=== PATIENT | female | born 1975 | race Caucasian/White ===

== ENCOUNTER → 2016-12-17 | Outpatient (CLI) | payer BC ==
--- NOTE | 2016-12-21 08:40 | MM ---
Reason for exam: screening (asymptomatic). Last mammogram was performed 1 year and 4 months ago. Physical Findings: A clinical breast exam by your physician is recommended on an annual basis and results should be correlated with mammographic findings. MG Screening Mammo w CAD Bilateral CC and MLO view(s) were taken. Prior study comparison: August 05, 2015, bilateral MG 3d diag mammo w/cad [facility]. The breast tissue is heterogeneously dense. This may lower the sensitivity of mammography. No significant changes when compared with prior studies. ASSESSMENT: Benign, BI-RAD 2 RECOMMENDATION: Routine screening mammogram of both breasts in 1 year.
== END | disposition home or self-care (01) ==
LOC: RADMAMWWP 06:53
PROVIDERS: ATTEND Obstetrics & Gynecology
DX: Z12.31 Encounter for screening mammogram for malignant neoplasm of breast (principal)

== ENCOUNTER 2017-05-24 21:40 | Emergency (ER) | payer BC ==
[2017-05-24 21:47] VITALS: BP 124/72; PULSE 122; RESP 22; TEMP 97.1
--- NOTE | 2017-05-24 21:55 | ED ---
General Adult HPI - General Chief complaint: Recheck/Abnormal Lab/Rx Stated complaint: Low K+ Time Seen by Provider: 05/24/17 21:53 Source: patient Mode of arrival: ambulatory Limitations: no limitations - History of Present Illness Initial comments: Cinthia is a 41-year-old female with past medical history listed below who presents to the emergency department for evaluation of muscle cramping. Patient reports that she has a history of hypokalemia resulting in severe muscle cramping. She reports that she follows with her primary care physician and has her electrolytes checked monthly. She reports that her potassium was checked on the ninth of this month and was noted to be 2.6. She was advised by her primary care physician that this is again low but normal potassium and that she does not need supplementation she continued to take her hydrochlorothiazide as prescribed. Patient reports that this afternoon she began feeling cramping in her arms and legs which was similar in character to previous episodes of hypokalemia. She then decided to eat multiple bananas and cantaloupe that she has been told that these are high in potassium. She does have a history of gastric bypass surgery and eating this much subsequent caused her to develop nausea, vomiting and diarrhea. She reports that throughout the evening her cramping has become worse and while in route to the hospital she developed cramping in her hands and now feels that she cannot move her hands at all. Patient says this is identical in character to previous episodes of hypokalemia. Patient reports a prior to onset of this muscle cramping she was in her usual state of health. She denies any fevers, chills, nausea, vomiting, chest pain or shortness of breath. - Related Data Home Medications Medication Instructions Recorded Confirmed ALPRAZolam [ALPRAZolam] 0.25 mg PO DAILY 10/02/15 05/24/17 metFORMIN HCL [metFORMIN HCL] 500 mg PO DAILY 10/02/15 05/24/17 traMADol HCL [Tramadol HCl] 50 mg PO DAILY 10/02/15 05/24/17 Amitriptyline HCl 25 mg PO DAILY 05/24/17 05/24/17 Hydrochlorothiazide 12.5 mg PO DAILY 05/24/17 05/24/17 Levothyroxine Sodium [Synthroid] 75 mcg PO DAILY 05/24/17 05/24/17 Lisinopril [Zestril] 5 mg PO DAILY 05/24/17 05/24/17 Phentermine HCl [Adipex-P] 37.5 mg PO QAM 05/24/17 05/24/17 Topiramate [Topamax] 100 mg PO HS 05/24/17 05/24/17 Allergies Allergy/AdvReac Type Severity Reaction Status Date / Time gentamicin [Gentamicin] AdvReac SHAKES Verified 05/24/17 22:38 Review of Systems ROS Statement: Those systems with pertinent positive or pertinent negative responses have been documented in the HPI. ROS Other: All systems not noted in ROS Statement are negative. Constitutional: Denies: fever, chills Eyes: Denies: vision change Respiratory: Denies: cough, dyspnea Cardiovascular: Reports: palpitations. Denies: chest pain Endocrine: Denies: fatigue Gastrointestinal: Reports: nausea, vomiting, diarrhea. Denies: abdominal pain Genitourinary: Denies: urgency, dysuria Musculoskeletal: Reports: as per HPI, myalgia Skin: Denies: rash, lesions Neurological: Denies: headache, weakness Psychiatric: Reports: anxiety Past Medical History Past Medical History: Diabetes Mellitus, Thyroid Disorder History of Any Multi-Drug Resistant Organisms: None Reported Past Surgical History: Bariatric Surgery, Section, Cholecystectomy, Tubal Ligation Past Psychological History: Anxiety Smoking Status: Never smoker Past Alcohol Use History: None Reported Past Drug Use History: None Reported General Exam Limitations: no limitations General appearance: alert, anxious Head exam: Present: atraumatic, normocephalic, normal inspection Eye exam: Present: normal appearance, PERRL ENT exam: Present: normal exam Neck exam: Present: normal inspection Respiratory exam: Present: normal lung sounds bilaterally. Absent: respiratory distress Cardiovascular Exam: Present: regular rate, tachycardia GI/Abdominal exam: Present: soft. Absent: distended Extremities exam: Present: normal capillary refill, other (bilateral wrists are kept in a flexed position, fingers are in claw position ). Absent: pedal edema , joint swelling Back exam: Present: normal inspection. Absent: CVA tenderness (R), CVA tenderness (L) Neurological exam: Present: alert, oriented X3 Psychiatric exam: Present: anxious Skin exam: Present: warm, dry, intact, normal color Course Vital Signs 05/24/17 21:43 Temperature 97.1 F L Pulse Rate 122 H Respiratory 22 Rate Blood Pressure 124/72 O2 Sat by Pulse 99 Oximetry - Reevaluation(s) Reevaluation #1: Patient was reevaluated, continues to lay in the bed and is crying. Patient was advised that her potassium level is normal. Patient then began complaining of worsening pain in her arms and legs describing is tearing sensation patient states that she cannot move her hands or arms. I advised patient to practice controlled slow breathing as she appears to be hyperventilating. 05/24/17 23:12 Reevaluation #2: Patient reevaluated, resting comfortably in bed playing games on her cell phone 05/25/17 00:14 Medical Decision Making - Medical Decision Making Patient was seen and evaluated Signs were reviewed Patient was noted to be tachycardic Upon initial evaluation patient was noted to be crying, holding her arms in a flexed position her wrist in a flexed position and her fingers in a claw position Patient states that she knows her potassium is too low as this causes muscle cramping for her Labs reveal normal potassium bicarb is mildly low at 21 as is likely secondary to hyperventilation Patient was reevaluated and advised abnormal labs I do believe there is a component of panic attack this patient's symptoms, we will treat with Toradol for muscle discomfort and Ativan for anxiety Patient symptoms resolved after Toradol and Ativan Patient was discharged home with a diagnosis of muscle spasm. Patient was advised to follow-up with her primary care physician to discuss the recurrence of the symptoms. I did discuss with the patient that I do feel there is a anxiety component, patient is on oral benzodiazepines at home. I had a long discussion with the patient regarding controlled breathing to help alleviate symptoms during these episodes. Patient was able to demonstrate box breathing technique, however she did not feel it improved her symptoms acutely. Advised patient I think this controlled breathing may help her should she start to feel panicked in the future. Patient's breast understanding. Patient was discharged home in stable condition. - Lab Data Result diagrams: 05/24/17 22:21 05/24/17 22:21 Lab Results 05/24/17 05/24/17 05/24/17 Range/Units 22:21 22:21 22:21 WBC 8.2 (3.8-10.6) k/uL RBC 4.39 (3.80-5.40) m/uL Hgb 11.4 (11.4-16.0) gm/dL Hct 34.5 (34.0-46.0) % MCV 78.6 L (80.0-100.0) fL MCH 26.0 (25.0-35.0) pg MCHC 33.0 (31.0-37.0) g/dL RDW 18.1 H (11.5-15.5) % Plt Count 439 (150-450) k/uL Neutrophils % 60 % Lymphocytes % 31 % Monocytes % 5 % Eosinophils % 2 % Basophils % 0 % Neutrophils # 5.0 (1.3-7.7) k/uL Lymphocytes # 2.6 (1.0-4.8) k/uL Monocytes # 0.4 (0-1.0) k/uL Eosinophils # 0.1 (0-0.7) k/uL Basophils # 0.0 (0-0.2) k/uL Anisocytosis Slight Microcytosis Slight D-Dimer 0.49 (<0.60) mg/L FEU Sodium 140 (137-145) mmol/L Potassium 4.3 (3.5-5.1) mmol/L Chloride 109 H (98-107) mmol/L Carbon Dioxide 21 L (22-30) mmol/L Anion Gap 10 mmol/L BUN 9 (7-17) mg/dL Creatinine 0.62 (0.52-1.04) mg/dL Est GFR (MDRD) Af Amer >60 (>60 ml/min/1.73 sqM) Est GFR (MDRD) Non-Af >60 (>60 ml/min/1.73 sqM) Glucose 90 (74-99) mg/dL Calcium 9.1 (8.4-10.2) mg/dL Magnesium 1.9 (1.6-2.3) mg/dL Creatine Kinase 38 (30-135) U/L Disposition Clinical Impression: Muscle spasm Disposition: HOME SELF-CARE Condition: Good Instructions: Muscle Spasm (ED) Referrals: Alvarez Rodriguez Jr, DO [Primary Care Provider] - 1-2 days Time of Disposition: 00:12
[2017-05-24] MEDS ORDERED: SODIUM CHLORIDE 0.9% 1,000 ML IV ONE (22:03)
[2017-05-24 22:32] LABS: Anisocytosis Slight; Basophils % (A) 0 %; CH 25.3; CHCM 32.4; Eosinophils # (A) 0.1 k/uL (0-0.7); Eosinophils % (A) 2 %; HCT 34.5 % (34.0-46.0); HDW 3.02; HGB 11.4 gm/dL (11.4-16.0); Luc # (Auto) 0.11; Luc % (Auto) 1; Lymphocytes # (A) 2.6 k/uL (1.0-4.8); Lymphocytes % (A) 31 %; MCV 78.6 fL (80.0-100.0); Mean Platelet Volume 7.6; Microcytosis Slight; Monocytes # (A) 0.4 k/uL (0-1.0); Monocytes % (A) 5 %; Neutrophils % (A) 60 %; RBC 4.39 m/uL (3.80-5.40); RDW 18.1 % (11.5-15.5); WBC 8.2 k/uL (3.8-10.6); WBC (Perox) 8.78
[2017-05-24 22:44] LABS: Anion Gap 10 mmol/L; Blood Urea Nitrogen 9 mg/dL (7-17); Calcium 9.1 mg/dL (8.4-10.2); Carbon Dioxide 21 mmol/L (22-30); Chloride 109 mmol/L (98-107); Creatine Kinase 38 U/L (30-135); Glucose 90 mg/dL (74-99); Magnesium 1.9 mg/dL (1.6-2.3); Non-African American GFR(MDRD) >60 (>60 ml/min/1.73 sqM); Potassium 4.3 mmol/L (3.5-5.1); Sodium 140 mmol/L (137-145)
[2017-05-24] MEDS ORDERED: LORazepam 2 MG/ML SYRINGE IV STA (23:12)
[2017-05-24] MEDS ORDERED: KETOROLAC 30 MG/ML 1 ML VIAL IVP STA (23:12)
== END 2017-05-25 00:20 | disposition home or self-care (01) ==
LOC: EC 21:40
DX: M62.838 Other muscle spasm (principal); F41.9 Anxiety disorder, unspecified; R00.0 Tachycardia, unspecified; E11.9 Type 2 diabetes mellitus without complications; E07.9 Disorder of thyroid, unspecified; Z79.84 Long term (current) use of oral hypoglycemic drugs; Z79.891 Long term (current) use of opiate analgesic; Z79.899 Other long term (current) drug therapy; Z88.1 Allergy status to other antibiotic agents
CPT/HCPCS: 99284; 96374; 96375; 96361; 36415; 85379; 80048; 82550; 83735; 85025; J2060; J1885

== ENCOUNTER → 2017-10-25 | Outpatient (CLI) | payer BC ==
[2017-10-25 15:15] LABS: Albumin 3.8 g/dL (3.5-5.0); Bilirubin, Delta 0.3 mg/dL (0.0-0.2); Magnesium 1.9 mg/dL (1.6-2.3); Total Bilirubin 0.3 mg/dL (0.2-1.3); Total Protein 6.6 g/dL (6.3-8.2)
[2017-10-25 19:37] LABS: Iron Saturation 4.3 (12.00-45.00)
== END | disposition home or self-care (01) ==
LOC: LABWHC1 14:16
PROVIDERS: ATTEND Family Medicine
DX: L03.211 Cellulitis of face (principal); G43.001 Migraine without aura, not intractable, with status migrainosus; D64.9 Anemia, unspecified
CPT/HCPCS: 36415; 80076; 82607; 82728; 82746; 83540; 83550; 83735

== ENCOUNTER → 2017-11-15 | Outpatient (CLI) | payer BC ==
--- NOTE | 2017-11-15 11:26 | US ---
EXAMINATION TYPE: US abdomen complete DATE OF EXAM: 11/15/2017 COMPARISON: CT CLINICAL HISTORY: R25.2 Cramping and Spasms. EXAM MEASUREMENTS: Liver Length: 12.0 cm Gallbladder Wall: Surgically absent CBD: 0.7 cm Spleen: 12.0 cm Right Kidney: 10.0 x 4.5 x 5.0 cm Left Kidney: 9.8 x 5.4 x 5.4 cm Pancreas: not visualize due to midline bowel gas Liver: unable to identify cyst seen on CT Gallbladder: Surgically absent CBD: measures 0.7 cm, upper limits of normal with cholecystectomy. Spleen: several small cystic areas seen Right Kidney: No hydronephrosis or masses seen Left Kidney: No hydronephrosis or masses seen Upper IVC: wnl Abd Aorta: wnl IMPRESSION: 1. Limitation due to bowel gas. 2. No suspicious acute changes.
== END | disposition home or self-care (01) ==
LOC: RADUSWWP 06:48
PROVIDERS: ATTEND Family Medicine
DX: R10.84 Generalized abdominal pain (principal); R94.5 Abnormal results of liver function studies
CPT/HCPCS: 76700

== ENCOUNTER → 2018-02-16 | Outpatient (CLI) | payer BC ==
--- NOTE | 2018-02-17 10:36 | MM ---
Reason for exam: screening (asymptomatic). Last mammogram was performed 1 year and 2 months ago. Physical Findings: A clinical breast exam by your physician is recommended on an annual basis and results should be correlated with mammographic findings. MG Screening Mammo w CAD Bilateral CC and MLO view(s) were taken. Prior study comparison: December 17, 2016, bilateral MG screening mammo w CAD. August 05, 2015, bilateral MG 3d diag mammo w/cad [facility]. The breast tissue is heterogeneously dense. This may lower the sensitivity of mammography. No suspicious abnormality. No significant changes when compared with prior studies. ASSESSMENT: Negative, BI-RAD 1 RECOMMENDATION: Routine screening mammogram of both breasts in 1 year.
== END | disposition home or self-care (01) ==
LOC: RADMAMWWP 06:49
PROVIDERS: ATTEND Obstetrics & Gynecology
DX: Z12.31 Encounter for screening mammogram for malignant neoplasm of breast (principal)
CPT/HCPCS: 77067

== ENCOUNTER → 2018-02-22 | Outpatient (CLI) | payer BC ==
[2018-02-22 11:01] LABS: Anisocytosis Slight; Basophils % (A) 0 %; Eosinophils # (A) 0.1 k/uL (0-0.7); Eosinophils % (A) 2 %; HCT 34.7 % (34.0-46.0); HGB 10.5 gm/dL (11.4-16.0); Hypochromasia Marked; Lymphocytes # (A) 1.9 k/uL (1.0-4.8); Lymphocytes % (A) 28 %; MCH 22.8 pg (25.0-35.0); MCHC 30.4 g/dL (31.0-37.0); MCV 75.1 fL (80.0-100.0); Mean Platelet Volume 6.7; Microcytosis Slight; Monocytes # (A) 0.3 k/uL (0-1.0); Monocytes % (A) 4 %; Neutrophils # (A) 4.4 k/uL (1.3-7.7); Neutrophils % (A) 65 %; Platelet Count 437 k/uL (150-450); RBC 4.61 m/uL (3.80-5.40); RDW 17.3 % (11.5-15.5); WBC 6.8 k/uL (3.8-10.6)
== END | disposition home or self-care (01) ==
LOC: LABPAT 10:09
PROVIDERS: ATTEND Obstetrics & Gynecology
DX: Z01.812 Encounter for preprocedural laboratory examination (principal); N92.0 Excessive and frequent menstruation with regular cycle; N94.6 Dysmenorrhea, unspecified
CPT/HCPCS: 36415; 85025

== ENCOUNTER 2018-03-03 07:05 | Day surgery (SDC) | payer BC ==
[2018-02-28 11:27] VITALS: BMI 36.7
--- NOTE | 2018-03-02 15:30 | HP ---
HISTORY AND PHYSICAL HISTORY OF PRESENT ILLNESS: The patient is a 42-year-old 5, para 2, 1, 2, 3 who presented to the office complaining of significant heavy bleeding with dysmenorrhea. We discussed a number of different potential options and she has failed 1 years worth of oral contraceptives. After further discussion, she has requested diagnostic hysteroscopy with NovaSure endometrial ablation in an attempt to mitigate both problems. PAST MEDICAL HISTORY: Significant for diabetes as well as known fibroids. SURGICAL HISTORY: Significant for sections on 3 separate occasions as well as a cholecystectomy. She additionally has had a gastric sleeve procedure. She had tubal ligation performed as well as two elective interruptions of . OBSTETRICAL/MEDICATION ASSISTANT HISTORY: 5, para 2, 1, 2, 3 with 3 sections. Method of contraception is tubal ligation. Gynecologic history is unremarkable with no history of any infections to include STDs. FAMILY HISTORY: Noncontributory. SOCIAL HISTORY: The patient is and works outside the home. She is a nonsmoker and denies any significant alcohol or any other social concerns. CURRENT MEDICATIONS: Include amitriptyline 25 mg q.h.s., hydrochlorothiazide 25 mg daily, metformin 500 mg daily, and Adipex at the time of her visit. ALLERGIES: GENTAMICIN causes fever and shaking. REVIEW OF SYSTEMS: Is confined to history of present illness. PHYSICAL EXAMINATION: In general, this is a well-developed, well-nourished, mildly obese white female in no acute distress. Her heart has a regular rhythm and rate without murmur. Her lungs are clear to auscultation bilaterally in all casillas. Her abdomen is nondistended, has normoactive bowel sounds, soft, nontender, and without any palpable masses, hepatosplenomegaly, or hernias. Her extremities without any cyanosis, clubbing, or edema and are nontender to palpation bilaterally. Pelvic examination demonstrates normal external genitalia and the BUS with normal vaginal mucosa and cervix. There is no cervical motion tenderness. Uterus is approximately 5 weeks in size, anteverted, mobile, minimally tender, and normal in shape. The adnexa are normal and nontender without mass bilaterally. ASSESSMENT AND PLAN: Menorrhagia and dysmenorrhea: After discussion of multiple different options for treatment, the patient has requested diagnostic hysteroscopy with NovaSure endometrial ablation. She is not allowed to use nonsteroidal anti-inflammatories given her history of gastric sleeve. The risks and complications of the procedures have been thoroughly discussed including the risk for bleeding, bleeding requiring transfusion, infection, and injury to local structures to specifically include uterine perforation, Asherman syndrome, and subsequent hematometra. She has understood all the concerns and has agreed to proceed. At this time, we are scheduled for diagnostic hysteroscopy with NovaSure and endometrial ablation on the morning of March 03, 2018. MMODL / IJN: [id number] /
[~2018-03-03 07:05] MED LIST: DEXAMETHASONE SOD PHOSPHATE 10 MG/ML 1 ML VIAL IV ONE; LACTATED RINGERS 1,000 ML IV SCH; MIDAZOLAM 2 MG/2 ML VIAL IV PRN; ONDANSETRON 4 MG/2 ML VIAL IVP ONE; Pre Op ABX Message 1 EACH MISC MISCELLANE ONE
[2018-03-03 07:57] LABS: Glucose,Whole Blood 117 mg/dL (75-99)
[2018-03-03] MEDS ORDERED: LIDOCAINE 1% 20 ML VIAL (10MG/ML) FOR IV START INTRADERMA ONE (07:58)
[2018-03-03] MEDS ORDERED: fentaNYL (PF) 50 MCG/ML 2 ML AMP ONE (08:28)
[2018-03-03] MEDS ORDERED: LIDOCAINE 1% INJ 10MG/ML (20 ML MDV) ONE (08:28)
[2018-03-03] MEDS ORDERED: PROPOFOL 10 MG/ML 20 ML VIAL IV ONE (08:28)
[2018-03-03] MEDS ORDERED: KETOROLAC 30 MG/ML 1 ML VIAL ONE (08:28)
[2018-03-03] MEDS ORDERED: MIDAZOLAM 2 MG/2 ML VIAL ONE (08:28)
[2018-03-03 09:16] VITALS: TEMP 97
[2018-03-03] MEDS ORDERED: SIMETHICONE 80 MG CHEWABLE PO PRN (09:21)
[2018-03-03] MEDS ORDERED: diphenhydrAMINE 50 MG/ML 1 ML VIAL IVP PRN (09:21)
[2018-03-03] MEDS ORDERED: ONDANSETRON 4 MG/2 ML VIAL IVP PRN (09:21)
[2018-03-03] MEDS ORDERED: Acetaminophen-Codeine 300-30mg TAB PO PRN ×2 (09:21)
[2018-03-03] MEDS ORDERED: METOCLOPRAMIDE 5 MG/ML 2 ML VIAL IVP PRN (09:21)
[2018-03-03] MEDS: HYDROmorphone 0.5 MG/0.5 ML SYRINGE IVP PRN ×3 (09:27→10:37)
[2018-03-03] MEDS ORDERED: ACETAMINOPHEN IV (For NPO) 1,000 MG in EMPTY BAG 1 BAG IVPB ONE (09:30)
[2018-03-03] MEDS ORDERED: LACTATED RINGERS 1,000 ML IV SCH (09:30)
--- NOTE | 2018-03-03 09:31 | P.OP ---
Date of Procedure: 03/03/18 Preoperative Diagnosis: #1. Menorrhagia #2. Dysmenorrhea #3. Fibroid uterus Postoperative Diagnosis: Same Procedure(s) Performed: #1. Diagnostic hysteroscopy #2. NovaSure endometrial ablation Anesthesia: other (Gen. by facemask) Surgeon: Franky Jackson Estimated Blood Loss (ml): 5 IV fluids (ml): 400 Urine output (ml): 10 Pathology: none sent Condition: stable Disposition: PACU Operative Findings: Preoperative pelvic examination demonstrated a roughly 5-6 weeks slightly anteverted mobile of uterus with probable fundal fibroids in the range of 1-2 cm in maximal size. Intraoperatively, the hysteroscopic view of the cavity demonstrated a normal smooth endometrial cavity with no significant shaggy tissue. The bilateral tubal ostia were seen. There is no apparent endometrial pathology. The settings for the NovaSure tool where a length of 5.0 cm, a width of 4.7 cm, and a total power 129 W. The initial NovaSure tool failed 3 separate times with a vacuum failure causing the to be replaced. The total run time of that machine was perhaps 45 seconds between the 3 runs. Using a second tool with the same settings, the total run time was for 70 seconds after which time the base for unit read "procedure complete." The postprocedural result appeared to be excellent. The patient is a relatively poor candidate for vaginal hysterectomy should become necessary. Description of Procedure: The patient was prepped and draped in usual fashion after general anesthesia was administered by the anesthesiologist. A weighted speculum was placed and the bladder drained of approximately 10 mL of clear german urine. The anterior lip of the cervix was grasped with a single-tooth tenaculum and the uterus sounded to 9 cm with a cervical length of approximately 4 cm. Dilation was carried out to admit the diagnostic hysteroscope which was placed with the findings as noted above. There was no evidence of intrauterine/intra- endometrial pathology. There is no evidence of fibroid impingement upon the endometrial cavity. The bilateral tubal ostia were seen. The scope was then set aside and further dilation carried out to admit the NovaSure tool which was placed to the fundus of the uterus, opened, and seated well. The settings for the tool where a length of 5.0 cm, a width of 4.7 cm resulting in a total power 129 W. The cavity check was attempted and passed without difficulty and the tool was enabled. The run was started. However, after approximately 20-25 seconds, the tool disengaged with an error light on the base unit reading "vacuum failure." The tool was really enabled and the run restarted with a similar result after approximately 10-15 seconds. One last attempt was made with the indwelling tool after re-enabling the device which again ended in failure at approximately 10 seconds. Each time the base unit read "vacuum failure." As result, this too was discarded and a second tool placed with the same settings noted for the tool. The cavity check was attempted and passed without difficulty and the tool was enabled. The run was started and, after a total run time of 70 seconds, the tool disengaged and the base unit read "procedure complete." The 2 was closed, and removed, and discarded. The diagnostic scope was placed within the cavity of the uterus again and the findings appeared to be excellent. All instrumentation was then removed. There was no ongoing bleeding from either the cervix or the tenaculum sites. Estimated blood loss for the entire case was less than 5 mL. There were no complications. All sponge, instrument, and needle counts were correct. The patient tolerated the procedure well and proceeded to the recovery room in stable condition.
[2018-03-03 09:39] LABS: Glucose,Whole Blood 132 mg/dL (75-99)
[2018-03-03 11:07] VITALS: RESP 18
[2018-03-03 11:30] VITALS: BP 100/66; PULSE 69
[2018-03-04] MEDS ORDERED: ACETAMINOPHEN TAB 325 MG TAB PO PRN (09:22)
== END 2018-03-03 11:44 | disposition home or self-care (01) ==
LOC: OR 07:05
PROVIDERS: ATTEND Obstetrics & Gynecology
DX: N92.0 Excessive and frequent menstruation with regular cycle (principal); N94.6 Dysmenorrhea, unspecified; D25.9 Leiomyoma of uterus, unspecified; E11.9 Type 2 diabetes mellitus without complications; E07.9 Disorder of thyroid, unspecified; F41.9 Anxiety disorder, unspecified; Z88.1 Allergy status to other antibiotic agents; Z79.84 Long term (current) use of oral hypoglycemic drugs; Z79.891 Long term (current) use of opiate analgesic; Z79.899 Other long term (current) drug therapy; Z98.84 Bariatric surgery status; Z98.51 Tubal ligation status
CPT/HCPCS: 58563; 81025; 84703; J2250; J1100; J2405; J2001; J3010; J1885; J0131; J2704; J1170

== ENCOUNTER → 2018-08-24 | Outpatient (CLI) | payer BC ==
--- NOTE | 2018-08-24 12:54 | US ---
EXAMINATION TYPE: US kidneys/renal and bladder DATE OF EXAM: 08/24/2018 COMPARISON: US abd complete CLINICAL HISTORY: R31.9 hematuria. EXAM MEASUREMENTS: Right Kidney: 10.4 x 4.7 x 5.3 cm Left Kidney: 11.3 x 5.4 x 5.1 cm Right Kidney: No hydronephrosis or masses seen Left Kidney: No hydronephrosis or masses seen Bladder: wnl Bilateral Jets seen: Yes There is no evidence for hydronephrosis at this point in time. No nephrolithiasis is seen. No janelle s are identified. The urinary bladder is anechoic. Bilateral ureteral jets are seen. IMPRESSION: Unremarkable study
== END | disposition home or self-care (01) ==
LOC: RADUSWWP 12:15
PROVIDERS: ATTEND Family Medicine
DX: R31.9 Hematuria, unspecified (principal)
CPT/HCPCS: 76770

== ENCOUNTER → 2018-11-21 | Outpatient (CLI) | payer BC ==
[2018-11-21 17:01] LABS: Blood Urea Nitrogen 10 mg/dL (7-17)
--- NOTE | 2018-11-22 07:04 | CT ---
EXAMINATION TYPE: CT abdomen pelvis w con DATE OF EXAM: 11/21/2018 HISTORY: LLQ pain CT DLP: 1622mGycm Automated Exposure Control for Dose Reduction was Utilized. CONTRAST: CT scan of the abdomen and pelvis is performed with IV Contrast, patient injected with 100 mL of Isov ue 300. COMPARISON: CT abdomen and pelvis October 03, 2015 FINDINGS: LUNG BASES: No significant abnormality is appreciated. LIVER/GB: Cholecystectomy clips are present. There is occasional subcentimeter low dense lesions scat tered throughout the liver too small to further characterize for reference lateral right hepatic lobe axial image 13, lesions favor benign without significant interval change from prior PANCREAS: No significant abnormality is seen. SPLEEN: There is redemonstration of heterogeneous hypodense round lesions throughout the spleen measu ring up to 1.8 cm on long axis axial image 22. Lesions are of uncertain etiology or significance but not significantly changed from prior and thus favored benign. ADRENALS: No significant abnormality is seen. KIDNEYS: 2 subcentimeter low dense lesions right kidney axial image 37 series 7 are too small to furt her characterize but presumed benign not significant change from prior study image 42 series 5. BOWEL: Oral contrast reaches level of terminal ileum. There is no suspicious small or large bowel dil atation. Normal-appearing appendix is seen from cecum right upper pelvis. There is mild wall thickeni ng in the left and sigmoid colon. UTERUS/ADNEXA: Heterogeneous anteverted uterus with lobulation is present suggesting underlying fibro ids. Scattered pelvic phleboliths are seen. Scattered pelvic phleboliths are identified. LYMPH NODES: No greater than 1cm abdominal or pelvic lymph nodes are appreciated. OSSEOUS STRUCTURES: Mild to moderate narrowing with moderate spurring in both hip joints is present. Mild multilevel anterior spurring in the thoracic spine is present. OTHER: No significant additional abnormality is seen. IMPRESSION: Mild wall thickening left and sigmoid colon could reflect product of poor distention meehan teri a mild diffuse colitis cannot be excluded, correlate clinically. Differential includes infectious and inflammatory etiologies.
== END | disposition home or self-care (01) ==
LOC: RADCTMAIN 15:36
PROVIDERS: ATTEND Family Medicine
DX: K63.89 Other specified diseases of intestine (principal); R10.32 Left lower quadrant pain
CPT/HCPCS: 82565; 84520; 74177; 36415; Q9967

== ENCOUNTER → 2018-12-06 | Outpatient (CLI) | payer BC ==
[2018-12-06 13:34] VITALS: BP 130/87; PULSE 89; RESP 16; TEMP 97.8; BMI 40.4
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
[2018-12-06 14:55] LABS: Anisocytosis Slight; HCT 35.2 % (34.0-46.0); HGB 11.4 gm/dL (11.4-16.0); MCH 26.7 pg (25.0-35.0); MCHC 32.3 g/dL (31.0-37.0); MCV 82.5 fL (80.0-100.0); Mean Platelet Volume 7.4; Platelet Count 378 k/uL (150-450); RBC 4.27 m/uL (3.80-5.40); RDW 16.9 % (11.5-15.5)
[2018-12-06 15:02] LABS: INR 0.9 (<1.2); Partial Thromboplastin Time 25.4 sec (22.0-30.0); Prothrombin Time 9.9 sec (9.0-12.0)
[2018-12-06 22:19] LABS: Anion Gap 4.3 mmol/L (4.00-12.00); Calcium 8.9 mg/dL (8.7-10.3); Carbon Dioxide 26.7 mmol/L (21.6-31.8); LDL Cholesterol,Calculated 77.6 mg/dL (0.0-131.0); Magnesium 1.9 mg/dL (1.5-2.4); Phosphorus 2.7 mg/dL (2.4-5.1); Total Bilirubin 0.3 mg/dL (0.3-1.2); VLDL Calculation 20.4 mg/dL (5.00-40.00)
[2018-12-06 22:26] LABS: Vitamin D 25 Hydroxy 38.2 ng/mL (30.0-100.0)
[2018-12-06 22:39] LABS: Folate, Serum 12.8 ng/mL; Iron Saturation 7.99 (12.00-45.00); Parathyroid Hormone Intact 121.3 pg/mL (14.0-72.0)
[2018-12-06 22:54] LABS: Hemoglobin A1C 6.5 % (4.0-6.0)
[2018-12-07 13:43] LABS: Zinc, Serum 61 ug/dL (60-130)
[2018-12-08 06:35] LABS: Vit B1(Thiamine) 79 ug/L (38-122)
[2018-12-08 06:47] LABS: Vitamin A 40 ug/dL (38-106)
== END | disposition home or self-care (01) ==
LOC: BARWHC3 12:32
PROVIDERS: ATTEND Surgery Plastic and Reconstructive Surgery
DX: E87.6 Hypokalemia (principal); R10.32 Left lower quadrant pain; E66.01 Morbid (severe) obesity due to excess calories; E11.9 Type 2 diabetes mellitus without complications; E21.1 Secondary hyperparathyroidism, not elsewhere classified; D50.9 Iron deficiency anemia, unspecified; E89.1 Postprocedural hypoinsulinemia; E44.0 Moderate protein-calorie malnutrition; E55.9 Vitamin D deficiency, unspecified; K74.1 Hepatic sclerosis; N19 Unspecified kidney failure; K50.90 Crohn's disease, unspecified, without complications; Z98.84 Bariatric surgery status; Z90.49 Acquired absence of other specified parts of digestive tract; Z98.51 Tubal ligation status; Z68.41 Body mass index [BMI] 40.0-44.9, adult
CPT/HCPCS: 36415; 80053; 80061; 82306; 82525; 82607; 82728; 82746; 83036; 83540; 83550; 83735; 83970; 84100; 84134; 84255; 84425; 84443; 84590; 84630; 85027; 85610; 85730; 99211

== ENCOUNTER 2019-01-04 07:10 | Day surgery (SDC) | payer BC ==
[2019-01-02 14:46] VITALS: BMI 39.1
[~2019-01-04 07:10] MED LIST changes: -DEXAMETHASONE SOD PHOSPHATE 10 MG/ML 1 ML VIAL IV ONE; +LIDOCAINE 1% 20 ML VIAL (10MG/ML) FOR IV START INTRADERMA PRN; -MIDAZOLAM 2 MG/2 ML VIAL IV PRN; -ONDANSETRON 4 MG/2 ML VIAL IVP ONE; -Pre Op ABX Message 1 EACH MISC MISCELLANE ONE
[2019-01-04 07:28] VITALS: TEMP 97.8
[2019-01-04 07:34] LABS: Glucose,Whole Blood 123 mg/dL (75-99)
[2019-01-04] MEDS ORDERED: LACTATED RINGERS 1,000 ML IV ONE (07:36)
[2019-01-04] MEDS ORDERED: PROPOFOL 10 MG/ML 20 ML VIAL IV ONE (07:59)
[2019-01-04] MEDS ORDERED: LIDOCAINE 1% INJ 10MG/ML (20 ML MDV) ONE (07:59)
--- NOTE | 2019-01-04 08:02 | P.GSHP ---
History of Present Illness H&P Date: 01/04/19 CHIEF COMPLAINT: GERD and colon screen HISTORY OF PRESENT ILLNESS: The patient is a 43-year-old female who presents with gastroesophageal reflux disease and need for colon screen. Upper and lower endoscopy were offered for further evaluation and management. PAST MEDICAL HISTORY: Please see list. PAST SURGICAL HISTORY: Please see list. MEDICATIONS: Please see list. ALLERGIES: Please see list. SOCIAL HISTORY: No illicit drug use FAMILY HISTORY: No reports of Crohn disease or ulcerative colitis. REVIEW OF ORGAN SYSTEMS: CONSTITUTIONAL: No reports of fevers or chills. GI: Denies any blood in stools or constipation. PHYSICAL EXAM: VITAL SIGNS: Stable GENERAL: Well-developed pleasant in no acute distress. HEENT: No scleral icterus. Extraocular movements grossly intact. Moist buccal mucosa. NECK: Supple without lymphadenopathy. CHEST: Unlabored respirations. Equal bilateral excursions. CARDIOVASCULAR: Regular rate and rhythm. Distal 2+ pulses. ABDOMEN: Soft, nondistended. MUSCULOSKELETAL: No clubbing, cyanosis, or edema. ASSESSMENT: 1. Gastroesophageal reflux disease 2. Colon screen. PLAN: 1. Recommend proceeding with an upper and lower endoscopy Past Medical History Past Medical History: Diabetes Mellitus, Thyroid Disorder Additional Past Medical History / Comment(s): abd. pain lower left side for approx. 3 months, intermittent, some vomiting, restless leg History of Any Multi-Drug Resistant Organisms: None Reported Past Surgical History: Bariatric Surgery, Section, Cholecystectomy, Tubal Ligation, Uterine Ablation Additional Past Surgical History / Comment(s): C/S x3, gastric sleeve 2012 Past Anesthesia/Blood Transfusion Reactions: No Reported Reaction Smoking Status: Never smoker Medications and Allergies Home Medications Medication Instructions Recorded Confirmed Type metFORMIN HCL 500 mg PO DAILY 10/02/15 01/02/19 History traMADol HCL [Tramadol HCl] 50 mg PO DAILY PRN 10/02/15 01/02/19 History Hydrochlorothiazide 12.5 mg PO DAILY 05/24/17 01/02/19 History Phentermine HCl [Adipex-P] 37.5 mg PO QAM 05/24/17 01/02/19 History Topiramate [Topamax] 100 mg PO HS 05/24/17 01/02/19 History ALPRAZolam [Xanax] 0.25 mg PO BID PRN 01/02/19 01/02/19 History Cyclobenzaprine [Flexeril] 10 mg PO HS 01/02/19 01/02/19 History Levothyroxine Sodium [Synthroid] 50 mcg PO DAILY 01/02/19 01/02/19 History Allergies Allergy/AdvReac Type Severity Reaction Status Date / Time gentamicin [Gentamicin] AdvReac SHAKES Verified 01/02/19 14:22 Surgical - Exam Vital Signs Temp Pulse Resp BP Pulse Ox 97.8 F 106 H 18 135/78 98 01/04/19 07:27 01/04/19 07:27 01/04/19 07:27 01/04/19 07:27 01/04/19 07:27 Results - Labs Abnormal Lab Results - Last 24 Hours (Table) 01/04/19 Range/Units 07:33 POC Glucose (mg/dL) 123 H (75-99) mg/dL
--- NOTE | 2019-01-04 08:42 | P.PCN ---
Date of Procedure: 01/04/19 Operative Findings: 35-40 cm hiatal hernia, biopsies obtained along the antrum, dilated proximal sleeve, Description of Procedure: PREOPERATIVE DIAGNOSIS: Status post sleeve gastrectomy. Gastroesophageal reflux disease. POSTOPERATIVE DIAGNOSIS: Status post sleeve gastrectomy. Gastroesophageal reflux disease. Diaphragmatic hiatal hernia without obstruction. Chronic superficial gastritis. OPERATION: Esophagogastroduodenoscopy with cold forceps biopsies along the antrum. SURGEON: Bhumika Ordaz MD ANESTHESIA: MAC. INDICATIONS: The patient is a 60-year-old female who presents with a history of sleeve gastrectomy with abdominal pain. She is over 5 years out from her bariatric procedure. Benefits and risks of the procedure were described. Informed consent was obtained. DESCRIPTION: The patient was brought into the endoscopy suite and laid in the left lateral decubitus position. An Olympus gastroscope was passed along the posterior oropharynx down to the distal esophagus where the squamocolumnar junction was at 37 centimeters from the incisors remarkable for chronic erosive esophagitis, LA grade A without ulceration. The stomach was entered where she had a 6-cm hiatal hernia with a diaphragmatic hiatus found at 43 cm. The sleeve reservoir moderately large allowing easy retroflexion of the scope to view the lower esophageal valve. Chronic gastritis albeit mild was found along the antrum with cold biopsies obtained. The first through third portion of the duodenum was examined and unremarkable. The scope again had easily retroflexed along the antrum. The stomach was desufflated. The patient tolerated the procedure well. FINDINGS: No acute ulceration found along her sleeve. No corkscrewing sleeve gastrectomy. Squamocolumnar junction at 37 cm from the incisors. Diaphragmatic hiatus at 43 cm. Moderate large gastric reservoir with prior history of sleeve gastrectomy allowing easy retroflexion of the gastroscope to view the lower esophageal valve. Hiatal hernia 6 cm, fixed. LA grade A erosive esophagitis. No active duodenitis. Chronic gastritis. RECOMMENDATIONS: Upper endoscopy as needed. May benefit from antireflux operation. Continue with current therapy.
--- NOTE | 2019-01-04 08:43 | P.PCN ---
Date of Procedure: 01/04/19 Operative Findings: Random biopsies along colon identified for history of colitis. No evidence of sigmoid diverticulosis or pandiverticulosis found Description of Procedure: PREOPERATIVE DIAGNOSIS: History of colitis POSTOPERATIVE DIAGNOSIS: History of colitis OPERATION: Colonoscopy to the ileocecal valve and appendiceal orifice. SURGEON: Bhumika Ordaz MD. ANESTHESIA: MAC. INDICATIONS: The patient is a 43-year-old female who presents for colonoscopy screening. Jhon efits and risks were described and informed consent was obtained. DESCRIPTION OF PROCEDURE: The patient had undergone Gatorade, MiraLAX and Dulcolax prep. He had been brought into the operating room and laid in the left lateral decubitus position. After adequate intravenous sedation, the rectum was examined with 2% lidocaine jelly. No external hemorrhoids were encountered. The rectal tone was within normal limits. No lesions were palpated in the rectal vault. An Olympus colonoscope was advanced until the ileocecal valve and appendiceal orifice were clearly viewed. The prep was excellent with clear visualization of the mucosal folds. The scope was removed with visualization of each mucosal fold. Scattered diverticulosis was encountered. No colonic polyps were found. No evidence of focal colitis was found. Retroflexion of the scope demonstrated grade 1 internal hemorrhoids without active bleeding or inflammation. The colon was desufflated. The patient had tolerated the procedure well. Withdrawal time was over 6 minutes. FINDINGS: Aronchick preparation quality scale (1-5) Internal hemorrhoids, grade 1 No external prolapsed hemorrhoids. No arteriovenous malformations. No adenomatous polyps. No focal colitis. RECOMMENDATIONS: Lower endoscopy every 10 years per screening guidelines; however down to 5 years with family history of colon polyps or cancer. Plan - Discharge Summary Discharge Rx Participant: Yes New Discharge Prescriptions: No Action traMADol HCL [Tramadol HCl] 50 mg PO DAILY PRN PRN Reason: Pain metFORMIN HCL 500 mg PO DAILY Topiramate [Topamax] 100 mg PO HS Phentermine HCl [Adipex-P] 37.5 mg PO QAM Hydrochlorothiazide 12.5 mg PO DAILY ALPRAZolam [Xanax] 0.25 mg PO BID PRN PRN Reason: Anxiety Levothyroxine Sodium [Synthroid] 50 mcg PO DAILY Cyclobenzaprine [Flexeril] 10 mg PO HS Discharge Medication List metFORMIN HCL 500 mg PO DAILY 01/28/16 [History] traMADol HCL [Tramadol HCl] 50 mg PO DAILY PRN 10/02/15 [History] Hydrochlorothiazide 12.5 mg PO DAILY 05/24/17 [History] Phentermine HCl [Adipex-P] 37.5 mg PO QAM 05/24/17 [History] Topiramate [Topamax] 100 mg PO HS 05/24/17 [History] ALPRAZolam [Xanax] 0.25 mg PO BID PRN 01/02/19 [History] Cyclobenzaprine [Flexeril] 10 mg PO HS 01/02/19 [History] Levothyroxine Sodium [Synthroid] 50 mcg PO DAILY 01/02/19 [History]
[2019-01-04 09:10] VITALS: RESP 16
[2019-01-04 09:44] VITALS: BP 110/71; PULSE 80
--- NOTE | 2019-01-04 09:45 | CT ---
EXAMINATION TYPE: CT abdomen pelvis wo con DATE OF EXAM: 01/04/2019 COMPARISON: 11/21/2018 INDICATION: Post Op Colonoscopy. Pelvic pain. DLP: 881 mGycm, Automated exposure control for dose reduction was used. CONTRAST: 0 mL of Isovue 300. Study performed without Oral Contrast TECHNIQUE: Axial images were obtained from above the diaphragm to the pubic rami in the axial plane a t 5 mm thick sections. Reconstructed images are reviewed on the computer in the coronal plane. FINDINGS: Limited CT sections are obtained the lung bases. Some minimal pneumonitis changes present in the lef t lung base most likely on the basis of some mild atelectasis.. CT ABDOMEN: No free air is identified. Colon is distended with bowel gas post colonoscopy. Liver: Normal Spleen: Normal Pancreas: Normal Adrenal glands: The adrenal glands are normal. Gallbladder: Surgically absent Kidneys: No masses are evident. No hydronephrosis is present. No cysts are present. No renal stone s are evident. Aorta: Normal Inferior vena cava: Normal. CT PELVIS: Colon is distended with post colonoscopy air predominantly within the ascending colon region and into the transverse colon region. The descending colon appears decompressed. There is some air within dis shan small bowel loops. Small bowel loops otherwise appear unremarkable. Note is made of postsurgical change within the stomach. Appendix: Normal as visualized. Urinary bladder: Normal. Genitourinary structures: Uterus is normal. Adnexal regions are clear. No free fluid is within the pe lvis. Osseous structures: No suspicious lytic or sclerotic lesions. IMPRESSIONS: 1. Normal-appearing post colonoscopy air within the colon and distal small bowel. No free air is elisabeth ntified.
--- NOTE | 2019-01-04 10:19 | P.PN ---
Progress Note - Text Progress Note Date: 01/04/[address] of the abdomen pelvis obtained secondary to worsening right lower quadrant pain following computed tomography scan. Patient also reported new bulge along the abdomen. Stat CT of the abdomen pelvis obtained for possible perforated viscus. CT imaging independently reviewed otherwise unremarkable for perforated viscus. No evidence of colitis. Evidence of umbilical hernia identified. Patient cleared for discharge.
== END 2019-01-04 10:32 | disposition home or self-care (01) ==
LOC: ORWHC2ENDO 07:10
PROVIDERS: ATTEND Surgery Plastic and Reconstructive Surgery
DX: K22.10 Ulcer of esophagus without bleeding (principal); K29.50 Unspecified chronic gastritis without bleeding; K57.30 Diverticulosis of large intestine without perforation or abscess without bleeding; K44.9 Diaphragmatic hernia without obstruction or gangrene; K52.9 Noninfective gastroenteritis and colitis, unspecified; K64.0 First degree hemorrhoids; E11.9 Type 2 diabetes mellitus without complications; E07.9 Disorder of thyroid, unspecified; G25.81 Restless legs syndrome; Z98.84 Bariatric surgery status; G89.18 Other acute postprocedural pain; R10.2 Pelvic and perineal pain; Z79.84 Long term (current) use of oral hypoglycemic drugs; Z79.890 Hormone replacement therapy; Z79.899 Other long term (current) drug therapy; Z88.1 Allergy status to other antibiotic agents
CPT/HCPCS: 81025; 88305; 74176; 45380; 43239; J2001; J2704

== ENCOUNTER → 2019-01-11 | Outpatient (CLI) | payer BC ==
[2019-01-11 10:52] VITALS: BP 128/75; PULSE 98; RESP 16; TEMP 98.1; BMI 38.9
--- NOTE | 2019-01-11 11:27 | P.PN ---
Subjective Progress Note Date: 01/11/19 DATE OF SERVICE: 01/11/2019 CHIEF COMPLAINT: Left lower abdominal pain HISTORY OF PRESENT ILLNESS: Piedad Ramirez is a 43-year-old female who comes in with new left lower quadrant abdominal pain following uterine ablation no reports of vaginal bleeding. She also reports weight gain following her procedu re. She is status post sleeve gastrectomy over 6 years ago, 2012. She also completed upper and lower endoscopies. At height of 5 feet 2 inches, her ideal body weight is 135 pounds. Her highest weight was 258 pounds. Her BMI was 47.3. She comes in 213 pounds from 220 pounds, 1 month ago. She has lost 8 pounds in 1 month. Her body mass index is 39.0. She is 78 pounds overweight. Total weight loss is 45 pounds. Percent excess weight loss is 37%. PAST MEDICAL HISTORY: 1. Morbid obesity due to excess calories 2. Body mass index of 47.3, initial 3. Hypothyroidism 4. Anxiety 5. Chronic pain 6. Hypertensive heart disease 7. Diabetes type 2 PAST SURGICAL HISTORY: 1. section 2. Cholecystectomy 3. Tubal ligation 4. Uterine Ablation 5. Sleeve gastrectomy HOME MEDICATIONS: ALLERGIES: Medications and Allergies Home Medications Medication Instructions Recorded Confirmed Type metFORMIN HCL 500 mg PO DAILY 10/02/15 01/11/19 History traMADol HCL [Tramadol HCl] 50 mg PO DAILY PRN 10/02/15 01/11/19 History Hydrochlorothiazide 12.5 mg PO DAILY 05/24/17 01/11/19 History Phentermine HCl [Adipex-P] 37.5 mg PO QAM 05/24/17 01/11/19 History Topiramate [Topamax] 100 mg PO HS 05/24/17 01/11/19 History ALPRAZolam [Xanax] 0.25 mg PO BID PRN 01/02/19 01/11/19 History Cyclobenzaprine [Flexeril] 10 mg PO HS 01/02/19 01/11/19 History Levothyroxine Sodium [Synthroid] 50 mcg PO DAILY 01/02/19 01/11/19 History Allergies Allergy/AdvReac Type Severity Reaction Status Date / Time gentamicin [Gentamicin] AdvReac SHAKES Verified 01/11/19 11:23 SOCIAL HISTORY: No past tobacco use. FAMILY HISTORY: No family history of ulcerative colitis disease or Crohn's disease. Family history of morbid obesity. No lupus in the family. No reports of stomach or esophageal cancer. REVIEW OF ORGAN SYSTEMS: CONSTITUTIONAL: At height of 5 feet 2 inches, her ideal body weight is 135 pounds. Her highest weight was 258 pounds. Her BMI was 47.3. HEENT: Denies any active troubles with vision or hearing. ENDOCRINE: Has diabetes. Has hypothyroidism. CARDIOVASCULAR: No past reports of palpitations or heart attacks or chest pain. RESPIRATORY: Denies pneumonia. No asthma. GASTROINTESTINAL: Has diarrhea and recent history of colitis. MUSCULOSKELETAL: Has lower back pain and joint pain. Has osteoarthritis of the knees. NEURO: No headaches. No seizure disorders. PSYCH: No depression. No suicidal ideation. RHEUMATOLOGIC: No lupus. No rheumatoid arthritis. HEMATOLOGIC: Denies any abnormal bleeding or bruising. No personal history of D VTs. SKIN: No rash. No skin cancer. PHYSICAL EXAM: VITAL SIGNS: Height 5 foot 2 inches, weight 213 pounds. BMI 39.0 Vital Signs Temp 98.1 F 01/11/19 10:49 Pulse 98 01/11/19 10:49 Resp 16 01/11/19 10:49 BP 128/75 01/11/19 10:49 Pulse Ox GENERAL: Well-developed in no acute distress. HEENT: No scleral icterus. Extraocular movements grossly intact. Hears conver sational speech. No nasal drainage. NECK: Supple without lymphadenopathy. CHEST: Nonlabored respirations with equal bilateral excursions. CARDIOVASCULAR: Regular rate and regular rhythm. Distal 2+ pulses. ABDOMEN: Obese, soft, nondistended. No hernia. No peritonitis. Left lower quadrant tender MUSCULOSKELETAL: No clubbing, cyanosis. Gross strength 5/5 distal lower extremities. NEURO: No focal or lateralizing signs. Cranial nerves 2 through 12 grossly within normal limits. PSYCH: Appropriate affect. Alert and oriented to person, place and time. SKIN: Good skin turgor. Well perfused. LABS: Reviewed iron is low. PTH is elevated. TSH is elevated REPORTS: EGD FINDINGS: No acute ulceration found along her sleeve. No corkscrewing sleeve gastrectomy. Squamocolumnar junction at 35 cm from the incisors. Diaphragmatic hiatus at 40 cm. Dilated proximal gastric reservoir with prior history of sleeve gastrectomy Hiatal hernia 5 cm, fixed. LA grade A erosive esophagitis. No active duodenitis. Chronic gastritis. COLONOSCOPY FINDINGS: Aronchick preparation quality scale (1-5) Internal hemorrhoids, grade 1 No external prolapsed hemorrhoids. No arteriovenous malformations. No adenomatous polyps. No focal colitis. No evidence of sigmoid diverticulosis or pandiverticulosis found. ASSESSMENT: 1. Morbid obesity due to excess calories 2. Body mass index of 47.3, initial 3. Hypothyroidism 4. Anxiety 5. Chronic pain 6. Hypertensive heart disease 7. Diabetes type 2 8. Change in bowel habits 9. Colitis 10. Weight regain following bariatric procedure 11. Epigastric abdominal pain 12. Dietary management and surveillance 13. Abdominal pain, left side 14. Umbilical hernia 15. Iron deficiency anemia 16. Hypothyroidism 17. Secondary hyperparathyroidism 18. Hiatal hernia PLAN: 1. Recommend robotic-assisted umbilical hernia repair for symptomatic umbilical hernia 2. Recommend correction of hypothyroidism with start of Synthroid 3. Recommend calcium intake over 1200 mg daily for secondary hyperparathyroidism Objective - Vital Signs Vital signs: Vital Signs Temp 98.1 F 01/11/19 10:49 Pulse 98 01/11/19 10:49 Resp 16 01/11/19 10:49 BP 128/75 01/11/19 10:49 Pulse Ox Intake & Output 01/10/19 01/11/19 01/11/19 18:59 06:59 18:59 Weight 96.615 kg
== END | disposition home or self-care (01) ==
LOC: BARWHC3 10:18
PROVIDERS: ATTEND Surgery Plastic and Reconstructive Surgery
DX: E66.01 Morbid (severe) obesity due to excess calories (principal); Z68.42 Body mass index [BMI] 45.0-49.9, adult; E03.9 Hypothyroidism, unspecified; I11.9 Hypertensive heart disease without heart failure; E11.9 Type 2 diabetes mellitus without complications; K52.9 Noninfective gastroenteritis and colitis, unspecified; R10.32 Left lower quadrant pain; K42.9 Umbilical hernia without obstruction or gangrene; D50.9 Iron deficiency anemia, unspecified; N25.81 Secondary hyperparathyroidism of renal origin; K44.9 Diaphragmatic hernia without obstruction or gangrene; Z71.3 Dietary counseling and surveillance; G89.29 Other chronic pain; F41.9 Anxiety disorder, unspecified; Z88.1 Allergy status to other antibiotic agents; Z79.899 Other long term (current) drug therapy; Z79.84 Long term (current) use of oral hypoglycemic drugs
CPT/HCPCS: 99211

== ENCOUNTER → 2019-03-15 | Outpatient (CLI) | payer BC ==
[2019-03-15 09:12] VITALS: BP 131/88; PULSE 92; TEMP 98.5; BMI 41.3
--- NOTE | 2019-03-15 10:05 | P.PN ---
Subjective Progress Note Date: 03/15/19 She comes in with abdominal pain and has seen her outer diameter grinder tool. She still reports left lower quadan PLAN: 1. Diagnostic laparascopy with repair of left inguinal hernia 2. Get labs, full bariatric 3. MyFitness pal, check sodium intake and carbs 4. Taking calcium separate from iron and thyroid medication 5. Potassium rich diet through [facility] 6. Feet swelling secondary to sodium intake and not enough protein. Objective - Vital Signs Vital signs: Vital Signs Temp 98.5 F 03/15/19 09:06 Pulse 92 03/15/19 09:06 Resp BP 131/88 03/15/19 09:06 Pulse Ox Intake & Output 03/14/19 03/15/19 03/15/19 18:59 06:59 18:59 Weight 102.512 kg
[2019-03-15 10:55] LABS: HCT 37.3 % (34.0-46.0); HGB 11.8 gm/dL (11.4-16.0); Hypochromasia Moderate; MCH 26.1 pg (25.0-35.0); MCHC 31.7 g/dL (31.0-37.0); MCV 82.5 fL (80.0-100.0); Mean Platelet Volume 7.5; Platelet Count 424 k/uL (150-450); RBC 4.53 m/uL (3.80-5.40); RDW 15.9 % (11.5-15.5); WBC 6.9 k/uL (3.8-10.6)
[2019-03-15 11:07] LABS: INR 0.9 (<1.2); Partial Thromboplastin Time 24.8 sec (22.0-30.0)
[2019-03-15 16:05] LABS: Parathyroid Hormone Intact 70.8 pg/mL (14.0-72.0)
[2019-03-15 17:03] LABS: Vitamin D 25 Hydroxy 31.5 ng/mL (30.0-100.0)
[2019-03-15 17:07] LABS: African American GFR (CKD) 121.3 (60.0-200.0); Albumin 4.2 g/dL (3.80-4.90); Albumin/Globulin Ratio 2.21 (1.60-3.17); Anion Gap 6.6 mmol/L (4.00-12.00); BUN/Creat Ratio 22.86 Ratio (12.00-20.00); Carbon Dioxide 24.4 mmol/L (21.6-31.8); Globulin 1.9 g/dL (1.6-3.3); Iron Saturation 12.8 (12.00-45.00); Magnesium 1.8 mg/dL (1.5-2.4); Phosphorus 2.8 mg/dL (2.4-5.1); Potassium 4.1 mmol/L (3.5-5.5); Total Bilirubin 0.4 mg/dL (0.2-1.2); Total Protein 6.1 g/dL (6.2-8.2)
[2019-03-15 17:29] LABS: Folate, Serum 17.1 ng/mL; Hemoglobin A1C 6.8 % (4.0-6.0)
[2019-03-16 13:45] LABS: Vit B1(Thiamine) 76 ug/L (38-122)
[2019-03-16 15:19] LABS: Zinc, Serum 59 ug/dL (60-130)
== END ==
LOC: BARWHC3 08:42
PROVIDERS: ATTEND Surgery Plastic and Reconstructive Surgery
DX: R10.32 Left lower quadrant pain (principal); E66.01 Morbid (severe) obesity due to excess calories; E21.1 Secondary hyperparathyroidism, not elsewhere classified; E89.1 Postprocedural hypoinsulinemia; D50.9 Iron deficiency anemia, unspecified; E44.0 Moderate protein-calorie malnutrition; E55.9 Vitamin D deficiency, unspecified; K74.1 Hepatic sclerosis; N19 Unspecified kidney failure; K50.90 Crohn's disease, unspecified, without complications; Z68.41 Body mass index [BMI] 40.0-44.9, adult
CPT/HCPCS: 80053; 80061; 82306; 82525; 82607; 82728; 82746; 83036; 83540; 83550; 83735; 83970; 84100; 84134; 84255; 84425; 84443; 84590; 84630; 85027; 85610; 85730; 99211

== ENCOUNTER → 2019-05-04 | Outpatient (CLI) | payer BC ==
[2019-05-04 07:47] LABS: Anisocytosis Slight; HCT 38.9 % (34.0-46.0); HGB 12.3 gm/dL (11.4-16.0); Hypochromasia Slight; MCH 26.2 pg (25.0-35.0); MCHC 31.6 g/dL (31.0-37.0); MCV 82.9 fL (80.0-100.0); Mean Platelet Volume 7.2; Platelet Count 407 k/uL (150-450); RBC 4.69 m/uL (3.80-5.40); WBC 7.8 k/uL (3.8-10.6)
== END | disposition home or self-care (01) ==
LOC: LABPAT 06:49
PROVIDERS: ATTEND Anesthesiology
DX: Z01.818 Encounter for other preprocedural examination (principal); Z01.812 Encounter for preprocedural laboratory examination; E03.9 Hypothyroidism, unspecified; E11.9 Type 2 diabetes mellitus without complications; K66.0 Peritoneal adhesions (postprocedural) (postinfection); K40.90 Unilateral inguinal hernia, without obstruction or gangrene, not specified as recurrent; Z79.899 Other long term (current) drug therapy
CPT/HCPCS: 36415; 84132; 85027; 93005

== ENCOUNTER 2019-05-11 06:57 | Day surgery (SDC) | payer BC ==
[2019-05-03 15:09] VITALS: BMI 42.4
[~2019-05-11 06:57] MED LIST changes: +ACETAMINOPHEN TAB 500 MG TAB PO ONE; +DEXAMETHASONE SOD PHOSPHATE 10 MG/ML 1 ML VIAL IV ONE; +HEPARIN SODIUM,PORCINE 5,000 UNIT/ML 1 ML VIAL SQ ONE; +KETOROLAC 30 MG/ML 1 ML VIAL IVP SCH; -LACTATED RINGERS 1,000 ML IV SCH; +METOCLOPRAMIDE 5 MG/ML 2 ML VIAL IVP PRN; +ONDANSETRON 4 MG/2 ML VIAL IVP ONE; +SCOPOLAMINE 1.5MG/72HR PATCH TRANSDERM ONE
--- NOTE | 2019-05-11 07:37 | P.GSHP ---
History of Present Illness H&P Date: 05/11/19 CHIEF COMPLAINT: History of intra-abdominal adhesions and left inguinal hernia HISTORY OF PRESENT ILLNESS: The patient is a 43-year-old female who presents with history of intra-abdominal adhesions from multiple prior surgeries including increasing abdominal pain along the left groin. She now presents for diagnostic laparoscopy including lysis of adhesions and left inguinal hernia repair. PAST MEDICAL HISTORY: Please see list. PAST SURGICAL HISTORY: Please see list. MEDICATIONS: Please see list. ALLERGIES: Please see list. SOCIAL HISTORY: Please see list. FAMILY HISTORY: No reports of Crohn disease or ulcerative colitis. REVIEW OF ORGAN SYSTEMS: CONSTITUTIONAL: No reports of fevers or chills. GI: Denies any blood in stools or constipation. PHYSICAL EXAM: VITAL SIGNS: Stable GENERAL: Well-developed pleasant and in no acute distress. HEENT: No scleral icterus. Extraocular movements grossly intact. Moist buccal mucosa. NECK: Supple without lymphadenopathy. CHEST: Unlabored respirations. Equal bilateral excursions. CARDIOVASCULAR: Regular rate and rhythm. Distal 2+ pulses. ABDOMEN: Soft, tender along left lower abdomen. No peritonitis. MUSCULOSKELETAL: No clubbing, cyanosis, or edema. ASSESSMENT: 1. Left lower abdominal pain. 2. History of multiple abdominal surgeries. 3. Intra-abdominal adhesions. PLAN: 1. Robotic lysis of adhesions with left inguinal hernia repair were described in detail including risk of injury to the intestine, need for further surgery, and open technique. 2. DVT prophylaxis. 3. Antibiotic prophylaxis. Past Medical History Past Medical History: Diabetes Mellitus, Thyroid Disorder Additional Past Medical History / Comment(s): abd. pain lower left side for approx.-intermittent, some vomiting,hx restless leg syndrome,swelling lower ext History of Any Multi-Drug Resistant Organisms: None Reported Past Surgical History: Bariatric Surgery, Section, Cholecystectomy, Tubal Ligation, Uterine Ablation Additional Past Surgical History / Comment(s): C/S x3, gastric sleeve w/hiatal hernia repair-2012 Past Anesthesia/Blood Transfusion Reactions: No Reported Reaction Additional Past Anesthesia/Blood Transfusion Reaction / Comment(s): no hx blood transfusion Smoking Status: Never smoker - Past Family History Mother Family Medical History: No Reported History Medications and Allergies Home Medications Medication Instructions Recorded Confirmed Type metFORMIN HCL 500 mg PO DAILY 10/02/15 05/11/19 History traMADol HCL [Tramadol HCl] 50 mg PO TID PRN 10/02/15 05/11/19 History Hydrochlorothiazide 25 mg PO DAILY 05/24/17 05/11/19 History Topiramate [Topamax] 50 mg PO HS 05/24/17 05/11/19 History ALPRAZolam [Xanax] 0.25 mg PO BID PRN 01/02/19 05/11/19 History Cyclobenzaprine [Flexeril] 10 mg PO HS 01/02/19 05/11/19 History Levothyroxine Sodium [Synthroid] 50 mcg PO QAM 01/02/19 05/11/19 History Multivitamins, Thera [Multivitamin 2 tab PO DAILY 03/15/19 05/11/19 History (formulary)] Allergies Allergy/AdvReac Type Severity Reaction Status Date / Time gentamicin [Gentamicin] AdvReac convulsions Verified 05/11/19 07:24 Surgical - Exam Vital Signs Temp Pulse Resp BP Pulse Ox 98.4 F 86 16 119/83 96 05/11/19 07:26 05/11/19 07:26 05/11/19 07:26 05/11/19 07:26 05/11/19 07:26
[2019-05-11 07:58] LABS: Glucose,Whole Blood 152 mg/dL (75-99)
[2019-05-11] MEDS: LACTATED RINGERS 1,000 ML IV SCH (08:01)
[2019-05-11] MEDS ORDERED: SUCCINYLCHOLINE CHLORIDE 100 MG/5 ML SYR IV ONE (09:08)
[2019-05-11] MEDS ORDERED: ePHEDrine SULFATE/0.9% NACL/PF 50 MG/5 ML SYRINGE IV ONE (09:08)
[2019-05-11] MEDS ORDERED: KETOROLAC 30 MG/ML 1 ML VIAL ONE (09:08)
[2019-05-11] MEDS ORDERED: PROPOFOL 10 MG/ML 20 ML VIAL IV ONE (09:08)
[2019-05-11] MEDS ORDERED: MIDAZOLAM 2 MG/2 ML VIAL ONE (09:08)
[2019-05-11] MEDS ORDERED: fentaNYL (PF) 50 MCG/ML 2 ML AMP ONE (09:08)
[2019-05-11] MEDS ORDERED: GLYCOPYRROLATE 0.2 MG/ML 2 ML VIAL ONE (09:08)
[2019-05-11] MEDS ORDERED: NEOSTIGMINE 1 MG/ML 10 ML VIAL ONE (09:08)
[2019-05-11] MEDS ORDERED: ROCURONIUM BROMIDE 10 MG/ML 10 ML VIAL IV ONE (09:08)
[2019-05-11] MEDS ORDERED: BUPIVACAIN-EPI 0.25%-1:200,000 30 ML VIAL SQ ONE (09:15)
[2019-05-11 10:29] VITALS: TEMP 98.1
[2019-05-11] MEDS: HYDROmorphone 0.5 MG/0.5 ML SYRINGE IVP PRN ×2 (10:32→10:37)
--- NOTE | 2019-05-11 10:35 | P.OP ---
Date of Procedure: 05/11/19 Description of Procedure: SURGEON: BHUMIKA ORDAZ MD PREOPERATIVE DIAGNOSES: 1. Left lower quadrant abdominal pain 2. History of multiple abdominal surgeries 3. Diabetes type 2, [id number] 4. Fibromyalgia 5. Morbid obesity and excess calories, BMI 42.4 6. Gastroesophageal reflux disease 7. Hypothyroidism 8. Hypertensive heart disease 9. Generalized anxiety disorder 10. History of sleeve gastrectomy 11. Previous history of colitis POSTOPERATIVE DIAGNOSES: 1. Left lower quadrant abdominal pain 2. History of multiple abdominal surgeries 3. Diabetes type 2, [id number] 4. Fibromyalgia 5. Morbid obesity and excess calories, BMI 42.4 6. Gastroesophageal reflux disease 7. Hypothyroidism 8. Hypertensive heart disease 9. Generalized anxiety disorder 10. History of sleeve gastrectomy 11. Previous history of colitis 12. Internal hernia sigmoid mesentery to right fallopian tube 13. Left pelvic adhesions 14. Endometrial deposit right fallopian tube 15. Intermittent sigmoid volvulus OPERATION: 1. Robotic-assisted da Rolando Xi laparoscopic with lysis of adhesions ESTIMATED BLOOD LOSS: 5 mL. SPECIMENS REMOVED: None. COMPLICATIONS: None. OPERATIVE FINDINGS: 1. No inguinal hernia identified 2. Internal hernia from adhesion of sigmoid mesentery to right fallopian tube identified and divided 3. Endometrial deposit along right fallopian tube ablated 4. Three (3) small clips along fallopian tube serosa undisturbed 5. Peritoneal adhesion left pelvis divided including along right upper quadrant greater omentum to abdominal wall INDICATIONS: The patient is a 43-year-old female who presents with moderate to severe left lower quadrant abdominal pain. Surgical intervention with diagnostic laparoscopy, lysis of adhesions and possible left inguinal hernia repair were described. Informed consent was obtained. Robotic assisted laparoscopic approach was described. Benefits and risks of the procedure including but not limited to bleeding, infection, injury to the biliary tree was described. Informed consent was obtained. DESCRIPTION OF PROCEDURE: Patient was brought to the operating room, placed in supine position. After general induction, the abdomen had been prepped and draped in standard sterile fashion. The robotic da Rolando XI system was primed. After a timeout protocol was performed, the patient had been prepped and draped in standard sterile fashion. The robot was docked along the left lateral abdomen. Please note prior to docking of the robot; however, a 5 mm 0 degrees laparoscopic trocar entry was performed along the left upper quadrant. Next, three 8 mm robotic ports were placed along the upper abdomen. The camera 8-mm port was maintained along the epigastrium. Please note that the ports were placed at least 10 to 15 cm away from the target anatomy. Instruments including graspers and scissors with cautery were interchanged by the operations manager assistant. I had sat at the console. Greater omental adhesion from right fallopian tube to omentum was identified creating an internal hernia. The internal hernia was divided using scissors with cautery. Additionally, small endometrial deposit along the right peritoneum/fallopian tube was ablated with cautery. Attention was brought to the left ovary where cysts physiologic over 2 cm was identified and undisturbed. Three small clips less than 3 mm in size were found along the serosa of the fallopian tube and also undisturbed. The sigmoid colon was highly redundant creating an intermittent sigmoid colon volvulus. No large or small bowel obstruction was identified. Greater omental adhesion along the right upper quadrant was divided using scissors and cautery. The robot was undocked. All pneumoperitoneum and instruments were evacuated from the abdominal cavity. The incisions were reapproximated using 4-0 Monocryl in an interrupted subcuticular fashion. Please note along the trocar sites, local anesthetic was placed as a field block prior to insertion of all instruments. Exofin was applied to the skin. At the end of the procedure needle, sponge, and instrument count had been verified correct by the technician automatic. The patient was transferred to postanesthesia care unit in stable condition. Plan - Discharge Summary Discharge Rx Participant: Yes New Discharge Prescriptions: New Ibuprofen [Motrin] 600 mg PO Q8HR PRN #30 tab PRN Reason: Pain Omeprazole 40 mg PO DAILY #14 capsule.dr No Action traMADol HCL [Tramadol HCl] 50 mg PO TID PRN PRN Reason: Pain metFORMIN HCL 500 mg PO DAILY Topiramate [Topamax] 50 mg PO HS Hydrochlorothiazide 25 mg PO DAILY ALPRAZolam [Xanax] 0.25 mg PO BID PRN PRN Reason: Anxiety Levothyroxine Sodium [Synthroid] 50 mcg PO QAM Cyclobenzaprine [Flexeril] 10 mg PO HS Multivitamins, Thera [Multivitamin (formulary)] 2 tab PO DAILY Discharge Medication List metFORMIN HCL 500 mg PO DAILY 10/02/15 [History] traMADol HCL [Tramadol HCl] 50 mg PO TID PRN 10/02/15 [History] Hydrochlorothiazide 25 mg PO DAILY 05/24/17 [History] Topiramate [Topamax] 50 mg PO HS 05/24/17 [History] ALPRAZolam [Xanax] 0.25 mg PO BID PRN 01/02/19 [History] Cyclobenzaprine [Flexeril] 10 mg PO HS 01/02/19 [History] Levothyroxine Sodium [Synthroid] 50 mcg PO QAM 01/02/19 [History] Multivitamins, Thera [Multivitamin (formulary)] 2 tab PO DAILY 03/15/19 [History] Ibuprofen [Motrin] 600 mg PO Q8HR PRN #30 tab 05/11/19 [Rx] Omeprazole 40 mg PO DAILY #14 capsule. 05/11/19 [Rx] Follow up Appointment(s)/Referral(s): Bhumika Ordaz MD [STAFF PHYSICIAN] - 05/15/19 Patient Instructions/Handouts: *Surgery [facility] - (Anesthesia) Discharge Instructions Outpatient Surgery, Lysis of Abdominal Adhesions (IP) Activity/Diet/Wound Care/Special Instructions: Use ice and heating pad to the left lower quadrant and incisions. May shower. No bathtub soaks until 05/21/2019. No lifting over 10 pounds until 05/21/2019. Discharge Disposition: HOME SELF-CARE
[2019-05-11 11:11] VITALS: RESP 16
[2019-05-11] MEDS ORDERED: IBUPROFEN 200 MG TAB PO ONE (11:23)
[2019-05-11 11:36] LABS: Glucose,Whole Blood 204 mg/dL (75-99)
[2019-05-11] MEDS ORDERED: ONDANSETRON 4 MG/2 ML VIAL IVP ONE (12:07)
[2019-05-11 12:40] VITALS: BP 94/62; PULSE 98
== END 2019-05-11 12:58 | disposition home or self-care (01) ==
LOC: OR 06:57
PROVIDERS: ATTEND Surgery Plastic and Reconstructive Surgery
DX: K56.50 Intestinal adhesions [bands], unspecified as to partial versus complete obstruction (principal); Q43.8 Other specified congenital malformations of intestine; E66.01 Morbid (severe) obesity due to excess calories; Z68.41 Body mass index [BMI] 40.0-44.9, adult; K21.9 Gastro-esophageal reflux disease without esophagitis; E03.9 Hypothyroidism, unspecified; M79.7 Fibromyalgia; I11.9 Hypertensive heart disease without heart failure; F41.1 Generalized anxiety disorder; Z98.84 Bariatric surgery status; K52.9 Noninfective gastroenteritis and colitis, unspecified; K56.2 Volvulus; E11.9 Type 2 diabetes mellitus without complications; E07.9 Disorder of thyroid, unspecified; G25.81 Restless legs syndrome; Z90.49 Acquired absence of other specified parts of digestive tract; Z87.442 Personal history of urinary calculi; Z98.51 Tubal ligation status; Z79.84 Long term (current) use of oral hypoglycemic drugs; Z79.890 Hormone replacement therapy; Z79.899 Other long term (current) drug therapy; Z88.1 Allergy status to other antibiotic agents
CPT/HCPCS: 44238; S2900; 81025; 84132

== ENCOUNTER → 2019-08-24 | Outpatient (CLI) | payer BC ==
--- NOTE | 2019-08-24 10:44 | XR ---
EXAMINATION TYPE: XR abdomen 1V DATE OF EXAM: 08/24/2019 COMPARISON: 10/02/2015 INDICATION: Pain TECHNIQUE: Single view abdomen frontal projection FINDINGS: There is a normal bowel gas pattern. Moderate fecal debris is through the transverse colon Psoas margins are normal. No organomegaly is present. IMPRESSION: 1. Mild fecal retention.
== END | disposition home or self-care (01) ==
LOC: RADXRMAIN 10:21
PROVIDERS: ATTEND Family Medicine
DX: K59.09 Other constipation (principal)
CPT/HCPCS: 74018

== ENCOUNTER → 2019-10-12 | Outpatient (CLI) | payer BC ==
[2019-10-12 10:31] LABS: Basophils # (A) 0.1 k/uL (0-0.2); Basophils % (A) 1 %; Eosinophils # (A) 0.1 k/uL (0-0.7); Eosinophils % (A) 1 %; HCT 43.4 % (34.0-46.0); HGB 13.8 gm/dL (11.4-16.0); Lymphocytes # (A) 1.9 k/uL (1.0-4.8); Lymphocytes % (A) 23 %; MCH 27.4 pg (25.0-35.0); MCHC 31.9 g/dL (31.0-37.0); MCV 85.8 fL (80.0-100.0); Mean Platelet Volume 7.6; Monocytes # (A) 0.3 k/uL (0-1.0); Monocytes % (A) 3 %; Neutrophils # (A) 5.9 k/uL (1.3-7.7); Neutrophils % (A) 71 %; Platelet Count 388 k/uL (150-450); RBC 5.06 m/uL (3.80-5.40); RDW 15.3 % (11.5-15.5); WBC 8.2 k/uL (3.8-10.6)
[2019-10-12 10:53] LABS: African American GFR (CKD) >90 (>60 ml/min/1.73 sqM); Anion Gap 10 mmol/L; Blood Urea Nitrogen 14 mg/dL (7-17); Carbon Dioxide 27 mmol/L (22-30); Chloride 100 mmol/L (98-107); Glucose 153 mg/dL (74-99); Non-African American GFR(CKD) >90 (>60 ml/min/1.73 sqM); Potassium 3.5 mmol/L (3.5-5.1); Sodium 137 mmol/L (137-145)
== END | disposition home or self-care (01) ==
LOC: LABPAT 09:37
PROVIDERS: ATTEND Obstetrics & Gynecology
DX: Z01.812 Encounter for preprocedural laboratory examination (principal); E11.9 Type 2 diabetes mellitus without complications; I10 Essential (primary) hypertension
CPT/HCPCS: 80051; 82565; 82947; 84520; 85025; 86850; 86900; 86901; 87086

== ENCOUNTER → 2020-01-18 | Outpatient (CLI) | payer BC ==
[2020-01-18 10:55] LABS: Basophils % (A) 0 %; Eosinophils # (A) 0.1 k/uL (0-0.7); Eosinophils % (A) 1 %; HCT 43.2 % (34.0-46.0); HGB 14.2 gm/dL (11.4-16.0); Lymphocytes # (A) 2.2 k/uL (1.0-4.8); Lymphocytes % (A) 23 %; MCH 27.6 pg (25.0-35.0); MCHC 32.8 g/dL (31.0-37.0); MCV 84.1 fL (80.0-100.0); Mean Platelet Volume 7.7; Monocytes # (A) 0.3 k/uL (0-1.0); Monocytes % (A) 3 %; Neutrophils # (A) 6.9 k/uL (1.3-7.7); Neutrophils % (A) 72 %; Platelet Count 467 k/uL (150-450); RBC 5.14 m/uL (3.80-5.40); RDW 14.9 % (11.5-15.5); WBC 9.6 k/uL (3.8-10.6)
[2020-01-18 15:30] LABS: African American GFR (CKD) 102.5 (60.0-200.0); Albumin 4.3 g/dL (3.80-4.90); Albumin/Globulin Ratio 1.72 (1.60-3.17); Anion Gap 5.6 mmol/L (4.00-12.00); Calcium 9.5 mg/dL (8.7-10.3); Carbon Dioxide 29.4 mmol/L (21.6-31.8); Globulin 2.5 g/dL (1.6-3.3); Non-African American GFR(CKD) 88.4 (60.0-200.0); Potassium 3.1 mmol/L (3.5-5.5); Total Bilirubin 0.6 mg/dL (0.2-1.2); Total Protein 6.8 g/dL (6.2-8.2)
== END | disposition home or self-care (01) ==
LOC: LABWHC1 10:09
PROVIDERS: ATTEND Nurse Practitioner Family
DX: R11.2 Nausea with vomiting, unspecified (principal)
CPT/HCPCS: 36415; 80053; 82150; 83690; 85025

== ENCOUNTER 2020-01-21 16:16 | Inpatient (IN) | payer BC ==
[2020-01-21] MEDS ORDERED: ONDANSETRON 4 MG/2 ML VIAL IVP STA (16:24)
[2020-01-21] MEDS ORDERED: SODIUM CHLORIDE 0.9% 500 ML 500 ML IV ONE (16:53)
[2020-01-21] MEDS ORDERED: SODIUM CHLORIDE 0.9% 1,000 ML IV ONE (16:53)
[2020-01-21] MEDS ORDERED: IOPAMIDOL CONTRAST (ORAL USE) VIAL PO PRN (16:55)
[2020-01-21 16:56] LABS: Basophils % (A) 0 %; Eosinophils # (A) 0.1 k/uL (0-0.7); Eosinophils % (A) 1 %; HCT 42.4 % (34.0-46.0); HGB 13.9 gm/dL (11.4-16.0); Lymphocytes # (A) 2.2 k/uL (1.0-4.8); Lymphocytes % (A) 25 %; MCHC 32.8 g/dL (31.0-37.0); MCV 82.3 fL (80.0-100.0); Mean Platelet Volume 7.4; Monocytes # (A) 0.3 k/uL (0-1.0); Monocytes % (A) 3 %; Neutrophils % (A) 69 %; Platelet Count 447 k/uL (150-450); RBC 5.16 m/uL (3.80-5.40); WBC 8.8 k/uL (3.8-10.6)
--- NOTE | 2020-01-21 17:07 | ED ---
Nausea/Vomiting/Diarrhea HPI <Vladislav Chowdhury - Last Filed: 01/21/20 18:12> - General Source: patient Mode of arrival: ambulatory Limitations: no limitations <Tabitha Faith - Last Filed: 01/21/20 18:25> - General Chief complaint: Nausea/Vomiting/Diarrhea Stated complaint: nausea,vomiting Time Seen by Provider: 01/21/20 16:23 - History of Present Illness Initial comments: 44yo female bariatric patient [address] Ordaz presenting today for chief complaint of nausea, vomiting, diarrhea patient states that she has had nausea vomiting diarrhea since . She states that it has not been getting better she states that she had labs drawn on Tuesday which revealed hypokalemia, when speaking with her physician today for follow-up is recommended she come to the emergency department as she was concerned that the potassium has worsened secondary to persistent loss with vomiting and diarrhea. Patient also states that she has had lower abdominal pain, diffuse but feels this is more chronic as she has experienced this for quite some time and is supposed to have a hysterectomy. Patient denies severe abdominal pain, denies upper abdominal pain or chest pain/SOB. Patient states she does feel slightly weak. Patient denies bloody stool or vomit> patient has no additional complaints and appears nontoxic on arrival. However HR is noted to elevated. (Tabitha Faith) - Related Data Home Medications Medication Instructions Recorded Confirmed metFORMIN HCL 500 mg PO DAILY 10/02/15 01/21/20 traMADol HCL [Tramadol HCl] 50 mg PO BID PRN 10/02/15 01/21/20 Hydrochlorothiazide 25 mg PO DAILY 05/24/17 01/21/20 Topiramate [Topamax] 50 mg PO DAILY 05/24/17 01/21/20 ALPRAZolam [Xanax] 0.25 mg PO DAILY PRN 01/02/19 01/21/20 Cyclobenzaprine [Flexeril] 10 mg PO HS 01/02/19 01/21/20 Levothyroxine Sodium [Synthroid] 50 mcg PO QAM 01/02/19 01/21/20 Allergies Allergy/AdvReac Type Severity Reaction Status Date / Time gentamicin [Gentamicin] AdvReac convulsions Verified 01/21/20 16:21 Review of Systems ROS Other: All systems not noted in ROS Statement are negative. <Vladislav Chowdhury - Last Filed: 01/21/20 18:12> ROS Other: All systems not noted in ROS Statement are negative. <Tabitha Faith - Last Filed: 01/21/20 18:25> ROS Statement: Those systems with pertinent positive or pertinent negative responses have been documented in the HPI. Past Medical History Past Medical History: Diabetes Mellitus, Thyroid Disorder Additional Past Medical History / Comment(s): abd. pain lower left side for approx.-intermittent, some vomiting,hx restless leg syndrome,swelling lower ext History of Any Multi-Drug Resistant Organisms: None Reported Past Surgical History: Bariatric Surgery, Section, Cholecystectomy, Tubal Ligation, Uterine Ablation Additional Past Surgical History / Comment(s): C/S x3, gastric sleeve w/hiatal hernia repair-2012 Past Anesthesia/Blood Transfusion Reactions: No Reported Reaction Additional Past Anesthesia/Blood Transfusion Reaction / Comment(s): no hx blood transfusion Past Psychological History: Anxiety Smoking Status: Never smoker Past Alcohol Use History: Occasional Past Drug Use History: None Reported - Past Family History Mother Family Medical History: No Reported History <Tabitha Faith - Last Filed: 01/21/20 18:25> General Exam Limitations: no limitations <Tabitha Faith - Last Filed: 01/21/20 18:25> Course Vital Signs 01/21/20 16:18 Temperature 98.0 F Pulse Rate 125 H Respiratory 18 Rate Blood Pressure 124/90 O2 Sat by Pulse 100 Oximetry Medical Decision Making - Lab Data Result diagrams: 01/21/20 16:40 01/21/20 16:40 <Vladislav Chowdhury - Last Filed: 01/21/20 18:12> - Lab Data Result diagrams: 01/21/20 16:40 01/21/20 16:40 <Tabitha Faith - Last Filed: 01/21/20 18:25> - Medical Decision Making Patient reevaluated by myself, Dr. Chowdhury. Patient resting comfortably in bed. Abdomen soft and nontender. Patient states she has been having vomiting and diarrhea for the past several days at least 6 times daily each. Patient updated on results and plan. Case was discussed in detail with Dr. Lopez who will admit his patient. Potassium replacement provided. (Vladislav Chowdhury) 44yo female presenting today for chief complaint of nausea vomiting. Patient had hypokalemia at 3.1 in office. Today 2.5 with continued symptoms suspected GI loss. Magnesium within normal limits. CT revealed spleen lesion concerning for ddx of metastasis. Patient has no known primary cancer. Patient has history of uterine dysfunction and bulky uterus. Patient otherwise has no significant CT findings. Symptoms controlled in the ER. Patient will be givne oral and IV potassium. (Tabitha Faith) - Lab Data Lab Results 01/21/20 01/21/20 01/21/20 Range/Units 16:40 16:40 16:40 WBC 8.8 (3.8-10.6) k/uL RBC 5.16 (3.80-5.40) m/uL Hgb 13.9 (11.4-16.0) gm/dL Hct 42.4 (34.0-46.0) % MCV 82.3 (80.0-100.0) fL MCH 27.0 (25.0-35.0) pg MCHC 32.8 (31.0-37.0) g/dL RDW 15.0 (11.5-15.5) % Plt Count 447 (150-450) k/uL Neutrophils % 69 % Lymphocytes % 25 % Monocytes % 3 % Eosinophils % 1 % Basophils % 0 % Neutrophils # 6.0 (1.3-7.7) k/uL Lymphocytes # 2.2 (1.0-4.8) k/uL Monocytes # 0.3 (0-1.0) k/uL Eosinophils # 0.1 (0-0.7) k/uL Basophils # 0.0 (0-0.2) k/uL Sodium 135 L (137-145) mmol/L Potassium 2.5 L* (3.5-5.1) mmol/L Chloride 98 (98-107) mmol/L Carbon Dioxide 27 (22-30) mmol/L Anion Gap 10 mmol/L BUN 12 (7-17) mg/dL Creatinine 0.70 (0.52-1.04) mg/dL Est GFR (CKD-EPI)AfAm >90 (>60 ml/min/1.73 sqM) Est GFR (CKD-EPI)NonAf >90 (>60 ml/min/1.73 sqM) Glucose 140 H (74-99) mg/dL Calcium 9.1 (8.4-10.2) mg/dL Magnesium 1.8 (1.6-2.3) mg/dL Total Bilirubin 0.7 (0.2-1.3) mg/dL AST 44 H (14-36) U/L ALT 46 H (4-34) U/L Alkaline Phosphatase 112 (38-126) U/L Total Protein 7.5 (6.3-8.2) g/dL Albumin 4.4 (3.5-5.0) g/dL Amylase 42 (30-110) U/L Lipase 137 (23-300) U/L Disposition <Vladislav Chowdhury - Last Filed: 01/21/20 18:12> Is patient prescribed a controlled substance at d/c from ED?: No Time of Disposition: 17:58 Decision to Admit Reason: Admit from EC Decision Date: 01/21/20 Decision Time: 17:58 <Tabitha Faith - Last Filed: 01/21/20 18:25> Clinical Impression: Lesion of spleen, Dehydration, Hypokalemia, Bulky or enlarged uterus, Nausea & vomiting, Diarrhea Disposition: ADMITTED IP TO THIS HOSP Condition: Stable Referrals: Philip Jenkins MD [Primary Care Provider] - 1-2 days
[2020-01-21 17:08] LABS: ALT 46 U/L (4-34); AST 44 U/L (14-36); African American GFR (CKD) >90 (>60 ml/min/1.73 sqM); Albumin 4.4 g/dL (3.5-5.0); Alkaline Phosphatase 112 U/L (38-126); Amylase 42 U/L (30-110); Anion Gap 10 mmol/L; Blood Urea Nitrogen 12 mg/dL (7-17); Calcium 9.1 mg/dL (8.4-10.2); Carbon Dioxide 27 mmol/L (22-30); Chloride 98 mmol/L (98-107); Glucose 140 mg/dL (74-99); Non-African American GFR(CKD) >90 (>60 ml/min/1.73 sqM); Sodium 135 mmol/L (137-145); Total Bilirubin 0.7 mg/dL (0.2-1.3); Total Protein 7.5 g/dL (6.3-8.2)
[2020-01-21 17:12] LABS: Potassium 2.5 mmol/L (3.5-5.1)
[2020-01-21] MEDS ORDERED: POTASSIUM CHLORIDE ER 10 MEQ TAB.ER.PRT PO STA ×2 (17:15→20:06)
--- NOTE | 2020-01-21 17:54 | CT ---
EXAMINATION TYPE: CT abdomen pelvis w con DATE OF EXAM: 01/21/2020 COMPARISON: 01/04/2019 INDICATION: Abdominal pain and vomiting DLP: 1557.4 mGycm, Automated exposure control for dose reduction was used. CONTRAST: 100 mL of Isovue 300. Study performed without Oral Contrast TECHNIQUE: Axial images were obtained from above the diaphragm to the pubic rami in the axial plane a t 5 mm thick sections. Reconstructed images are reviewed on the computer in the coronal plane. FINDINGS: Limited CT sections are obtained the lung bases. The lung bases are clear. CT ABDOMEN: Gastric sleeve surgery is evident. Liver: Normal Spleen: There are some irregular hypodensities within the spleen. On delayed images these appear less apparent. Underlying masses are not excluded. Pancreas: Normal Adrenal glands: The adrenal glands are normal. Gallbladder: Surgically absent. Kidneys: No masses are evident. No hydronephrosis is present. No cysts are present. Delayed images were obtained through the kidneys, which remain unremarkable. Aorta: Vascular calcification is within the aorta. Inferior vena cava: Normal. CT PELVIS: Oral contrast is limited. No dilated loops of bowel are evident. The transverse and descen ding colon appears decompressed. Most loops of bowel are incompletely distended or lack oral contrast limiting their evaluation. Appendix: Normal as visualized. Urinary bladder: Normal. Genitourinary structures: Uterus is heterogenous. A couple of small hypodensities may be present whic h could be related to uterine fibroids. Osseous structures: No suspicious lytic or sclerotic lesions. IMPRESSIONS: 1. Patchy hypodensities within the spleen. Splenic lesions should be considered. Consider metastasis . These are not typical for hemangioma. However, these were faintly present and unchanged on previous exam suggesting benign etiology more likely within the differential. 2. Heterogenous enlarged uterus. Correlate for uterine fibroids. 3. No suspicious changes to account for patient's nausea and vomiting symptoms. No suspicious changes for obstruction.
[2020-01-21] MEDS: POTASSIUM CHLORIDE 10 MEQ in WATER FOR INJECTION 1 100ML.BAG IVPB SCH ×3 (18:09→21:16)
[2020-01-21] MEDS: SODIUM CHLORIDE 0.9% 1,000 ML IV SCH (18:09)
[2020-01-21] MEDS ORDERED: NALOXONE 0.4 MG/ML 1 ML VIAL IV PRN (18:23)
[2020-01-21 22:29] LABS: African American GFR (CKD) >90 (>60 ml/min/1.73 sqM); Anion Gap 11 mmol/L; Blood Urea Nitrogen 10 mg/dL (7-17); Calcium 8.3 mg/dL (8.4-10.2); Carbon Dioxide 23 mmol/L (22-30); Chloride 101 mmol/L (98-107); Glucose 111 mg/dL (74-99); Non-African American GFR(CKD) >90 (>60 ml/min/1.73 sqM); Potassium 3.1 mmol/L (3.5-5.1); Sodium 135 mmol/L (137-145)
[2020-01-21] MEDS: POTASSIUM CHLORIDE ER 20 MEQ TAB.ER PO SCH (23:14)
[2020-01-22] MEDS: POTASSIUM CHLORIDE ER 20 MEQ TAB.ER PO SCH ×3 (00:22→08:16)
[2020-01-22 02:29] LABS: Appearance,Urine Clear (Clear); Bilirubin,Urine Negative (Negative); Blood,Urine Negative (Negative); Color,Urine Light Yellow; Glucose,Urine (UA) Negative (Negative); Ketones,Urine 2+ (Negative); Leukocyte Esterase,Urine Negative (Negative); Nitrite,Urine Negative (Negative); PH, Urine 5.5 (5.0-8.0); Protein,Urine Negative (Negative); Specific Gravity,Urine 1.035 (1.001-1.035); Urobilinogen,Urine <2.0 mg/dL (<2.0)
[2020-01-22 06:11] LABS: African American GFR (CKD) >90 (>60 ml/min/1.73 sqM); Anion Gap 7 mmol/L; Blood Urea Nitrogen 8 mg/dL (7-17); Carbon Dioxide 26 mmol/L (22-30); Chloride 104 mmol/L (98-107); Glucose 130 mg/dL (74-99); Non-African American GFR(CKD) >90 (>60 ml/min/1.73 sqM); Sodium 137 mmol/L (137-145)
[2020-01-22] MEDS: SODIUM CHLORIDE 0.9% 1,000 ML IV SCH ×3 (06:32→20:43)
[2020-01-22] MEDS ORDERED: ALPRAZolam 0.25 MG TAB PO PRN (06:43)
[2020-01-22] MEDS ORDERED: Potassium Replacement Protocol 1 EACH MISC MISCELLANE PRN ×2 (06:43→17:27)
[2020-01-22] MEDS: traMADol 50 MG TAB PO PRN ×2 (08:16→22:45)
[2020-01-22] MEDS: TOPIRAMATE 25 MG TAB PO SCH (08:19)
[2020-01-22] MEDS: LEVOTHYROXINE 50 MCG TAB PO SCH (08:19)
[2020-01-22] MEDS ORDERED: HYDROCHLOROTHIAZIDE 25 MG TAB PO SCH (09:00)
[2020-01-22] MEDS ORDERED: PANTOPRAZOLE 40 MG/10 ML VIAL IVP SCH (12:00)
[2020-01-22] MEDS ORDERED: ONDANSETRON 4 MG/2 ML VIAL IVP PRN (12:16)
[2020-01-22] MEDS ORDERED: CYCLOBENZAPRINE 10 MG TAB PO STA (12:19)
[2020-01-22 12:33] LABS: Glucose,Whole Blood 131 mg/dL (75-99)
[2020-01-22] MEDS: INSULIN ASPART (NovoLOG) 100 UNIT/ML VIAL SQ SCH ×3 (12:43→21:00)
[2020-01-22 16:21] LABS: Glucose,Whole Blood 131 mg/dL (75-99)
--- NOTE | 2020-01-22 17:30 | P.HPIM ---
History of Present Illness H&P Date: 01/22/20 Chief Complaint: Nausea, vomiting, diarrhea This a 44-year-old female with history of diabetes mellitus, hypothyroidism, gastric sleeve, anxiety and multiple other medical issues presented to the ER with complaints of nausea ,vomiting, diarrhea, left lower quadrant abdominal pain since Tuesday. Reporting 6 episodes of diarrhea per day. Reports she had labs drawn on Tuesday reporting hypokalemia(3.1 as per ER report) and PCP instructed her to proceed to the ER. On admission patient's potassium was 2.5. Magnesium 1.8. Hematology unremarkable, BUN 12 creatinine 0.70, sodium 135. Received several supplements of both oral and IV potassium up to 100 mcgs with most recent level at 3.7. On admission patient complaining of leg cramps which have significantly improved. Denies chest pain, palpitations or shortness of breath. Denies hemoptysis, hematochezia or melena. On admission, tachycardic with heart rates of 125, afebrile, blood pressure 124/90, respiratory rate 18 maintaining O2 sats of 100% on room air. EKG reported normal sinus rhythm, prolonged QT, QT 0.40; now currently measured at 0.33. Troponin added on to labs, currently pending. Abdomen and pelvis CT reported some irregular hypodensities within the spleen with underlying masses is not excluded. No dilated loops of bowel, transverse and descending colon decompressed, limited exam given lack of contrast, heterogeneous enlarged uterus, possible uterine fibroids, no suspicious changes for obstruction. UA negative. Blood sugars controlled. Denies chest pain, palpitations or shortness of breath. Denies lightheadedness, dizziness or focal deficits. Review of Systems ROS Other: All systems not noted in ROS Statement are negative. ROS Statement: Those systems with pertinent positive or pertinent negative responses have been documented in the HPI. Past Medical History Past Medical History: Diabetes Mellitus, Thyroid Disorder Additional Past Medical History / Comment(s): abd. pain lower left side for approx.-intermittent, some vomiting,hx restless leg syndrome,swelling lower ext History of Any Multi-Drug Resistant Organisms: None Reported Past Surgical History: Bariatric Surgery, Section, Cholecystectomy, Tubal Ligation, Uterine Ablation Additional Past Surgical History / Comment(s): C/S x3, gastric sleeve w/hiatal hernia repair-2012 Past Anesthesia/Blood Transfusion Reactions: No Reported Reaction Additional Past Anesthesia/Blood Transfusion Reaction / Comment(s): no hx blood transfusion Past Psychological History: Anxiety Smoking Status: Never smoker Past Alcohol Use History: Occasional Past Drug Use History: None Reported - Past Family History Mother Family Medical History: No Reported History Medications and Allergies Home Medications Medication Instructions Recorded Confirmed Type metFORMIN HCL 500 mg PO DAILY 10/02/15 01/21/20 History traMADol HCL [Tramadol HCl] 50 mg PO BID PRN 10/02/15 01/21/20 History Hydrochlorothiazide 25 mg PO DAILY 05/24/17 01/21/20 History Topiramate [Topamax] 50 mg PO DAILY 05/24/17 01/21/20 History ALPRAZolam [Xanax] 0.25 mg PO DAILY PRN 01/02/19 01/21/20 History Cyclobenzaprine [Flexeril] 10 mg PO HS 01/02/19 01/21/20 History Levothyroxine Sodium [Synthroid] 50 mcg PO QAM 01/02/19 01/21/20 History Allergies Allergy/AdvReac Type Severity Reaction Status Date / Time gentamicin [Gentamicin] AdvReac convulsions Verified 01/21/20 16:21 Physical Exam Vitals: Vital Signs Temp Pulse Pulse Resp BP BP Pulse Ox 01/22/20 15:45 97.9 F 98 16 95/68 98 01/22/20 12:00 98.1 F 91 18 108/72 98 01/22/20 11:36 60 18 106/69 99 01/22/20 07:54 97.8 F 79 18 102/83 97 01/22/20 04:00 97.8 F 87 18 129/78 98 01/22/20 00:00 98.0 F 109 H 17 128/80 96 01/21/20 20:00 97.9 F 85 18 108/72 98 01/21/20 18:31 97.9 F 85 18 108/72 98 01/21/20 18:27 98.1 F 89 18 113/71 99 Intake and Output 01/22/20 01/22/20 01/22/20 06:59 14:59 22:59 Intake Total 1500 Balance 1500 Intake: Intake, IV Titration 1500 Amount Potassium Chloride 10 meq 200 In Water For Injection 1 100ml.bag @ 100 mls/hr IVPB Q1H [facility] Rx#: [id number] Sodium Chloride 0.9% 1, 1300 000 ml @ 130 mls/hr IV . Q7H42M [facility] Rx#:[id number] Other: Voiding Method Toilet Toilet # Voids 2 PHYSICAL EXAM: VITAL SIGNS: As above GENERAL: Sitting up in chair, no acute distress HEENT: Conjunctivae normal. eyes normal. NECK: No JVD. No thyroid enlargement. No LNs CARDIOVASCULAR: S1, S2 regular.. No murmur RESPIRATION: Breath sounds diminished in the bases. No rhonchi or crackles. No bronchial breathing. ABDOMEN: Soft, tender left lower quadrant. No guarding. no masses palpable. No ascites, No hepatosplenomegaly.Bowel sounds heard. LEGS: No edema. no swelling PSYCHIATRY: Alert and oriented X3, mood and affect normal. NERVOUS SYSTEM: Cranial N 2-12 grossly normal. Moves all 4 limbs. No focal deficits. Strength and sensation grossly intact.. Skin: no rash Lymphatic system. No LN neck axilla. Results CBC & Chem 7: 01/21/20 16:40 01/22/20 11:15 Labs: Abnormal Lab Results - Last 24 Hours (Table) 01/21/20 01/21/20 01/22/20 Range/Units 16:40 22:03 02:00 Sodium 135 L 135 L (137-145) mmol/L Potassium 2.5 L* 3.1 L (3.5-5.1) mmol/L Glucose 140 H 111 H (74-99) mg/dL POC Glucose (mg/dL) (75-99) mg/dL Calcium 8.3 L (8.4-10.2) mg/dL AST 44 H (14-36) U/L ALT 46 H (4-34) U/L Urine Ketones 2+ H (Negative) 01/22/20 01/22/20 01/22/20 Range/Units 05:38 12:32 16:20 Sodium (137-145) mmol/L Potassium 3.0 L (3.5-5.1) mmol/L Glucose 130 H (74-99) mg/dL POC Glucose (mg/dL) 131 H 131 H (75-99) mg/dL Calcium 8.0 L (8.4-10.2) mg/dL AST (14-36) U/L ALT (4-34) U/L Urine Ketones (Negative) Thrombosis Risk Factor Assmnt - Choose All That Apply Each Factor Represents 1 point: Obesity (BMI >25) Thrombosis Risk Factor Assessment Total Risk Factor Score: 1 Thrombosis Risk Factor Assessment Level: Low Risk Assessment and Plan Assessment: Hypokalemia Nausea, vomiting, diarrhea with acute on chronic left lower quadrant abdominal pain Dehydration, secondary to the above Spleen lesion with possible masses, possible metastasis History of uterine dysfunction, enlarged uterus per CT Diabetes mellitus2 Hypothyroidism Gastroesophageal reflux disease History of gastric sleeve History of multiple abdominal surgeries, lysis of adhesions with left inguinal hernia repair May 2019 History of colitis Anxiety Morbid obesity, BMI 42.5 Plan: Continue on current medication regime ,monitoring and symptomatic treatment. Dr. Harper, general surgery consulted regarding abnormal CT. potassium replacement protocol ordered. Close monitoring of potassium/electrolytes, with repeat labs ordered for a.m. patient is ambulatory. Protonix for GI prophylaxis. Discharge planning pending surgery's clearance. The impression and plan of care has been dictated as directed. : I performed a history and examination of this patient, discussed the same with the dictator. I agree with the dictator's note ,documented as a scribe. Any additional findings or plans will be noted.
[2020-01-22] MEDS: CYCLOBENZAPRINE 10 MG TAB PO SCH (20:22)
[2020-01-22 20:39] LABS: Glucose,Whole Blood 162 mg/dL (75-99)
[2020-01-22] MEDS ORDERED: POTASSIUM CHLORIDE ER 20 MEQ TAB.ER PO SCH (21:00)
[2020-01-23] MEDS: SODIUM CHLORIDE 0.9% 1,000 ML IV SCH ×3 (02:04→16:27)
[2020-01-23 06:18] LABS: Basophils % (A) 0 %; Eosinophils # (A) 0.1 k/uL (0-0.7); Eosinophils % (A) 2 %; HCT 37.4 % (34.0-46.0); HGB 11.5 gm/dL (11.4-16.0); Lymphocytes # (A) 1.9 k/uL (1.0-4.8); Lymphocytes % (A) 31 %; MCH 26.4 pg (25.0-35.0); MCHC 30.9 g/dL (31.0-37.0); MCV 85.7 fL (80.0-100.0); Mean Platelet Volume 7.2; Monocytes # (A) 0.3 k/uL (0-1.0); Monocytes % (A) 4 %; Neutrophils # (A) 3.7 k/uL (1.3-7.7); Neutrophils % (A) 61 %; Platelet Count 334 k/uL (150-450); RBC 4.36 m/uL (3.80-5.40); RDW 15.2 % (11.5-15.5); WBC 6.1 k/uL (3.8-10.6)
[2020-01-23 06:26] LABS: Glucose,Whole Blood 119 mg/dL (75-99)
[2020-01-23] MEDS: INSULIN ASPART (NovoLOG) 100 UNIT/ML VIAL SQ SCH ×4 (06:30→20:39)
[2020-01-23] MEDS: PANTOPRAZOLE 40 MG TABLET PO SCH (06:30)
[2020-01-23] MEDS: LEVOTHYROXINE 50 MCG TAB PO SCH (06:30)
[2020-01-23 07:01] LABS: African American GFR (CKD) >90 (>60 ml/min/1.73 sqM); Anion Gap 8 mmol/L; Blood Urea Nitrogen 9 mg/dL (7-17); Carbon Dioxide 24 mmol/L (22-30); Chloride 107 mmol/L (98-107); Glucose 117 mg/dL (74-99); Non-African American GFR(CKD) >90 (>60 ml/min/1.73 sqM); Sodium 139 mmol/L (137-145)
[2020-01-23] MEDS: TOPIRAMATE 25 MG TAB PO SCH (08:52)
[2020-01-23] MEDS: traMADol 50 MG TAB PO PRN ×2 (09:51→23:08)
[2020-01-23] MEDS ORDERED: SODIUM CHLORIDE 0.9% 2,000 ML IV ONE (09:51)
[2020-01-23] MEDS ORDERED: SCOPOLAMINE 1.5MG/72HR PATCH TRANSDERM SCH (10:00)
--- NOTE | 2020-01-23 10:03 | CONS ---
CONSULTATION CHIEF COMPLAINT: Prolonged QT interval. Piedad Ramirez is a 44-year-old lady with history of hypertension, hypothyroidism, and yha-[id number]-imrcupmch diabetes, who presented to hospital with symptoms of nausea, vomiting and diarrhea. Cardiology had been consulted because of an abnormal EKG. Her QT interval was prolonged. She denies chest pain, difficulty in breathing, palpitations or syncope. A CT scan of the abdomen revealed splenic masses and storage revealed hyperdense lesion within the spleen. Patient does not have any prior cardiac history. PAST MEDICAL HISTORY: Significant for anxiety, diabetes, dyslipidemia, and hypertension. ALLERGIES: GENTAMICIN. CURRENT MEDICATIONS: Include Xanax, tramadol, metformin, Topamax, Synthroid, hydrochlorothiazide and Flexeril. FAMILY HISTORY: Negative for premature coronary artery disease. SOCIAL HISTORY: Negative for smoking, EtOH abuse, or drug abuse. REVIEW OF SYSTEMS: HEENT: Unremarkable. CARDIAC: As described above. RESPIRATORY As described above. GI: As described above.. GENITOURINARY: Negative. ALLERGY/IMMUNOLOGY: As described above. SKIN: Negative. MUSCULOSKELETAL: Negative. ENDOCRINE: Negative. DERMATOLOGY: Negative. CONSTITUTIONAL: Negative. ONCOLOGICAL: Negative. EMT I/99: Negative. PHYSICAL EXAMINATION: On exam, patient is afebrile, heart rate is 80 beats per minute. Blood pressure is 96/50, respiratory rate is 18. O2 saturation is 94% on room air. There is no jugular venous distention. Carotid upstroke is normal. There is no bruit. Chest exam reveals diminished air entry at the bases. Heart exam reveals first and second heart sounds. No gallop. No murmur. Abdomen is soft. Exam of extremities did not reveal any edema. Peripheral pulses are felt. LABS: Show that the hemoglobin is 11.5. Potassium is 4, creatinine is 0.6. C difficile is negative. Phillips virus is negative. EKG shows normal sinus rhythm with a corrected QT of 485 ms. ASSESSMENT: 1. Prolonged QT interval. 2. Nausea, vomiting, diarrhea. 3. Hypertension. 4. Urk-dumhquy-rzqkjmzai diabetes. PLAN: Patient prolonged QT intervals could be related to the medications that she is on. Please avoid QT prolonging drugs. Keep the potassium above 4, keep the magnesium around 2. I will obtain a 2D echo to evaluate her LV function. MMODL / IJN: [id number] /
[2020-01-23] MEDS: MAGNESIUM SULFATE-D5W PMX 1 GM in DEXTROSE/WATER 1 100ML.BAG IVPB SCH ×2 (11:03→12:22)
[2020-01-23] MEDS: THIAMINE 100 MG/ML 2 ML VIAL IVP SCH (11:03)
--- NOTE | 2020-01-23 11:06 | P.GSCN ---
<Xena Noe - Last Filed: 01/23/20 11:03> History of Present Illness Consult date: 01/23/20 Reason for Consult: Left lower quadrant abdominal pain Requesting physician: Ellie Mooney History of present illness: CHIEF COMPLAINT: Left lower quadrant abdominal pain HISTORY OF PRESENT ILLNESS: 44-year-old female who presented to the emergency room with a chief complaint of nausea and vomiting. Patient also reported left lower quadrant abdominal pain which is apparently chronic in nature for her. The patient has a history of a gastric sleeve performed by Dr. Ordaz. General surgery was consulted for further evaluation. Patient examined this morning the bedside with Dr. Ordaz. Patient reports mild left lower quadrant abdominal pain but states it is at her baseline. She denies any further vomiting. She does report nausea. PAST MEDICAL HISTORY: See list. PAST SURGICAL HISTORY: See list. MEDICATIONS: See list. ALLERGIES: See list. SOCIAL HISTORY: No illicit drug use. REVIEW OF SYSTEMS: CONSTITUTIONAL: Denies fever or chills. HEENT: Denies blurred vision, vision changes, or eye pain. Denies hemoptysis ENDOCRINE: Denies heat or cold intolerance. CARDIOVASCULAR: Denies chest pain or pressure. RESPIRATORY: No shortness of breath. GASTROINTESTINAL: See HPI for pertinent findings NEURO: Denies history of seizures. PSYCH: No depression or suicidal ideation HEMATOLOGIC: Denies bleeding disorders. LYMPHATIC: The patient denies any lumps and bumps around the neck. GENITOURINARY: Denies any blood in urine or increased urinary frequency. MUSCULOSKELETAL: Denies myalgias. Denies joint swelling. Denies decreased range of motion beyond patients baseline. SKIN: Denies pruitis. Denies rash. PHYSICAL EXAM: VITAL SIGNS: Reviewed GENERAL: Well-developed in no acute distress. HEENT: No sclera icterus. Extraocular movements grossly intact. Moist buccal mucosa. Head is atraumatic, normocephalic. Hears conversational speech. No nasal drainage. NECK: Supple without lymphadenopathy. CHEST: Non-labored respirations and equal bilateral excursions. CARDIOVASCULAR: Regular rate with regular rhythm. Palpable 2+ radial pulses. ABDOMEN: Soft. Nondistended. Mild tenderness upon palpation of lower abdomen. MUSCULOSKELETAL: No clubbing or cyanosis. NEUROLOGIC: No focal or lateralizing signs. Cranial nerves II through XII grossly intact. PSYCH: Appropriate affect. Alert and oriented to person, place and time. SKIN: Well perfused. Good skin turgor. LABORATORY DATA: WBC 6.1. Hemoglobin 11.5 platelet count 334. Sodium 139. Potassium 4.0. BUN 9. Creatinine 0.65. IMAGING: CT abdomen and pelvis: Patchy hypodensities within the spleen. Splenic lesion should be considered. Heterogeneous enlarged uterus. Correlate for uterine fibroids. ASSESSMENT: 1. Chronic lower abdominal pain 2. Nausea, vomiting 3. Hypokalemia 4. History of gastric sleeve PLAN: -Dr. Ordaz reviewed computed tomography scan. No surgical intervention recommended -Recommend symptom management of nausea including 2L saline bolus, 2 gram magnesium, IV thiamine, and scopolamine patch -Patient is being followed by Dr. Jackson outpatient and is planing for hysterectomy in the near future -Stable for discharge home today from a surgical standpoint. Nurse practitioner note has been reviewed by physician. Signing provider agrees with the documented findings, assessment, and plan of care. Past Medical History Past Medical History: Diabetes Mellitus, Thyroid Disorder Additional Past Medical History / Comment(s): abd. pain lower left side for approx.-intermittent, some vomiting,hx restless leg syndrome,swelling lower ext History of Any Multi-Drug Resistant Organisms: None Reported Past Surgical History: Bariatric Surgery, Section, Cholecystectomy, Tubal Ligation, Uterine Ablation Additional Past Surgical History / Comment(s): C/S x3, gastric sleeve w/hiatal hernia repair-2012 Past Anesthesia/Blood Transfusion Reactions: No Reported Reaction Additional Past Anesthesia/Blood Transfusion Reaction / Comm: no hx blood transfusion Past Psychological History: Anxiety Smoking Status: Never smoker Past Alcohol Use History: Occasional Past Drug Use History: None Reported - Past Family History Mother Family Medical History: No Reported History Medications and Allergies Home Medications Medication Instructions Recorded Confirmed Type metFORMIN HCL 500 mg PO DAILY 10/02/15 01/21/20 History traMADol HCL [Tramadol HCl] 50 mg PO BID PRN 10/02/15 01/21/20 History Topiramate [Topamax] 50 mg PO DAILY 05/24/17 01/21/20 History ALPRAZolam [Xanax] 0.25 mg PO DAILY PRN 01/02/19 01/21/20 History Cyclobenzaprine [Flexeril] 10 mg PO HS 01/02/19 01/21/20 History Levothyroxine Sodium [Synthroid] 50 mcg PO QAM 01/02/19 01/21/20 History Pantoprazole [Protonix] 40 mg PO AC-BRKFST #30 tablet. 01/23/20 Rx Allergies Allergy/AdvReac Type Severity Reaction Status Date / Time gentamicin [Gentamicin] AdvReac convulsions Verified 01/21/20 16:21 Surgical - Exam Vital Signs Temp Pulse Resp BP Pulse Ox 98.0 F 125 H 18 124/90 100 01/21/20 16:18 01/21/20 16:18 01/21/20 16:18 01/21/20 16:18 01/21/20 16:18 Results - Labs 01/23/20 05:54 01/23/20 05:54 Abnormal Lab Results - Last 24 Hours (Table) 01/22/20 01/22/20 01/22/20 Range/Units 12:32 16:20 20:38 MCHC (31.0-37.0) g/dL Glucose (74-99) mg/dL POC Glucose (mg/dL) 131 H 131 H 162 H (75-99) mg/dL Calcium (8.4-10.2) mg/dL 01/23/20 01/23/20 01/23/20 Range/Units 05:54 05:54 06:25 MCHC 30.9 L (31.0-37.0) g/dL Glucose 117 H (74-99) mg/dL POC Glucose (mg/dL) 119 H (75-99) mg/dL Calcium 8.0 L (8.4-10.2) mg/dL Diabetes panel 01/22/20 01/23/20 Range/Units 11:15 05:54 Sodium 139 (137-145) mmol/L Potassium 3.7 4.0 (3.5-5.1) mmol/L Chloride 107 (98-107) mmol/L Carbon Dioxide 24 (22-30) mmol/L BUN 9 (7-17) mg/dL Creatinine 0.65 (0.52-1.04) mg/dL Glucose 117 H (74-99) mg/dL Calcium 8.0 L (8.4-10.2) mg/dL Calcium panel 01/23/20 Range/Units 05:54 Calcium 8.0 L (8.4-10.2) mg/dL Pituitary panel 01/22/20 01/23/20 Range/Units 11:15 05:54 Sodium 139 (137-145) mmol/L Potassium 3.7 4.0 (3.5-5.1) mmol/L Chloride 107 (98-107) mmol/L Carbon Dioxide 24 (22-30) mmol/L BUN 9 (7-17) mg/dL Creatinine 0.65 (0.52-1.04) mg/dL Glucose 117 H (74-99) mg/dL Calcium 8.0 L (8.4-10.2) mg/dL Adrenal panel 01/22/20 01/23/20 Range/Units 11:15 05:54 Sodium 139 (137-145) mmol/L Potassium 3.7 4.0 (3.5-5.1) mmol/L Chloride 107 (98-107) mmol/L Carbon Dioxide 24 (22-30) mmol/L BUN 9 (7-17) mg/dL Creatinine 0.65 (0.52-1.04) mg/dL Glucose 117 H (74-99) mg/dL Calcium 8.0 L (8.4-10.2) mg/dL <Bhumika Ordaz N - Last Filed: 01/28/20 20:53> History of Present Illness History of present illness: Patient seen and evaluated with above. Agree with above. CHIEF COMPLAINT: Intractable nausea and vomiting HISTORY OF PRESENT ILLNESS: Piedad Ramirez is a 44-year-old female who is status post sleeve gastrectomy over 6 years ago, 2012. She comes in with history of intractable nausea and vomiting for the last 2+ days. No reports of blood in stools. She has history of hiatal hernia. She does report left lower quadrant abdominal pain ongoing for over 2 lungs. She is pending hysterectomy. She comes in with history of hypokalemia. At height of 5 feet 2 inches, her ideal body weight is 135 pounds. Her highest weight was 258 pounds. Her BMI was 47.3. She comes in 228 pounds from 213 pounds, 1 year ago. She has gained 15 pounds in 8 months. Her body mass index is 40.4. She is 93 pounds overweight. Total weight loss is 30 pounds. Percent excess weight loss is 25%. PAST MEDICAL HISTORY: 1. Morbid obesity due to excess calories 2. Body mass index of 47.3, initial 3. Hypothyroidism 4. Anxiety 5. Chronic pain 6. Hypertensive heart disease 7. Diabetes type 2 PAST SURGICAL HISTORY: 1. section 2. Cholecystectomy 3. Tubal ligation 4. Uterine Ablation 5. Sleeve gastrectomy HOME MEDICATIONS: ALLERGIES: SOCIAL HISTORY: No past tobacco use. FAMILY HISTORY: No family history of ulcerative colitis disease or Crohn's disease. Family history of morbid obesity. No lupus in the family. No reports of stomach or esophageal cancer. REVIEW OF ORGAN SYSTEMS: CONSTITUTIONAL: At height of 5 feet 2 inches, her ideal body weight is 135 pounds. Her highest weight was 258 pounds. Her BMI was 47.3. HEENT: Denies any active troubles with vision or hearing. ENDOCRINE: Has diabetes. Has hypothyroidism. CARDIOVASCULAR: No past reports of palpitations or heart attacks or chest pain. RESPIRATORY: Denies pneumonia. No asthma. GASTROINTESTINAL: Has diarrhea and recent history of colitis. MUSCULOSKELETAL: Has lower back pain and joint pain. Has osteoarthritis of the knees. NEURO: No headaches. No seizure disorders. PSYCH: No depression. No suicidal ideation. RHEUMATOLOGIC: No lupus. No rheumatoid arthritis. HEMATOLOGIC: Denies any abnormal bleeding or bruising. No personal history of DVTs. SKIN: No rash. No skin cancer. PHYSICAL EXAM: VITAL SIGNS: Height 5 foot 2 inches, weight 228 pounds. BMI 40.3 GENERAL: Well-developed in no acute distress. HEENT: No scleral icterus. Extraocular movements grossly intact. Hears conversational speech. No nasal drainage. NECK: Supple without lymphadenopathy. CHEST: Nonlabored respirations with equal bilateral excursions. CARDIOVASCULAR: Regular rate and regular rhythm. Distal 2+ pulses. ABDOMEN: Obese, soft, nondistended. No hernia. No peritonitis. Left lower quadrant tender MUSCULOSKELETAL: No clubbing, cyanosis. NEURO: No focal or lateralizing signs. Cranial nerves 2 through 12 grossly within normal limits. PSYCH: Appropriate affect. Alert and oriented to person, place and time. SKIN: Good skin turgor. Well perfused. LABS: Reviewed, potassium is low. REPORTS: EGD FINDINGS: No acute ulceration found along her sleeve. No corkscrewing sleeve gastrectomy. Squamocolumnar junction at 35 cm from the incisors. Diaphragmatic hiatus at 40 cm. Dilated proximal gastric reservoir with prior history of sleeve gastrectomy Hiatal hernia 5 cm, fixed. LA grade A erosive esophagitis. No active duodenitis. Chronic gastritis. STUDIES: CT of the abdomen and pelvis independently reviewed revealed no evidence of small bowel obstruction or colitis. ASSESSMENT: 1. Left lower quadrant abdominal pain 2. Intractable nausea and vomiting 3. Hypokalemia 4. Morbid obesity due to excess calories 5. Body mass index of 47.3 to 40.4 6. Hypothyroidism 7. Anxiety 8. Chronic pain 9. Hypertensive heart disease 10. Diabetes type 2 11. Change in bowel habits 12. Colitis 13. Weight regain following bariatric procedure 14. Abdominal pain, left side 15. Iron deficiency anemia 16. Hiatal hernia 17. Dehydration PLAN: 1. With intractable nausea and vomiting, recommend to liter normal saline bolus. 2. Recommend magnesium 2 g for history of intractable nausea or vomiting 3. Recommend thiamine for history of intractable nausea and vomiting 4. Also recommend scopolamine patch for intractable nausea and vomiting Surgical - Exam Vital Signs Temp Pulse Resp BP Pulse Ox 98.0 F 125 H 18 124/90 100 01/21/20 16:18 01/21/20 16:18 01/21/20 16:18 01/21/20 16:18 01/21/20 16:18 Results - Labs 01/24/20 09:18 01/24/20 09:18 Assessment and Plan (1) Left lower quadrant abdominal pain Status: Acute Code(s): R10.32 - LEFT LOWER QUADRANT PAIN SNOMED Code(s): 338557982 (2) Status post laparoscopic sleeve gastrectomy Status: Acute Code(s): Z98.84 - BARIATRIC SURGERY STATUS SNOMED Code(s): 734672937 (3) Morbid obesity due to excess calories Status: Acute Code(s): E66.01 - MORBID (SEVERE) OBESITY DUE TO EXCESS CALORIES SNOMED Code(s): 968727563 (4) BMI greater than 40 Status: Acute Code(s): EEG5973 - SNOMED Code(s): 597486992 (5) Dehydration Status: Acute Code(s): E86.0 - DEHYDRATION SNOMED Code(s): 22086940 (6) Nausea & vomiting Status: Acute Code(s): R11.2 - NAUSEA WITH VOMITING, UNSPECIFIED SNOMED Code(s): 03271287
[2020-01-23 11:20] LABS: Glucose,Whole Blood 125 mg/dL (75-99)
--- NOTE | 2020-01-23 11:53 | P.DS ---
Providers Date of admission: 01/23/20 08:44 Expected date of discharge: 01/23/20 Attending physician: Alvarez Rodriguez Consults: 01/22/20 12:18 Consult Physician Routine Consulting Provider: Bhumika Ordaz Consult Reason/Comments: left lower quadrant pain Do you want consulting provider notified?: Yes 01/22/20 19:28 Consult Physician Routine Consulting Provider: Haroon Hale Consult Reason/Comments: prolonged QT Do you want consulting provider notified?: Yes, Notify in am Primary care physician: Philip Jenkins Hospital Course: Final Diagnoses: Hypokalemia, resolved Nausea, vomiting, diarrhea with acute on chronic left lower quadrant abdominal pain Dehydration, secondary to the above Spleen lesion with possible masses, possible metastasis, further follow-up outp atient to be confirmed as per surgery prior to discharge. History of uterine dysfunction, enlarged uterus per CT Diabetes mellitus2 Hypothyroidism Gastroesophageal reflux disease History of gastric sleeve History of multiple abdominal surgeries, lysis of adhesions with left inguinal hernia repair May 2019 History of colitis Anxiety Morbid obesity, BMI 42.5 Hospital course:This a 44-year-old female with history of diabetes mellitus, hypothyroidism, gastric sleeve, anxiety and multiple other medical issues presented to the ER with complaints of nausea ,vomiting, diarrhea, left lower quadrant abdominal pain since Tuesday. Reporting 6 episodes of diarrhea per day. Reports she had labs drawn on Tuesday reporting hypokalemia(3.1 as per ER report) and PCP instructed her to proceed to the ER. On admission patient's potassium was 2.5. Magnesium 1.8. Hematology unremarkable, BUN 12 creatinine 0.70, sodium 135. Received several supplements of both oral and IV potassium up to 100 mcgs with most recent level at 3.7. On admission patient complaining of leg cramps which have significantly improved. Denies chest pain, palpitations or shortness of breath. Denies hemoptysis, hematochezia or melena. On admission, tachycardic with heart rates of 125, afebrile, blood pressure 124/90, respiratory rate 18 maintaining O2 sats of 100% on room air. EKG reported normal sinus rhythm, prolonged QT, QT 0.40; now currently measured at 0.33. Troponin added on to labs, currently pending. Abdomen and pelvis CT reported some irregular hypodensities within the spleen with underlying masses is not excluded. No dilated loops of bowel, transverse and descending colon decompressed, limited exam given lack of contrast, heterogeneous enlarged uterus, possible uterine fibroids, no suspicious changes for obstruction. UA negative. Blood sugars controlled. Denies chest pain, palpitations or shortness of breath. Denies lightheadedness, dizziness or focal deficits. Significant clinical improvement. Potassium normalized. Leg cramps resolved. Denies lightheadedness, dizziness or focal deficits. No further emesis. Denies chest pain, palpitations or shortness of breath. CT reviewed by the surgery with no surgical intervention recommended. Patient has been cleared by surgery for discharge. Further workup/follow-up outpatient per surgery to be confirmed prior to discharge. The impression and plan of care has been dictated as directed. : I performed a history and examination of this patient, discussed the same with the dictator. I agree with the dictator's note ,documented as a scribe. Any additional findings or plans will be noted. Patient Condition at Discharge: Stable Plan - Discharge Summary Discharge Rx Participant: No New Discharge Prescriptions: New Pantoprazole [Protonix] 40 mg PO AC-BRKFST #30 tablet.dr Lamb traMADol HCL [Tramadol HCl] 50 mg PO BID PRN PRN Reason: Pain metFORMIN HCL 500 mg PO DAILY Topiramate [Topamax] 50 mg PO DAILY Hydrochlorothiazide 25 mg PO DAILY ALPRAZolam [Xanax] 0.25 mg PO DAILY PRN PRN Reason: Anxiety Levothyroxine Sodium [Synthroid] 50 mcg PO QAM Cyclobenzaprine [Flexeril] 10 mg PO HS Discharge Medication List metFORMIN HCL 500 mg PO DAILY 10/02/15 [History] traMADol HCL [Tramadol HCl] 50 mg PO BID PRN 10/02/15 [History] Hydrochlorothiazide 25 mg PO DAILY 05/24/17 [History] Topiramate [Topamax] 50 mg PO DAILY 05/24/17 [History] ALPRAZolam [Xanax] 0.25 mg PO DAILY PRN 01/02/19 [History] Cyclobenzaprine [Flexeril] 10 mg PO HS 01/02/19 [History] Levothyroxine Sodium [Synthroid] 50 mcg PO QAM 01/02/19 [History] Pantoprazole [Protonix] 40 mg PO AC-BRKFST #30 tablet. 01/23/20 [Rx] Follow up Appointment(s)/Referral(s): Bhumika Ordaz MD [STAFF PHYSICIAN] - As Needed Philip Jenkins MD [Primary Care Provider] - 3 Days Activity/Diet/Wound Care/Special Instructions: Please obtain any further outpatient f/u recommendations from Dr. Harper regarding CT.
[2020-01-23 16:19] LABS: Glucose,Whole Blood 113 mg/dL (75-99)
[2020-01-23 20:29] LABS: Glucose,Whole Blood 109 mg/dL (75-99)
[2020-01-23] MEDS: CYCLOBENZAPRINE 10 MG TAB PO SCH (20:41)
[2020-01-24] MEDS: SODIUM CHLORIDE 0.9% 1,000 ML IV SCH ×2 (00:22→06:48)
[2020-01-24 04:31] VITALS: RESP 18
[2020-01-24 06:23] LABS: Glucose,Whole Blood 152 mg/dL (75-99)
[2020-01-24] MEDS: LEVOTHYROXINE 50 MCG TAB PO SCH (06:47)
[2020-01-24] MEDS: INSULIN ASPART (NovoLOG) 100 UNIT/ML VIAL SQ SCH ×2 (06:47→12:00)
[2020-01-24] MEDS: PANTOPRAZOLE 40 MG TABLET PO SCH (06:51)
[2020-01-24] MEDS: THIAMINE 100 MG/ML 2 ML VIAL IVP SCH (08:58)
[2020-01-24] MEDS: TOPIRAMATE 25 MG TAB PO SCH (08:58)
[2020-01-24] MEDS: traMADol 50 MG TAB PO PRN (08:58)
[2020-01-24 09:35] LABS: Basophils % (A) 0 %; Eosinophils # (A) 0.1 k/uL (0-0.7); Eosinophils % (A) 1 %; HCT 38.2 % (34.0-46.0); HGB 11.8 gm/dL (11.4-16.0); Hypochromasia Slight; Lymphocytes # (A) 1.9 k/uL (1.0-4.8); Lymphocytes % (A) 22 %; MCH 26.5 pg (25.0-35.0); MCHC 30.8 g/dL (31.0-37.0); MCV 86.1 fL (80.0-100.0); Mean Platelet Volume 7.6; Monocytes # (A) 0.3 k/uL (0-1.0); Monocytes % (A) 3 %; Neutrophils # (A) 6.1 k/uL (1.3-7.7); Neutrophils % (A) 72 %; Platelet Count 351 k/uL (150-450); RBC 4.44 m/uL (3.80-5.40); RDW 15.4 % (11.5-15.5); WBC 8.4 k/uL (3.8-10.6)
[2020-01-24 09:42] LABS: African American GFR (CKD) >90 (>60 ml/min/1.73 sqM); Anion Gap 6 mmol/L; Blood Urea Nitrogen 10 mg/dL (7-17); Calcium 8.2 mg/dL (8.4-10.2); Carbon Dioxide 22 mmol/L (22-30); Chloride 112 mmol/L (98-107); Glucose 139 mg/dL (74-99); Non-African American GFR(CKD) >90 (>60 ml/min/1.73 sqM); Sodium 140 mmol/L (137-145)
[2020-01-24] MEDS ORDERED: ACETAMINOPHEN TAB 325 MG TAB PO PRN (10:57)
--- NOTE | 2020-01-24 11:14 | P.PN ---
Subjective Progress Note Date: 01/24/20 This is a 44-year-old female with history of hypertension, hypothyroidism, diabetes, who presented to the hospital with symptoms of nausea vomiting and diarrhea. Cardiology was initially consulted because of abnormal EKG with prolonged QT interval. She denied any chest pain or breathing overall has been stable. A CAT scan of the abdomen revealed splenic masses and hyperdense lesion within the spleen. Blood pressure 140/60 with a heart rate in the 70s, 100% on room air. White blood cell count 8.4, hemoglobin 11.8, platelet count 351. Sodium 140, potassium 4.0, BUN 10, creatinine 0.6. Patient was seen and examined this morning, sitting up in her chair at bedside, complaining of some left lower abdominal discomfort radiating around to her back. Denied any chest pain in her breathing is stable. Echocardiogram with Doppler study remains pending. Objective - Vital Signs Vital signs: Vital Signs Temp 97.3 F L 01/24/20 04:00 Pulse 79 01/24/20 04:00 Resp 18 01/24/20 04:00 BP 140/69 01/24/20 04:00 Pulse Ox 100 01/24/20 04:00 Intake & Output 01/23/20 01/24/20 01/24/20 18:59 06:59 18:59 Intake Total 720 Balance 720 Weight 103.5 kg Intake: Oral 720 Other: Voiding Method Toilet # Voids 1 3 - Exam PHYSICAL EXAMINATION: GENERAL: 44-year-old female in no acute distress at the time of my examination HEENT: Head is atraumatic, normocephalic. Pupils equal, round. Sclera anicteric. Conjunctiva are clear. Mucous membranes of the mouth are moist. Neck is supple. There is no elevated jugular venous pressure. No carotid bruit is heard. HEART EXAMINATION: Heart S1, S2 normal. No murmur or gallop heard. CHEST EXAMINATION: Lungs are clear to auscultation and precussion. No chest wall tenderness is noted on palpation or with deep breathing. ABDOMEN: Soft, complaints of left lower quadrant and left lower back pain . Bowel sounds are heard. No organomegaly noted. EXTREMITIES: 2+ peripheral pulses with no evidence of peripheral edema and no calf tenderness noted. NEUROLOGIC patient is awake, alert and oriented 3 . . - Labs CBC & Chem 7: 01/24/20 09:18 01/24/20 09:18 Labs: Abnormal Lab Results - Last 24 Hours (Table) 01/23/20 01/23/20 01/23/20 Range/Units 11:19 16:18 20:23 MCHC (31.0-37.0) g/dL Chloride (98-107) mmol/L Glucose (74-99) mg/dL POC Glucose (mg/dL) 125 H 113 H 109 H (75-99) mg/dL Calcium (8.4-10.2) mg/dL 01/24/20 01/24/20 01/24/20 Range/Units 06:21 09:18 09:18 MCHC 30.8 L (31.0-37.0) g/dL Chloride 112 H (98-107) mmol/L Glucose 139 H (74-99) mg/dL POC Glucose (mg/dL) 152 H (75-99) mg/dL Calcium 8.2 L (8.4-10.2) mg/dL Assessment and Plan Plan: Assessment and plan #1 abdominal discomfort with nausea and vomiting #2 prolonged QT interval, improved on this morning's EKG #3 [id number] diabetes #4 hypertension Plan We'll await the results of the echocardiogram with Doppler study, we will review those when available, if normal then from cardiology's perspective the patient may be able to be discharged home to follow-up in the office post discharge. DNP note has been reviewed, I agree with a documented findings and plan of care. Patient was seen and examined.
--- NOTE | 2020-01-24 11:35 | ECHOF ---
Referral Reason:prolonged qt MEASUREMENTS -------- HEIGHT: 160.0 cm WEIGHT: 101.6 kg BP: RVIDd: 2.0 cm (< 3.3) IVSd: 0.9 cm (0.6 - 1.1) LVIDd: 4.1 cm (3.9 - 5.3) LVPWd: 1.1 cm (0.6 - 1.1) IVSs: 1.3 cm LVIDs: 2.6 cm LVPWs: 1.5 cm LAESV Index (A-L): 16.71 ml/m Ao Diam: 2.6 cm (2.0 - 3.7) AV Cusp: 2.2 cm (1.5 - 2.6) LA Diam: 3.2 cm (2.7 - 3.8) MV EXCURSION: 17.007 mm (> 18.000) MV EF SLOPE: 190 mm/s (70 - 150) EPSS: 0.4 cm MV E Salas: 1.04 m/s MV DecT: 159 ms MV A Salas: 0.76 m/s MV E/A Ratio: 1.38 RAP: 5.00 mmHg RVSP: 16.66 mmHg FINDINGS -------- Sinus rhythm. This was a technically adequate study. The left ventricular size is normal. There is mild concentric left ventricular hypertrophy. Overa ll left ventricular systolic function is normal with, an EF between 55 - 60 %. The right ventricle is normal in size. The left atrial size is normal. The right atrial size is normal. The aortic valve is trileaflet and appears structurally normal. The mitral valve is normal. There is trace mitral regurgitation. The tricuspid valve appears structurally normal. Trace tricuspid regurgitation present. Right joel tricular systolic pressure is normal at < 35 mmHg. There is no pulmonic regurgitation present. The aortic root size is normal. IVC Not well visulized. There is no pericardial effusion. CONCLUSIONS -------- 1. Sinus rhythm. 2. This was a technically adequate study. 3. The left ventricular size is normal. 4. There is mild concentric left ventricular hypertrophy. 5. Overall left ventricular systolic function is normal with, an EF between 55 - 60 %. 6. The right ventricle is normal in size. 7. The left atrial size is normal. 8. The right atrial size is normal. 9. The aortic valve is trileaflet and appears structurally normal. 10. The mitral valve is normal. 11. There is trace mitral regurgitation. 12. The tricuspid valve appears structurally normal. 13. Trace tricuspid regurgitation present. 14. Right ventricular systolic pressure is normal at < 35 mmHg. 15. There is no pulmonic regurgitation present. 16. The aortic root size is normal. 17. IVC Not well visulized. 18. There is no pericardial effusion. KNOT CUTTER: Pauly Goel RDCS
[2020-01-24 11:36] VITALS: BP 121/68; TEMP 98.1
[2020-01-24 11:42] LABS: Glucose,Whole Blood 108 mg/dL (75-99)
[2020-01-24 13:07] VITALS: PULSE 86
[2020-01-24 15:06] LABS: Appearance,Urine Clear (Clear); Bilirubin,Urine Negative (Negative); Blood,Urine Negative (Negative); Color,Urine Yellow; Glucose,Urine (UA) Negative (Negative); Ketones,Urine 2+ (Negative); Leukocyte Esterase,Urine Negative (Negative); Nitrite,Urine Negative (Negative); PH, Urine 6.5 (5.0-8.0); Protein,Urine Negative (Negative); Specific Gravity,Urine 1.018 (1.001-1.035); Urobilinogen,Urine <2.0 mg/dL (<2.0)
--- NOTE | 2020-01-25 13:05 | CDI ---
Documentation Clarification Form Date: 01/25/20 From: Nila Ponce CCS Phone: If you have a question about this query, please contact Pat Coffman, Stock Raiser at [phone] between 8am and 5pm. Admit Date: 01/23/20 Discharge Date:01/24/20 Patient Name: Piedad Ramirez Visit Number: [id number] ATTENTION: The Clinical Documentation Specialists (CDI) and [facility] Coding Staff appreciate your assistance in clarifying documentation. Please respond to the clarification below the line at the bottom and electronically sign. The CDI & [facility] Coding staff will review the response and follow-up if needed. Please note: Queries are made part of the Legal Health Record. If you have any questions, please contact the author of this message via ITS. Dear Dr. Rodriguez, The patients principal diagnosis has not been clearly identified and requires clarification. The patient was admitted to Observation status on 01/20 with Lesion of spleen, Dehydration, Hypokalemia, Bulky or enlarged uterus, Nausea vomiting, Diarrhea The patient was changed to Inpatient status on 01/22- Consult 01/22 documents: Prolonged QT interval, Nausea, vomiting, diarrhea, hypertension, Stn-bvabruw-ufcjogayr diabetes, chronic abdominal pain, hypokalemia History/Risk factors: Hx Bariatric surgery, Lesion of spleen, Morbid obesity Clinical Indicators: Prolonged QT interval, Chronic abdominal pain, Hypokalemia, Lesion of spleen Labs: 01/22 - Potassium 4.0 Treatment: Zofran, 4 mg IV, Protonix 40 mg IVP, Potassium replacement protocol, Transderm-Scop 1.5 MG/72HR Consults: Orlin Hale In your professional opinion, can you please clarify which diagnosis was the reason chiefly responsible for the admission from Observation to Inpatient status? Hypokalemia Prolonged QT Interval Chronic Abdominal Pain Lesion of spleen Other MTDD
--- NOTE | 2020-02-12 15:40 | CDI ---
Documentation Clarification Form Date: 02/12/20 From: Nila Ponce CCS Phone: If you have a question about this query, please contact Pat Coffman, Blower And Compressor Assembler at [phone] between 8am and 5pm. Admit Date: 01/23/20 Discharge Date:01/24/20 Patient Name: Piedad Ramirez Visit Number: [id number] ATTENTION: The Clinical Documentation Specialists (CDI) and [facility] Coding Staff appreciate your assistance in clarifying documentation. Please respond to the clarification below the line at the bottom and electronically sign. The CDI & [facility] Coding staff will review the response and follow-up if needed. Please note: Queries are made part of the Legal Health Record. If you have any questions, please contact the author of this message via ITS. Dear Dr. Rodriguez, The patients principal diagnosis has not been clearly identified and requires clarification. The patient was admitted to Observation status on 01/20 with Lesion of spleen, Dehydration, Hypokalemia, Bulky or enlarged uterus, Nausea vomiting, Diarrhea The patient was changed to Inpatient status on 01/22- Consult 01/22 documents: Prolonged QT interval, Nausea, vomiting, diarrhea, hypertension, Jhi-bxeolyy-dyqmdzxjc diabetes, chronic abdominal pain, hypokalemia History/Risk factors: Hx Bariatric surgery, Lesion of spleen, Morbid obesity Clinical Indicators: Prolonged QT interval, Chronic abdominal pain, Hypokalemia, Lesion of spleen Labs: 01/22 - Potassium 4.0 Treatment: Zofran, 4 mg IV, Protonix 40 mg IVP, Potassium replacement protocol, Transderm-Scop 1.5 MG/72HR Consults: Orlin Hale In your professional opinion, can you please clarify which diagnosis was the reason chiefly responsible for the admission from Observation to Inpatient status? Hypokalemia Prolonged QT Interval Chronic Abdominal Pain Lesion of spleen Other hypokalimia s/p olivia in y for wt loss, non-compliance potasium suplimentation JESSICAD
== END 2020-01-24 15:12 | disposition home or self-care (01) | DRG 641 ==
LOC: EC 16:16 → 3SCARD 18:11 → OBSVTOIN 01-23 08:44
PROVIDERS: ADMIT Family Medicine; ATTEND Family Medicine
DX: E87.6 Hypokalemia (principal); Z68.41 Body mass index [BMI] 40.0-44.9, adult; C78.89 Secondary malignant neoplasm of other digestive organs; Z20.828 Contact with and (suspected) exposure to other viral communicable diseases; D63.1 Anemia in chronic kidney disease; I11.9 Hypertensive heart disease without heart failure; C80.1 Malignant (primary) neoplasm, unspecified; E11.9 Type 2 diabetes mellitus without complications; E66.01 Morbid (severe) obesity due to excess calories; R19.7 Diarrhea, unspecified; R11.2 Nausea with vomiting, unspecified; E86.0 Dehydration; N85.2 Hypertrophy of uterus; E03.9 Hypothyroidism, unspecified; K21.9 Gastro-esophageal reflux disease without esophagitis; F41.9 Anxiety disorder, unspecified; G25.81 Restless legs syndrome; R94.31 Abnormal electrocardiogram [ECG] [EKG]; E78.5 Hyperlipidemia, unspecified; R10.32 Left lower quadrant pain; G89.29 Other chronic pain; R00.0 Tachycardia, unspecified; Z91.14 Patient's other noncompliance with medication regimen; Z98.890 Other specified postprocedural states; Z79.84 Long term (current) use of oral hypoglycemic drugs; Z79.899 Other long term (current) drug therapy; Z79.890 Hormone replacement therapy; Z98.84 Bariatric surgery status; Z90.49 Acquired absence of other specified parts of digestive tract; Z98.51 Tubal ligation status; Z88.1 Allergy status to other antibiotic agents
CPT/HCPCS: 36415; 74177; 80048; 80053; 81003; 82150; 83690; 83735; 84132; 84484; 85025; 87324; 87635; 93005; 93306; 96361; 96365; 96366; 96375; 99285

== ENCOUNTER → 2020-02-01 | Outpatient (CLI) | payer BC ==
[2020-02-01 09:06] LABS: Potassium 2.9 mmol/L (3.5-5.1)
== END | disposition home or self-care (01) ==
LOC: LABWHC1 08:00
PROVIDERS: ATTEND Family Medicine
DX: E87.6 Hypokalemia (principal); R53.83 Other fatigue
CPT/HCPCS: 36415; 84132; 84439; 84443

== ENCOUNTER → 2020-02-06 | Outpatient (CLI) | payer BC ==
[2020-02-06 13:07] VITALS: BP 131/68; PULSE 96; RESP 16; TEMP 98.3; BMI 42.3
--- NOTE | 2020-02-06 13:53 | P.PN ---
Subjective Progress Note Date: 02/06/20 DATE OF SERVICE: 02/06/2020 CHIEF COMPLAINT: Hypokalemia HISTORY OF PRESENT ILLNESS: Piedad Ramirez is a 44-year-old female who was hospitalized 2 weeks ago secondary to nausea and vomiting. Since discharge, she has severe hypokalemia, potassium 2.9. She reports intermittent muscular aches. She has left lower quadrant abdominal pain secondary to uterine fibroids. No reports of recurrent diarrhea. No reports of constipation. She has not seen a store operations manager. She reports taking thyroid medications with her other medications at the same time. She is also status post lysis of adhesions from 8 months ago. At height of 5 feet 2 inches, her ideal body weight is 135 pounds. Her highest weight was 258 pounds. Her BMI was 47.3. She comes in 231 pounds from 226 pound, 11 months ago. She has gained 5 pounds in 11 months. Her body mass index is up to 42.3 from 41.3. She is 96 pounds overweight. Total weight loss is 27 pounds. Percent excess weight loss is 22%. PAST MEDICAL HISTORY: 1. Morbid obesity due to excess calories 2. Body mass index of 47.3, initial 3. Hypothyroidism 4. Anxiety 5. Chronic pain 6. Hypertensive heart disease 7. Diabetes type 2 PAST SURGICAL HISTORY: 1. section 2. Cholecystectomy 3. Tubal ligation 4. Uterine Ablation 5. Sleeve gastrectomy 6. Lysis of adhesions HOME MEDICATIONS: ALLERGIES: Home Medications Medication Instructions Recorded Confirmed metFORMIN HCL 500 mg PO DAILY 10/02/15 02/06/20 traMADol HCL [Tramadol HCl] 50 mg PO BID PRN 10/02/15 02/06/20 Topiramate [Topamax] 50 mg PO DAILY 05/24/17 02/06/20 ALPRAZolam [Xanax] 0.25 mg PO DAILY PRN 01/02/19 02/06/20 Cyclobenzaprine [Flexeril] 10 mg PO HS 01/02/19 02/06/20 Levothyroxine Sodium [Synthroid] 75 mcg PO 02/06/20 Previous Rx's Medication Instructions Recorded Pantoprazole [Protonix] 40 mg PO MARKUS-BRKFST #30 tablet. 01/23/20 SOCIAL HISTORY: No past tobacco use. FAMILY HISTORY: No family history of ulcerative colitis disease or Crohn's disease. Family history of morbid obesity. No lupus in the family. No reports of stomach or esophageal cancer. REVIEW OF ORGAN SYSTEMS: CONSTITUTIONAL: At height of 5 feet 2 inches, her ideal body weight is 135 pounds. Her highest weight was 258 pounds. Her BMI was 47.3. HEENT: Denies any active troubles with vision or hearing. ENDOCRINE: Has diabetes. Has hypothyroidism. CARDIOVASCULAR: No past reports of palpitations or heart attacks or chest pain. RESPIRATORY: Denies pneumonia. No asthma. GASTROINTESTINAL: Has diarrhea and recent history of colitis. MUSCULOSKELETAL: Has lower back pain and joint pain. Has osteoarthritis of the knees. NEURO: No headaches. No seizure disorders. PSYCH: No depression. No suicidal ideation. RHEUMATOLOGIC: No lupus. No rheumatoid arthritis. HEMATOLOGIC: Denies any abnormal bleeding or bruising. No personal history of DVTs. SKIN: No rash. No skin cancer. PHYSICAL EXAM: VITAL SIGNS: Height 5 foot 2 inches, weight 231 pounds. BMI 42.3 Vital Signs Temp 98.3 F 02/06/20 13:04 Pulse 96 02/06/20 13:04 Resp 16 02/06/20 13:04 BP 131/68 02/06/20 13:04 Pulse Ox Intake & Output 02/05/20 02/06/20 02/06/20 18:59 06:59 18:59 Weight 104.825 kg GENERAL: Well-developed in no acute distress. HEENT: No scleral icterus. Extraocular movements grossly intact. Hears conversational speech. No nasal drainage. NECK: Supple without lymphadenopathy. CHEST: Nonlabored respirations with equal bilateral excursions. CARDIOVASCULAR: Regular rate and regular rhythm. Distal 2+ pulses. ABDOMEN: Obese, soft, nondistended. MUSCULOSKELETAL: No clubbing, cyanosis. NEURO: No focal or lateralizing signs. Cranial nerves 2 through 12 grossly within normal limits. PSYCH: Appropriate affect. Alert and oriented to person, place and time. SKIN: Good skin turgor. Well perfused. LABS: TSH 8.180 elevated. Potassium 2.9. STUDIES: CT of the abdomen and pelvis independently reviewed alongside with her demonstrating 2 lesions along the spleen. No evidence of metastatic disease identified. Large bulky uterus identified with a question of a cystic lesion along the dome of the uterus. The colon was completely decompressed. The stomach and small bowel were unremarkable. This is my independent interpretation. ASSESSMENT: 1. Morbid obesity due to excess calories 2. Body mass index of 47.3, initial to 42.3 3. Hypothyroidism 4. Anxiety 5. Chronic pain 6. Hypertensive heart disease 7. Diabetes type 2, muz-jfektxj-yybmrgkse 8. Fibroids 9. Hypokalemia 10. Weight regain following bariatric procedure 11. Endometriosis PLAN: 1. She still has low potassium, severe. Recommend start of Magnesium 400 mg for refractory hypokalemia. 2. Recommend referral to store operations manager for persistent hypokalemia. 3. Recommend adjustment of thyroid medication to a different time of day separate from her other medications. 4. Recommend follow-up upon completion of nephrology consultation. Objective - Vital Signs Vital signs: Vital Signs Temp 98.3 F 02/06/20 13:04 Pulse 96 02/06/20 13:04 Resp 16 02/06/20 13:04 BP 131/68 02/06/20 13:04 Pulse Ox Intake & Output 02/05/20 02/06/20 02/06/20 18:59 06:59 18:59 Weight 104.825 kg
== END | disposition home or self-care (01) ==
LOC: BARWHC3 12:46
PROVIDERS: ATTEND Surgery Plastic and Reconstructive Surgery
DX: E66.01 Morbid (severe) obesity due to excess calories (principal); E03.9 Hypothyroidism, unspecified; F41.9 Anxiety disorder, unspecified; G89.29 Other chronic pain; I11.9 Hypertensive heart disease without heart failure; E11.9 Type 2 diabetes mellitus without complications; D21.9 Benign neoplasm of connective and other soft tissue, unspecified; K95.89 Other complications of other bariatric procedure; E87.6 Hypokalemia; N80.9 Endometriosis, unspecified; Z68.41 Body mass index [BMI] 40.0-44.9, adult; Z83.49 Family history of other endocrine, nutritional and metabolic diseases; Z79.899 Other long term (current) drug therapy; Z79.890 Hormone replacement therapy; Z79.891 Long term (current) use of opiate analgesic; Z79.84 Long term (current) use of oral hypoglycemic drugs
CPT/HCPCS: 99211

== ENCOUNTER → 2020-02-07 | Outpatient (CLI) | payer BC ==
[2020-02-07 18:50] LABS: African American GFR (CKD) 120.4 (60.0-200.0); Anion Gap 7.6 mmol/L (4.00-12.00); Calcium 9.1 mg/dL (8.7-10.3); Carbon Dioxide 23.4 mmol/L (21.6-31.8); Non-African American GFR(CKD) 103.9 (60.0-200.0); Potassium 4.5 mmol/L (3.5-5.5)
== END | disposition home or self-care (01) ==
LOC: LABWHC1 08:20
PROVIDERS: ATTEND Family Medicine
DX: E87.6 Hypokalemia (principal)
CPT/HCPCS: 36415; 80048

== ENCOUNTER → 2020-02-13 | Outpatient (CLI) | payer BC ==
[2020-02-13 16:29] LABS: African American GFR (CKD) 102.5 (60.0-200.0); Anion Gap 11.3 mmol/L (4.00-12.00); BUN/Creat Ratio 18.75 Ratio (12.00-20.00); Calcium 9.3 mg/dL (8.7-10.3); Carbon Dioxide 23.7 mmol/L (21.6-31.8); Non-African American GFR(CKD) 88.4 (60.0-200.0); Potassium 3.8 mmol/L (3.5-5.5)
== END | disposition home or self-care (01) ==
LOC: LABWHC1 07:03
PROVIDERS: ATTEND Family Medicine
DX: E78.6 Lipoprotein deficiency (principal)
CPT/HCPCS: 36415; 80048; 83735

== ENCOUNTER → 2020-02-19 | Outpatient (CLI) | payer BC ==
[2020-02-19 12:36] LABS: African American GFR (CKD) 102.5 (60.0-200.0); Anion Gap 7.3 mmol/L (4.00-12.00); Calcium 8.4 mg/dL (8.7-10.3); Carbon Dioxide 25.7 mmol/L (21.6-31.8); Non-African American GFR(CKD) 88.4 (60.0-200.0); Potassium 3.4 mmol/L (3.5-5.5)
== END | disposition home or self-care (01) ==
LOC: LABWHC1 07:11
PROVIDERS: ATTEND Internal Medicine Nephrology
DX: E87.6 Hypokalemia (principal)
CPT/HCPCS: 36415; 80048

== ENCOUNTER → 2020-02-26 | Outpatient (CLI) | payer BC ==
[2020-02-26 12:45] LABS: Anion Gap 8.3 mmol/L (4.00-12.00); Carbon Dioxide 23.7 mmol/L (21.6-31.8); Potassium 3.8 mmol/L (3.5-5.5)
== END | disposition home or self-care (01) ==
LOC: LABWHC1 07:08
PROVIDERS: ATTEND Internal Medicine Nephrology
DX: E87.6 Hypokalemia (principal)
CPT/HCPCS: 36415; 80051; 84133

== ENCOUNTER → 2020-03-05 | Outpatient (CLI) | payer BC ==
[2020-03-05 07:23] LABS: Appearance,Urine Cloudy (Clear); Bilirubin,Urine Negative (Negative); Blood,Urine Negative (Negative); Color,Urine Yellow; Glucose,Urine (UA) Negative (Negative); Hyaline Casts,Urine 1 /lpf (0-2); Ketones,Urine Negative (Negative); Leukocyte Esterase,Urine Negative (Negative); Mucus,Urine Few /hpf; Nitrite,Urine Negative (Negative); Protein,Urine Negative (Negative); RBC,Urine 1 /hpf (0-5); Squamous Epithelial Cell,Urine 7 /hpf (0-4); Urobilinogen,Urine <2.0 mg/dL (<2.0); WBC,Urine <1 /hpf (0-5)
[2020-03-05 07:52] LABS: Potassium 3.5 mmol/L (3.5-5.1)
== END | disposition home or self-care (01) ==
LOC: LABWHC1 07:08
PROVIDERS: ATTEND Internal Medicine Nephrology
DX: E87.6 Hypokalemia (principal)
CPT/HCPCS: 36415; 80051; 81001; 87086

== ENCOUNTER → 2020-03-07 | Outpatient (CLI) | payer BC ==
[2020-03-07 08:00] LABS: African American GFR (CKD) >90 (>60 ml/min/1.73 sqM); Anion Gap 7 mmol/L; Blood Urea Nitrogen 13 mg/dL (7-17); Carbon Dioxide 25 mmol/L (22-30); Chloride 107 mmol/L (98-107); Glucose 141 mg/dL (74-99); Non-African American GFR(CKD) >90 (>60 ml/min/1.73 sqM); Potassium 3.5 mmol/L (3.5-5.1); Sodium 139 mmol/L (137-145)
== END | disposition home or self-care (01) ==
LOC: LABPAT 07:05
PROVIDERS: ATTEND Obstetrics & Gynecology
DX: Z01.818 Encounter for other preprocedural examination (principal); N94.6 Dysmenorrhea, unspecified; R10.2 Pelvic and perineal pain; E11.9 Type 2 diabetes mellitus without complications; E87.6 Hypokalemia
CPT/HCPCS: 36415; 80051; 82565; 82947; 84520; 86850; 86900; 86901

== ENCOUNTER 2020-03-17 07:31 | Day surgery (SDC) | payer BC ==
[2020-03-10 18:21] VITALS: BMI 41.3
--- NOTE | 2020-03-13 16:57 | HP ---
HISTORY AND PHYSICAL DATE FOR SURGERY: 03/17/2020 HISTORY OF PRESENT ILLNESS: The patient is a 44-year-old 5, para 2-1-2-3 admitted as a result of approximately 9-12 months of significantly increasing pain on a monthly basis, lasting 3-5 days at that time, which is debilitating in nature. She has been evaluated by GI and additionally had da Rolando lysis of adhesions by Dr. Ordaz. Nevertheless, she continues to have increasing pain. She does have a history of an endometrial ablation in the past. Reports occasional brown discharge. 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 She had been scheduled for da Rolando hysterectomy on previous occasions and has had rescheduled as a result of some social situations in which her required some treatment and then additionally as a result of the allred virus epidemic. She has requested definitive therapy as noted above. PAST MEDICAL HISTORY: Significant for a history of some anxiety as well as diabetes and a possible fibroid uterus. She carries a diagnosis of fibromyalgia, gastroesophageal reflux, hiatal hernia, and some degree of hypertensive heart disease. She is additionally known to be hypothyroid. PAST SURGICAL HISTORY: She has had sections on 3 separate occasions as well as a cholecystectomy in 1997. She additionally underwent gastric sleeve procedure in 2013. She had hysteroscopy with [employer]Sure endometrial ablation in 2017 and then had da Rolando robotically assisted lysis of adhesions in 2019. She additionally has a history of tubal ligation with her final section and additionally has had 2 elective interruptions of . She has no history of any significant anesthetic concerns. OBSTETRICAL HISTORY: 5, para 2-1-0-3 with 3 sections, 1 of which occurred at 36 weeks. Method of contraception is tubal ligation performed with a final section. GYNECOLOGIC HISTORY: Unremarkable. No history of any infections to include STDs. FAMILY HISTORY: Noncontributory. SOCIAL HISTORY: The patient is and a nonsmoker. She reports occasional alcohol and no other social concerns. CURRENT MEDICATIONS: Include cyclobenzaprine 10 mg daily at bedtime. She additionally takes hydrochlorothiazide 12.5 mg daily, metformin 500 mg daily, multivitamin daily, Synthroid 75 mcg daily, Topamax 100 mg daily, tramadol 50 mg as needed, Xanax 0.25 mg as needed. ALLERGIES: GENTAMICIN caused fever and shaking. REVIEW OF SYSTEMS: Confined to history of present illness. PHYSICAL EXAMINATION: Vital signs are stable. The patient is afebrile. In general, this is a well- developed, bhni-dh-wxafsjqzgj obese white female in no acute distress. HEENT: Demonstrates PERRLA, EOMI, her oropharynx is clear. NECK: Supple without adenopathy. HEART: Has regular rhythm and rate without murmur. LUNGS: Clear to auscultation bilaterally in all casillas. ABDOMEN: Jral-oq-fnuuqhxtcf obese, nondistended, is soft, nontender, without any palpable masses, hepatosplenomegaly, or hernias. EXTREMITIES: Without any cyanosis, clubbing, or edema and are nontender to palpation bilaterally. Pelvic examination demonstrates normal external genitalia and BUS with normal vaginal mucosa and cervix. There is no cervical motion tenderness. Uterus is approximately 6 weeks in size, slightly anteverted, mobile, nontender, normal in shape with the adnexa normal and nontender without mass bilaterally. 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 As a result, she has requested definitive therapy. We will proceed with da Rolando robotically-assisted laparoscopic hysterectomy, bilateral salpingectomy, and diagnostic cystoscopy. The risks and complications of the procedures have been thoroughly discussed including the risks for bleeding, bleeding requiring transfusion, infection, and injury to local structures to specifically include the bowel, bladder, and ureters. We additionally discussed injuries that are unique to da Rolando surgery including the risk for thermal injury as well as potential for vaginal cuff dehiscence. We then went on to discuss the typical hospital and postoperative courses. The patient understood all this and agreed to proceed. We are scheduled for the above procedures as noted on the morning of Tuesday, March 17, 2020. MMODL / IJN: [id number] /
[~2020-03-17 07:31] MED LIST changes: -ACETAMINOPHEN TAB 500 MG TAB PO ONE; -DEXAMETHASONE SOD PHOSPHATE 10 MG/ML 1 ML VIAL IV ONE; -HEPARIN SODIUM,PORCINE 5,000 UNIT/ML 1 ML VIAL SQ ONE; +HYDROmorphone 0.5 MG/0.5 ML SYRINGE IVP PRN; -KETOROLAC 30 MG/ML 1 ML VIAL IVP SCH; +LACTATED RINGERS 1,000 ML IV SCH; +LIDOCAINE 1% (10MG/ML) FOR IV START INTRADERMA PRN; -LIDOCAINE 1% 20 ML VIAL (10MG/ML) FOR IV START INTRADERMA PRN; -METOCLOPRAMIDE 5 MG/ML 2 ML VIAL IVP PRN; +MIDAZOLAM 2 MG/2 ML VIAL IV PRN; -ONDANSETRON 4 MG/2 ML VIAL IVP ONE; -SCOPOLAMINE 1.5MG/72HR PATCH TRANSDERM ONE
[2020-03-17 08:29] LABS: Glucose,Whole Blood 153 mg/dL (75-99)
[2020-03-17] MEDS ORDERED: ONDANSETRON 4 MG/2 ML VIAL IVP ONE (08:30)
[2020-03-17] MEDS ORDERED: ONDANSETRON 4 MG/2 ML VIAL ONE (08:30)
[2020-03-17] MEDS ORDERED: DEXAMETHASONE SOD PHOSPHATE 10 MG/ML 1 ML VIAL IV ONE (08:31)
[2020-03-17] MEDS ORDERED: NEOSTIGMINE 1 MG/ML 10 ML VIAL ONE (09:20)
[2020-03-17] MEDS ORDERED: LIDOCAINE 1% INJ 10MG/ML (20 ML MDV) ONE (09:20)
[2020-03-17] MEDS ORDERED: fentaNYL (PF) 50 MCG/ML 2 ML AMP ONE (09:20)
[2020-03-17] MEDS ORDERED: PROPOFOL 10 MG/ML 50 ML VIAL IV ONE (09:20)
[2020-03-17] MEDS ORDERED: ROCURONIUM BROMIDE 10 MG/ML 5 ML VIAL IV ONE (09:20)
[2020-03-17] MEDS ORDERED: HYDROmorphone (PF) 1 MG/ML ONE (09:20)
[2020-03-17] MEDS ORDERED: SUCCINYLCHOLINE CHLORIDE 100 MG/5 ML SYR IV ONE (09:20)
[2020-03-17] MEDS ORDERED: MIDAZOLAM 2 MG/2 ML VIAL ONE (09:20)
[2020-03-17] MEDS ORDERED: GLYCOPYRROLATE 0.2 MG/ML 2 ML VIAL ONE (09:20)
[2020-03-17] MEDS ORDERED: LACTATED RINGERS 1,000 ML IV ONE (10:17)
[2020-03-17] MEDS ORDERED: BUPIVACAINE (PF) 0.25% 30 ML VIAL SQ ONE ×2 (10:18→11:13)
[2020-03-17] MEDS ORDERED: IBUPROFEN 600 MG TAB PO PRN (11:10)
[2020-03-17] MEDS ORDERED: diphenhydrAMINE 50 MG/ML 1 ML VIAL IVP PRN (11:10)
[2020-03-17] MEDS ORDERED: ONDANSETRON 4 MG/2 ML VIAL IVP PRN (11:10)
[2020-03-17] MEDS ORDERED: ZOLPIDEM 5 MG TAB PO PRN (11:10)
[2020-03-17] MEDS ORDERED: SIMETHICONE 80 MG CHEWABLE PO PRN (11:10)
[2020-03-17] MEDS ORDERED: KETOROLAC 30 MG/ML 1 ML VIAL IVP PRN (11:10)
[2020-03-17] MEDS ORDERED: METOCLOPRAMIDE 5 MG/ML 2 ML VIAL IVP PRN (11:10)
[2020-03-17] MEDS ORDERED: LACTATED RINGERS 1,000 ML IV SCH (11:15)
--- NOTE | 2020-03-17 11:25 | P.OP ---
Date of Procedure: 03/17/20 Preoperative Diagnosis: #1. Severe dysmenorrhea #2. Chronic pelvic pain #3. Presumptive hematometra Postoperative Diagnosis: Same plus #4. Probable uterine fibroids #5. Pelvic adhesive disease with probable endometriosis Procedure(s) Performed: #1. Robotically assisted laparoscopic hysterectomy with left salpingo- oophorectomy Anesthesia: BHARATI Surgeon: Franky Jackson Back End Developer #1: Nikole Verde Estimated Blood Loss (ml): 75 IV fluids (ml): 800 Urine output (ml): 50 Pathology: other (Uterus, left tube and ovary) Condition: stable Disposition: PACU Operative Findings: Preoperative pelvic examination demonstrated a roughly 5-6 weeks' size anteverted mobile normal shaped uterus. Intraoperatively, there was noted to be a probable 3-4 cm left lateral lower uterine segment fibroid. The left tube and ovary were densely adherent to each other and to the cornu of the uterus. The right tube and ovary were somewhat more free and there was bilateral evidence of tubal ligation. As result of these findings, the left ovary was taken with the specimen while the right ovary was left with a small portion of tube in place. There did appears to be some endometriotic implants in and around the sites of the previous tubal ligation. A Filshie clip was also noted. The bladder was fairly densely adherent to the lower segment but was ultimately removed without incident. Following the procedure, the bilateral ureteral orifices were seen peristalsing and the dome of the bladder appeared normal from both a laparoscopic and cystoscopic perspective. Description of Procedure: The patient was prepped and draped in usual fashion after general endotracheal anesthesia was administered by the anesthesiologist. A weighted speculum was placed and the uterus sounded to approximate 7-8 cm. Serial dilation was carried out to admit a V care with a medium cup for uterine manipulation which was placed in standard fashion. The bladder was then catheterized for clear german urine. Attention was turned to the abdomen where a site was selected approximately 3-4 cm above the umbilicus at the site of a previous scar where an 8 mm incision was made in the transverse plane allowing insertion of an 8 mm optical da Rolando trocar under direct visualization without difficulty. A pneumoperitoneum was then established. A site was selected approximately 10-12 cm lateral and 4 cm inferior to the optical port where an 8 mm incision was made in the transverse plane of the right lower quadrant allowing insertion of an 8 mm da Rolando port without difficulty. A similar procedure was carried out in the left lower quadrant for an 8 mm da Rolando port. The area between the optical port and the left lower quadrant port was bisected and a site selected approximate 4 cm above the optical port where a 10 mm incision was made allowing insertion of a 10 mm digital assistant port under direct visualization without difficulty. The patient was then positioned properly and the robot docked to th e patient. I then presented to the console at which time the above findings were again noted. The decision was made to take the ovary with the specimen and the infundibulopelvic ligament on that side was cauterized with the [place] bipolar cautery forceps and then cut sharply with the monopolar cautery scissors. Serial bites were taken along the underside of the fallopian tube through to the round ligament and utero-ovarian ligament which were then transected in similar fashion. The uterus and its vascular pedicle was noted to be fairly thick. Multiple bites were taken with the [place] followed by the monopolar cautery scissors until the vasculature was controlled. The bladder peritoneum was developed across the midline and reflected somewhat distally. There was noted to be a 3-4 cm fibroid just above the level of the uterine vasculature in the lower uterine segment protruding into the broad ligament area. All of its vasculature was controlled with cautery and then cut. Atte ntion was then turned to the right side where the right ovary and a small portion of the fimbria were noted to be free from the remainder of the specimen. It was left intact and the utero-ovarian ligament transected with the [place] followed by the cautery scissors. This was carried through the round ligament at which time the bladder peritoneum was connected to the previous dissection. Uterine vasculature was skeletonized as possible and then cauterized with the [place]. Attention was returned to the bladder flap were further blunt and sharp dissection was carried out to very clearly identify the vaginal cuff. Return to the left side of the patient demonstrated some vessel still intact and these were made hemostatic with the [place] and then transected with the be cautery scissors. The vaginal cup was then opened sharply with the [place] and followed circumferentially around the entire cervix to free the uterus from the vaginal cuff. The uterus was ultimately removed into the vagina and the monopolar cautery scissors replaced with a laparoscopic suturing device. A stitch of 0 Stratafix was passed into the abdomen and used to close the cuff from the right angle to the left in standard fashion. Hemostasis appeared to be excellent. Suction irrigation was carried out and there was no ongoing bleeding from any of the surgical sites. I then returned to the patient and remove the Sierra catheter allowing placement of a cystoscope which was used to fill the bladder with sterile water. The bilateral ureteral hallux were noted to peristalse and the dome of the bladder appeared intact both from a cystoscopic and laparoscopic perspective. All instrumentation was removed and the Sierra catheter replaced. The robot was undocked and the trochars removed. The entire pneumoperitoneum was evacuated through the incisions. The skin incisions were closed with interrupted subcuticular stitches of 4-0 Vicryl and then infused with a total of 10 mL of half percent Marcaine without epinephrine equally divided among the 4 incisions. Steri-Strips were applied along with Band-Aids. Estimated blood loss for the entire case was approximate 75 mL. There were no complications. All sponge, instrument, and needle counts were correct. The patient tolerated the procedure well and proceeded to the recovery room in stable condition.
[2020-03-17 11:50] LABS: Glucose,Whole Blood 187 mg/dL (75-99)
[2020-03-17] MEDS ORDERED: KETOROLAC 30 MG/ML 1 ML VIAL IVP ONE (12:05)
[2020-03-17] MEDS ORDERED: HYDROmorphone 1 MG/ML 1 ML SYRINGE IVP ONE ×4 (12:12→12:38)
[2020-03-17 16:18] VITALS: PULSE 80
[2020-03-17] MEDS ORDERED: SENNOSIDES-DOCUSATE SODIUM 1 EACH TAB PO SCH (21:00)
[2020-03-18 00:59] VITALS: BP 113/60; RESP 16; TEMP 98.5
[2020-03-18] MEDS: traMADol 50 MG TAB PO PRN ×2 (04:55→15:29)
[2020-03-18 05:51] LABS: Basophils % (A) 0 %; Eosinophils # (A) 0.2 k/uL (0-0.7); Eosinophils % (A) 1 %; HGB 11.1 gm/dL (11.4-16.0); Hypochromasia Slight; Lymphocytes # (A) 1.6 k/uL (1.0-4.8); Lymphocytes % (A) 13 %; MCH 30.8 pg (25.0-35.0); MCHC 35.9 g/dL (31.0-37.0); MCV 85.6 fL (80.0-100.0); Mean Platelet Volume 7.7; Monocytes # (A) 0.9 k/uL (0-1.0); Monocytes % (A) 8 %; Neutrophils # (A) 9.4 k/uL (1.3-7.7); Neutrophils % (A) 77 %; Platelet Count 390 k/uL (150-450); RBC 3.62 m/uL (3.80-5.40); RDW 15.8 % (11.5-15.5); WBC 12.2 k/uL (3.8-10.6)
[2020-03-18 08:25] LABS: Amorphous Sediment,Urine Rare /hpf; Appearance,Urine Turbid (Clear); Bilirubin,Urine Negative (Negative); Blood,Urine Negative (Negative); Color,Urine Yellow; Glucose,Urine (UA) Negative (Negative); Hyaline Casts,Urine 1 /lpf (0-2); Ketones,Urine 1+ (Negative); Leukocyte Esterase,Urine Negative (Negative); Mucus,Urine Few /hpf; Nitrite,Urine Negative (Negative); PH, Urine 5.5 (5.0-8.0); Protein,Urine Negative (Negative); RBC,Urine 2 /hpf (0-5); Specific Gravity,Urine 1.023 (1.001-1.035); Squamous Epithelial Cell,Urine <1 /hpf (0-4); Urobilinogen,Urine <2.0 mg/dL (<2.0); WBC,Urine 3 /hpf (0-5)
--- NOTE | 2020-03-18 09:57 | P.DS ---
Providers Expected date of discharge: 03/18/20 Attending physician: Franky Jackson Primary care physician: Alvarez Rodriguez - Discharge Diagnosis(es) (1) Chronic pelvic pain in female Current Visit: Yes Status: Acute (2) Dysmenorrhea Current Visit: Yes Status: Acute Hospital Course: The patient is a 44 year old 5 para 21-3 who was admitted for da Rolando robotically assisted hysterectomy secondary to a roughly 1 year history of significantly increasing pelvic pain on a regular monthly basis lasting for 3-5 days at a time which was debilitating in nature. She had undergone evaluation by both general surgery and gastroenterology with no significant findings. She does have a history of a previous endometrial ablation and the thinking was that she may have been experiencing hematocrit. Irregardless, the decision was made to proceed with definitive therapy. The patient was taken the operating room where she underwent da Rolando robotically assisted laparoscopic hysterectomy with left salpingo-oophorectomy. The right ovary had a portion of tube that was densely adherent to it and was left intact. The left ovary required removal as it was adherent to the fundus of the uterus and tube. The procedure was uncomplicated in nature. Her postoperative course has additionally been uncomplicated in nature with vital signs remained stable and her temperature was afebrile throughout. She was deemed stable for discharge on post operative day #1 and was discharged home to follow-up in the office in 2 weeks for an incision check and 8 weeks for routine postoperative evaluation. Instructions included calling for any significantly increased bleeding or pain, GI complaints, abdominal complaints, incisional complaints, or anything else that concerned her. She was additionally instructed to have nothing in the vagina for at least 8 weeks time to include intercourse. She was last instructed to do no driving until off of all pain medications or 2 weeks' time, whichever came first and to abstain from any heavy lifting until her body allowed it. She understood her instructions and agrees follow up as noted above. Discharge medications included home medications which include tramadol for which she Hill has a prescription. Discharge hemoglobin and hematocrit were 11.1 and 31.0 respectively. As the patient has had some issues with the significantly low potassium in the past, potassium has been ordered and is currently pending. Procedures: #1. Da Rolando robotically assisted laparoscopic hysterectomy with left salpingo- oophorectomy Patient Condition at Discharge: Stable Plan - Discharge Summary Discharge Rx Participant: Yes New Discharge Prescriptions: No Action traMADol HCL [Tramadol HCl] 50 mg PO BID PRN PRN Reason: Pain metFORMIN HCL 500 mg PO QAM Topiramate [Topamax] 50 mg PO DAILY ALPRAZolam [Xanax] 0.25 mg PO TID Cyclobenzaprine [Flexeril] 10 mg PO HS Levothyroxine Sodium [Synthroid] 75 mcg PO QAM Discharge Medication List metFORMIN HCL 500 mg PO QAM 10/02/15 [History] traMADol HCL [Tramadol HCl] 50 mg PO BID PRN 10/02/15 [History] Topiramate [Topamax] 50 mg PO DAILY 05/24/17 [History] ALPRAZolam [Xanax] 0.25 mg PO TID 01/02/19 [History] Cyclobenzaprine [Flexeril] 10 mg PO HS 01/02/19 [History] Levothyroxine Sodium [Synthroid] 75 mcg PO QAM 02/06/20 [History] Follow up Appointment(s)/Referral(s): Franky Jackson MD [STAFF PHYSICIAN] - 2 Weeks Discharge Disposition: HOME SELF-CARE
== END 2020-03-18 15:35 | disposition home or self-care (01) ==
LOC: OR 07:31 → 4FBP 11:25 → OR 03-18 15:35
PROVIDERS: ATTEND Obstetrics & Gynecology
DX: D25.1 Intramural leiomyoma of uterus (principal); N73.6 Female pelvic peritoneal adhesions (postinfective); N80.2 Endometriosis of fallopian tube; N83.02 Follicular cyst of left ovary; N83.8 Other noninflammatory disorders of ovary, fallopian tube and broad ligament; F41.9 Anxiety disorder, unspecified; E11.9 Type 2 diabetes mellitus without complications; M79.7 Fibromyalgia; G43.909 Migraine, unspecified, not intractable, without status migrainosus; K21.9 Gastro-esophageal reflux disease without esophagitis; I11.9 Hypertensive heart disease without heart failure; E03.9 Hypothyroidism, unspecified; Z98.891 History of uterine scar from previous surgery; Z90.49 Acquired absence of other specified parts of digestive tract; Z98.84 Bariatric surgery status; Z79.891 Long term (current) use of opiate analgesic; Z79.899 Other long term (current) drug therapy; Z79.84 Long term (current) use of oral hypoglycemic drugs; Z79.890 Hormone replacement therapy; Z88.1 Allergy status to other antibiotic agents
CPT/HCPCS: 58571; S2900; 81001; 81025; 84132; 85025; 86850; 86900; 86901; 88307

== ENCOUNTER → 2020-04-02 | Outpatient (CLI) | payer BC ==
[2020-04-02 13:22] LABS: African American GFR (CKD) 120.4 (60.0-200.0); Anion Gap 7.5 mmol/L (4.00-12.00); BUN/Creat Ratio 17.14 Ratio (12.00-20.00); Calcium 8.9 mg/dL (8.7-10.3); Carbon Dioxide 26.5 mmol/L (21.6-31.8); Non-African American GFR(CKD) 103.9 (60.0-200.0); Phosphorus 3.7 mg/dL (2.4-5.1); Potassium 3.6 mmol/L (3.5-5.5)
[2020-04-02 15:34] LABS: Protein/Creatinine Ratio,Urine 0.016
== END | disposition home or self-care (01) ==
LOC: LABWHC1 07:18
PROVIDERS: ATTEND Internal Medicine Nephrology
DX: E87.6 Hypokalemia (principal)
CPT/HCPCS: 36415; 80048; 82570; 84100; 84133; 84156

== ENCOUNTER → 2020-04-22 | Outpatient (CLI) | payer BC ==
[2020-04-22 08:31] LABS: Anisocytosis Slight; HCT 41.3 % (34.0-46.0); HGB 12.8 gm/dL (11.4-16.0); Hypochromasia Slight; MCH 26.3 pg (25.0-35.0); MCHC 30.9 g/dL (31.0-37.0); MCV 85.1 fL (80.0-100.0); Mean Platelet Volume 7.2; Platelet Count 401 k/uL (150-450); RBC 4.86 m/uL (3.80-5.40); RDW 16.1 % (11.5-15.5); WBC 8.2 k/uL (3.8-10.6)
[2020-04-22 12:13] LABS: % Iron Saturation 17.87 (12.00-45.00); African American GFR (CKD) 120.4 (60.0-200.0); Albumin 4.1 g/dL (3.80-4.90); Albumin/Globulin Ratio 1.71 (1.60-3.17); Anion Gap 11.1 mmol/L (4.00-12.00); BUN/Creat Ratio 17.14 Ratio (12.00-20.00); Calcium 9.2 mg/dL (8.7-10.3); Carbon Dioxide 23.9 mmol/L (21.6-31.8); Chol/HDL Ratio 3.43; Globulin 2.4 g/dL (1.6-3.3); LDL Cholesterol,Calculated 84.8 mg/dL (0.0-131.0); Non-African American GFR(CKD) 103.9 (60.0-200.0); Potassium 3.8 mmol/L (3.5-5.5); Total Bilirubin 0.4 mg/dL (0.2-1.2); Total Protein 6.5 g/dL (6.2-8.2); VLDL Calculation 29.2 mg/dL (5.00-40.00)
[2020-04-22 12:18] LABS: Ferritin 494.2 ng/mL (10.0-291.0); Folate, Serum 11.2 ng/mL
[2020-04-22 16:15] LABS: Magnesium 1.7 mg/dL (1.5-2.4); Phosphorus 2.9 mg/dL (2.4-5.1)
[2020-04-22 16:42] LABS: INR 0.97 (0.90-1.11); Partial Thromboplastin Time 30.1 sec (24.7-29.9); Prothrombin Time 10.4 sec (9.9-11.9)
[2020-04-22 20:02] LABS: Hemoglobin A1C 7.3 % (4.0-6.0)
[2020-04-23 13:54] LABS: Zinc, Serum 74 ug/dL (60-130)
[2020-04-23 13:55] LABS: Vitamin A 46 ug/dL (38-106)
[2020-04-24 06:37] LABS: Vit B1(Thiamine) 74 ug/L (38-122)
[2020-04-25 02:49] LABS: Selenium 105 mcg/L (63-160)
== END | disposition home or self-care (01) ==
LOC: LABWHC1 07:15
PROVIDERS: ATTEND Surgery Plastic and Reconstructive Surgery
DX: D50.8 Other iron deficiency anemias (principal); E21.1 Secondary hyperparathyroidism, not elsewhere classified; E66.01 Morbid (severe) obesity due to excess calories; E89.1 Postprocedural hypoinsulinemia; K90.89 Other intestinal malabsorption; E44.0 Moderate protein-calorie malnutrition; E55.9 Vitamin D deficiency, unspecified; K74.1 Hepatic sclerosis; N19 Unspecified kidney failure; K50.90 Crohn's disease, unspecified, without complications
CPT/HCPCS: 36415; 80053; 80061; 82306; 82525; 82607; 82728; 82746; 83036; 83540; 83550; 83735; 83970; 84100; 84134; 84255; 84425; 84443; 84590; 84630; 85027; 85610; 85730

== ENCOUNTER → 2020-04-25 | Outpatient (CLI) | payer BC ==
--- NOTE | 2020-04-25 11:00 | FL ---
EXAMINATION TYPE: FL barium swallow DATE OF EXAM: 04/25/2020 CLINICAL HISTORY: Status post gastric sleeve 3 OZ EZ PAQUE-1 MIN 19 SEC FL-DR. ELIAS The patient ingested contrast without difficulty or delay. Noted are postsurgical changes of gastric sleeve. There is no evidence for leak or obstruction. Contrast is noted within the duodenum. No hiatal hernia. IMPRESSION: Post-surgical change of gastric sleeve without evidence for obstruction or leak at this point in time.
== END | disposition home or self-care (01) ==
LOC: RADFLMAIN 09:57
PROVIDERS: ATTEND Surgery Plastic and Reconstructive Surgery
DX: K21.9 Gastro-esophageal reflux disease without esophagitis (principal); Z98.84 Bariatric surgery status
CPT/HCPCS: 74220

== ENCOUNTER → 2020-05-02 | Outpatient (CLI) | payer BC ==
[2020-05-02 08:45] LABS: Anisocytosis Slight; Basophils % (A) 0 %; Eosinophils # (A) 0.2 k/uL (0-0.7); Eosinophils % (A) 2 %; HCT 45.2 % (34.0-46.0); HGB 14.1 gm/dL (11.4-16.0); Lymphocytes # (A) 2.1 k/uL (1.0-4.8); Lymphocytes % (A) 24 %; MCH 26.9 pg (25.0-35.0); MCHC 31.1 g/dL (31.0-37.0); MCV 86.7 fL (80.0-100.0); Monocytes # (A) 0.3 k/uL (0-1.0); Monocytes % (A) 3 %; Neutrophils # (A) 6.1 k/uL (1.3-7.7); Neutrophils % (A) 69 %; Platelet Count 324 k/uL (150-450); RBC 5.21 m/uL (3.80-5.40); RDW 17.8 % (11.5-15.5); WBC 8.7 k/uL (3.8-10.6)
[2020-05-02 08:54] LABS: Appearance,Urine Cloudy (Clear); Bacteria,Urine Occasional /hpf; Bilirubin,Urine Negative (Negative); Blood,Urine Negative (Negative); Color,Urine Yellow; Glucose,Urine (UA) Negative (Negative); Ketones,Urine Negative (Negative); Leukocyte Esterase,Urine Negative (Negative); Mucus,Urine Many /hpf; Nitrite,Urine Negative (Negative); Protein,Urine Negative (Negative); RBC,Urine 2 /hpf (0-5); Specific Gravity,Urine 1.019 (1.001-1.035); Sperm,Urine Rare /hpf; Squamous Epithelial Cell,Urine 5 /hpf (0-4); Urobilinogen,Urine <2.0 mg/dL (<2.0); WBC,Urine 1 /hpf (0-5)
[2020-05-02 09:13] LABS: Protein/Creatinine Ratio,Urine 0.038
[2020-05-02 16:41] LABS: African American GFR (CKD) 102.5 (60.0-200.0); Anion Gap 10.1 mmol/L (4.00-12.00); BUN/Creat Ratio 11.25 Ratio (12.00-20.00); Calcium 9.6 mg/dL (8.7-10.3); Carbon Dioxide 23.9 mmol/L (21.6-31.8); Ferritin 620.3 ng/mL (10.0-291.0); Magnesium 1.7 mg/dL (1.5-2.4); Non-African American GFR(CKD) 88.4 (60.0-200.0); Phosphorus 3.1 mg/dL (2.4-5.1); Potassium 3.8 mmol/L (3.5-5.5)
== END ==
LOC: LABWHC1 07:19
PROVIDERS: ATTEND Nurse Practitioner Family
DX: E87.6 Hypokalemia (principal); D64.9 Anemia, unspecified; R80.0 Isolated proteinuria; N39.0 Urinary tract infection, site not specified
CPT/HCPCS: 36415; 80048; 81001; 82570; 82728; 83540; 83550; 83735; 84100; 84133; 84156; 85025

== ENCOUNTER 2020-05-07 08:09 | Day surgery (SDC) | payer BC ==
[2020-05-05 11:51] VITALS: BMI 42.1
--- NOTE | 2020-05-07 04:35 | P.GSHP ---
History of Present Illness H&P Date: 05/07/20 CHIEF COMPLAINT: Anemia with GI bleed HISTORY OF PRESENT ILLNESS: The patient is a 44-year-old female who presents with anemia and GI bleed. Upper and lower endoscopy were offered for further evaluation and management. PAST MEDICAL HISTORY: Please see list. PAST SURGICAL HISTORY: Please see list. MEDICATIONS: Please see list. ALLERGIES: Please see list. SOCIAL HISTORY: No illicit drug use FAMILY HISTORY: No reports of Crohn disease or ulcerative colitis. REVIEW OF ORGAN SYSTEMS: CONSTITUTIONAL: No reports of fevers or chills. PHYSICAL EXAM: VITAL SIGNS: Stable GENERAL: Well-developed pleasant in no acute distress. HEENT: No scleral icterus. Extraocular movements grossly intact. Moist buccal mucosa. NECK: Supple without lymphadenopathy. CHEST: Unlabored respirations. Equal bilateral excursions. CARDIOVASCULAR: Regular rate and rhythm. Distal 2+ pulses. ABDOMEN: Soft, nondistended. MUSCULOSKELETAL: No clubbing, cyanosis, or edema. ASSESSMENT: 1. Anemia 2. GI bleed PLAN: 1. Recommend proceeding with an upper and lower endoscopy Past Medical History Past Medical History: Diabetes Mellitus, Thyroid Disorder Additional Past Medical History / Comment(s): states not currently on medication for diabetes, states having low potassium levels, hx restless leg syndrome, (uses flexeril for) swelling lower ext History of Any Multi-Drug Resistant Organisms: None Reported Past Surgical History: Bariatric Surgery, Section, Cholecystectomy, Hysterectomy, Tubal Ligation, Uterine Ablation Additional Past Surgical History / Comment(s): C/S x3, gastric sleeve w/hiatal hernia repair-2012 Past Anesthesia/Blood Transfusion Reactions: No Reported Reaction Additional Past Anesthesia/Blood Transfusion Reaction / Comment(s): no hx blood transfusion Smoking Status: Former smoker - Past Family History Mother Family Medical History: No Reported History Father Family Medical History: Coronary Artery Disease (CAD), Diabetes Mellitus, Hypertension Additional Family Medical History / Comment(s): [place] in 1991 Medications and Allergies Home Medications Medication Instructions Recorded Confirmed Type traMADol HCL [Tramadol HCl] 50 mg PO BID PRN 10/02/15 05/05/20 History Topiramate [Topamax] 50 mg PO BID 05/24/17 05/05/20 History ALPRAZolam [Xanax] 0.25 mg PO TID PRN 01/02/19 05/05/20 History Cyclobenzaprine [Flexeril] 10 mg PO HS 01/02/19 05/05/20 History Levothyroxine Sodium [Synthroid] 75 mcg PO QAM 02/06/20 05/05/20 History Potassium Chloride [Klor-Con 20] 20 meq PO TID 04/16/20 05/05/20 History Allergies Allergy/AdvReac Type Severity Reaction Status Date / Time gentamicin [Gentamicin] Allergy convulsions Verified 05/05/20 11:44
[~2020-05-07 08:09] MED LIST changes: -HYDROmorphone 0.5 MG/0.5 ML SYRINGE IVP PRN; -LIDOCAINE 1% (10MG/ML) FOR IV START INTRADERMA PRN; -MIDAZOLAM 2 MG/2 ML VIAL IV PRN
[2020-05-07 08:31] VITALS: RESP 16; TEMP 97.2
[2020-05-07 08:39] LABS: Glucose,Whole Blood 154 mg/dL (75-99)
[2020-05-07] MEDS ORDERED: LIDOCAINE 1% INJ 10MG/ML (20 ML MDV) ONE (09:29)
[2020-05-07] MEDS ORDERED: PROPOFOL 10 MG/ML 20 ML VIAL IV ONE (09:29)
[2020-05-07] MEDS ORDERED: GLYCOPYRROLATE 0.2 MG/ML 2 ML VIAL ONE (09:29)
--- NOTE | 2020-05-07 09:41 | P.PCN ---
Date of Procedure: 05/07/20 Description of Procedure: PREOPERATIVE DIAGNOSIS: Anemia History of GI bleed POSTOPERATIVE DIAGNOSIS: Anemia History of GI bleed Sleeve gastrectomy Diaphragmatic hiatal hernia OPERATION: Esophagogastroduodenoscopy with biopsies along antrum. SURGEON: Bhumika Ordaz MD ANESTHESIA: MAC. INDICATIONS: The patient is a 44-year-old female who presents with a history of anemia. Benefits and risks of the procedure were described. Informed consent was obtained. DESCRIPTION: The patient was brought into the endoscopy suite and laid in the left lateral decubitus position. An Olympus gastroscope was passed along the posterior oropharynx down to the distal esophagus where the squamocolumnar junction was encountered at 36 cm from the incisors. The stomach was entered and no bile reflux was found. Additional findings are listed below. Biopsies with cold forceps were obtained of the antrum. The first through third portion of the duodenum was examined and unremarkable. Findings a sleeve gastrectomy was found prohibiting retroflexion of the scope. The squamocolumnar junction demonstrated no LA grade A erosive esophagitis. The stomach was desufflated. The patient tolerated the procedure well. FINDINGS: Squamocolumnar junction 36 cm from the incisors. Diaphragmatic hiatus at 40cm. Hiatal hernia, 4 cm Presence of sleeve gastrectomy prohibiting retroflexion of scope No LA grade A erosive esophagitis. No active duodenitis. No gastric ulcers or duodenal ulcers RECOMMENDATIONS: Upper endoscopy as needed.
--- NOTE | 2020-05-07 10:00 | P.PCN ---
Date of Procedure: 05/07/20 Description of Procedure: PREOPERATIVE DIAGNOSIS: Anemia History of GI bleed POSTOPERATIVE DIAGNOSIS: Anemia History of GI bleed OPERATION: Colonoscopy to the cecum, ileocecal valve and appendiceal orifice. SURGEON: Bhumika Ordaz MD. ANESTHESIA: MAC. INDICATIONS: The patient is a 44-year-old female who presents with anemia including history of gastrointestinal bleeding. Benefits and risks were described and informed consent was obtained. DESCRIPTION OF PROCEDURE: The patient had undergone Suprep. He had been brought into the operating room and laid in the left lateral decubitus position. After adequate intravenous sedation, the rectum was examined with 2% lidocaine jelly. No external he morrhoids were encountered. The rectal tone was within normal limits. No lesions were palpated in the rectal vault. An Olympus colonoscope was advanced until the cecum, ileocecal valve and appendiceal orifice were clearly viewed. The prep was fair. Scattered diverticulosis was encountered. No colonic polyps were found. No evidence of focal colitis was found. Retroflexion of the scope demonstrated grade 1 internal hemorrhoids without active bleeding or inflammation. The colon was desufflated. The patient had tolerated the procedure well. Withdrawal time was over 6 minutes. FINDINGS: Aronchick preparation quality scale 2 (1-5) Internal hemorrhoids, grade 1 No external prolapsed hemorrhoids. No arteriovenous malformations. No adenomatous polyps. No focal colitis. RECOMMENDATIONS: May benefit from capsule endoscopy as well upper and lower endoscopy unremarkable. Repeat colonoscopy for screening guidelines, age 50 or greater Plan - Discharge Summary Discharge Rx Participant: No New Discharge Prescriptions: Continue traMADol HCL [Tramadol HCl] 50 mg PO BID PRN PRN Reason: Pain Topiramate [Topamax] 50 mg PO BID ALPRAZolam [Xanax] 0.25 mg PO TID PRN PRN Reason: Anxiety Cyclobenzaprine [Flexeril] 10 mg PO HS Levothyroxine Sodium [Synthroid] 75 mcg PO QAM Potassium Chloride [Klor-Con 20] 20 meq PO TID Discharge Medication List traMADol HCL [Tramadol HCl] 50 mg PO BID PRN 10/02/15 [History] Topiramate [Topamax] 50 mg PO BID 05/24/17 [History] ALPRAZolam [Xanax] 0.25 mg PO TID PRN 01/02/19 [History] Cyclobenzaprine [Flexeril] 10 mg PO HS 01/02/19 [History] Levothyroxine Sodium [Synthroid] 75 mcg PO QAM 02/06/20 [History] Potassium Chloride [Klor-Con 20] 20 meq PO TID 04/16/20 [History] Follow up Appointment(s)/Referral(s): Bhumika Ordaz MD [STAFF PHYSICIAN] - 05/22/20 Patient Instructions/Handouts: Hiatal Hernia (DC) Discharge Disposition: HOME SELF-CARE
[2020-05-07 10:14] VITALS: BP 118/85; PULSE 90
--- NOTE | 2020-05-09 09:34 | CDI ---
Date: 05.09.2020 CDS/Section Gang Worker Name: Skye Rai Phone: If any questions, call Pat Coffman [employer] Process Engineer at [phone] Patient Name: Piedad Ramirez Admit Date 05.07.20 Discharge Date: 05.07.20 ATTENTION: The [facility] Coding Staff appreciate your assistance in clarifying documentation. Please respond to the clarification below the line at the bottom and electronically sign. The [facility] Coding staff will review the response and follow-up if needed. Please note: Queries are made part of the Legal Health Record. If you have any questions, please contact the [employer] Process Engineer. Dear Dr. Ordaz In order to code to the greatest specificity and for the greatest reimbursement I need the following information: In your EGD report you have documented that there were biopsies of the antrum, were these sent for pathology? Thank you for your kind consideration. No biopsies were taken. Report below is amended. 05/09/20 @ 1403 PREOPERATIVE DIAGNOSIS: Anemia History of GI bleed POSTOPERATIVE DIAGNOSIS: Anemia History of GI bleed Sleeve gastrectomy Diaphragmatic hiatal hernia OPERATION: Esophagogastroduodenoscopy SURGEON: Bhumika Ordaz MD ANESTHESIA: MAC. INDICATIONS: The patient is a 44-year-old female who presents with a history of anemia. Benefits and risks of the procedure were described. Informed consent was obtained. DESCRIPTION: The patient was brought into the endoscopy suite and laid in the left lateral decubitus position. An Olympus gastroscope was passed along the posterior oropharynx down to the distal esophagus where the squamocolumnar junction was encountered at 36 cm from the incisors. The stomach was entered and no bile reflux was found. Additional findings are listed below. No biopsies were obtained. The first through third portion of the duodenum was examined and unremarkable. Findings a sleeve gastrectomy was found prohibiting retroflexion of the scope. The squamocolumnar junction demonstrated no LA grade A erosive esophagitis. The stomach was desufflated. The patient tolerated the procedure well. FINDINGS: Squamocolumnar junction 36 cm from the incisors. Diaphragmatic hiatus at 40cm. Hiatal hernia, 4 cm Presence of sleeve gastrectomy prohibiting retroflexion of scope No LA grade A erosive esophagitis. No active duodenitis. No gastric ulcers or duodenal ulcers RECOMMENDATIONS: Upper endoscopy as needed. MTDD
== END 2020-05-07 10:35 | disposition home or self-care (01) ==
LOC: ORWHC2ENDO 08:09
PROVIDERS: ATTEND Surgery Plastic and Reconstructive Surgery
DX: K57.31 Diverticulosis of large intestine without perforation or abscess with bleeding (principal); K64.0 First degree hemorrhoids; K44.9 Diaphragmatic hernia without obstruction or gangrene; D64.9 Anemia, unspecified; Z88.1 Allergy status to other antibiotic agents; E11.9 Type 2 diabetes mellitus without complications; E07.9 Disorder of thyroid, unspecified; E87.6 Hypokalemia; G25.81 Restless legs syndrome; E66.9 Obesity, unspecified; Z68.41 Body mass index [BMI] 40.0-44.9, adult; Z87.19 Personal history of other diseases of the digestive system; Z98.84 Bariatric surgery status; Z98.890 Other specified postprocedural states; Z90.49 Acquired absence of other specified parts of digestive tract; Z90.710 Acquired absence of both cervix and uterus; Z98.51 Tubal ligation status; Z87.891 Personal history of nicotine dependence; Z79.899 Other long term (current) drug therapy; Z79.890 Hormone replacement therapy; Z82.49 Family history of ischemic heart disease and other diseases of the circulatory system; Z83.3 Family history of diabetes mellitus
CPT/HCPCS: 45378; 43235; J2001; J2704

== ENCOUNTER → 2020-06-11 | Outpatient (CLI) | payer BC | END | disposition home or self-care (01) | LOC: LABWHC1 07:12 | PROVIDERS: ATTEND Surgery Plastic and Reconstructive Surgery | DX: E44.0 Moderate protein-calorie malnutrition (principal) | CPT/HCPCS: 36415; 84443 ==

== ENCOUNTER 2020-06-16 10:00 | Inpatient (IN) | payer BC ==
[2020-06-23] MEDS ORDERED: PANTOPRAZOLE 40 MG/10 ML VIAL IV STA (06:41)
[2020-06-23] MEDS ORDERED: ENOXAPARIN 40 MG/0.4 ML SYRINGE SQ STA (06:41)
[2020-06-23] MEDS ORDERED: CHLORHEXIDINE GLUCONATE 15 ML CUP MUCOUS MEM ONE (06:41)
[2020-06-23] MEDS ORDERED: SCOPOLAMINE 1.5MG/72HR PATCH TRANSDERM STA (06:43)
[2020-06-23] MEDS ORDERED: ACETAMINOPHEN TAB 500 MG TAB PO STA (06:43)
[2020-06-23] MEDS ORDERED: GABAPENTIN 300 MG CAP PO STA (06:43)
--- NOTE | 2020-06-23 06:50 | P.GSHP ---
History of Present Illness H&P Date: 06/23/20 CHIEF COMPLAINT: Paraesophageal hiatal hernia with gastroesophageal reflux disease. HISTORY OF PRESENT ILLNESS: The patient is a 44-year-old female who presents with paraesophageal hiatal hernia. She has completed an upper endoscopy workup. Now she presents for surgical intervention. PAST MEDICAL HISTORY: Please see list. PAST SURGICAL HISTORY: Please see list. MEDICATIONS: Please see list. ALLERGIES: Please see list. SOCIAL HISTORY: No illicit drug use FAMILY HISTORY: No reports of Crohn disease or ulcerative colitis. REVIEW OF ORGAN SYSTEMS: CONSTITUTIONAL: No reports of fevers or chills. GI: Denies any blood in stools or constipation. PHYSICAL EXAM: VITAL SIGNS: Stable GENERAL: Well-developed pleasant and in no acute distress. HEENT: No scleral icterus. Extraocular movements grossly intact. Moist buccal mucosa. NECK: Supple without lymphadenopathy. CHEST: Unlabored respirations. Equal bilateral excursions. CARDIOVASCULAR: Regular rate and rhythm. Distal 2+ pulses. ABDOMEN: Soft, nondistended. No peritoneal signs. MUSCULOSKELETAL: No clubbing, cyanosis, or edema. SKIN: Well-perfused. Good skin turgor. ASSESSMENT: 1. Diaphragmatic paraesophageal hiatal hernia with severe gastroesophageal reflux disease. PLAN: 1. Recommend proceeding with a robotic paraesophageal hiatal hernia with possible mesh. 2. Benefits and risks of surgical intervention was discussed including possibility of open technique. 3. Inpatient hospitalization recommended of 2 nights 4. DVT prophylaxis. 5. Antibiotic prophylaxis. 6. She has also completed a very low caloric high-protein diet to address underlying hepatomegaly. Past Medical History Past Medical History: Diabetes Mellitus, Thyroid Disorder Additional Past Medical History / Comment(s): abd. pain lower left side for approx.-intermittent, some vomiting,hx restless leg syndrome,swelling lower ext,diet controlled diabetic History of Any Multi-Drug Resistant Organisms: None Reported Past Surgical History: Bariatric Surgery, Section, Cholecystectomy, Hysterectomy, Tubal Ligation, Uterine Ablation Additional Past Surgical History / Comment(s): C/S x3, gastric sleeve w/hiatal hernia repair-2012 Past Anesthesia/Blood Transfusion Reactions: No Reported Reaction Additional Past Anesthesia/Blood Transfusion Reaction / Comment(s): no hx blood transfusion Smoking Status: Former smoker - Past Family History Mother Family Medical History: No Reported History Father Family Medical History: Coronary Artery Disease (CAD), Diabetes Mellitus, Hypertension Additional Family Medical History / Comment(s): [place] in 1991 Medications and Allergies Home Medications Medication Instructions Recorded Confirmed Type traMADol HCL [Tramadol HCl] 50 mg PO BID PRN 10/02/15 06/17/20 History Topiramate [Topamax] 50 mg PO BID 05/24/17 06/17/20 History ALPRAZolam [Xanax] 0.25 mg PO TID PRN 01/02/19 06/17/20 History Cyclobenzaprine [Flexeril] 10 mg PO HS 01/02/19 06/17/20 History Potassium Chloride [Klor-Con 20] 20 meq PO TID 04/16/20 06/17/20 History Levothyroxine Sodium [Euthyrox] 125 mcg PO DAILY 1 Days #30 tablet 05/21/20 06/17/20 Rx hydroCHLOROthiazide [Hydrodiuril] 25 mg PO DAILY 06/17/20 06/17/20 History Allergies Allergy/AdvReac Type Severity Reaction Status Date / Time gentamicin [Gentamicin] Allergy convulsions Verified 06/17/20 10:29
[2020-06-23] MEDS ORDERED: POTASSIUM CHLORIDE ER 20 MEQ TAB.ER PO STA (06:51)
[2020-06-23] MEDS ORDERED: MIDAZOLAM 2 MG/2 ML VIAL IV PRN (10:33)
[2020-06-23] MEDS ORDERED: DEXAMETHASONE SOD PHOSPHATE 10 MG/ML 1 ML VIAL IV ONE (10:33)
[2020-06-23] MEDS ORDERED: ONDANSETRON 4 MG/2 ML VIAL IVP ONE (10:33)
[2020-06-23] MEDS ORDERED: HYDROmorphone 0.5 MG/0.5 ML SYRINGE IVP PRN (10:33)
[2020-06-23 10:55] LABS: Glucose,Whole Blood 119 mg/dL (75-99)
[2020-06-23] MEDS: LACTATED RINGERS 1,000 ML IV SCH (10:56)
[2020-06-23] MEDS ORDERED: LIDOCAINE 1% (10MG/ML) FOR IV START INTRADERMA ONE (10:57)
[2020-06-23 11:38] LABS: ALT 24 U/L (4-34); AST 29 U/L (14-36); African American GFR (CKD) >90 (>60 ml/min/1.73 sqM); Albumin 3.9 g/dL (3.5-5.0); Alkaline Phosphatase 84 U/L (38-126); Anion Gap 6 mmol/L; Blood Urea Nitrogen 7 mg/dL (7-17); Carbon Dioxide 28 mmol/L (22-30); Chloride 104 mmol/L (98-107); Glucose 125 mg/dL (74-99); Magnesium 1.7 mg/dL (1.6-2.3); Non-African American GFR(CKD) >90 (>60 ml/min/1.73 sqM); Sodium 138 mmol/L (137-145); Total Bilirubin 0.6 mg/dL (0.2-1.3); Total Protein 6.7 g/dL (6.3-8.2)
[2020-06-23] MEDS ORDERED: POTASSIUM CHLORIDE 10 MEQ in WATER FOR INJECTION 1 100ML.BAG IVPB STA (11:49)
[2020-06-23] MEDS ORDERED: LIDOCAINE 1% INJ 10MG/ML (20 ML MDV) ONE (13:25)
[2020-06-23] MEDS ORDERED: MIDAZOLAM 2 MG/2 ML VIAL ONE (13:25)
[2020-06-23] MEDS ORDERED: NEOSTIGMINE 1 MG/ML 10 ML VIAL ONE (13:25)
[2020-06-23] MEDS ORDERED: GLYCOPYRROLATE 0.2 MG/ML 2 ML VIAL ONE (13:25)
[2020-06-23] MEDS ORDERED: ROCURONIUM 10 MG/ML (10 ML VIAL) IV ONE (13:25)
[2020-06-23] MEDS ORDERED: HYDROmorphone (PF) 1 MG/ML ONE (13:25)
[2020-06-23] MEDS ORDERED: SUCCINYLCHOLINE CHLORIDE 100 MG/5 ML SYR IV ONE (13:25)
[2020-06-23] MEDS ORDERED: PROPOFOL 10 MG/ML 20 ML VIAL IV ONE (13:25)
[2020-06-23] MEDS ORDERED: fentaNYL (PF) 50 MCG/ML 2 ML AMP ONE (13:25)
[2020-06-23] MEDS ORDERED: LACTATED RINGERS 1,000 ML IV ONE (14:27)
[2020-06-23] MEDS ORDERED: BUPIVACAINE (PF) 0.5% 30 ML VIAL SQ ONE (14:34)
[2020-06-23] MEDS ORDERED: ACETAMINOPHEN IV (For NPO) 1,000 MG in EMPTY BAG 1 BAG IVPB ONE (16:08)
[2020-06-23] MEDS ORDERED: NALOXONE 0.4 MG/ML 1 ML VIAL IV PRN (16:08)
[2020-06-23] MEDS ORDERED: ALPRAZolam 0.25 MG TAB PO PRN (16:10)
--- NOTE | 2020-06-23 17:31 | P.OP ---
Date of Procedure: 06/23/20 Description of Procedure: DESCRIPTION OF PROCEDURE(S): SURGEON: VIELKA GONZALEZ MD [employer]CIAL [employer] REP: KIERAN JONES PREOPERATIVE DIAGNOSES: 1. Gastroesophageal reflux disease 2. Paraesophageal hiatal hernia, midline. 3. Morbid obesity due to excess calories, BMI of 40.9 4. History of sleeve gastrectomy 5. Hypokalemia, chronic 6. Hypothyroidism 7. Diabetes type 2, [id number] 8. Generalized anxiety disorder 9. Hypertensive heart disease 10. Restless leg syndrome POSTOPERATIVE DIAGNOSES: 1. Gastroesophageal reflux disease 2. Paraesophageal hiatal hernia, midline, incarcerated and recurrent, 3 x 3 cm 3. Morbid obesity due to excess calories, BMI of 40.9 4. History of sleeve gastrectomy 5. Hypokalemia, chronic 6. Hypothyroidism 7. Diabetes type 2, [id number]-ovqkjioey 8. Generalized anxiety disorder 9. Hypertensive heart disease 10. Restless leg syndrome OPERATION: 1. Robotic-assisted da Rolando Xi laparoscopic reduction and repair of recurrent incarcerated paraesophageal hiatal hernia, 3 x 3 cm, with [place] Biopatch A 8 x 8 cm. 2. Robotic-assisted da Rolando Xi laparoscopic extensive lysis of adhesions over 30 minutes 3. Intraoperative esophagogastroscopy 4. Placement of 56-Serbian bougie ANESTHESIA: General with local anesthetic. ESTIMATED BLOOD LOSS: 20 mL Pathology: None COMPLICATIONS: None. FINDINGS: 1. GE junction at 35 cm from the incisors 2. Diaphragmatic hiatus at 32 cm from the incisors after repair 3. Intra-abdominal esophageal length over 3 cm obtained 4. Moderate adhesions of sleeve gastrectomy and surrounding tissue requiring over 30 minutes lysis of adhesions INDICATIONS: The patient is a 44-year-old female who presents with moderate to severe gastroesophageal reflux disease with a symptomatic diaphragmatic hiatal hernia. Preoperative workup including upper endoscopy demonstrated hiatal hernia. Given the severity of her symptoms, she had elected for surgical intervention. Benefits and risks including bleeding, infection, recurrence, dysphagia, injury to the lung, need for further surgery was described at length. Informed consent was obtained. DESCRIPTION: The patient was brought into the operating room and placed in supine position. Preoperatively she had received Lovenox subcutaneously for DVT prophylaxis. After general induction, the abdomen was prepped and draped in standard sterile fashion. The patient had previously voided prior to coming to the operating room. Ioban draping was placed along the abdomen. A timeout protocol was confirmed with the surgical team, for which the patient's name, procedure to be performed including DVT prophylaxis with bilateral SCDs, and preoperative antibiotics were also confirmed. A robotic da Rolando Xi system was prepped and primed. At 12 cm from the xiphoid to just below the umbilicus, proposed port sites were marked with indelible marker along the left axillary line, left mid-clavicular line with each ports were marked 10 cm from each other. A 5 mm 0 degrees laparoscopic trocar entry was performed along the left upper quadrant. The abdomen was insufflated to 15 mmHg pressure was tolerated well. Diagnostic laparoscopy demonstrated no injury to bowel, viscera. No injury had occurred to the small bowel or viscera. Next, one 8 mm robotic port was placed along the right upper abdomen. An 8-mm port was were placed along the left lateral abdominal wall. The camera 8-mm port was maintained along the epigastrium. Another 12 mm port was placed along the left upper abdominal wall after exchanging the 5 mm port. Please note that the ports were placed at least 20 cm away from the target anatomy. Care was taken to check that each robotic arm were safely away from collision with the bed or the patient. The patient was repositioned in reverse Trendelenburg position at 21-degrees after lowering the bed. The robot was docked above the left side of the patient. Using a grasper for arm 3, a grasper for arm 1, including vessel sealer for arm 2, the robotic system was docked and primed as described. Instruments were interchanged by the assistant casino shift manager. I had sat at the console. Initial attention was brought to the hiatus and sleeve where moderate peritoneal adhesions were found consistent with previous hiatal hernia surgery. Sutures along the hiatus was also identified and divided. Using combination blunt dissection including vessel sealer for sharp dissection, lysis of adhesions over 30 minutes was performed To free the sleeve from surrounding tissues including previous appear along the hiatus. The remnant gastrohepatic ligament was divided using a vessel sealer. Next, the phrenoesophageal ligament was mobilized and the distal esophagus was mobilized circumferentially. An incarcerated hernia sac was found into the mediastinum. As a result, dissection well into the mediastinum was needed to free the proximal sleeve gastrectomy including distal esophagus. The left and right crura was identified. Circumferentially, the hernia sac was excised and brought into the abdominal cavity. Care was taken to avoid any gastrotomy to the incarcerated upper pole of the stomach. The measured defect was measured with a ruler consistent with 3 cm axial length and 3 cm in width. The distal esophagus at least 3 cm was brought into the abdominal cavity. Once the hiatus and crura was dissected, nonabsorbable 2-0 VLOC suture was placed as a running suture to re-approximate the diaphragmatic hiatus p osteriorly. To buttress the repair, a [place] Biopatch A was prepared along the back table and cut in a cornell-hole fashion as to reinforce the repair as an underlay. The mesh was resized posteriorly placed along the crural repair and tagged using nonabsorbable 2-0 VLOC. I went to the head of the bed to perform intraoperative esophagogastroduodenoscopy. Initial scoping was performed without any mucosal injuries identified. A 56-Serbian bougie was entered into the posterior oropharynx into the sleeve after removing the scope. The bougie was left for 1 minute then removed. An Olympus gastroscope was passed through the posterior oropharynx, where the squamocolumnar junction was confirmed at 35 cm from the incisors. The hiatus repair was confirmed at 32 cm from the incisors. The stomach was entered. No duodenal ulcers were identified. The stomach had been desufflated. No evidence of leaks were found or mucosal defects of the esophagus or stomach. This concluded the endoscopic portion of the case. The robot was undocked from the patient. I re-scrubbed into the case. All instruments and pneumoperitoneum were evacuated from the abdominal cavity. The incisions were cleansed with dilute hydrogen peroxide with saline solution. Incisions were reapproximated using 4-0 Monocryl in an interrupted subcuticular fashion. The 12-mm port site fascial defect was less than 8 mm in size. Exofinwas applied to the skin. Local anesthetic was infiltrated in all wounds for postop analgesia. Multiple intra-abdominal films were obtained. At the end of the procedure, needle, sponge, and instrument count was verified correct by the vehicle monitor technician. The patient had tolerated the procedure well and was taken to the postanesthesia unit in stable condition. Intraoperative films were reviewed with the patient's family who were pleased with the level of care. Plan - Discharge Summary Discharge Rx Participant: No New Discharge Prescriptions: Continue traMADol HCL [Tramadol HCl] 50 mg PO BID PRN PRN Reason: Pain Topiramate [Topamax] 50 mg PO BID ALPRAZolam [Xanax] 0.25 mg PO TID PRN PRN Reason: Anxiety Cyclobenzaprine [Flexeril] 10 mg PO HS Potassium Chloride [Klor-Con 20] 20 meq PO TID Levothyroxine Sodium [Euthyrox] 125 mcg PO DAILY 1 Days #30 tablet hydroCHLOROthiazide [Hydrodiuril] 25 mg PO DAILY Discharge Medication List traMADol HCL [Tramadol HCl] 50 mg PO BID PRN 10/02/15 [History] Topiramate [Topamax] 50 mg PO BID 05/24/17 [History] ALPRAZolam [Xanax] 0.25 mg PO TID PRN 01/02/19 [History] Cyclobenzaprine [Flexeril] 10 mg PO HS 01/02/19 [History] Potassium Chloride [Klor-Con 20] 20 meq PO TID 04/16/20 [History] Levothyroxine Sodium [Euthyrox] 125 mcg PO DAILY 1 Days #30 tablet 05/21/20 [Rx] hydroCHLOROthiazide [Hydrodiuril] 25 mg PO DAILY 06/17/20 [History] Patient Instructions/Handouts: *Surgery [facility] - Scopalamine Patch Instructions Discharge Disposition: HOME SELF-CARE
[2020-06-23] MEDS: MAGNESIUM SULFATE-D5W PMX 1 GM in DEXTROSE/WATER 1 100ML.BAG IVPB SCH ×4 (17:41→21:10)
[2020-06-23] MEDS: SIMETHICONE 40 MG/0.6 ML DROPS 2,000 MG/30 ML BOTTLE PO SCH (17:45)
[2020-06-23] MEDS: HYOSCYAMINE ORAL DROPS 1.875 MG/15 ML BOTTLE PO SCH (17:45)
[2020-06-23] MEDS: KETOROLAC 15 MG/ML 1 ML VIAL IVP SCH (17:51)
[2020-06-23] MEDS: 0.9% NACL WITH KCL 20 MEQ/L 1,000 ML IV SCH ×2 (21:09→23:37)
[2020-06-23] MEDS: ALBUTEROL NEBULIZED 2.5 MG/3 ML INHALATION SCH (21:09)
[2020-06-23] MEDS: TOPIRAMATE 25 MG TAB PO SCH (21:11)
[2020-06-23] MEDS: CYCLOBENZAPRINE 10 MG TAB PO SCH (21:11)
[2020-06-24] MEDS: HYOSCYAMINE ORAL DROPS 1.875 MG/15 ML BOTTLE PO SCH ×4 (00:16→18:43)
[2020-06-24] MEDS: SIMETHICONE 40 MG/0.6 ML DROPS 2,000 MG/30 ML BOTTLE PO SCH ×4 (00:16→18:42)
[2020-06-24] MEDS: KETOROLAC 15 MG/ML 1 ML VIAL IVP SCH ×4 (00:17→18:40)
[2020-06-24] MEDS: 0.9% NACL WITH KCL 20 MEQ/L 1,000 ML IV SCH (05:50)
[2020-06-24] MEDS: LEVOTHYROXINE 125 MCG TAB PO SCH ×2 (05:56→07:39)
[2020-06-24 05:57] LABS: Anisocytosis Slight; Basophils % (A) 0 %; Eosinophils % (A) 1 %; HCT 39.8 % (34.0-46.0); Lymphocytes # (A) 1.2 k/uL (1.0-4.8); Lymphocytes % (A) 16 %; MCH 29.7 pg (25.0-35.0); MCHC 32.6 g/dL (31.0-37.0); MCV 91.3 fL (80.0-100.0); Mean Platelet Volume 7.9; Monocytes # (A) 0.3 k/uL (0-1.0); Monocytes % (A) 4 %; Neutrophils # (A) 5.6 k/uL (1.3-7.7); Neutrophils % (A) 78 %; Platelet Count 293 k/uL (150-450); RBC 4.36 m/uL (3.80-5.40); RDW 16.1 % (11.5-15.5); WBC 7.1 k/uL (3.8-10.6)
[2020-06-24] MEDS: hydroCHLOROthiazide 25 MG TAB PO SCH (07:33)
[2020-06-24] MEDS: ENOXAPARIN 40 MG/0.4 ML SYRINGE SQ SCH (07:33)
[2020-06-24] MEDS: TOPIRAMATE 25 MG TAB PO SCH (07:33)
--- NOTE | 2020-06-24 08:42 | FL ---
EXAMINATION TYPE: FL UGI DATE OF EXAM: 06/24/2020 LIMITED UGI-ESOPHAGRAM: CLINICAL HISTORY: GERD and pain. Status post Ross fundoplication surgery yesterday. History of gas tric sleeve surgery. TECHNIQUE: Limited esophagram is performed utilizing 50 oz of Isovue-370. A total of 19 seconds of f luoroscopic time was utilized during procedure. 16 spot images saved to PACS. FINDINGS: The patient swallowed contrast without difficulty or delay. Esophageal peristalsis and mo tility are within normal limits. There is good flow of contrast along the diaphragmatic hiatus into t he stomach, there is no evidence of contrast extravasation to suggest leak. No persistent hiatal bobby ia is seen. Patient remains asymptomatic. Cholecystectomy clips noted. Trace free air below left cedric diaphragm presumed postsurgical. IMPRESSION: No evidence of leak or significant obstruction status post Ross fundoplication surgery yesterday.
[2020-06-24] MEDS: ALBUTEROL NEBULIZED 2.5 MG/3 ML INHALATION SCH ×4 (08:44→19:30)
[2020-06-24 09:09] LABS: African American GFR (CKD) 134.5 (60.0-200.0); Anion Gap 11.5 mmol/L (4.00-12.00); Calcium 8.2 mg/dL (8.7-10.3); Carbon Dioxide 20.5 mmol/L (21.6-31.8); Magnesium 2.1 mg/dL (1.5-2.4); Non-African American GFR(CKD) 116.1 (60.0-200.0); Phosphorus 3.2 mg/dL (2.4-5.1)
[2020-06-24] MEDS: LACTATED RINGERS 1,000 ML IV SCH (09:45)
[2020-06-24] MEDS: 1: MVI, ADULT NO.4 WITH VIT K 10 ML, THIAMINE 100 MG, FOLIC ACID 1 MG, POTASSIUM CHLORID IV SCH ×12 (11:39→21:18)
[2020-06-24] MEDS: HYDROmorphone 1 MG/ML 1 ML SYRINGE IVP PRN ×2 (14:07→21:09)
--- NOTE | 2020-06-24 14:10 | P.PN ---
<AlejandroLily stewart - Last Filed: 06/24/20 14:03> Subjective Progress Note Date: 06/24/20 CHIEF COMPLAINT: Paraesophageal hiatal hernia HISTORY OF PRESENT ILLNESS: Patient is status post Robotic-assisted da Rolando Xi laparoscopic reduction and repair of recurrent incarcerated paraesophageal hiatal hernia. Patient had her upper GI completed Showing no evidence of leak or significant obstruction. Patient was started on a bariatric clear diet. Initially patient reported feeling that the liquids got stuck with swallowing. She felt that she may have drank too much. She is doing some better with swallowing smaller amounts of fluid. Her pain is controlled. She denies any nausea or vomiting. WBC is 7.1 potassium is 4.0 magnesium is 2.1. She is afebrile. PHYSICAL EXAM: VITAL SIGNS: Reviewed GENERAL: Well-developed in no acute distress. HEENT: No sclera icterus. Extraocular movements grossly intact. Moist buccal mucosa. Head is atraumatic, normocephalic. Hears conversational speech. No nasal drainage. NECK: Supple without lymphadenopathy. CHEST: Non-labored respirations and equal bilateral excursions. CARDIOVASCULAR: Regular rate with regular rhythm. Palpable 2+ radial pulses. ABDOMEN: Soft. Nondistended. Nontender. Incision sites clean dry and intact MUSCULOSKELETAL: No clubbing or cyanosis. NEUROLOGIC: No focal or lateralizing signs. Cranial nerves II through XII grossly intact. PSYCH: Appropriate affect. Alert and oriented to person, place and time. SKIN: Well perfused. Good skin turgor. ASSESSMENT: 1. Gastroesophageal reflux disease 2. Paraesophageal hiatal hernia, midline, incarcerated and recurrent, 3 x 3 cm Status post Robotic-assisted da Rolando Xi laparoscopic reduction and repair of recurrent incarcerated paraesophageal hiatal hernia And Robotic-assisted da Rolando Xi laparoscopic extensive lysis of adhesions 3. Morbid obesity due to excess calories, BMI of 40.9 4. History of sleeve gastrectomy 5. Hypokalemia, chronic 6. Hypothyroidism 7. Diabetes type 2, [id number] 8. Generalized anxiety disorder 9. Hypertensive heart disease 10. Restless leg syndrome PLAN: -Patient started on bariatric Clear liquid diet -Consult bariatric dietitian for patient education on bariatric diet -Discontinued Topamax, it could be contributing to patient's hypokalemia Physician Drying Machine Tender note has been reviewed by physician. Signing provider agrees with the documented findings, assessment, and plan of care. Objective - Vital Signs Vital signs: Vital Signs Temp 97.7 F 06/24/20 12:58 Pulse 68 06/24/20 12:58 Resp 16 06/24/20 12:58 BP 103/61 06/24/20 12:58 Pulse Ox 98 06/24/20 12:58 Intake & Output 06/23/20 06/24/20 06/24/20 18:59 06:59 18:59 Intake Total 1800 2700 Output Total 5 Balance 1795 2700 Weight 101.5 kg Intake: IV 1800 Intake, IV Titration 2700 Amount 0.9% NaCl with KCl 20 Meq 2150 /l 1,000 ml @ 150 mls/hr IV .Q6H40M [facility] Rx#: [id number] Magnesium Sulfate-D5w Pmx 400 1 gm In Dextrose/Water 1 100ml.bag @ 100 mls/hr IVPB Q1H [facility] Rx#: [id number] ceFAZolin 2 gm In Sodium 150 Chloride 0.9% 50 ml @ 100 mls/hr IVPB Q8H [facility] Rx#: [id number] Oral 0 Output: Estimated Blood Loss 5 Other: Voiding Method Toilet Toilet # Voids 1 - Labs CBC & Chem 7: 06/24/20 05:12 06/24/20 05:12 Labs: Abnormal Lab Results - Last 24 Hours (Table) 06/24/20 06/24/20 Range/Units 05:12 05:12 RDW 16.1 H (11.5-15.5) % Chloride 110 H (96-109) mmol/L Carbon Dioxide 20.5 L (21.6-31.8) mmol/L BUN 7.0 L (9.0-27.0) mg/dL Creatinine 0.5 L (0.6-1.5) mg/dL Calcium 8.2 L (8.7-10.3) mg/dL <Bhumika Ordaz - Last Filed: 06/24/20 20:51> Subjective She reports new flushing along her face this evening. She reports expected a bdominal soreness following surgery. Medications reviewed confirming side effect of topamax of persistent low levels of potassium/hypokalemia. She reported no migraines once Topamax was healed with replacement of magnesium. Recommend hold topamax. Start schedule magnesium. Decadron for flushing and edema along GE junction. She reports no reflux following surgery. Esophagram independently reviewed without significant obstruction. TSH levels reviewed. Patient agreeable with care plan. Will re-assess for discharge once stable. Objective - Vital Signs Vital signs: Vital Signs Temp 98.4 F 06/24/20 20:13 Pulse 91 06/24/20 20:13 Resp 16 06/24/20 20:13 BP 99/56 06/24/20 20:13 Pulse Ox 98 06/24/20 20:13 Intake & Output 06/24/20 06/24/20 06/25/20 06:59 18:59 06:59 Intake Total 2700 330 420 Output Total 325 Balance 2700 5 420 Weight 101.5 kg Intake: Intake, IV Titration 2700 Amount 0.9% NaCl with KCl 20 Meq 2150 /l 1,000 ml @ 150 mls/hr IV .Q6H40M [facility] Rx#: [id number] Magnesium Sulfate-D5w Pmx 400 1 gm In Dextrose/Water 1 100ml.bag @ 100 mls/hr IVPB Q1H [facility] Rx#: [id number] ceFAZolin 2 gm In Sodium 150 Chloride 0.9% 50 ml @ 100 mls/hr IVPB Q8H [facility] Rx#: [id number] Oral 0 330 420 Output: Urine 325 Other: Voiding Method Toilet Toilet # Voids 1 - Labs CBC & Chem 7: 06/24/20 05:12 06/24/20 05:12 Labs: Abnormal Lab Results - Last 24 Hours (Table) 06/24/20 06/24/20 Range/Units 05:12 05:12 RDW 16.1 H (11.5-15.5) % Chloride 110 H (96-109) mmol/L Carbon Dioxide 20.5 L (21.6-31.8) mmol/L BUN 7.0 L (9.0-27.0) mg/dL Creatinine 0.5 L (0.6-1.5) mg/dL Calcium 8.2 L (8.7-10.3) mg/dL
[2020-06-24 14:37] VITALS: BMI 40.9
[2020-06-24] MEDS ORDERED: DEXAMETHASONE SOD PHOSPHATE 10 MG/ML 1 ML VIAL IV STA (20:42)
[2020-06-24] MEDS: MAGNESIUM OXIDE 400 MG TAB PO SCH (21:06)
[2020-06-24] MEDS: CYCLOBENZAPRINE 10 MG TAB PO SCH (21:06)
[2020-06-25] MEDS: SIMETHICONE 40 MG/0.6 ML DROPS 2,000 MG/30 ML BOTTLE PO SCH ×4 (00:02→18:06)
[2020-06-25] MEDS: HYOSCYAMINE ORAL DROPS 1.875 MG/15 ML BOTTLE PO SCH ×4 (00:03→18:06)
[2020-06-25] MEDS: HYDROmorphone 1 MG/ML 1 ML SYRINGE IVP PRN (03:29)
[2020-06-25] MEDS: KETOROLAC 15 MG/ML 1 ML VIAL IVP SCH ×3 (05:55→12:23)
[2020-06-25 06:07] LABS: African American GFR (CKD) >90 (>60 ml/min/1.73 sqM); Anion Gap 4 mmol/L; Blood Urea Nitrogen 8 mg/dL (7-17); Calcium 8.1 mg/dL (8.4-10.2); Carbon Dioxide 23 mmol/L (22-30); Chloride 112 mmol/L (98-107); Glucose 178 mg/dL (74-99); Non-African American GFR(CKD) >90 (>60 ml/min/1.73 sqM); Potassium 4.7 mmol/L (3.5-5.1); Sodium 139 mmol/L (137-145)
[2020-06-25] MEDS: LEVOTHYROXINE 125 MCG TAB PO SCH (06:17)
[2020-06-25] MEDS: 1: MVI, ADULT NO.4 WITH VIT K 10 ML, THIAMINE 100 MG, FOLIC ACID 1 MG, POTASSIUM CHLORID IV SCH ×6 (07:05)
[2020-06-25] MEDS: ALBUTEROL NEBULIZED 2.5 MG/3 ML INHALATION SCH ×4 (08:00→20:48)
--- NOTE | 2020-06-25 10:03 | XR ---
EXAMINATION TYPE: XR chest 2V DATE OF EXAM: 06/25/2020 CLINICAL HISTORY: cough, shortness of breath. TECHNIQUE: Frontal and lateral view of the chest. COMPARISON: 10/04/2013 chest radiograph FINDINGS: The cardiomediastinal silhouette is within normal limits for size. Pulmonary vasculature i s normal. Patchy airspace opacities of the right middle lobe and left lower lobe. No pleural effusion , or pneumothorax seen. The osseous structures are intact. IMPRESSION: Patchy airspace opacities of the right middle lobe and left lower lobe.
[2020-06-25] MEDS: hydroCHLOROthiazide 25 MG TAB PO SCH (10:13)
[2020-06-25] MEDS: MAGNESIUM OXIDE 400 MG TAB PO SCH (10:13)
[2020-06-25] MEDS: ENOXAPARIN 40 MG/0.4 ML SYRINGE SQ SCH (10:13)
[2020-06-25] MEDS: DEXAMETHASONE SOD PHOSPHATE 4 MG/ML 1 ML VIAL IV SCH ×3 (10:32→20:33)
--- NOTE | 2020-06-25 15:46 | P.PN ---
<ReneLily - Last Filed: 06/25/20 15:41> Subjective Progress Note Date: 06/25/20 CHIEF COMPLAINT: Paraesophageal hiatal hernia HISTORY OF PRESENT ILLNESS: Patient is status post Robotic-assisted da Rolando Xi laparoscopic reduction and repair of recurrent incarcerated paraesophageal hiatal hernia. Patient had her upper GI completed Showing no evidence of leak or significant obstruction. Patient is on a bariatric clear liquid diet. She reports that her swallowing is doing better. She is complaining of shortness of breath with productive cough. She had required oxygen And has been using nebulizer treatments. WBC 7.1 hemoglobin 13 Potassium 4.7 Chest x-ray patchy airspace opacities of the right middle lobe and left lower lobe PHYSICAL EXAM: VITAL SIGNS: Reviewed GENERAL: Well-developed in no acute distress. HEENT: No sclera icterus. Extraocular movements grossly intact. Moist buccal mucosa. Head is atraumatic, normocephalic. Hears conversational speech. No nasal drainage. NECK: Supple without lymphadenopathy. CHEST: Non-labored respirations and equal bilateral excursions. CARDIOVASCULAR: Palpable 2+ radial pulses. ABDOMEN: Soft. Nondistended. Nontender. Incision sites clean dry and intact MUSCULOSKELETAL: No clubbing or cyanosis. NEUROLOGIC: No focal or lateralizing signs. Cranial nerves II through XII grossly intact. PSYCH: Appropriate affect. Alert and oriented to person, place and time. SKIN: Well perfused. Good skin turgor. ASSESSMENT: 1. Gastroesophageal reflux disease 2. Paraesophageal hiatal hernia, midline, incarcerated and recurrent, 3 x 3 cm Status post Robotic-assisted da Rolando Xi laparoscopic reduction and repair of recurrent incarcerated paraesophageal hiatal hernia And Robotic-assisted da Rolando Xi laparoscopic extensive lysis of adhesions 3. Morbid obesity due to excess calories, BMI of 40.9 4. History of sleeve gastrectomy 5. Hypokalemia, chronic 6. Hypothyroidism 7. Diabetes type 2, [id number]-ydtuhebmn 8. Generalized anxiety disorder 9. Hypertensive heart disease 10. Restless leg syndrome PLAN: -Continue bariatric Clear liquid diet -Discontinued Topamax, it could be contributing to patient's hypokalemia -Encourage incentive spirometer use Physician Accounts Payable Assistant note has been reviewed by physician. Signing provider agrees with the documented findings, assessment, and plan of care. Objective - Vital Signs Vital signs: Vital Signs Temp 98.8 F 06/25/20 12:05 Pulse 65 06/25/20 12:05 Resp 18 06/25/20 12:05 BP 103/62 06/25/20 12:05 Pulse Ox 95 06/25/20 12:05 Intake & Output 06/24/20 06/25/20 06/25/20 18:59 06:59 18:59 Intake Total 330 1441.2 240 Output Total 325 550 Balance 5 891.2 240 Weight 101.5 kg Intake: Intake, IV Titration 1021.2 Amount Mvi, Adult No.4 with Vit 1021.2 K 10 ml Thiamine 100 mg Folic Acid 1 mg Potassium Chloride 20 meq In Sodium Chloride 0.9% 1, 000 ml @ 100 mls/hr IV . BY D[facility]ATION [facility] Rx#: [id number] Oral 330 420 240 Output: Urine 325 550 Other: Voiding Method Toilet Toilet # Voids 1 - Labs CBC & Chem 7: 06/24/20 05:12 06/25/20 05:33 Labs: Abnormal Lab Results - Last 24 Hours (Table) 06/25/20 Range/Units 05:33 Chloride 112 H (98-107) mmol/L Glucose 178 H (74-99) mg/dL Calcium 8.1 L (8.4-10.2) mg/dL <Bhumika Ordaz N - Last Filed: 06/25/20 19:33> Subjective Patient re-evaluated this evening. She reports chest pressure with mild dyspnea. Chest xray personally reviewed without pneumonia. Incentive spirometry with less then 1000 mL volume obtained on inspiration. Will obtain pulmonary evaluation as symptoms continue to progress Will obtain spot troponin and EKG for chest pressure Topamax discontinued as patient reports no further migraines with transition to daily magnesium Cepacol lozenge and claritin for phlegm clearance Objective - Vital Signs Vital signs: Vital Signs Temp 98.6 F 06/25/20 15:22 Pulse 68 06/25/20 15:53 Resp 18 06/25/20 15:22 BP 130/77 06/25/20 15:22 Pulse Ox 95 06/25/20 15:22 Intake & Output 06/25/20 06/25/20 06/26/20 06:59 18:59 06:59 Intake Total 1441.2 240 400 Output Total 550 1000 800 Balance 891.2 -760 -400 Intake: Intake, IV Titration 1021.2 Amount Mvi, Adult No.4 with Vit 1021.2 K 10 ml Thiamine 100 mg Folic Acid 1 mg Potassium Chloride 20 meq In Sodium Chloride 0.9% 1, 000 ml @ 100 mls/hr IV . BY DURATION [facility] Rx#: [id number] Oral 420 240 400 Output: Urine 550 1000 800 Other: Voiding Method Toilet # Voids 1 3 - Labs CBC & Chem 7: 06/24/20 05:12 06/25/20 05:33 Labs: Abnormal Lab Results - Last 24 Hours (Table) 06/25/20 Range/Units 05:33 Chloride 112 H (98-107) mmol/L Glucose 178 H (74-99) mg/dL Calcium 8.1 L (8.4-10.2) mg/dL
[2020-06-25] MEDS: BENZOCAINE/MENTHOL LOZENG 1 EACH LOZENGE MUCOUS MEM SCH (20:31)
[2020-06-25] MEDS: LORATADINE-PSEUDOEPH 5-120 MG 1 EACH TAB.ER.12H PO SCH (20:31)
[2020-06-25] MEDS: CYCLOBENZAPRINE 10 MG TAB PO SCH (20:32)
[2020-06-26] MEDS: HYOSCYAMINE ORAL DROPS 1.875 MG/15 ML BOTTLE PO SCH ×3 (00:12→12:57)
[2020-06-26] MEDS: BENZOCAINE/MENTHOL LOZENG 1 EACH LOZENGE MUCOUS MEM SCH ×3 (00:12→13:58)
[2020-06-26] MEDS: SIMETHICONE 40 MG/0.6 ML DROPS 2,000 MG/30 ML BOTTLE PO SCH ×3 (00:14→12:56)
[2020-06-26] MEDS: DEXAMETHASONE SOD PHOSPHATE 4 MG/ML 1 ML VIAL IV SCH ×3 (02:58→16:01)
[2020-06-26] MEDS: LEVOTHYROXINE 125 MCG TAB PO SCH (06:30)
[2020-06-26 07:16] LABS: African American GFR (CKD) >90 (>60 ml/min/1.73 sqM); Anion Gap 8 mmol/L; Blood Urea Nitrogen 10 mg/dL (7-17); Calcium 8.9 mg/dL (8.4-10.2); Carbon Dioxide 21 mmol/L (22-30); Chloride 113 mmol/L (98-107); Glucose 162 mg/dL (74-99); Magnesium 1.9 mg/dL (1.6-2.3); Non-African American GFR(CKD) >90 (>60 ml/min/1.73 sqM); Potassium 4.1 mmol/L (3.5-5.1); Sodium 142 mmol/L (137-145)
[2020-06-26] MEDS: ALBUTEROL NEBULIZED 2.5 MG/3 ML INHALATION SCH ×3 (07:32→15:36)
[2020-06-26] MEDS: ENOXAPARIN 40 MG/0.4 ML SYRINGE SQ SCH (09:39)
[2020-06-26] MEDS: LORATADINE-PSEUDOEPH 5-120 MG 1 EACH TAB.ER.12H PO SCH (09:39)
[2020-06-26] MEDS: MAGNESIUM OXIDE 400 MG TAB PO SCH (09:39)
[2020-06-26] MEDS: hydroCHLOROthiazide 25 MG TAB PO SCH (09:39)
[2020-06-26] MEDS ORDERED: SODIUM CHLORIDE 0.9% 1,000 ML IV SCH (11:30)
--- NOTE | 2020-06-26 14:41 | P.DS ---
<Lily López - Last Filed: 06/26/20 14:28> Providers Expected date of discharge: 06/26/20 Hospital Course: Discharge diagnosis 1. Gastroesophageal reflux disease 2. Paraesophageal hiatal hernia, midline, incarcerated and recurrent, 3 x 3 cm Status post Robotic-assisted da Rolando Xi laparoscopic reduction and repair of recurrent incarcerated paraesophageal hiatal hernia And Robotic-assisted da Rolando Xi laparoscopic extensive lysis of adhesions 3. Morbid obesity due to excess calories, BMI of 40.9 4. History of sleeve gastrectomy 5. Hypokalemia, chronic 6. Hypothyroidism 7. Diabetes type 2, [id number] 8. Generalized anxiety disorder 9. Hypertensive heart disease 10. Restless leg syndrome 11. Atelectasis hospital course The patient is a 44-year-old female who presents with paraesophageal hiatal hernia. She is status post Robotic-assisted da Rolando Xi laparoscopic reduction and repair of recurrent incarcerated paraesophageal hiatal hernia And Robotic- assisted da Rolando Xi laparoscopic extensive lysis of adhesions. Patient did have complaints of some shortness of breath and cough. She's had chest x-ray completed and evaluated by pulmonary service. Findings are likely related to atelectasis. She's been encouraged to use her incentive spirometer. Her symptoms have shown improvement. She has been up and ambulate without difficulty. Her pain is controlled. She denies any nausea or vomiting. She is tolerating diet. She's afebrile. Patient is stable for discharge. Please refer to chart for any further details. Physician [facility] Practitioner note has been reviewed by physician. Signing provider agrees with the documented findings, assessment, and plan of care. Patient Condition at Discharge: Stable Plan - Discharge Summary Discharge Rx Participant: No New Discharge Prescriptions: New hydroCHLOROthiazide [Hydrodiuril] 25 mg PO DAILY tab Potassium Chloride [Klor-Con 20] 20 meq PO TID #30 tab Magnesium Oxide 400 mg PO DAILY #30 tablet Continue traMADol HCL [Tramadol HCl] 50 mg PO BID PRN PRN Reason: Pain ALPRAZolam [Xanax] 0.25 mg PO TID PRN PRN Reason: Anxiety Cyclobenzaprine [Flexeril] 10 mg PO HS Levothyroxine Sodium [Euthyrox] 125 mcg PO DAILY 1 Days #30 tablet Discontinued Topiramate [Topamax] 50 mg PO BID Potassium Chloride [Klor-Con 20] 20 meq PO TID hydroCHLOROthiazide [Hydrodiuril] 25 mg PO DAILY Discharge Medication List traMADol HCL [Tramadol HCl] 50 mg PO BID PRN 10/02/15 [History] ALPRAZolam [Xanax] 0.25 mg PO TID PRN 01/02/19 [History] Cyclobenzaprine [Flexeril] 10 mg PO HS 01/02/19 [History] Levothyroxine Sodium [Euthyrox] 125 mcg PO DAILY 1 Days #30 tablet 05/21/20 [Rx] Magnesium Oxide 400 mg PO DAILY #30 tablet 06/26/20 [Rx] Potassium Chloride [Klor-Con 20] 20 meq PO TID #30 tab 06/26/20 [Rx] hydroCHLOROthiazide [Hydrodiuril] 25 mg PO DAILY tab 06/26/20 [Rx] Follow [facility]ment(s[facility]Ref[facility] [place] [place] [facility] - [facility]20 3:00 pm Activity/Diet/Wound Care/Special Instructions: Wear abdominal binder at all times for comfort. No lifting over 4 pounds in 4 weeks until Jul 22. May shower. No bath tub soaks for two weeks until Jul 08 Use ice along incisions for today to prevent swelling. 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 continue to use Incentive Spirometery at home. Call office for any fever, chills, uncontrolled pain. increased redness or discolored drainage from puncture sites. difficutly swallowing or ANY concerns. May return to work on Tuesday. May resume driving on Tuesday if not taking narcotics. Discharge Disposition: HOME SELF-CARE <Bhumika Ordaz - Last Filed: 06/27/20 23:01> Providers Date of admission: 06/23/20 10:20 Attending physician: Bhumika Ordaz Consults: 06/25/20 19:27 Consult Physician Routine Consulting Provider: Jorge A Villarreal Consult Reason/Comments: Dyspnea Do you want consulting provider notified?: Yes, Notify in am Primary care physician: Philip Jenkins - Discharge Diagnosis(es) (1) Paraesophageal hernia Status: Acute (2) Migraines Status: Acute (3) Hypothyroidism Status: Acute (4) Hypokalemia Status: Acute (5) Morbid obesity due to excess calories Status: Acute Hospital Course: As above. Patient was admitted due to symptomatic hiatal hernia. Following her procedure of hiatal hernia repair, esophagram was unremarkable for esophageal obstruction. Patient also presented with pre-existing and present on admission hypokalemia. Further workup was consistent with adverse interaction from Topamax. Topamax was discontinued. Magnesium supplementation used for prophylaxis of her headaches. Additionally, incentive spirometer used to correct for atelectasis. Prior to discharge, discharge diet includes bariatric full liquid diet. Medical reconciliation was performed with discontinuance of Topamax. Patient to follow- up the bariatric center in 1 week. Lifting restrictions were 4 pounds in 4 weeks reviewed.
[2020-06-26 15:05] VITALS: BP 154/76; PULSE 51; RESP 20; TEMP 96.9
--- NOTE | 2020-06-26 15:47 | CONS ---
CONSULTATION DATE OF CONSULTATION: 06/26/2020 This is a 44-year-old female who has a history of paraesophageal hernia. The patient had surgery on June 23. The actual procedure was a robotically assisted DaVinci laparoscopic reduction and repair of recurrent incarcerated paraesophageal hiatal hernia with [place] [employer], robotically assisted DaVinci laparoscopic extensive lysis of adhesions, intraoperative esophagogastroscopy, and placement of a 56-[place]namese Bougie. The surgery was done by Dr. Ordaz on June 23. Today is postoperative day number 3. We were actually consulted just today for possible pneumonia. The patient states that she has been having difficulty breathing for the last day and a half. She cannot take a deep breath. She has coughed a bit. She also feels that she is wheezing a bit. I did see Dr. Ordaz, who apparently started her on some antibiotics and corticosteroids. She is planing to send her home today. PAST MEDICAL HISTORY: Her past medical history includes diabetes mellitus and hypothyroidism. She also has a history of restless legs syndrome and obesity. SURGICAL HISTORY: Her surgical history includes bariatric surgery for obesity, , cholecystectomy, hysterectomy, tubal ligation and uterine ablation. Her bariatric procedure was a gastric sleeve. SOCIAL HISTORY: Positive for previous tobacco use. She denies any significant alcohol or illicit drug use. FAMILY HISTORY: Unremarkable save for her father with CAD, diabetes, hypertension and myocardial infarction. HOME MEDICATIONS: Home medications include tramadol, Topamax, Xanax, Flexeril, potassium chloride, levothyroxine and HydroDIURIL. ALLERGIES: GENTAMICIN. REVIEW OF SYSTEMS: CONSTITUTIONAL: Negative. NEUROLOGIC: Negative. HEENT: Negative. CARDIOVASCULAR: Negative. PULMONARY: Shortness of breath, chest congestion, wheezing, tightness and cough with occasional phlegm production. GI: Negative. : Negative. RHEUMATOLOGIC: Negative. IMMUNOLOGIC: Negative. ENDOCRINOLOGIC: Negative. DERMATOLOGIC: Negative. PHYSICAL EXAMINATION: VITAL SIGNS: Current vital signs are reviewed. Temperature 97.6, heart rate 70, respiratory rate 20, blood pressure 132/86, mean 101, room-air saturation 94%. GENERAL APPEARANCE: Appears in no acute distress. HEENT: Examination is grossly unremarkable. NECK: Supple. Full range of motion. No adenopathy. Neck veins are flat. CARDIOVASCULAR: Examination reveals regular rhythm and rate. Heart rate 70 beats per minute. S1, S2 normal. LUNGS: A few scattered inspiratory and expiratory rhonchi and wheezes. No crackles. Breath sounds equal. ABDOMEN: Obese. Bowel sounds are not noted. EXTREMITIES: Intact. No cyanosis, clubbing or edema. SKIN: Without rash. NEUROLOGIC: Neurologic examination is nonfocal. LABS: Reviewed. White count 7.1, hemoglobin 13, hematocrit 39.8, platelet count 293,000. Sodium 142, potassium 4.1, chloride 113, CO2 21. Anion gap is 8. BUN and creatinine were 10 and 0.53. The rest of the labs look okay. Microbiology is negative. Chest x-ray shows bibasilar atelectasis, in my opinion. MEDICATIONS: Medications are reviewed. Currently she is on albuterol inhaler, Xanax, Cepacol lozenges, Flexeril, Decadron, Lovenox, HydroDIURIL, Dilaudid, Levsin drops, levothyroxine, Claritin-D, Mag-Ox, Narcan, Mylicon tablets, and saline IV at 50 mL/hour. ASSESSMENT: 1. Postoperative hypoxemia and shortness of breath, likely related to the recent abdominal procedure as well as obesity and bibasilar atelectasis. 2. Strongly doubt significant pneumonia/infection. 3. Postoperative day number 3, status post robotically assisted repair of a paraesophageal hernia as well as extensive lysis of adhesions. 4. History of diabetes, diet-controlled. 5. Hypothyroidism. 6. Status post bariatric surgery/gastric sleeve. 7. Restless legs syndrome. PLAN: The patient should continue with incentive spirometry. She could be discharged home with a small dose of prednisone and a few days of antibiotic. No additional recommendations are made. We will be happy to see her in the office, should she continue to have respiratory issues. Additional recommendations and suggestions are forthcoming. Prognosis is good. MMODL / IJN: [id number] /
== END 2020-06-26 16:20 | disposition home or self-care (01) | DRG 327 ==
LOC: 2ORMAIN 06-23 10:20 → EDSTATUS 06-23 11:45 → 6NMEDSUR 06-23 15:44 → 6PED 06-24 10:13
PROVIDERS: ADMIT Surgery Plastic and Reconstructive Surgery; ATTEND Surgery Plastic and Reconstructive Surgery
PROC: 0D748ZZ Dilation of Esophagogastric Junction, Via Natural or Artificial Opening Endoscopic (ICD-10-PCS; principal; 2020-06-23 11:45)
PROC: 0BUT4JZ Supplement Diaphragm with Synthetic Substitute, Percutaneous Endoscopic Approach (ICD-10-PCS; principal; 2020-06-23 11:45)
PROC: 8E0W4CZ Robotic Assisted Procedure of Trunk Region, Percutaneous Endoscopic Approach (ICD-10-PCS; principal; 2020-06-23 11:45)
PROC: 0DN74ZZ Release Stomach, Pylorus, Percutaneous Endoscopic Approach (ICD-10-PCS; principal; 2020-06-23 11:45)
DX: K44.0 Diaphragmatic hernia with obstruction, without gangrene (principal); Z68.41 Body mass index [BMI] 40.0-44.9, adult; J98.11 Atelectasis; K21.9 Gastro-esophageal reflux disease without esophagitis; E66.01 Morbid (severe) obesity due to excess calories; E11.9 Type 2 diabetes mellitus without complications; E03.9 Hypothyroidism, unspecified; E87.6 Hypokalemia; F41.1 Generalized anxiety disorder; G25.81 Restless legs syndrome; I11.9 Hypertensive heart disease without heart failure; K66.0 Peritoneal adhesions (postprocedural) (postinfection); Z79.890 Hormone replacement therapy; Z79.899 Other long term (current) drug therapy; Z82.49 Family history of ischemic heart disease and other diseases of the circulatory system; Z83.3 Family history of diabetes mellitus; Z87.891 Personal history of nicotine dependence; Z90.49 Acquired absence of other specified parts of digestive tract; Z90.710 Acquired absence of both cervix and uterus; Z98.84 Bariatric surgery status; Z98.891 History of uterine scar from previous surgery; Z98.51 Tubal ligation status; Z88.8 Allergy status to other drugs, medicaments and biological substances
CPT/HCPCS: 71046; 74240; 80048; 80051; 80053; 82310; 82565; 83735; 84100; 84484; 84520; 85025; 93005; 94640; 94760

== ENCOUNTER → 2020-06-18 | Outpatient (CLI) | payer BC ==
[2020-06-18 08:02] LABS: HCT 45.2 % (34.0-46.0); HGB 14.9 gm/dL (11.4-16.0); MCH 29.4 pg (25.0-35.0); Mean Platelet Volume 7.4; Platelet Count 352 k/uL (150-450); RBC 5.08 m/uL (3.80-5.40); RDW 15.9 % (11.5-15.5); WBC 7.2 k/uL (3.8-10.6)
[2020-06-18 18:03] LABS: African American GFR (CKD) 120.4 (60.0-200.0); Anion Gap 11.8 mmol/L (4.00-12.00); BUN/Creat Ratio 15.71 Ratio (12.00-20.00); Carbon Dioxide 24.2 mmol/L (21.6-31.8); Non-African American GFR(CKD) 103.9 (60.0-200.0); Potassium 3.3 mmol/L (3.5-5.5)
== END | disposition home or self-care (01) ==
LOC: LABWHC1 07:16
PROVIDERS: ATTEND Surgery Plastic and Reconstructive Surgery
DX: E44.0 Moderate protein-calorie malnutrition (principal)
CPT/HCPCS: 36415; 80048; 84443; 85027

== ENCOUNTER → 2020-07-02 | Outpatient (CLI) | payer BC ==
[2020-07-02 12:37] VITALS: BP 116/82; PULSE 93; RESP 16; TEMP 98.1; BMI 40.9
--- NOTE | 2020-07-02 12:42 | P.PN ---
Subjective Progress Note Date: 07/02/20 DATE OF SERVICE: 07/02/2020 CHIEF COMPLAINT: Status post sleeve gastrectomy HISTORY OF PRESENT ILLNESS: Piedad Ramirez is a 44-year-old female who is status post sleeve gastrectomy, 2012. She is 7 years out. She is now status post hiatal hernia repair 06/23/2020. She is 2 weeks out. She is feeling better. She reports occasional troubles with swallowing and breathing. She has chronic low potassium. At height of 5 feet 2 inches, her ideal body weight is 135 pounds. Her highest weight was 258 pounds. Her BMI was 47.3. She comes in 231 pounds from 3 months ago and her weight is unchanged. Her body mass index is 42.3. She is 96 pounds overweight. Total weight loss is 27 pounds. Percent excess weight loss is 22%. PHYSICAL EXAM: VITAL SIGNS: Height 5 foot 2 inches, weight 224 pounds. BMI 41.0 Vital Signs Temp 98.1 F 07/02/20 12:34 Pulse 93 07/02/20 12:34 Resp 16 07/02/20 12:34 BP 116/82 07/02/20 12:34 Pulse Ox GENERAL: Well-developed in no acute distress. HEENT: No scleral icterus. Extraocular movements grossly intact. Hears conversational speech. No nasal drainage. NECK: Supple without lymphadenopathy. CHEST: Nonlabored respirations with equal bilateral excursions. CARDIOVASCULAR: Tachycardia. Distal 2+ pulses. ABDOMEN: Obese, soft, nondistended. MUSCULOSKELETAL: No clubbing, cyanosis. NEURO: No focal or lateralizing signs. Cranial nerves 2 through 12 grossly within normal limits. PSYCH: Appropriate affect. Alert and oriented to person, place and time. SKIN: Good skin turgor. Well perfused. LABS: ASSESSMENT: 1. Morbid obesity due to excess calories 2. Body mass index of 47.3, initial to 41.0 3. Hypothyroidism 4. Anxiety 5. Chronic pain 6. Hypertensive heart disease 7. Diabetes type 2, [id number] 8. Fibroids 9. Hypokalemia 10. Weight regain following bariatric procedure 11. Endometriosis 12. Hiatal hernia PLAN: 1. Recommend check of potassium. 2. Recommend off topomax. 3. Will advance diet to textured Objective - Vital Signs Vital signs: Vital Signs Temp 98.1 F 07/02/20 12:34 Pulse 93 07/02/20 12:34 Resp 16 07/02/20 12:34 BP 116/82 07/02/20 12:34 Pulse Ox Intake & Output 07/01/20 07/02/20 07/02/20 18:59 06:59 18:59 Weight 101.605 kg
== END | disposition home or self-care (01) ==
LOC: BARWHC3 11:48
PROVIDERS: ATTEND Surgery Plastic and Reconstructive Surgery
DX: Z48.815 Encounter for surgical aftercare following surgery on the digestive system (principal); E66.01 Morbid (severe) obesity due to excess calories; E03.9 Hypothyroidism, unspecified; F41.9 Anxiety disorder, unspecified; G89.29 Other chronic pain; I11.9 Hypertensive heart disease without heart failure; E11.9 Type 2 diabetes mellitus without complications; K44.9 Diaphragmatic hernia without obstruction or gangrene; D21.9 Benign neoplasm of connective and other soft tissue, unspecified; N80.9 Endometriosis, unspecified; E87.6 Hypokalemia; Z68.41 Body mass index [BMI] 40.0-44.9, adult; Z98.84 Bariatric surgery status
CPT/HCPCS: 99201

== ENCOUNTER → 2020-07-09 | Outpatient (CLI) | payer BC ==
[2020-07-09 11:31] LABS: African American GFR (CKD) 120.4 (60.0-200.0); Anion Gap 10.5 mmol/L (4.00-12.00); BUN/Creat Ratio 17.14 Ratio (12.00-20.00); Carbon Dioxide 25.5 mmol/L (21.6-31.8); Non-African American GFR(CKD) 103.9 (60.0-200.0); Potassium 3.3 mmol/L (3.5-5.5)
== END | disposition home or self-care (01) ==
LOC: LABPAT 07:17
PROVIDERS: ATTEND Surgery Plastic and Reconstructive Surgery
DX: Z01.818 Encounter for other preprocedural examination (principal); E87.6 Hypokalemia
CPT/HCPCS: 36415; 80048

== ENCOUNTER → 2020-07-23 | Outpatient (CLI) | payer BC ==
[2020-07-23 10:44] LABS: African American GFR (CKD) 120.4 (60.0-200.0); Anion Gap 9.8 mmol/L (4.00-12.00); BUN/Creat Ratio 15.71 Ratio (12.00-20.00); Calcium 9.4 mg/dL (8.7-10.3); Carbon Dioxide 24.2 mmol/L (21.6-31.8); Non-African American GFR(CKD) 103.9 (60.0-200.0); Potassium 3.6 mmol/L (3.5-5.5)
== END | disposition home or self-care (01) ==
LOC: LABWHC1 07:20
PROVIDERS: ATTEND Surgery Plastic and Reconstructive Surgery
DX: E87.6 Hypokalemia (principal)
CPT/HCPCS: 36415; 80048; 84443

== ENCOUNTER → 2020-08-15 | Outpatient (CLI) | payer BC ==
[2020-08-15 08:23] LABS: Basophils # (A) 0.1 k/uL (0-0.2); Basophils % (A) 1 %; Eosinophils # (A) 0.2 k/uL (0-0.7); Eosinophils % (A) 2 %; HCT 41.7 % (34.0-46.0); Lymphocytes % (A) 24 %; MCH 30.3 pg (25.0-35.0); MCHC 33.6 g/dL (31.0-37.0); MCV 90.2 fL (80.0-100.0); Mean Platelet Volume 7.2; Monocytes # (A) 0.3 k/uL (0-1.0); Monocytes % (A) 4 %; Neutrophils # (A) 5.9 k/uL (1.3-7.7); Neutrophils % (A) 69 %; Platelet Count 291 k/uL (150-450); RBC 4.62 m/uL (3.80-5.40); RDW 14.2 % (11.5-15.5); WBC 8.5 k/uL (3.8-10.6)
[2020-08-15 11:01] LABS: African American GFR (CKD) 120.4 (60.0-200.0); Albumin 3.9 g/dL (3.80-4.90); Albumin/Globulin Ratio 2.17 (1.60-3.17); Anion Gap 6.6 mmol/L (4.00-12.00); BUN/Creat Ratio 24.29 Ratio (12.00-20.00); Carbon Dioxide 29.4 mmol/L (21.6-31.8); Chol/HDL Ratio 3.63; Globulin 1.8 g/dL (1.6-3.3); LDL Cholesterol,Calculated 86.4 mg/dL (0.0-131.0); Non-African American GFR(CKD) 103.9 (60.0-200.0); Potassium 3.9 mmol/L (3.5-5.5); Total Bilirubin 0.4 mg/dL (0.2-1.2); Total Protein 5.7 g/dL (6.2-8.2); VLDL Calculation 18.6 mg/dL (5.00-40.00)
== END | disposition home or self-care (01) ==
LOC: LABWHC1 07:36
PROVIDERS: ATTEND Family Medicine
DX: Z00.00 Encounter for general adult medical examination without abnormal findings (principal); E03.9 Hypothyroidism, unspecified; E11.9 Type 2 diabetes mellitus without complications
CPT/HCPCS: 36415; 80053; 80061; 84443; 85025

== ENCOUNTER → 2020-08-18 | Outpatient (CLI) | payer BC ==
--- NOTE | 2020-08-18 14:56 | CT ---
EXAMINATION TYPE: CT abdomen w con DATE OF EXAM: 08/18/2020 HISTORY: splenic anomalies prior study. Prior abnormal CT. CT DLP: 1296mGycm Automated Exposure Control for Dose Reduction was Utilized. CONTRAST: CT scan of the abdomen is performed with oral and with IV Contrast, patient injected with 100 mL of I sovue 300. COMPARISON: CT January 21, 2020 and older CTs FINDINGS: LUNG BASES: No significant abnormality is appreciated. LIVER/GB: Liver is heterogeneously hypodense with occasional tiny subcentimeter hypodense lesion too small to further characterize presumed benign. Cholecystectomy clips redemonstrated. PANCREAS: No significant abnormality is seen. SPLEEN: Spleen remains normal in size with scattered heterogeneous hypodense lesions. Largest measure s 1.9 cm long axis segment 21 significantly changed back to 2016. Findings favor benign etiology. Tin y splenule anteriorly on axial image 20 is stable. ADRENALS: No significant abnormality is seen. KIDNEYS: Symmetric cortical medullary uptake and excretion without hydronephrosis seen bilaterally. S ubcentimeter low dense lesion medially right kidney too small to further characterize presumed benign . Tiny fat density lesion lower pole right kidney laterally coronal image 65 presumed benign. BOWEL: Oral contrast does not reach colonic level. Sutures from gastric sleeve procedure redemonstrat ed. No suspicious small or large bowel dilatation. LYMPH NODES: No greater than 1cm abdominal lymph nodes are appreciated. OSSEOUS STRUCTURES: No significant abnormality is seen. OTHER: No significant additional abnormality is seen. IMPRESSION: Scattered nonspecific splenic lesions unchanged back to 2016 CT favor benign in etiology.
== END | disposition home or self-care (01) ==
LOC: RADCTMAIN 12:19
PROVIDERS: ATTEND Internal Medicine Hematology & Oncology
DX: D73.89 Other diseases of spleen (principal); Z88.1 Allergy status to other antibiotic agents
CPT/HCPCS: 74160; Q9967

== ENCOUNTER → 2020-08-25 | Outpatient (CLI) | payer BC | END | disposition home or self-care (01) | LOC: LABWHC1 09:06 | PROVIDERS: ATTEND Nurse Practitioner | DX: Z03.89 Encounter for observation for other suspected diseases and conditions ruled out (principal) | CPT/HCPCS: U0003; C9803 ==

== ENCOUNTER → 2020-09-18 | Outpatient (CLI) | payer BC ==
[2020-09-18 10:47] LABS: Anion Gap 8.1 mmol/L (4.00-12.00); Carbon Dioxide 28.9 mmol/L (21.6-31.8); Potassium 3.8 mmol/L (3.5-5.5)
[2020-09-18 10:59] LABS: T4, Free (Free Thyroxine) 1.2 ng/dL (0.80-1.80)
== END | disposition home or self-care (01) ==
LOC: LABWHC1 07:08
PROVIDERS: ATTEND Nurse Practitioner Family
DX: E03.9 Hypothyroidism, unspecified (principal); E87.8 Other disorders of electrolyte and fluid balance, not elsewhere classified; Z79.899 Other long term (current) drug therapy
CPT/HCPCS: 36415; 80051; 84439; 84443

== ENCOUNTER → 2020-10-16 | Outpatient (CLI) | payer BC ==
[2020-10-16 15:48] LABS: African American GFR (CKD) 102.5 (60.0-200.0); Albumin 4.5 g/dL (3.80-4.90); Albumin/Globulin Ratio 2.37 (1.60-3.17); Anion Gap 13.8 mmol/L (4.00-12.00); BUN/Creat Ratio 23.75 Ratio (12.00-20.00); Calcium 9.4 mg/dL (8.7-10.3); Carbon Dioxide 27.2 mmol/L (21.6-31.8); Globulin 1.9 g/dL (1.6-3.3); Magnesium 1.8 mg/dL (1.5-2.4); Non-African American GFR(CKD) 88.4 (60.0-200.0); Potassium 3.5 mmol/L (3.5-5.5); Total Bilirubin 0.5 mg/dL (0.2-1.2); Total Protein 6.4 g/dL (6.2-8.2)
== END | disposition home or self-care (01) ==
LOC: LABWHC1 07:30
PROVIDERS: ATTEND Nurse Practitioner Family
DX: E87.8 Other disorders of electrolyte and fluid balance, not elsewhere classified (principal); E83.42 Hypomagnesemia; Z79.899 Other long term (current) drug therapy
CPT/HCPCS: 36415; 80053; 83735

== ENCOUNTER → 2020-11-06 | Outpatient (CLI) | payer BC ==
[2020-11-06 15:15] LABS: Basophils # (A) 0.02 X 10*3/uL (0.00-0.10); Basophils % (A) 0.2 %; HGB 13.9 g/dL (12.0-15.0); Lymphocytes # (A) 2.33 X 10*3/uL (0.90-5.00); Lymphocytes % (A) 23.8 %; MCH 29.2 pg (27.0-32.0); MCHC 32.3 g/dL (32.0-37.0); MCV 90.3 fL (80.0-97.0); Mean Platelet Volume 10.7 fL (9.5-12.2); Monocytes # (A) 0.48 X 10*3/uL (0.20-1.00); Monocytes % (A) 4.9 %; Neutrophils # (A) 6.73 X 10*3/uL (1.80-7.70); Neutrophils % (A) 68.7 %; Platelet Count 348 X 10*3/uL (140-440); RBC 4.76 X 10*6/uL (4.10-5.20); RDW 13.3 % (11.5-14.5)
[2020-11-06 18:58] LABS: Hemoglobin A1C 7.9 % (4.0-6.0)
[2020-11-07 02:34] LABS: African American GFR (CKD) 101.8 (60.0-200.0); Albumin 4.3 g/dL (3.80-4.90); Albumin/Globulin Ratio 2.15 (1.60-3.17); Anion Gap 14.2 mmol/L (4.00-12.00); Calcium 9.5 mg/dL (8.7-10.3); Carbon Dioxide 20.8 mmol/L (21.6-31.8); Non-African American GFR(CKD) 87.8 (60.0-200.0); Potassium 3.9 mmol/L (3.5-5.5); Total Bilirubin 0.4 mg/dL (0.2-1.2); Total Protein 6.3 g/dL (6.2-8.2)
== END | disposition home or self-care (01) ==
LOC: LABWHC1 08:12
PROVIDERS: ATTEND Family Medicine
DX: E55.9 Vitamin D deficiency, unspecified (principal); I10 Essential (primary) hypertension; E11.9 Type 2 diabetes mellitus without complications; Z86.39 Personal history of other endocrine, nutritional and metabolic disease
CPT/HCPCS: 36415; 80053; 82306; 83036; 84439; 84443; 85025

== ENCOUNTER → 2020-11-12 | Outpatient (CLI) | payer BC ==
[2020-11-12 16:28] VITALS: BP 125/85; PULSE 82; RESP 18; TEMP 98.5; BMI 42.4
--- NOTE | 2020-11-12 16:45 | P.PN ---
Subjective Progress Note Date: 11/12/20 She is back on her blood thinner. Her thyroid medication. TSH is low. She had troubles with vision. Looked over labs. TSH is high again. Overriding for medications No more GERD> Increase thyroid back to usual. Food diary Re-check TSH in 1 month. Objective - Vital Signs Vital signs: Vital Signs Temp 98.5 F 11/12/20 16:20 Pulse 82 11/12/20 16:20 Resp 18 11/12/20 16:20 BP 125/85 11/12/20 16:20 Pulse Ox Intake & Output 11/11/20 11/12/20 11/12/20 18:59 06:59 18:59 Weight 105.233 kg
== END | disposition home or self-care (01) ==
LOC: BARWHC3 15:39
PROVIDERS: ATTEND Surgery Plastic and Reconstructive Surgery
DX: E66.01 Morbid (severe) obesity due to excess calories (principal); E11.9 Type 2 diabetes mellitus without complications; E03.9 Hypothyroidism, unspecified; Z98.84 Bariatric surgery status; Z46.51 Encounter for fitting and adjustment of gastric lap band
CPT/HCPCS: 99211

== ENCOUNTER → 2020-12-10 | Outpatient (CLI) | payer BC | END | disposition home or self-care (01) | LOC: LABWHC1 07:16 | PROVIDERS: ATTEND Surgery Plastic and Reconstructive Surgery | DX: E44.0 Moderate protein-calorie malnutrition (principal); E66.01 Morbid (severe) obesity due to excess calories | CPT/HCPCS: 36415; 84443 ==

== ENCOUNTER → 2020-12-17 | Outpatient (CLI) | payer BC ==
[2020-12-17 16:23] VITALS: BP 122/86; PULSE 99; RESP 18; TEMP 98.1; BMI 41.8
--- NOTE | 2020-12-17 17:20 | P.PN ---
Subjective Progress Note Date: 12/17/20 DATE OF SERVICE: 12/17/2020 CHIEF COMPLAINT: Status post sleeve gastrectomy HISTORY OF PRESENT ILLNESS: Piedad Ramirez is a 45-year-old female who is status post sleeve gastrectomy, 2012. She is 8 years out. She comes in with unwanted weight gain and previously uncontrolled hypothyroidism. With adjustment of her thyroid medication, she has lost weight. Her thyroid medication was adjusted down to 100 mcg. At height of 5 feet 2 inches, her ideal body weight is 135 pounds. Her highest weight was 258 pounds. Her BMI was 47.3. She comes in 228 pounds from 231 pounds, 1 month ago. She has lost 3 pounds in 1 month. Her body mass index is 41.9. She is 93 pounds overweight. Total weight loss is 29 pounds. Percent excess weight loss is 24%. PHYSICAL EXAM: VITAL SIGNS: Height 5 foot 2 inches, weight 228 pounds. BMI 41.9 Vital Signs Temp 98.1 F 12/17/20 16:20 Pulse 99 12/17/20 16:20 Resp 18 12/17/20 16:20 BP 122/86 12/17/20 16:20 Pulse Ox GENERAL: Well-developed in no acute distress. HEENT: No scleral icterus. Extraocular movements grossly intact. Hears con versational speech. No nasal drainage. NECK: Supple without lymphadenopathy. CHEST: Nonlabored respirations with equal bilateral excursions. CARDIOVASCULAR: Distal 2+ pulses. ABDOMEN: Obese, soft, nondistended. MUSCULOSKELETAL: No clubbing, cyanosis. NEURO: No focal or lateralizing signs. Cranial nerves 2 through 12 grossly within normal limits. PSYCH: Appropriate affect. Alert and oriented to person, place and time. SKIN: Good skin turgor. Well perfused. LABS: TSH 0.047 ASSESSMENT: 1. Morbid obesity due to excess calories 2. Body mass index of 47.3, initial to 41.9 3. Hypothyroidism 4. Anxiety 5. Chronic pain 6. Hypertensive heart disease 7. Diabetes type 2, [id number] 8. Fibroids 9. Hypokalemia 10. Weight regain following bariatric procedure 11. Endometriosis 12. Hiatal hernia PLAN: 1. Recommend full labs in 1 month. 2. May need conversion to bypass pending outcome from sleeve. Objective - Vital Signs Vital signs: Vital Signs Temp 98.1 F 12/17/20 16:20 Pulse 99 12/17/20 16:20 Resp 18 12/17/20 16:20 BP 122/86 12/17/20 16:20 Pulse Ox Intake & Output 12/16/20 12/17/20 12/17/20 18:59 06:59 18:59 Weight 103.873 kg
== END | disposition home or self-care (01) ==
LOC: BARWHC3 16:20
PROVIDERS: ATTEND Surgery Plastic and Reconstructive Surgery
DX: E66.01 Morbid (severe) obesity due to excess calories (principal); E03.9 Hypothyroidism, unspecified; F41.9 Anxiety disorder, unspecified; G89.29 Other chronic pain; E87.6 Hypokalemia; I11.9 Hypertensive heart disease without heart failure; D25.9 Leiomyoma of uterus, unspecified; E11.9 Type 2 diabetes mellitus without complications; K44.9 Diaphragmatic hernia without obstruction or gangrene; Z68.42 Body mass index [BMI] 45.0-49.9, adult; Z98.84 Bariatric surgery status; N80.9 Endometriosis, unspecified; Z88.1 Allergy status to other antibiotic agents
CPT/HCPCS: 99211

== ENCOUNTER → 2021-01-12 | Outpatient (CLI) | payer BC ==
[2021-01-12 08:12] LABS: INR 0.9 (<1.2); Partial Thromboplastin Time 23.6 sec (22.0-30.0); Prothrombin Time 9.7 sec (9.0-12.0)
[2021-01-12 10:19] LABS: HCT 38.8 % (37.2-46.3); HGB 12.6 g/dL (12.0-15.0); MCHC 32.5 g/dL (32.0-37.0); MCV 89.2 fL (80.0-97.0); Mean Platelet Volume 10.5 fL (9.5-12.2); Platelet Count 367 X 10*3/uL (140-440); RBC 4.35 X 10*6/uL (4.10-5.20); RDW 13.6 % (11.5-14.5); WBC 6.89 X 10*3/uL (4.50-10.00)
[2021-01-12 10:44] LABS: % Iron Saturation 20.54 (12.00-45.00); African American GFR (CKD) 119.6 (60.0-200.0); Albumin 3.9 g/dL (3.80-4.90); Albumin/Globulin Ratio 1.86 (1.60-3.17); Anion Gap 8.1 mmol/L (4.00-12.00); BUN/Creat Ratio 18.57 Ratio (12.00-20.00); Calcium 9.1 mg/dL (8.7-10.3); Carbon Dioxide 27.9 mmol/L (21.6-31.8); Chol/HDL Ratio 4.3; Globulin 2.1 g/dL (1.6-3.3); Magnesium 1.6 mg/dL (1.5-2.4); Non-African American GFR(CKD) 103.2 (60.0-200.0); Phosphorus 3.7 mg/dL (2.4-5.1); Potassium 3.4 mmol/L (3.5-5.5); Total Bilirubin 0.5 mg/dL (0.3-1.2)
[2021-01-12 10:54] LABS: Ferritin 181.1 ng/mL (10.0-291.0)
[2021-01-12 17:02] LABS: Hemoglobin A1C 8.3 % (4.0-6.0)
[2021-01-13 13:01] LABS: Zinc, Serum 63 ug/dL (60-130)
[2021-01-14 13:02] LABS: Vit B1(Thiamine) 62 ug/L (38-122)
[2021-01-14 13:26] LABS: Vitamin A 33 ug/dL (38-106)
--- NOTE | 2021-01-14 17:17 | P.PN ---
Subjective Progress Note Date: 01/14/21 Recommend revision. Worse DM. BMI over 40! Conversion to bypass. Seen every month. Exhausted all options. Objective - Labs CBC & Chem 7: 01/12/21 07:24 01/12/21 07:24 Labs: Abnormal Lab Results - Last 24 Hours (Table) 01/12/21 Range/Units 07:24 Vitamin A 33 L (38-106) ug/dL
== END | disposition home or self-care (01) ==
LOC: LABWHC1 07:05
PROVIDERS: ATTEND Surgery Plastic and Reconstructive Surgery
DX: N19 Unspecified kidney failure (principal); E89.1 Postprocedural hypoinsulinemia; E07.9 Disorder of thyroid, unspecified; D50.8 Other iron deficiency anemias; K90.89 Other intestinal malabsorption; E55.9 Vitamin D deficiency, unspecified; K74.1 Hepatic sclerosis; K50.90 Crohn's disease, unspecified, without complications; E66.01 Morbid (severe) obesity due to excess calories
CPT/HCPCS: 36415; 80053; 80061; 82306; 82525; 82607; 82728; 82746; 83036; 83540; 83550; 83735; 83970; 84100; 84134; 84255; 84425; 84443; 84590; 84630; 85027; 85610; 85730

== ENCOUNTER → 2021-01-14 | Outpatient (CLI) | payer BC ==
[2021-01-14 17:12] VITALS: BP 139/85; PULSE 102; RESP 16; TEMP 98.5; BMI 42.2
--- NOTE | 2021-02-18 17:05 | P.PN ---
Subjective Progress Note Date: 01/14/21 DATE OF SERVICE: 01/14/2021 CHIEF COMPLAINT: Status post sleeve gastrectomy HISTORY OF PRESENT ILLNESS: Piedad Ramirez is a 45-year-old female who is status post sleeve gastrectomy, 2012. She is 8 years out. She comes in with more unwanted weight gain. She comes in with uncontrolled gastroesophageal reflux disease despite hiatal hernia repair and antacids. She reports troubles with her thyroid. She presents for management of her weight. At height of 5 feet 2 inches, her ideal body weight is 135 pounds. Her highest weight was 258 pounds. Her BMI was 47.3. She comes in 231 pounds from 228 pounds, 1 month ago. She has gained 2 pounds in 1 month. Her body mass index is 42.3. She is 96 pounds overweight. Total weight loss is 27 pounds. Percent excess weight loss is 22%. PHYSICAL EXAM: VITAL SIGNS: Height 5 foot 2 inches, weight 231 pounds. BMI 42.3 Vital Signs Temp 98.5 F 01/14/21 17:10 Pulse 102 H 01/14/21 17:10 Resp 16 01/14/21 17:10 BP 139/85 01/14/21 17:10 Pulse Ox GENERAL: Well-developed in no acute distress. HEENT: No scleral icterus. Extraocular movements grossly intact. Hears conversational speech. No nasal drainage. NECK: Supple without lymphadenopathy. CHEST: Nonlabored respirations with equal bilateral excursions. CARDIOVASCULAR: Distal 2+ pulses. Tachycardic. ABDOMEN: Obese, soft, nondistended. MUSCULOSKELETAL: No clubbing, cyanosis. NEURO: No focal or lateralizing signs. Cranial nerves 2 through 12 grossly within normal limits. PSYCH: Appropriate affect. Alert and oriented to person, place and time. SKIN: Good skin turgor. Well perfused. LABS: Reviewed. Potassium is low, hemoglobin A1c is elevated 8.3. Pre-albumin is low. Vitamin A is low. TSH is low. PTH is elevated. ASSESSMENT: 1. Morbid obesity due to excess calories 2. Body mass index of 47.3, initial to 42.3 3. Hypothyroidism 4. Anxiety 5. Chronic pain 6. Hypertensive heart disease 7. Diabetes type 2, [id number] 8. Fibroids 9. Hypokalemia 10. Weight regain following bariatric procedure 11. Endometriosis 12. Hiatal hernia 13. Vitamin A deficiency 14. Secondary hyperparathyroidism 15. Gastroesophageal reflux disease uncontrolled PLAN: 1. Recommend tighter glycemic control for Hgb A1c over 8. 2. Correction of Vitamin A deficiency 8000 units daily 3. Increase calcium 1200 mg for secondary hyperparathyroidism 4. Her synthroid has increased to 125 mcg. 5. For glycemic control and gastroesophageal reflux disease, recommend assessment for conversion to gastric bypass. Objective - Vital Signs Vital signs: Vital Signs Temp 98.5 F 01/14/21 17:10 Pulse 102 H 01/14/21 17:10 Resp 16 01/14/21 17:10 BP 139/85 01/14/21 17:10 Pulse Ox
== END ==
LOC: BARWHC3 16:02
PROVIDERS: ATTEND Surgery Plastic and Reconstructive Surgery
DX: E66.01 Morbid (severe) obesity due to excess calories (principal); E03.9 Hypothyroidism, unspecified; F41.9 Anxiety disorder, unspecified; G89.29 Other chronic pain; I11.9 Hypertensive heart disease without heart failure; E11.9 Type 2 diabetes mellitus without complications; D21.9 Benign neoplasm of connective and other soft tissue, unspecified; E87.6 Hypokalemia; N80.9 Endometriosis, unspecified; K44.9 Diaphragmatic hernia without obstruction or gangrene; E50.9 Vitamin A deficiency, unspecified; K21.9 Gastro-esophageal reflux disease without esophagitis; N25.81 Secondary hyperparathyroidism of renal origin; Z68.41 Body mass index [BMI] 40.0-44.9, adult; Z98.84 Bariatric surgery status; Z88.1 Allergy status to other antibiotic agents
CPT/HCPCS: 99211

== ENCOUNTER → 2021-02-18 | Outpatient (CLI) | payer BC ==
[2021-02-18 16:48] VITALS: BP 110/80; PULSE 103; RESP 18; TEMP 97.8; BMI 40.6
--- NOTE | 2021-02-18 17:11 | P.PN ---
Subjective Progress Note Date: 02/18/21 DATE OF SERVICE: 02/18/2021 CHIEF COMPLAINT: Status post sleeve gastrectomy HISTORY OF PRESENT ILLNESS: Piedad Ramirez is a 45-year-old female who is status post sleeve gastrectomy, 2012. She is 8 years out. She comes in with troubles with weight re-gain and hypothyroidism. She also reports uncontrolled gastroesophageal reflux disease despite medical and surgical measures. As a result of her morbid obesity, she has hypertensive heart disease and diabetes type II. Her last HgbA1c was 8.3. She presents for management of her obesity. At height of 5 feet 2 inches, her ideal body weight is 135 pounds. Her highest weight was 258 pounds. Her BMI was 47.3. She comes in 221 pounds from 231 pounds, 1 month ago. She has lost 10 pounds in 1 month. Her body mass index is 40.6. She is 86 pounds overweight. Total lifetime weight loss is 36 pounds. Lifetime percent excess weight loss is 30 %. PAST MEDICAL HISTORY: 1. Morbid obesity due to excess calories 2. Body mass index of 47.3, initial 3. Hypothyroidism 4. Anxiety 5. Chronic pain 6. Hypertensive heart disease 7. Diabetes type 2 PAST SURGICAL HISTORY: 1. section 2. Cholecystectomy 3. Tubal ligation 4. Uterine Ablation 5. Sleeve gastrectomy 6. Lysis of adhesions HOME MEDICATIONS: Home Medications Medication Instructions Recorded Confirmed traMADol HCL [Tramadol HCl] 50 mg PO BID PRN 10/02/15 03/25/21 ALPRAZolam [Xanax] 0.25 mg PO TID PRN 01/02/19 03/25/21 Cyclobenzaprine [Flexeril] 10 mg PO HS 01/02/19 03/25/21 Multivitamin [Multivitamins Adult 1 each PO DAILY 11/12/20 03/25/21 Gummies] Prabotulinumtoxina-Xvfs [Jeuveau] 100 unit IM DAILY 11/12/20 03/25/21 Topiramate [Topamax] 50 mg PO DAILY 11/12/20 03/25/21 Previous Rx's Medication Instructions Recorded Potassium Chloride [Klor-Con 20] 20 meq PO TID #30 tab 06/26/20 hydroCHLOROthiazide [Hydrodiuril] 25 mg PO DAILY tab 06/26/20 Levothyroxine Sodium [Euthyrox] 125 mcg PO DAILY #60 tablet 11/12/20 Levothyroxine Sodium 100 mcg PO DAILY #30 tablet 12/17/20 Levothyroxine Sodium [Synthroid] 125 mcg PO DAILY #60 tablet 02/18/21 Lactulose 20 gm PO DAILY #300 ml 03/25/21 Magnesium Citrate [Citrate of 296 ml PO ONCE #296 ml 03/25/21 Magnesia] Sennosides/Docusate Sodium [Senna 1 each PO BID #60 tablet 03/25/21 Plus 8.6-50 mg Tablet] Levothyroxine Sodium 100 mcg PO DAILY #30 tablet 03/30/21 ALLERGIES: Allergies Allergy/AdvReac Type Severity Reaction Status Date / Time gentamicin [Gentamicin] Allergy Severe convulsions Verified 03/25/21 16:30 SOCIAL HISTORY: No past tobacco use. FAMILY HISTORY: No family history of ulcerative colitis disease or Crohn's disease. Family history of morbid obesity. No lupus in the family. No reports of stomach or esophageal cancer. REVIEW OF ORGAN SYSTEMS: CONSTITUTIONAL: At height of 5 feet 2 inches, her ideal body weight is 135 pounds. Her highest weight was 258 pounds. Her BMI was 47.3. HEENT: Denies any active troubles with vision or hearing. ENDOCRINE: Has diabetes. Has hypothyroidism. CARDIOVASCULAR: No past reports of palpitations or heart attacks or chest pain. RESPIRATORY: Denies pneumonia. No asthma. GASTROINTESTINAL: Has diarrhea and recent history of colitis. MUSCULOSKELETAL: Has lower back pain and joint pain. Has osteoarthritis of the knees. NEURO: No headaches. No seizure disorders. PSYCH: No depression. No suicidal ideation. Has anxiety. RHEUMATOLOGIC: No lupus. No rheumatoid arthritis. HEMATOLOGIC: Denies any abnormal bleeding or bruising. No personal history of DVTs. SKIN: No rash. No skin cancer. PHYSICAL EXAM: VITAL SIGNS: Height 5 foot 2 inches, weight 221 pounds. BMI 40.6 Vital Signs Temp 97.8 F 02/18/21 16:40 Pulse 103 H 02/18/21 16:40 Resp 18 02/18/21 16:40 BP 110/80 02/18/21 16:40 Pulse Ox GENERAL: Well-developed in no acute distress. HEENT: No scleral icterus. Extraocular movements grossly intact. Hears conversational speech. No nasal drainage. NECK: Supple without lymphadenopathy. CHEST: Nonlabored respirations with equal bilateral excursions. CARDIOVASCULAR: Distal 2+ pulses. Tachycardic. ABDOMEN: Obese, soft, nondistended. MUSCULOSKELETAL: No clubbing, cyanosis. NEURO: No focal or lateralizing signs. Cranial nerves 2 through 12 grossly within normal limits. PSYCH: Appropriate affect. Alert and oriented to person, place and time. SKIN: Good skin turgor. Well perfused. ASSESSMENT: 1. Morbid obesity due to excess calories 2. Body mass index of 47.3, initial to 40.6 3. Hypothyroidism 4. Anxiety 5. Chronic pain 6. Hypertensive heart disease 7. Diabetes type 2, [id number] 8. Fibroids 9. Hypokalemia 10. Weight regain following bariatric procedure 11. Endometriosis 12. Hiatal hernia 13. Vitamin A deficiency 14. Secondary hyperparathyroidism 15. Gastroesophageal reflux disease uncontrolled PLAN: 1. Continue synthroid dose 2. Recommend EGD for recurrent gastroesophageal reflux disease. 3. Recommend esophagram for gastroesophageal reflux disease. Objective - Vital Signs Vital signs: Vital Signs Temp 97.8 F 02/18/21 16:40 Pulse 103 H 02/18/21 16:40 Resp 18 02/18/21 16:40 BP 110/80 02/18/21 16:40 Pulse Ox Intake & Output 02/17/21 02/18/21 02/18/21 18:59 06:59 18:59 Weight 100.698 kg
== END ==
LOC: BARWHC3 15:57
PROVIDERS: ATTEND Surgery Plastic and Reconstructive Surgery
DX: E66.01 Morbid (severe) obesity due to excess calories (principal); D25.9 Leiomyoma of uterus, unspecified; E03.9 Hypothyroidism, unspecified; E11.9 Type 2 diabetes mellitus without complications; E87.6 Hypokalemia; F41.9 Anxiety disorder, unspecified; G89.29 Other chronic pain; I11.9 Hypertensive heart disease without heart failure; K21.9 Gastro-esophageal reflux disease without esophagitis; K44.9 Diaphragmatic hernia without obstruction or gangrene; N25.81 Secondary hyperparathyroidism of renal origin; N80.9 Endometriosis, unspecified; E50.9 Vitamin A deficiency, unspecified; D21.9 Benign neoplasm of connective and other soft tissue, unspecified; Z68.41 Body mass index [BMI] 40.0-44.9, adult; Z79.899 Other long term (current) drug therapy; Z98.84 Bariatric surgery status
CPT/HCPCS: 99211

== ENCOUNTER → 2021-03-05 | Outpatient (CLI) | payer BC ==
--- NOTE | 2021-03-05 12:26 | FL ---
EXAMINATION TYPE: FL barium swallow DATE OF EXAM: 03/05/2021 CLINICAL INDICATION: 45-year-old female R1 3.10, dysphagia. Reflux. Patient with history of previous sleeve gastrectomy in 2013 and hiatal hernia revision surgery in 2019. COMPARISON: 06/14/2020. Correlation CT 08/18/2020 Total Fluoroscopy Time: 1 minute 26 seconds 32 images obtained. FINDINGS: The swallowing mechanism is normal and hypopharyngeal anatomy is preserved. The cervical and thoracic portions have a normal course and caliber. On the upright swallowing images , there is mild dysmotility and tertiary peristalsis demonstrated with a delayed clearance of contras t from the esophagus. However, on the NUÑEZ prone drinking images, there is adequate clearance without any significant dysmotility seen. The mucosa is normal and no persistent filling defect is encountered. No hiatal hernia is present. N o gastroesophageal reflux is identified. Incidentally, we see postsurgical change of sleeve gastrectomy with adequate passage into the duodenu m. IMPRESSION: 1. Occasional mild esophageal dysmotility. 2. No recurrent hiatal hernia. No other specific abnormality seen. Status post sleeve gastrectomy.
== END | disposition home or self-care (01) ==
LOC: RADUSWWP 08:25
PROVIDERS: ATTEND Surgery Plastic and Reconstructive Surgery
DX: K22.4 Dyskinesia of esophagus (principal); Z98.84 Bariatric surgery status
CPT/HCPCS: 74220

== ENCOUNTER → 2021-04-03 | Outpatient (CLI) | payer BC | END | disposition home or self-care (01) | LOC: LABWHC1 08:03 | PROVIDERS: ATTEND Surgery Plastic and Reconstructive Surgery | DX: R00.0 Tachycardia, unspecified (principal) | CPT/HCPCS: 36415; 93005 ==

== ENCOUNTER → 2021-06-02 | Outpatient (CLI) | payer BC | END | disposition home or self-care (01) | LOC: LABWHC1 14:15 | PROVIDERS: ATTEND Family Medicine | DX: Z20.822 Contact with and (suspected) exposure to COVID-19 (principal) | CPT/HCPCS: 87502; U0003; U0005 ==

== ENCOUNTER → 2021-06-29 | Outpatient (CLI) | payer OTHER ==
[2021-06-29 12:51] VITALS: BMI 40.9
== END ==
LOC: BARWHC3 08:37
PROVIDERS: ATTEND Surgery Plastic and Reconstructive Surgery
DX: E66.01 Morbid (severe) obesity due to excess calories (principal); Z71.3 Dietary counseling and surveillance; Z68.41 Body mass index [BMI] 40.0-44.9, adult; Z88.1 Allergy status to other antibiotic agents
CPT/HCPCS: 97804

== ENCOUNTER → 2021-09-08 | Outpatient (CLI) | payer OTHER ==
--- NOTE | 2021-11-25 10:09 | EM ---
Date: 10/12/21 18:18 Initialization Date: 10/12/21 18:18 21 day event monitor shows sinus rhythm Sinus tachycardia No arrhythmias Elevated heart rates noted between 100-130 bpm MTDD
--- NOTE | 2021-11-25 10:15 | P.CEMON ---
21 day event monitor shows sinus rhythm Sinus tachycardia No arrhythmias Elevated heart rates noted between 100-130 bpm
== END | disposition home or self-care (01) ==
LOC: RADECHMAIN 11:50
PROVIDERS: ATTEND Family Medicine
DX: R00.0 Tachycardia, unspecified (principal); E11.9 Type 2 diabetes mellitus without complications
CPT/HCPCS: 93270

== ENCOUNTER 2021-09-28 17:49 | Emergency (ER) | payer OTHER ==
[2021-09-28] MEDS ORDERED: ACETAMINOPHEN TAB 500 MG TAB PO STA (19:21)
[2021-09-28] MEDS ORDERED: SODIUM CHLORIDE 0.9% 1,000 ML IV ONE (19:47)
--- NOTE | 2021-09-28 20:12 | XR ---
EXAMINATION TYPE: XR chest 1V DATE OF EXAM: 09/28/2021 7:54 PM COMPARISON:Multiple radiographs, with the most recent on 10/03/2019 TECHNIQUE: Frontal view of the chest. CLINICAL INDICATION:Female, 45 years old with history of covid; FINDINGS: Electronic device projects over the left chest limiting evaluation slightly. Lungs/Pleura: Low lung volumes are present. There is no evidence of pleural effusion, focal consolida tion, or pneumothorax. Pulmonary vascularity: Unremarkable. Heart/mediastinum: Cardiomediastinal silhouette is unremarkable. Musculoskeletal:No acute osseous pathology. IMPRESSION: No acute cardiopulmonary disease/process or significant change from prior.
[2021-09-28 20:20] LABS: ALT 36 U/L (4-34); AST 42 U/L (14-36); African American GFR (CKD) >90 (>60 ml/min/1.73 sqM); Albumin 3.7 g/dL (3.5-5.0); Alkaline Phosphatase 121 U/L (38-126); Anion Gap 10 mmol/L; Blood Urea Nitrogen 5 mg/dL (7-17); Calcium 8.8 mg/dL (8.4-10.2); Carbon Dioxide 22 mmol/L (22-30); Chloride 102 mmol/L (98-107); Glucose 209 mg/dL (74-99); Magnesium 1.7 mg/dL (1.6-2.3); Non-African American GFR(CKD) >90 (>60 ml/min/1.73 sqM); Potassium 3.7 mmol/L (3.5-5.1); Sodium 134 mmol/L (137-145); Total Bilirubin 0.5 mg/dL (0.2-1.3); Total Protein 6.6 g/dL (6.3-8.2)
[2021-09-28 21:07] LABS: Basophils % (A) 0 %; Eosinophils # (A) 0.1 k/uL (0-0.7); Eosinophils % (A) 1 %; HCT 42.6 % (34.0-46.0); HGB 14.2 gm/dL (11.4-16.0); Lymphocytes # (A) 0.7 k/uL (1.0-4.8); Lymphocytes % (A) 10 %; MCH 30.5 pg (25.0-35.0); MCHC 33.4 g/dL (31.0-37.0); MCV 91.3 fL (80.0-100.0); Mean Platelet Volume 8.1; Monocytes # (A) 0.3 k/uL (0-1.0); Monocytes % (A) 5 %; Neutrophils # (A) 5.7 k/uL (1.3-7.7); Neutrophils % (A) 83 %; Platelet Count 236 k/uL (150-450); RBC 4.67 m/uL (3.80-5.40); RDW 14.4 % (11.5-15.5); WBC 6.9 k/uL (3.8-10.6)
[2021-09-28] MEDS ORDERED: KETOROLAC 15 MG/ML 1 ML VIAL IVP STA (21:09)
[2021-09-28 21:26] LABS: Partial Thromboplastin Time 26.1 sec (22.0-30.0); Prothrombin Time 10.6 sec (9.0-12.0)
--- NOTE | 2021-09-28 22:04 | ED ---
General Adult HPI - General Chief complaint: Arrhythmia/Palpitations Stated complaint: Covid+, palpitations,SOB Time Seen by Provider: 09/28/21 19:01 Source: patient, family Mode of arrival: ambulatory Limitations: no limitations - History of Present Illness Initial comments: 45-year-old female past medical history of diabetes, thyroid disorder presents emergency Department with palpitations and shortness of breath. She reports that she began having symptoms on . Patient did receive a primary series of covid vaccine however did not receive a booster. Denies any exposure however because of her symptoms of shortness of breath and chest palpitations and she did take a home Covid test and was found to be positive. Patient has not been taking any medications at home for her symptoms. Admits to nausea without vomiting. Chest pain is described as sharp in nature and located over the left side of her chest with inspiration. She admits to fevers. Has not taken any Tylenol today. Patient also reports to lower extremity cramping. St ates that this happens to her when her potassium is low. She denies diarrhea. No history of DVT or PE. Patient's has had palpitations recently. She did see Dr. Rodriguez in office and he did place a heart monitor on her. No other alleviating, manager credit modifying factors - Related Data Home Medications Medication Instructions Recorded Confirmed traMADol HCL [Tramadol HCl] 50 mg PO BID PRN 10/02/15 09/28/21 ALPRAZolam [Xanax] 0.25 mg PO TID PRN 01/02/19 09/28/21 Cyclobenzaprine [Flexeril] 10 mg PO HS PRN 01/02/19 09/28/21 Topiramate [Topamax] 50 mg PO BID 11/12/20 09/28/21 Omeprazole [PriLOSEC] 40 mg PO DAILY PRN 09/28/21 09/28/21 Previous Rx's Medication Instructions Recorded Potassium Chloride [Klor-Con 20] 20 meq PO TID #30 tab 06/26/20 hydroCHLOROthiazide [Hydrodiuril] 25 mg PO DAILY tab 06/26/20 Levothyroxine Sodium [Euthyrox] 125 mcg PO DAILY #60 tablet 11/12/20 Cyanocobalamin [Vitamin B-12] 1,000 mcg PO DAILY@1200 #60 tablet 06/10/21 Allergies Allergy/AdvReac Type Severity Reaction Status Date / Time gentamicin [Gentamicin] Allergy Severe convulsions Verified 09/28/21 20:01 Review of Systems ROS Statement: Those systems with pertinent positive or pertinent negative responses have been documented in the HPI. ROS Other: All systems not noted in ROS Statement are negative. Past Medical History Past Medical History: Diabetes Mellitus, Thyroid Disorder Additional Past Medical History / Comment(s): abd. pain lower left side for approx.-intermittent, some vomiting,hx restless leg syndrome,swelling lower ext,diet controlled diabetic History of Any Multi-Drug Resistant Organisms: None Reported Past Surgical History: Bariatric Surgery, Section, Cholecystectomy, Tubal Ligation, Uterine Ablation Additional Past Surgical History / Comment(s): C/S x3, gastric sleeve w/hiatal hernia repair-2012 Past Anesthesia/Blood Transfusion Reactions: No Reported Reaction Additional Past Anesthesia/Blood Transfusion Reaction / Comment(s): no hx blood transfusion Past Psychological History: Anxiety Smoking Status: Former smoker Past Alcohol Use History: Occasional Past Drug Use History: None Reported - Past Family History Mother Family Medical History: No Reported History Father Family Medical History: Coronary Artery Disease (CAD), Diabetes Mellitus, Hypertension Additional Family Medical History / Comment(s): [place] in 1991 General Exam Limitations: no limitations Course Vital Signs 09/28/21 09/28/21 09/29/21 18:10 23:26 00:49 Temperature 100.4 F H 97.6 F Pulse Rate 137 H 85 76 Respiratory 24 18 18 Rate Blood Pressure 131/78 133/77 O2 Sat by Pulse 97 97 97 Oximetry EKG Findings - EKG Comments: EKG Findings:: EKG demonstrates sinus tachycardia with a ventricular rate of 122. MO interval 142. QRS 74. QTC of 450. No acute ST segment elevations or depressions Medical Decision Making - Medical Decision Making Upon arrival patient is placed into room 27. A thorough history and physical exam is performed. IV is established laboratory studies were conducted. Patient does have a chest x-ray performed. Laboratory studies are reviewed. D- dimer elevated 0.66. Covid test is positive here. Chest x-ray was performed demonstrates no acute process. A CT of the chest is performed which demonstrates no signs of PE. Patient is re-vital after given a gram of Tylenol for fever control. She is additionally given 15 mg of Toradol for her chest pain and a liter bolus of normal saline. Patient does maintain oxygen saturations of 97%. Because of this she does meet criteria for antibody infusion. After infusion patient is discharged home. Intact pulses primary care doctor to 4 days. Return for any new or worsening symptoms for patient was discharged home in stable condition - Lab Data Result diagrams: 09/28/21 19:49 09/28/21 19:49 Lab Results 09/28/21 09/28/21 09/28/21 Range/Units 18:23 19:49 19:49 WBC 6.9 (3.8-10.6) k/uL RBC 4.67 (3.80-5.40) m/uL Hgb 14.2 (11.4-16.0) gm/dL Hct 42.6 (34.0-46.0) % MCV 91.3 (80.0-100.0) fL MCH 30.5 (25.0-35.0) pg MCHC 33.4 (31.0-37.0) g/dL RDW 14.4 (11.5-15.5) % Plt Count 236 (150-450) k/uL MPV 8.1 Neutrophils % 83 % Lymphocytes % 10 % Monocytes % 5 % Eosinophils % 1 % Basophils % 0 % Neutrophils # 5.7 (1.3-7.7) k/uL Lymphocytes # 0.7 L (1.0-4.8) k/uL Monocytes # 0.3 (0-1.0) k/uL Eosinophils # 0.1 (0-0.7) k/uL Basophils # 0.0 (0-0.2) k/uL PT (9.0-12.0) sec INR (<1.2) APTT (22.0-30.0) sec D-Dimer (<0.60) mg/L FEU Sodium 134 L (137-145) mmol/L Potassium 3.7 (3.5-5.1) mmol/L Chloride 102 (98-107) mmol/L Carbon Dioxide 22 (22-30) mmol/L Anion Gap 10 mmol/L BUN 5 L (7-17) mg/dL Creatinine 0.51 L (0.52-1.04) mg/dL Est GFR (CKD-EPI)AfAm >90 (>60 ml/min/1.73 sqM) Est GFR (CKD-EPI)NonAf >90 (>60 ml/min/1.73 sqM) Glucose 209 H (74-99) mg/dL Plasma Lactic Acid Erasto (0.7-2.0) mmol/L Calcium 8.8 (8.4-10.2) mg/dL Magnesium 1.7 (1.6-2.3) mg/dL Total Bilirubin 0.5 (0.2-1.3) mg/dL AST 42 H (14-36) U/L ALT 36 H (4-34) U/L Alkaline Phosphatase 121 (38-126) U/L Total Protein 6.6 (6.3-8.2) g/dL Albumin 3.7 (3.5-5.0) g/dL Coronavirus (PCR) Detected A (Not Detectd) 09/28/21 09/28/21 Range/Units 19:49 19:49 WBC (3.8-10.6) k/uL RBC (3.80-5.40) m/uL Hgb (11.4-16.0) gm/dL Hct (34.0-46.0) % MCV (80.0-100.0) fL MCH (25.0-35.0) pg MCHC (31.0-37.0) g/dL RDW (11.5-15.5) % Plt Count (150-450) k/uL MPV Neutrophils % % Lymphocytes % % Monocytes % % Eosinophils % % Basophils % % Neutrophils # (1.3-7.7) k/uL Lymphocytes # (1.0-4.8) k/uL Monocytes # (0-1.0) k/uL Eosinophils # (0-0.7) k/uL Basophils # (0-0.2) k/uL PT 10.6 (9.0-12.0) sec INR 1.0 (<1.2) APTT 26.1 (22.0-30.0) sec D-Dimer 0.66 H (<0.60) mg/L FEU Sodium (137-145) mmol/L Potassium (3.5-5.1) mmol/L Chloride (98-107) mmol/L Carbon Dioxide (22-30) mmol/L Anion Gap mmol/L BUN (7-17) mg/dL Creatinine (0.52-1.04) mg/dL Est GFR (CKD-EPI)AfAm (>60 ml/min/1.73 sqM) Est GFR (CKD-EPI)NonAf (>60 ml/min/1.73 sqM) Glucose (74-99) mg/dL Plasma Lactic Acid Erasto 1.7 (0.7-2.0) mmol/L Calcium (8.4-10.2) mg/dL Magnesium (1.6-2.3) mg/dL Total Bilirubin (0.2-1.3) mg/dL AST (14-36) U/L ALT (4-34) U/L Alkaline Phosphatase (38-126) U/L Total Protein (6.3-8.2) g/dL Albumin (3.5-5.0) g/dL Coronavirus (PCR) (Not Detectd) Disposition Clinical Impression: Pyrexia, COVID-19, Chest pain Disposition: HOME SELF-CARE Condition: Stable Instructions (If sedation given, give patient instructions): Coronavirus Disease 2019 (COVID-19) Additional Instructions: You received antibody infusion today. Please take Tylenol for fever control. Follow up with your primary care doctor in 2-4 days. Return for any new or worsening symptoms, especially if your pulse ox is less than 90% Is patient prescribed a controlled substance at d/c from ED?: No Referrals: Alvarez Rodriguez Jr, DO [Primary Care Provider] - 1-2 days Time of Disposition: 23:11
--- NOTE | 2021-09-28 22:31 | CT ---
EXAMINATION TYPE: CT chest angio for PE DATE OF EXAM: 09/28/2021 COMPARISON: None HISTORY: sob CT DLP: 550.7 mGycm Automated exposure control for dose reduction was used. CONTRAST: Performed with IV Contrast, patient injected with 100 mL of Isovue 370. Images obtained from the thoracic inlet through the diaphragm with IV contrast. There are Three-D pos tprocessed images. The lungs are clear of infiltrate. There is no evidence of a pulmonary mass. There is no pleural effu marlen. Heart size is normal. There is no pericardial effusion. There are no hilar masses. There is no mediastinal adenopathy. Thoracic spine is intact. Sternum is intact. There is no compression fracture. There is no evidence o f retrosternal mass. The upper abdominal soft tissues are intact. There is previous gastric surgery. There is normal contrast opacification of the pulmonary arteries. There are no filling defects. Thora cic aorta is intact. There is no aneurysm or dissection. IMPRESSION: Negative exam. No evidence of pulmonary embolism.
[2021-09-28] MEDS ORDERED: SOTROVIMAB (EUA) 500 MG in SODIUM CHLORIDE 0.9% 100 ML IVPB ONE (23:15)
[2021-09-28] MEDS ORDERED: SODIUM CHLORIDE 0.9% 50 ML IVPB ONE (23:15)
[2021-09-28 23:26] VITALS: BP 133/77; RESP 18; TEMP 97.6
[2021-09-29 00:50] VITALS: PULSE 76
== END 2021-09-29 00:52 | disposition home or self-care (01) ==
LOC: EC 17:49
DX: U07.1 COVID-19 (principal); E11.9 Type 2 diabetes mellitus without complications; F41.9 Anxiety disorder, unspecified; Z87.891 Personal history of nicotine dependence; Z79.890 Hormone replacement therapy; Z79.899 Other long term (current) drug therapy
CPT/HCPCS: 36415; 85379; 80053; 83605; 83735; 85025; 85610; 85730; 87635; 71045; 71275; 99285; 96374; 96361 ×4; J1885; Q9967; Q0247; 93005

== ENCOUNTER → 2022-02-26 | Outpatient (CLI) | payer OTHER ==
[2022-02-26 10:42] LABS: Basophils # (A) 0.03 X 10*3/uL (0.00-0.10); Basophils % (A) 0.3 %; Eosinophils # (A) 0.18 X 10*3/uL (0.04-0.35); Eosinophils % (A) 2.1 %; HGB 14.2 g/dL (12.0-15.0); Immature Grans, Automated 0.3 %; Lymphocytes # (A) 2.59 X 10*3/uL (0.90-5.00); Lymphocytes % (A) 29.6 %; MCH 28.2 pg (27.0-32.0); MCHC 32.3 g/dL (32.0-37.0); MCV 87.3 fL (80.0-97.0); Mean Platelet Volume 10.3 fL (9.5-12.2); Monocytes # (A) 0.43 X 10*3/uL (0.20-1.00); Monocytes % (A) 4.9 %; NRBC Per 100 WBC 0 /100 WBCS (0.0-0.0); Neutrophils # (A) 5.49 X 10*3/uL (1.80-7.70); Neutrophils % (A) 62.8 %; Platelet Count 407 X 10*3/uL (140-440); RBC 5.04 X 10*6/uL (4.10-5.20); RDW 13.9 % (11.5-14.5); WBC 8.75 X 10*3/uL (4.50-10.00)
[2022-02-26 14:58] LABS: ALT 22 U/L (8-44); AST 16 U/L (13-35); African American GFR (CKD) 115.2 (60.0-200.0); Albumin 4.2 g/dL (3.8-4.9); Albumin/Globulin Ratio 1.66 (1.60-3.17); Alkaline Phosphatase 95 U/L (41-126); BUN/Creat Ratio 17.41 Ratio (12.00-20.00); Blood Urea Nitrogen 12.5 mg/dL (9.0-27.0); Calcium 9.8 mg/dL (8.7-10.3); Carbon Dioxide 28.2 mmol/L (20.0-27.5); Chloride 99 mmol/L (96-109); Chol/HDL Ratio 4.33 Ratio; Globulin 2.5 g/dL (1.6-3.3); Glucose 148 mg/dL (70-110); LDL Cholesterol,Calculated 87.9 mg/dL (0.0-131.0); Non-African American GFR(CKD) 99.4 (60.0-200.0); Potassium 3.1 mmol/L (3.5-5.5); Sodium 142 mmol/L (135-145); Total Protein 6.7 g/dL (6.2-8.2)
== END | disposition home or self-care (01) ==
LOC: LABWHC1 07:28
PROVIDERS: ATTEND Family Medicine
DX: Z00.00 Encounter for general adult medical examination without abnormal findings (principal); E11.9 Type 2 diabetes mellitus without complications; E55.9 Vitamin D deficiency, unspecified; R53.83 Other fatigue
CPT/HCPCS: 36415; 80053; 80061; 82306; 84443; 85025

== ENCOUNTER → 2022-03-04 | Outpatient (CLI) | payer OTHER ==
[2022-03-04 18:48] LABS: Basophils # (A) 0.03 X 10*3/uL (0.00-0.10); Basophils % (A) 0.4 %; Eosinophils # (A) 0.07 X 10*3/uL (0.04-0.35); Eosinophils % (A) 0.8 %; HCT 43.7 % (37.2-46.3); HGB 13.8 g/dL (12.0-15.0); Immature Grans, Automated 0.2 %; Lymphocytes # (A) 2.44 X 10*3/uL (0.90-5.00); Lymphocytes % (A) 28.8 %; MCHC 31.6 g/dL (32.0-37.0); MCV 88.6 fL (80.0-97.0); Mean Platelet Volume 10.7 fL (9.5-12.2); Monocytes # (A) 0.36 X 10*3/uL (0.20-1.00); Monocytes % (A) 4.2 %; NRBC Per 100 WBC 0 /100 WBCS (0.0-0.0); Neutrophils # (A) 5.56 X 10*3/uL (1.80-7.70); Neutrophils % (A) 65.6 %; Platelet Count 446 X 10*3/uL (140-440); RBC 4.93 X 10*6/uL (4.10-5.20); RDW 13.9 % (11.5-14.5); WBC 8.48 X 10*3/uL (4.50-10.00)
[2022-03-04 19:02] LABS: African American GFR (CKD) 118.9 (60.0-200.0); Albumin 4.2 g/dL (3.8-4.9); Albumin/Globulin Ratio 1.65 (1.60-3.17); Anion Gap 14.6 mmol/L (10.00-18.00); BUN/Creat Ratio 14.9 Ratio (12.00-20.00); Blood Urea Nitrogen 10.4 mg/dL (9.0-27.0); Calcium 9.4 mg/dL (8.7-10.3); Carbon Dioxide 26.5 mmol/L (20.0-27.5); Globulin 2.5 g/dL (1.6-3.3); Non-African American GFR(CKD) 102.6 (60.0-200.0); Potassium 2.8 mmol/L (3.5-5.5); Total Bilirubin 0.4 mg/dL (0.30-1.20); Total Protein 6.7 g/dL (6.2-8.2)
== END | disposition home or self-care (01) ==
LOC: LABWHC1 11:28
PROVIDERS: ATTEND Family Medicine
DX: R25.2 Cramp and spasm (principal); Z86.39 Personal history of other endocrine, nutritional and metabolic disease
CPT/HCPCS: 36415; 80053; 85025

== ENCOUNTER → 2022-03-09 | Outpatient (CLI) | payer OTHER ==
[2022-03-09 18:24] LABS: African American GFR (CKD) 119.4 (60.0-200.0); Albumin 4.2 g/dL (3.8-4.9); Albumin/Globulin Ratio 1.59 (1.60-3.17); Anion Gap 14.4 mmol/L (10.00-18.00); BUN/Creat Ratio 10.68 Ratio (12.00-20.00); Blood Urea Nitrogen 7.4 mg/dL (9.0-27.0); Calcium 9.5 mg/dL (8.7-10.3); Carbon Dioxide 28.6 mmol/L (20.0-27.5); Globulin 2.6 g/dL (1.6-3.3); Magnesium 2.3 mg/dL (1.5-2.4); Total Bilirubin 0.4 mg/dL (0.30-1.20); Total Protein 6.8 g/dL (6.2-8.2)
== END | disposition home or self-care (01) ==
LOC: LABWHC1 12:44
PROVIDERS: ATTEND Family Medicine
DX: E87.6 Hypokalemia (principal)
CPT/HCPCS: 36415; 80053; 83735

== ENCOUNTER → 2022-03-14 | Outpatient (CLI) | payer OTHER ==
[2022-03-14 12:24] LABS: ALT 26 U/L (4-34); AST 28 U/L (14-36); African American GFR (CKD) >90 (>60 ml/min/1.73 sqM); Albumin 4.1 g/dL (3.5-5.0); Albumin/Globulin Ratio 1.4; Alkaline Phosphatase 103 U/L (38-126); Anion Gap 6 mmol/L; Blood Urea Nitrogen 13 mg/dL (7-17); Calcium 9.1 mg/dL (8.4-10.2); Carbon Dioxide 33 mmol/L (22-30); Chloride 97 mmol/L (98-107); Globulin 2.9 g/dL; Glucose 172 mg/dL (74-99); Non-African American GFR(CKD) >90 (>60 ml/min/1.73 sqM); Potassium 2.8 mmol/L (3.5-5.1); Sodium 136 mmol/L (137-145); Total Bilirubin 0.5 mg/dL (0.2-1.3)
== END | disposition home or self-care (01) ==
LOC: LABMAIN 11:21
PROVIDERS: ATTEND Family Medicine
DX: E87.6 Hypokalemia (principal)
CPT/HCPCS: 80053

== ENCOUNTER 2022-03-15 06:18 | Inpatient (IN) | payer OTHER ==
[2022-03-15] MEDS ORDERED: ASPIRIN 81 MG PO STA (06:41)
[2022-03-15] MEDS ORDERED: LORazepam 1 MG TAB PO STA (06:55)
--- NOTE | 2022-03-15 06:57 | ED ---
Chest Pain HPI - General Chief Complaint: Chest Pain Stated Complaint: Chest Pain, SOB Time Seen by Provider: 03/15/22 06:33 Source: patient, RN notes reviewed Mode of arrival: ambulatory Limitations: no limitations - History of Present Illness Initial Comments: This is a 46-year-old female presents emergency Department chief complaint of chest pain, shortness breath. Patient states that she's been dealing with her PCP over the last couple weeks with hypokalemia. They have been increasing her potassium him amount up to 70 mEq. Patient states that her potassium was still low yesterday. Patient was advised, respond she developed chest pain. She states she woke up this morning started having chest pressure. Patient states that she's making her feel short of breath. Patient denies abdominal pain. She has had some diarrhea over the last day or so. She states she does take hydrochlorothiazide this is only recently come up with her hypokalemia. Patient denies any fevers or chills no cough or cold-like symptoms patient for complaint patient denies any prior cardiac disease - Related Data Home Medications Medication Instructions Recorded Confirmed traMADol HCL [Tramadol HCl] 50 mg PO BID PRN 10/02/15 09/28/21 ALPRAZolam [Xanax] 0.25 mg PO TID PRN 01/02/19 09/28/21 Cyclobenzaprine [Flexeril] 10 mg PO HS PRN 01/02/19 09/28/21 Topiramate [Topamax] 50 mg PO BID 11/12/20 09/28/21 Omeprazole [PriLOSEC] 40 mg PO DAILY PRN 09/28/21 09/28/21 Previous Rx's Medication Instructions Recorded Potassium Chloride [Klor-Con 20] 20 meq PO TID #30 tab 06/26/20 hydroCHLOROthiazide [Hydrodiuril] 25 mg PO DAILY tab 06/26/20 Levothyroxine Sodium [Euthyrox] 125 mcg PO DAILY #60 tablet 11/12/20 Cyanocobalamin [Vitamin B-12] 1,000 mcg PO DAILY@1200 #60 tablet 06/10/21 Allergies Allergy/AdvReac Type Severity Reaction Status Date / Time gentamicin [Gentamicin] Allergy Severe convulsions Verified 09/28/21 20:01 Review of Systems ROS Statement: Those systems with pertinent positive or pertinent negative responses have been documented in the HPI. ROS Other: All systems not noted in ROS Statement are negative. EKG Findings - EKG Comments: EKG Findings:: EKG performed at 6:35 sinus tachycardia with rate of 104. pr 144 QRS 78 QT/QTC 365/425 Past Medical History Past Medical History: Diabetes Mellitus, Thyroid Disorder Additional Past Medical History / Comment(s): abd. pain lower left side for approx.-intermittent, some vomiting,hx restless leg syndrome,swelling lower ext,diet controlled diabetic, covid 2-09/2021 History of Any Multi-Drug Resistant Organisms: None Reported Past Surgical History: Bariatric Surgery, Section, Cholecystectomy, Tubal Ligation, Uterine Ablation Additional Past Surgical History / Comment(s): C/S x3, gastric sleeve w/hiatal hernia repair-2012 Past Anesthesia/Blood Transfusion Reactions: No Reported Reaction Additional Past Anesthesia/Blood Transfusion Reaction / Comment(s): no hx blood transfusion Past Psychological History: Anxiety Smoking Status: Former smoker Past Alcohol Use History: Occasional Past Drug Use History: None Reported - Past Family History Mother Family Medical History: No Reported History Father Family Medical History: Coronary Artery Disease (CAD), Diabetes Mellitus, Hypertension Additional Family Medical History / Comment(s): [place] in 1991 General Exam Limitations: no limitations General appearance: alert, in no apparent distress, anxious Head exam: Present: atraumatic, normocephalic, normal inspection Eye exam: Present: normal appearance, PERRL, EOMI. Absent: scleral icterus, conjunctival injection, periorbital swelling ENT exam: Present: normal exam, normal oropharynx, mucous membranes moist Neck exam: Present: normal inspection, full ROM. Absent: tenderness, meningismus, lymphadenopathy Respiratory exam: Present: normal lung sounds bilaterally. Absent: respiratory distress, wheezes, rales, rhonchi, stridor Cardiovascular Exam: Present: normal rhythm, tachycardia, normal heart sounds. Absent: systolic murmur, diastolic murmur, rubs, gallop, clicks GI/Abdominal exam: Present: soft, normal bowel sounds. Absent: distended, tenderness, guarding, rebound, rigid Course Vital Signs 03/15/22 03/15/22 06:28 08:15 Temperature 97.2 F L Pulse Rate 107 H 85 Respiratory 26 H 18 Rate Blood Pressure 102/73 99/67 O2 Sat by Pulse 99 97 Oximetry Chest Pain MDM - MDM Labs reveal evidence of hypokalemia patient is currently on replacement. Patient was given 40 mEq IV potassium. Patient cardiac enzymes negative this time though patient has concerning ACS symptoms. Patient will be admitted for cardiac rule out, hypokalemic. Disposition Clinical Impression: Hypokalemia, Chest pain Disposition: ADMITTED IP TO THIS HOSP Condition: Fair Referrals: Alvarez Rodriguez Jr, [Primary Care Provider] - 1-2 days Time of Disposition: 08:05
[2022-03-15 07:10] LABS: Basophils # (A) 0.2 k/uL (0-0.2); Basophils % (A) 2 %; Eosinophils # (A) 0.2 k/uL (0-0.7); Eosinophils % (A) 3 %; HGB 14.5 gm/dL (11.4-16.0); Lymphocytes # (A) 2.7 k/uL (1.0-4.8); Lymphocytes % (A) 28 %; MCHC 33.8 g/dL (31.0-37.0); MCV 85.8 fL (80.0-100.0); Mean Platelet Volume 7.6; Monocytes # (A) 0.3 k/uL (0-1.0); Monocytes % (A) 3 %; Neutrophils # (A) 6.1 k/uL (1.3-7.7); Neutrophils % (A) 64 %; Platelet Count 432 k/uL (150-450); RBC 5.01 m/uL (3.80-5.40); RDW 13.7 % (11.5-15.5); WBC 9.6 k/uL (3.8-10.6)
[2022-03-15 07:23] LABS: ALT 26 U/L (4-34); AST 28 U/L (14-36); African American GFR (CKD) >90 (>60 ml/min/1.73 sqM); Albumin 4.3 g/dL (3.5-5.0); Alkaline Phosphatase 114 U/L (38-126); Anion Gap 14 mmol/L; Blood Urea Nitrogen 14 mg/dL (7-17); Calcium 9.4 mg/dL (8.4-10.2); Carbon Dioxide 25 mmol/L (22-30); Chloride 98 mmol/L (98-107); Glucose 175 mg/dL (74-99); Lipase 164 U/L (23-300); Magnesium 1.7 mg/dL (1.6-2.3); Non-African American GFR(CKD) >90 (>60 ml/min/1.73 sqM); Sodium 137 mmol/L (137-145); Total Bilirubin 0.5 mg/dL (0.2-1.3); Total Protein 7.1 g/dL (6.3-8.2)
[2022-03-15 07:33] LABS: Potassium 2.4 mmol/L (3.5-5.1)
--- NOTE | 2022-03-15 07:46 | XR ---
EXAMINATION TYPE: XR chest 2V DATE OF EXAM: 03/15/2022 COMPARISON: Chest x-ray September 28, 2021 HISTORY: Chest pain since this morning. History of COVID infection in September. TECHNIQUE: Frontal and lateral views of the chest are obtained. FINDINGS: There is no suspicious peripheral focal air space opacity, pleural effusion, or pneumothor ax seen. The cardiac silhouette size remains within normal limits. The osseous structures are inta ct. Cholecystectomy clips are noted. Overlying EKG leads current study IMPRESSION: No acute cardiopulmonary process.
[2022-03-15 07:49] LABS: INR 0.9 (<1.2); Partial Thromboplastin Time 24.3 sec (22.0-30.0); Prothrombin Time 10.4 sec (9.0-12.0)
[2022-03-15] MEDS: POTASSIUM CHLORIDE 20 MEQ in WATER FOR INJECTION 1 100ML.BAG IVPB SCH ×2 (08:14→12:44)
[2022-03-15] MEDS ORDERED: NITROGLYCERIN SL TABS 0.4 MG TAB SUBLINGUAL PRN (08:25)
[2022-03-15] MEDS ORDERED: ALPRAZolam 0.25 MG TAB PO PRN (08:26)
[2022-03-15] MEDS ORDERED: POTASSIUM CHLORIDE ER 20 MEQ TAB.ER PO SCH (09:00)
[2022-03-15] MEDS: LEVOTHYROXINE 125 MCG TAB PO SCH (10:22)
[2022-03-15] MEDS: TOPIRAMATE 25 MG TAB PO SCH ×2 (10:22→20:52)
[2022-03-15] MEDS ORDERED: Magnesium Replacement Protocol 1 EACH MISC MISCELLANE PRN (11:21)
[2022-03-15 11:37] LABS: Glucose,Whole Blood 136 mg/dL (70-110)
[2022-03-15] MEDS: INSULIN ASPART (NovoLOG) 100 UNIT/ML VIAL SQ SCH ×3 (11:40→20:48)
[2022-03-15] MEDS: PANTOPRAZOLE 40 MG/10 ML VIAL IVP SCH (12:44)
[2022-03-15 16:47] LABS: Glucose,Whole Blood 152 mg/dL (70-110)
[2022-03-15] MEDS: POTASSIUM CHLORIDE ER 20 MEQ TAB.ER PO SCH ×4 (17:11→23:19)
--- NOTE | 2022-03-15 17:41 | P.HPIM ---
History of Present Illness H&P Date: 03/15/22 Chief Complaint: Chest pain/left shoulder, shortness of breath, cramping ext remities This is a pleasant 46-year-old female with past medical history of hypokalemia, diabetes mellitus, hypothyroidism, gastric sleeve, anxiety and multiple other medical issues presented to the ER with shortness of breath, chest pain-began upon awakening this morning, accompanied by mild shortness of breath currently left shoulder,cramping/numbness of hands/legs and feet. Outpatient, PCP had increased potassium supplementation, which was not available until the weekend. Troponins negative 3. EKG reporting sinus tachycardia Reports nausea with dry heaves, no vomiting or diarrhea. Denies abdominal pain. Currently, denies chest pain, palpitations or shortness of breath. Denies lightheadedness dizziness or focal deficits. Denies syncope. Maintaining O2 sats in the high 90s on room air. Blood pressures soft. Received potassium supplementation, magnesium level pending. Review of Systems ROS Other: All systems not noted in ROS Statement are negative. ROS Statement: Those systems with pertinent positive or pertinent negative responses have been documented in the HPI. Past Medical History Past Medical History: Diabetes Mellitus, GERD/Reflux, Thyroid Disorder Additional Past Medical History / Comment(s): NIDDM type II, past hypokalemia, numbness in bilateral hands pt associates with hypokalemia, past head imjury/L optic nerve clot, bilateral ankle edema, migraines, RLS, hiatal hernia, hypothyroid, covid in 10/2021. History of Any Multi-Drug Resistant Organisms: None Reported Past Surgical History: Bariatric Surgery, Section, Cholecystectomy, Tubal Ligation, Uterine Ablation Additional Past Surgical History / Comment(s): Gastric sleeve, hiatal hernia repair, x3, EGD Past Anesthesia/Blood Transfusion Reactions: No Reported Reaction Additional Past Anesthesia/Blood Transfusion Reaction / Comment(s): no hx blood transfusion Smoking Status: Former smoker - Past Family History Mother Family Medical History: No Reported History Additional Family Medical History / Comment(s): Mother is healthy Father Family Medical History: Coronary Artery Disease (CAD), Diabetes Mellitus, Hypertension Additional Family Medical History / Comment(s): [place] in his 30s Medications and Allergies Home Medications Medication Instructions Recorded Confirmed Type traMADol HCL [Tramadol HCl] 50 mg PO BID PRN 10/02/15 03/15/22 History ALPRAZolam [Xanax] 0.25 mg PO Q8H PRN 01/02/19 03/15/22 History Cyclobenzaprine [Flexeril] 10 mg PO HS 01/02/19 03/15/22 History hydroCHLOROthiazide [Hydrodiuril] 25 mg PO DAILY tab 06/26/20 03/15/22 Rx Levothyroxine Sodium [Euthyrox] 125 mcg PO DAILY #60 tablet 11/12/20 03/15/22 Rx Topiramate [Topamax] 50 mg PO BID 11/12/20 03/15/22 History Potassium Chloride ER [K-Dur 20] 10 meq PO HS 03/15/22 03/15/22 History Potassium Chloride ER [K-Dur 20] 20 meq PO TID-W/MEALS 03/15/22 03/15/22 History Semaglutide [Ozempic] 0.5 mg SQ TU 03/15/22 03/15/22 History Allergies Allergy/AdvReac Type Severity Reaction Status Date / Time gentamicin [Gentamicin] Allergy Severe Anaphylaxis Verified 03/15/22 08:33 Physical Exam Vitals: Vital Signs Temp Pulse Resp BP Pulse Ox 03/15/22 08:15 85 18 99/67 97 03/15/22 06:28 97.2 F L 107 H 26 H 102/73 99 Intake and Output 03/14/22 03/15/22 03/15/22 22:59 06:59 14:59 Other: Weight 108.862 kg 108.862 kg PHYSICAL EXAM: VITAL SIGNS: As above GENERAL: Sitting up in bed, no acute distress HEENT: Conjunctivae normal. eyes normal. NECK: No JVD. No thyroid enlargement. No LNs CARDIOVASCULAR: S1, S2 regular. No murmur RESPIRATION: Breath sounds diminished in the bases. No rhonchi or crackles. No bronchial breathing. ABDOMEN: Soft, tender left lower quadrant. No guarding. no masses palpable. No ascites, No hepatosplenomegaly.Bowel sounds heard. LEGS: No edema. no swelling PSYCHIATRY: Alert and oriented X3, mood and affect normal. NERVOUS SYSTEM: Cranial N 2-12 grossly normal. Moves all 4 limbs. No focal deficits. Strength and sensation grossly intact.. Skin: no rash Lymphatic system. No LN neck axilla. Results CBC & Chem 7: 03/15/22 06:49 03/15/22 16:20 Labs: Abnormal Lab Results - Last 24 Hours (Table) 03/15/22 Range/Units 06:49 Potassium 2.4 L* (3.5-5.1) mmol/L Glucose 175 H (74-99) mg/dL Thrombosis Risk Factor Assmnt - Choose All That Apply Any of the Below Risk Factors Present?: Yes Each Factor Represents 1 point: Obesity (BMI >25) Other Risk Factors: No Other congenital or acquired thrombophilia - If yes, enter type in comment: No Thrombosis Risk Factor Assessment Total Risk Factor Score: 1 Thrombosis Risk Factor Assessment Level: Low Risk Assessment and Plan Assessment: Severe Hypokalemia with acute chest pain, troponin is negative 3 HCTZ discontinued. Hypomagnesemia Hypertension Diabetes mellitus type 2 Gastroesophageal reflux disease History of multiple abdominal surgeries, lysis of adhesions with left inguinal hernia repair May 2019, gastric sleeve History of colitis Hypothyroidism Anxiety disorder Morbid obesity, BMI 42.5 Plan:Continue on current medication regime ,monitoring and symptomatic treatment. Potassium and Magnesium supplemented with replacement protocol orde red. Hydrochlorothiazide discontinued. Hemoglobin A1c ordered. Cardiology consult in place, recommendations pending. Close monitoring of electrolytes with replacements as per replacement protocol as ordered. Discharge planning in progress pending electrolyte's within normal limits, final DC recommendations and clearance per cardiology. The impression and plan of care has been dictated as directed. : I performed a history and examination of this patient, discussed the same with the dictator. I agree with the dictator's note ,documented as a scribe. Any additional findings or plans will be noted.
[2022-03-15] MEDS ORDERED: Potassium Replacement Protocol 1 EACH MISC MISCELLANE PRN (17:42)
[2022-03-15 20:15] LABS: Glucose,Whole Blood 131 mg/dL (70-110)
[2022-03-16] MEDS: POTASSIUM CHLORIDE ER 20 MEQ TAB.ER PO SCH ×5 (02:16→17:25)
[2022-03-16 03:08] VITALS: PULSE 90
[2022-03-16 06:10] LABS: Glucose,Whole Blood 145 mg/dL (70-110)
[2022-03-16] MEDS: LEVOTHYROXINE 125 MCG TAB PO SCH (06:41)
[2022-03-16] MEDS: INSULIN ASPART (NovoLOG) 100 UNIT/ML VIAL SQ SCH ×3 (06:41→17:25)
[2022-03-16] MEDS: TOPIRAMATE 25 MG TAB PO SCH (06:41)
[2022-03-16 08:25] LABS: African American GFR (CKD) >90 (>60 ml/min/1.73 sqM); Anion Gap 8 mmol/L; Blood Urea Nitrogen 12 mg/dL (7-17); Calcium 8.7 mg/dL (8.4-10.2); Carbon Dioxide 25 mmol/L (22-30); Chloride 104 mmol/L (98-107); Glucose 149 mg/dL (74-99); Magnesium 1.9 mg/dL (1.6-2.3); Non-African American GFR(CKD) >90 (>60 ml/min/1.73 sqM); Sodium 137 mmol/L (137-145)
[2022-03-16] MEDS ORDERED: Potassium Replacement Protocol 1 EACH MISC MISCELLANE PRN ×2 (08:42→09:47)
[2022-03-16] MEDS ORDERED: NON FORMULARY DRUG (Semaglutide [Ozempic] 0.25 MG/0.2 ML Each) SQ SCH (09:00)
[2022-03-16] MEDS ORDERED: POTASSIUM CHLORIDE 10 MEQ in WATER FOR INJECTION 1 100ML.BAG IVPB SCH (09:00)
[2022-03-16] MEDS ORDERED: ASPIRIN 325 MG TAB PO SCH (09:00)
[2022-03-16] MEDS: PANTOPRAZOLE 40 MG/10 ML VIAL IVP SCH (09:22)
[2022-03-16 11:38] LABS: Glucose,Whole Blood 248 mg/dL (70-110)
[2022-03-16] MEDS ORDERED: POTASSIUM CHLORIDE ER 20 MEQ TAB.ER PO SCH (12:00)
[2022-03-16] MEDS ORDERED: POTASSIUM CHLORIDE ER 20 MEQ TAB.ER PO STA (13:06)
[2022-03-16] MEDS ORDERED: LOSARTAN 25 MG TAB PO SCH (13:15)
--- NOTE | 2022-03-16 13:32 | CONS ---
CONSULTATION Piedad Ramirez is a 46-year-old lady with a history of type 2 diabetes, hypothyroidism, who takes levothyroxine, Ozempic and she also takes hydrochlorothiazide for lower extremity edema. She came into the hospital complaining of weakness, fatigue and also had some sharp pains in the chest. Quality of chest pain is very atypical. Her main complaint was shortness of breath and generalized weakness. Potassium was 2.4. Her PCP has been dealing with her low potassium giving additional supplements, but she was also taking hydrochlorothiazide. At the time of my evaluation, she is resting comfortably. Troponins are normal. EKG is unremarkable. Her potassium is 3.0. PAST MEDICAL HISTORY: 1. Diabetes. 2. Lower extremity edema on HydroDIURIL 25 mg daily. 3. Hypothyroidism on levothyroxine. PHYSICAL EXAMINATION: On examination, blood pressure is 112/70, pulse rate is 80 per minute, regular. HEENT unremarkable. Fundus was not examined by me. Neck is supple. No JVD. I do not hear a carotid bruit. Heart exam reveals S1, S2 heard normally. No rub, murmur or gallop. Lungs are clear. ABDOMEN is soft, nontender. Lower extremities reveal normal pulses. No edema. Central nervous system is grossly within normal limits. EKG revealed sinus mechanism, no acute changes. There is minor right ventricular conduction delay. LABORATORY DATA: Revealed unremarkable troponins. Potassium has come up to 3.0. IMPRESSION: 1. Hypokalemia secondary to hydrochlorothiazide usage. 2. Type 2 diabetes. 3. Hypothyroidism. 4. Atypical chest pain. RECOMMENDATIONS: I am recommending that we discontinue and never use hydrochlorothiazide. I will give 20 mg of potassium 3 doses 1 hour apart. Check a BMP this evening at 4 o'clock. If normal, she can be discharged. I am recommending 12.5 mg of losartan at bedtime in view of her diabetes. I will see her in the office in a couple of weeks and consider a stress test as an outpatient when the electrolyte imbalance has completely resolved. I discussed my thoughts in detail with the patient. Thank you very much for the consult. MMODL / IJN: [id number] /
[2022-03-16 13:37] VITALS: BP 104/57; RESP 16; TEMP 98
--- NOTE | 2022-03-16 14:13 | P.DS ---
Providers Date of admission: 03/15/22 08:11 Expected date of discharge: 03/16/22 Attending physician: Philip Jenkins Consults: 03/15/22 08:25 Consult Physician Urgent Consulting Provider: Lm Light Consult Reason/Comments: chest pain Do you want consulting provider notified?: Yes Primary care physician: [facility] Course: Final Diagnoses: Severe Hypokalemia with acute chest pain, troponin is negative 3 HCTZ discontinued. Hypomagnesemia, normalized after supplementation Diabetes mellitus type 2 Gastroesophageal reflux disease History of multiple abdominal surgeries, lysis of adhesions with left inguinal hernia repair May 2019, gastric sleeve History of colitis Hypothyroidism Anxiety disorder Morbid obesity, BMI 42.5 Hospital course:This is a pleasant 46-year-old female with past medical history of hypokalemia, diabetes mellitus, hypothyroidism, gastric sleeve, anxiety and multiple other medical issues presented to the ER with shortness of breath, chest pain-began upon awakening this morning, accompanied by mild shortness of breath currently left shoulder,cramping/numbness of hands/legs and feet. Outpatient, PCP had increased potassium supplementation, which was not available until the weekend. Troponins negative 3. EKG reporting sinus tachycardia Reports nausea with dry heaves, no vomiting or diarrhea. Denies abdominal pain. Currently, denies chest pain, palpitations or shortness of breath. Denies lightheadedness dizziness or focal deficits. Denies syncope. Maintaining O2 sats in the high 90s on room air. Blood pressures soft. Received potassium supplementation, magnesium level pending. Potassium and Magnesium supplemented. Patient reports Dr. Harper had put her on hydrochlorothiazide for leg edema .Hydrochlorothiazide discontinued. Hemoglobin A1c ordered. Cardiology consult in place, recommendations pending. Received multiple potassium supplements, potassium level improving. Repeat level due at 1600. Evaluated by cardiology, recommending losartan 12.5 mg daily at bedtime in view of her diabetes-patient has refused. Also recommending outpatient stress test in a couple weeks. Patient has been cleared by cardiology pending normal potassium level. Patient will be discharged home later today, in a stable condition with guarded prognosis,pending 1600 potassium level is within normal limits. The impression and plan of care has been dictated as directed. : I performed a history and examination of this patient, discussed the same with the dictator. I agree with the dictator's note ,documented as a scribe. Any additional findings or plans will be noted. Patient Condition at Discharge: Stable Plan - Discharge Summary Discharge Rx Participant: No New Discharge Prescriptions: Continue traMADol HCL [Tramadol HCl] 50 mg PO BID PRN PRN Reason: Pain ALPRAZolam [Xanax] 0.25 mg PO Q8H PRN PRN Reason: Anxiety Cyclobenzaprine [Flexeril] 10 mg PO HS Topiramate [Topamax] 50 mg PO BID Levothyroxine Sodium [Euthyrox] 125 mcg PO DAILY #60 tablet Potassium Chloride ER [K-Dur 20] 10 meq PO HS Semaglutide [Ozempic] 0.5 mg SQ TU Potassium Chloride ER [K-Dur 20] 20 meq PO TID-W/MEALS Discontinued hydroCHLOROthiazide [Hydrodiuril] 25 mg PO DAILY tab Discharge Medication List traMADol HCL [Tramadol HCl] 50 mg PO BID PRN 10/02/15 [History] ALPRAZolam [Xanax] 0.25 mg PO Q8H PRN 01/02/19 [History] Cyclobenzaprine [Flexeril] 10 mg PO HS 01/02/19 [History] Levothyroxine Sodium [Euthyrox] 125 mcg PO DAILY #60 tablet 11/12/20 [Rx] Topiramate [Topamax] 50 mg PO BID 11/12/20 [History] Potassium Chloride ER [K-Dur 20] 10 meq PO HS 03/15/22 [History] Potassium Chloride ER [K-Dur 20] 20 meq PO TID-W/MEALS 03/15/22 [History] Semaglutide [Ozempic] 0.5 mg SQ TU 03/15/22 [History] Follow up Appointment(s)/Referral(s): Alvarez Rodriguez Jr, DO [Primary Care Provider] - 1-2 days Activity/Diet/Wound Care/Special Instructions: Potassium dosing at home as discussed between patient and Dr. Jenkins, increased to 70meq which pt. has at home)
[2022-03-16 16:02] LABS: Chol/HDL Ratio 4.74 Ratio; LDL Cholesterol,Calculated 98.4 mg/dL (0.0-131.0)
[2022-03-16 16:11] LABS: African American GFR (CKD) >90 (>60 ml/min/1.73 sqM); Anion Gap 3 mmol/L; Blood Urea Nitrogen 11 mg/dL (7-17); Calcium 8.9 mg/dL (8.4-10.2); Carbon Dioxide 33 mmol/L (22-30); Chloride 103 mmol/L (98-107); Glucose 92 mg/dL (74-99); Non-African American GFR(CKD) >90 (>60 ml/min/1.73 sqM); Potassium 4.3 mmol/L (3.5-5.1); Sodium 139 mmol/L (137-145)
[2022-03-16 16:37] LABS: Glucose,Whole Blood 96 mg/dL (70-110)
[2022-03-16] MEDS ORDERED: CYCLOBENZAPRINE 10 MG TAB PO SCH (21:00)
== END 2022-03-16 17:47 | disposition home or self-care (01) | DRG 641 ==
LOC: EC 06:18 → 3SCARD 08:11
PROVIDERS: ADMIT Family Medicine; ATTEND Family Medicine
DX: E87.6 Hypokalemia (principal); Z68.41 Body mass index [BMI] 40.0-44.9, adult; E03.9 Hypothyroidism, unspecified; E11.9 Type 2 diabetes mellitus without complications; T50.2X5A Adverse effect of carbonic-anhydrase inhibitors, benzothiadiazides and other diuretics, initial encounter; E66.01 Morbid (severe) obesity due to excess calories; E83.42 Hypomagnesemia; F41.9 Anxiety disorder, unspecified; G25.81 Restless legs syndrome; R00.0 Tachycardia, unspecified; I10 Essential (primary) hypertension; K21.9 Gastro-esophageal reflux disease without esophagitis; R07.89 Other chest pain; X58.XXXA Exposure to other specified factors, initial encounter; Z79.890 Hormone replacement therapy; Z79.899 Other long term (current) drug therapy; Z82.49 Family history of ischemic heart disease and other diseases of the circulatory system; Z83.3 Family history of diabetes mellitus; Z87.891 Personal history of nicotine dependence; Z88.8 Allergy status to other drugs, medicaments and biological substances; Z87.19 Personal history of other diseases of the digestive system; Z98.84 Bariatric surgery status; Z90.49 Acquired absence of other specified parts of digestive tract; Z86.16 Personal history of COVID-19; Z98.51 Tubal ligation status
CPT/HCPCS: 36415; 71046; 80048; 80053; 80061; 83036; 83690; 83735; 84132; 84484; 85025; 85379; 85610; 85730; 93005; 96365; 99285

== ENCOUNTER → 2022-03-18 | Outpatient (CLI) | payer OTHER ==
[2022-03-18 14:58] LABS: African American GFR (CKD) 100.6 (60.0-200.0); BUN/Creat Ratio 12.7 Ratio (12.00-20.00); Blood Urea Nitrogen 10.2 mg/dL (9.0-27.0); Calcium 9.3 mg/dL (8.7-10.3); Carbon Dioxide 24.7 mmol/L (20.0-27.5); Magnesium 1.9 mg/dL (1.5-2.4); Non-African American GFR(CKD) 86.8 (60.0-200.0); Potassium 3.1 mmol/L (3.5-5.5)
== END | disposition home or self-care (01) ==
LOC: LABWHC1 08:21
PROVIDERS: ATTEND Nurse Practitioner
DX: E87.6 Hypokalemia (principal); E83.42 Hypomagnesemia
CPT/HCPCS: 36415; 80048; 83735

== ENCOUNTER → 2022-03-20 | Outpatient (CLI) | payer OTHER ==
[2022-03-20 17:53] LABS: African American GFR (CKD) 118.7 (60.0-200.0); Anion Gap 12.3 mmol/L (10.00-18.00); Calcium 9.5 mg/dL (8.7-10.3); Carbon Dioxide 23.7 mmol/L (20.0-27.5); Non-African American GFR(CKD) 102.5 (60.0-200.0); Potassium 3.5 mmol/L (3.5-5.5)
== END | disposition home or self-care (01) ==
LOC: LABWHC1 12:27
PROVIDERS: ATTEND Family Medicine
DX: E87.6 Hypokalemia (principal)
CPT/HCPCS: 36415; 80048

== ENCOUNTER → 2022-03-23 | Outpatient (CLI) | payer OTHER ==
[2022-03-23 16:07] LABS: African American GFR (CKD) 110.7 (60.0-200.0); BUN/Creat Ratio 14.82 Ratio (12.00-20.00); Calcium 9.4 mg/dL (8.7-10.3); Carbon Dioxide 24.5 mmol/L (20.0-27.5); Non-African American GFR(CKD) 95.5 (60.0-200.0); Potassium 3.4 mmol/L (3.5-5.5)
== END | disposition home or self-care (01) ==
LOC: LABWHC1 07:39
PROVIDERS: ATTEND Family Medicine
DX: E87.6 Hypokalemia (principal)
CPT/HCPCS: 36415; 80048

== ENCOUNTER → 2022-03-25 | Outpatient (CLI) | payer OTHER ==
[2022-03-25 10:26] LABS: African American GFR (CKD) >90 (>60 ml/min/1.73 sqM); Anion Gap 10 mmol/L; Blood Urea Nitrogen 14 mg/dL (7-17); Carbon Dioxide 24 mmol/L (22-30); Chloride 104 mmol/L (98-107); Glucose 162 mg/dL (74-99); Non-African American GFR(CKD) >90 (>60 ml/min/1.73 sqM); Potassium 3.3 mmol/L (3.5-5.1); Sodium 138 mmol/L (137-145)
== END | disposition home or self-care (01) ==
LOC: LABWHC1 08:19
PROVIDERS: ATTEND Family Medicine
DX: E87.6 Hypokalemia (principal)
CPT/HCPCS: 36415; 80048

== ENCOUNTER → 2022-03-28 | Outpatient (CLI) | payer OTHER ==
[2022-03-28 18:59] LABS: African American GFR (CKD) 108.4 (60.0-200.0); Anion Gap 13.7 mmol/L (10.00-18.00); BUN/Creat Ratio 14.97 Ratio (12.00-20.00); Blood Urea Nitrogen 11.3 mg/dL (9.0-27.0); Calcium 9.1 mg/dL (8.7-10.3); Non-African American GFR(CKD) 93.5 (60.0-200.0); Potassium 3.1 mmol/L (3.5-5.5)
== END | disposition home or self-care (01) ==
LOC: LABMAIN 11:43
PROVIDERS: ATTEND Nurse Practitioner Family
DX: Z86.39 Personal history of other endocrine, nutritional and metabolic disease (principal)
CPT/HCPCS: 80048

== ENCOUNTER → 2022-03-31 | Outpatient (CLI) | payer OTHER ==
[2022-03-31 10:43] LABS: African American GFR (CKD) 118.7 (60.0-200.0); Anion Gap 8.2 mmol/L (10.00-18.00); BUN/Creat Ratio 15.43 Ratio (12.00-20.00); Blood Urea Nitrogen 10.8 mg/dL (9.0-27.0); Carbon Dioxide 29.8 mmol/L (20.0-27.5); Non-African American GFR(CKD) 102.5 (60.0-200.0)
== END | disposition home or self-care (01) ==
LOC: LABWHC1 07:08
PROVIDERS: ATTEND Family Medicine
DX: Z86.39 Personal history of other endocrine, nutritional and metabolic disease (principal)
CPT/HCPCS: 36415; 80048

== ENCOUNTER → 2022-04-06 | Outpatient (CLI) | payer OTHER ==
[2022-04-06 18:25] LABS: African American GFR (CKD) 113.1 (60.0-200.0); Anion Gap 12.7 mmol/L (10.00-18.00); BUN/Creat Ratio 7.76 Ratio (12.00-20.00); Blood Urea Nitrogen 5.7 mg/dL (9.0-27.0); Calcium 9.2 mg/dL (8.7-10.3); Carbon Dioxide 24.7 mmol/L (20.0-27.5); Non-African American GFR(CKD) 97.6 (60.0-200.0); Potassium 2.9 mmol/L (3.5-5.5)
== END | disposition home or self-care (01) ==
LOC: LABWHC1 11:43
PROVIDERS: ATTEND Nurse Practitioner Family
DX: Z86.39 Personal history of other endocrine, nutritional and metabolic disease (principal)
CPT/HCPCS: 36415; 80048

== ENCOUNTER → 2022-04-09 | Outpatient (CLI) | payer OTHER ==
[2022-04-09 12:25] LABS: African American GFR (CKD) 118.7 (60.0-200.0); BUN/Creat Ratio 17.14 Ratio (12.00-20.00); Calcium 9.2 mg/dL (8.7-10.3); Non-African American GFR(CKD) 102.5 (60.0-200.0); Potassium 2.6 mmol/L (3.5-5.5)
== END | disposition home or self-care (01) ==
LOC: LABWHC1 07:02
PROVIDERS: ATTEND Family Medicine
DX: Z86.39 Personal history of other endocrine, nutritional and metabolic disease (principal)
CPT/HCPCS: 36415; 80048

== ENCOUNTER → 2022-04-10 | Outpatient (CLI) | payer OTHER ==
[2022-04-10 17:36] LABS: African American GFR (CKD) 114.2 (60.0-200.0); Anion Gap 12.6 mmol/L (10.00-18.00); BUN/Creat Ratio 12.85 Ratio (12.00-20.00); Blood Urea Nitrogen 9.3 mg/dL (9.0-27.0); Calcium 9.2 mg/dL (8.7-10.3); Carbon Dioxide 25.9 mmol/L (20.0-27.5); Non-African American GFR(CKD) 98.5 (60.0-200.0); Potassium 2.9 mmol/L (3.5-5.5)
== END | disposition home or self-care (01) ==
LOC: LABWHC1 09:21
PROVIDERS: ATTEND Family Medicine
DX: Z86.39 Personal history of other endocrine, nutritional and metabolic disease (principal)
CPT/HCPCS: 36415; 80048

== ENCOUNTER → 2022-04-15 | Outpatient (CLI) | payer OTHER ==
[2022-04-15 11:37] LABS: African American GFR (CKD) 118.7 (60.0-200.0); Albumin 3.8 g/dL (3.8-4.9); Albumin/Globulin Ratio 1.31 (1.60-3.17); Anion Gap 11.4 mmol/L (10.00-18.00); Blood Urea Nitrogen 7.7 mg/dL (9.0-27.0); Calcium 9.1 mg/dL (8.7-10.3); Carbon Dioxide 24.6 mmol/L (20.0-27.5); Globulin 2.9 g/dL (1.6-3.3); Non-African American GFR(CKD) 102.5 (60.0-200.0); Potassium 2.8 mmol/L (3.5-5.5); Total Bilirubin 0.4 mg/dL (0.30-1.20); Total Protein 6.7 g/dL (6.2-8.2)
== END | disposition home or self-care (01) ==
LOC: LABWHC1 07:06
PROVIDERS: ATTEND Family Medicine
DX: E87.6 Hypokalemia (principal)
CPT/HCPCS: 36415; 80053

== ENCOUNTER → 2022-04-18 | Outpatient (CLI) | payer OTHER ==
[2022-04-19 09:43] LABS: African American GFR (CKD) 118.7 (60.0-200.0); Albumin 4.1 g/dL (3.8-4.9); Albumin/Globulin Ratio 1.78 (1.60-3.17); Anion Gap 13.1 mmol/L (10.00-18.00); BUN/Creat Ratio 15.14 Ratio (12.00-20.00); Blood Urea Nitrogen 10.6 mg/dL (9.0-27.0); Calcium 9.2 mg/dL (8.7-10.3); Carbon Dioxide 23.9 mmol/L (20.0-27.5); Globulin 2.3 g/dL (1.6-3.3); Non-African American GFR(CKD) 102.5 (60.0-200.0); Total Bilirubin 0.2 mg/dL (0.30-1.20); Total Protein 6.4 g/dL (6.2-8.2)
== END | disposition home or self-care (01) ==
LOC: LABMAIN 13:59
PROVIDERS: ATTEND Nurse Practitioner Family
DX: E87.6 Hypokalemia (principal)
CPT/HCPCS: 80053

== ENCOUNTER → 2022-04-21 | Outpatient (CLI) | payer OTHER ==
[2022-04-21 15:39] LABS: African American GFR (CKD) 116.5 (60.0-200.0); Albumin 3.7 g/dL (3.8-4.9); Albumin/Globulin Ratio 1.72 (1.60-3.17); Anion Gap 10.1 mmol/L (10.00-18.00); BUN/Creat Ratio 17.86 Ratio (12.00-20.00); Blood Urea Nitrogen 12.7 mg/dL (9.0-27.0); Calcium 8.9 mg/dL (8.7-10.3); Carbon Dioxide 23.4 mmol/L (20.0-27.5); Globulin 2.2 g/dL (1.6-3.3); Non-African American GFR(CKD) 100.5 (60.0-200.0); Potassium 3.7 mmol/L (3.5-5.5); Total Bilirubin 0.2 mg/dL (0.30-1.20); Total Protein 5.9 g/dL (6.2-8.2)
== END | disposition home or self-care (01) ==
LOC: LABWHC1 08:05
PROVIDERS: ATTEND Family Medicine
DX: E87.6 Hypokalemia (principal)
CPT/HCPCS: 36415; 80053

== ENCOUNTER → 2022-05-03 | Outpatient (CLI) | payer OTHER ==
[2022-05-03 18:33] LABS: African American GFR (CKD) 118.7 (60.0-200.0); Albumin 3.8 g/dL (3.8-4.9); Albumin/Globulin Ratio 1.27 (1.60-3.17); Anion Gap 11.8 mmol/L (10.00-18.00); BUN/Creat Ratio 13.14 Ratio (12.00-20.00); Blood Urea Nitrogen 9.2 mg/dL (9.0-27.0); Calcium 9.1 mg/dL (8.7-10.3); Carbon Dioxide 24.2 mmol/L (20.0-27.5); Non-African American GFR(CKD) 102.5 (60.0-200.0); Potassium 3.2 mmol/L (3.5-5.5); Total Bilirubin 0.3 mg/dL (0.30-1.20); Total Protein 6.8 g/dL (6.2-8.2)
== END | disposition home or self-care (01) ==
LOC: LABWHC1 11:51
PROVIDERS: ATTEND Nurse Practitioner Family
DX: E87.6 Hypokalemia (principal)
CPT/HCPCS: 36415; 80053

== ENCOUNTER → 2022-05-07 | Outpatient (CLI) | payer OTHER ==
[2022-05-07 11:44] LABS: Albumin/Globulin Ratio 1.69 (1.60-3.17); Anion Gap 11.5 mmol/L (10.00-18.00); BUN/Creat Ratio 10.76 Ratio (12.00-20.00); Calcium 9.5 mg/dL (8.7-10.3); Globulin 2.4 g/dL (1.6-3.3); Non-African American GFR(CKD) 94.9 (60.0-200.0); Potassium 4.2 mmol/L (3.5-5.5); Total Bilirubin 0.3 mg/dL (0.30-1.20); Total Protein 6.4 g/dL (6.2-8.2)
== END | disposition home or self-care (01) ==
LOC: LABWHC1 07:18
PROVIDERS: ATTEND Nurse Practitioner Family
DX: E87.6 Hypokalemia (principal)
CPT/HCPCS: 36415; 80053

== ENCOUNTER → 2022-05-10 | Outpatient (CLI) | payer OTHER ==
[2022-05-10 19:22] LABS: African American GFR (CKD) 116.7 (60.0-200.0); Albumin 4.1 g/dL (3.8-4.9); Albumin/Globulin Ratio 1.71 (1.60-3.17); Anion Gap 10.5 mmol/L (10.00-18.00); BUN/Creat Ratio 14.65 Ratio (12.00-20.00); Blood Urea Nitrogen 10.4 mg/dL (9.0-27.0); Calcium 9.2 mg/dL (8.7-10.3); Carbon Dioxide 28.3 mmol/L (20.0-27.5); Globulin 2.4 g/dL (1.6-3.3); Non-African American GFR(CKD) 100.7 (60.0-200.0); Potassium 3.5 mmol/L (3.5-5.5); Total Bilirubin 0.3 mg/dL (0.30-1.20); Total Protein 6.4 g/dL (6.2-8.2)
== END | disposition home or self-care (01) ==
LOC: LABMAIN 09:57
PROVIDERS: ATTEND Nurse Practitioner Family
DX: E87.6 Hypokalemia (principal)
CPT/HCPCS: 80053

== ENCOUNTER → 2022-05-14 | Outpatient (CLI) | payer OTHER ==
[2022-05-14 10:58] LABS: African American GFR (CKD) 114.8 (60.0-200.0); Albumin 3.9 g/dL (3.8-4.9); Albumin/Globulin Ratio 1.33 (1.60-3.17); Anion Gap 10.1 mmol/L (10.00-18.00); BUN/Creat Ratio 16.67 Ratio (12.00-20.00); Calcium 9.3 mg/dL (8.7-10.3); Potassium 2.9 mmol/L (3.5-5.5); Total Bilirubin 0.4 mg/dL (0.30-1.20); Total Protein 6.9 g/dL (6.2-8.2)
== END | disposition home or self-care (01) ==
LOC: LABWHC1 07:24
PROVIDERS: ATTEND Nurse Practitioner Family
DX: E87.6 Hypokalemia (principal)
CPT/HCPCS: 36415; 80053

== ENCOUNTER → 2022-05-16 | Outpatient (CLI) | payer OTHER ==
[2022-05-16 17:11] LABS: African American GFR (CKD) 91.9 (60.0-200.0); Albumin 4.2 g/dL (3.8-4.9); Albumin/Globulin Ratio 1.71 (1.60-3.17); Anion Gap 13.2 mmol/L (10.00-18.00); BUN/Creat Ratio 9.76 Ratio (12.00-20.00); Blood Urea Nitrogen 8.4 mg/dL (9.0-27.0); Calcium 9.6 mg/dL (8.7-10.3); Carbon Dioxide 27.5 mmol/L (20.0-27.5); Globulin 2.5 g/dL (1.6-3.3); Non-African American GFR(CKD) 79.3 (60.0-200.0); Potassium 3.2 mmol/L (3.5-5.5); Total Bilirubin 0.5 mg/dL (0.30-1.20); Total Protein 6.7 g/dL (6.2-8.2)
== END | disposition home or self-care (01) ==
LOC: LABMAIN 09:32
PROVIDERS: ATTEND Family Medicine
DX: E87.6 Hypokalemia (principal)
CPT/HCPCS: 80053

== ENCOUNTER → 2022-05-19 | Outpatient (CLI) | payer OTHER ==
[2022-05-19 11:23] LABS: African American GFR (CKD) 87.6 (60.0-200.0); Albumin 4.1 g/dL (3.8-4.9); Albumin/Globulin Ratio 1.41 (1.60-3.17); Anion Gap 12.6 mmol/L (10.00-18.00); BUN/Creat Ratio 12.22 Ratio (12.00-20.00); Calcium 9.1 mg/dL (8.7-10.3); Carbon Dioxide 25.4 mmol/L (20.0-27.5); Globulin 2.9 g/dL (1.6-3.3); Non-African American GFR(CKD) 75.6 (60.0-200.0); Potassium 2.8 mmol/L (3.5-5.5); Total Bilirubin 0.5 mg/dL (0.30-1.20)
== END | disposition home or self-care (01) ==
LOC: LABWHC1 07:19
PROVIDERS: ATTEND Nurse Practitioner Family
DX: E87.6 Hypokalemia (principal)
CPT/HCPCS: 36415; 80053

== ENCOUNTER → 2022-05-21 | Outpatient (CLI) | payer OTHER ==
[2022-05-21 12:14] LABS: Albumin 4.1 g/dL (3.8-4.9); Albumin/Globulin Ratio 1.32 (1.60-3.17); Anion Gap 13.7 mmol/L (10.00-18.00); BUN/Creat Ratio 13.88 Ratio (12.00-20.00); Blood Urea Nitrogen 11.1 mg/dL (9.0-27.0); Calcium 9.2 mg/dL (8.7-10.3); Carbon Dioxide 25.3 mmol/L (20.0-27.5); Globulin 3.1 g/dL (1.6-3.3); Non-African American GFR(CKD) 87.2 (60.0-200.0); Potassium 2.8 mmol/L (3.5-5.5); Total Bilirubin 0.4 mg/dL (0.30-1.20); Total Protein 7.2 g/dL (6.2-8.2)
== END | disposition home or self-care (01) ==
LOC: LABWHC1 07:14
PROVIDERS: ATTEND Family Medicine
DX: E87.6 Hypokalemia (principal)
CPT/HCPCS: 36415; 80053

== ENCOUNTER → 2022-06-12 | Outpatient (CLI) | payer OTHER ==
[2022-06-13 08:06] LABS: African American GFR (CKD) 120.2 (60.0-200.0); Albumin 4.2 g/dL (3.8-4.9); Albumin/Globulin Ratio 1.66 (1.60-3.17); Anion Gap 12.5 mmol/L (10.00-18.00); BUN/Creat Ratio 12.22 Ratio (12.00-20.00); Blood Urea Nitrogen 8.3 mg/dL (9.0-27.0); Calcium 9.3 mg/dL (8.7-10.3); Carbon Dioxide 24.9 mmol/L (20.0-27.5); Globulin 2.5 g/dL (1.6-3.3); Non-African American GFR(CKD) 103.7 (60.0-200.0); Potassium 4.1 mmol/L (3.5-5.5); Total Bilirubin 0.4 mg/dL (0.30-1.20); Total Protein 6.7 g/dL (6.2-8.2)
== END | disposition home or self-care (01) ==
LOC: LABMAIN 13:12
PROVIDERS: ATTEND Nurse Practitioner Family
DX: E87.6 Hypokalemia (principal)
CPT/HCPCS: 80053

== ENCOUNTER → 2022-09-08 | Outpatient (CLI) | payer OTHER ==
[2022-09-08 16:28] VITALS: BP 111/69; PULSE 75; RESP 16; TEMP 97.9; BMI 36.2
--- NOTE | 2022-09-08 16:55 | P.BASOAP ---
Subjective Progress Note Date: 09/08/22 She had recalcitrant hypokalemia. She has severe gastroesophageal reflux disease uncontrolled with medications. She reports intractable nausea and vomiting. Swallow study and EGD, and new labs, EKG for the year. Cannot tolerate omeprazole due to low potassium. Objective - Vital Signs Vital signs: Vital Signs Temp 97.9 F 09/08/22 16:25 Pulse 75 09/08/22 16:25 Resp 16 09/08/22 16:25 BP 111/69 09/08/22 16:25 Pulse Ox FiO2 Intake & Output 09/07/22 09/08/22 09/08/22 18:59 06:59 18:59 Weight 89.811 kg Assessment/Plan Plan: Date: 09/08/22 Initial Weight: 117.027 kg Initial BMI: 47.2 Current Weight: 89.811 kg Current BMI: 36.2 Type of Surgery: Vertical Sleeve Gastrectomy Total Volume in Band: Previous Volume: Volume Removed: Volume Added: Band Size:
== END ==
LOC: BARWHC3 16:03
PROVIDERS: ATTEND Surgery Plastic and Reconstructive Surgery
DX: E66.01 Morbid (severe) obesity due to excess calories (principal); Z68.36 Body mass index [BMI] 36.0-36.9, adult; Z88.1 Allergy status to other antibiotic agents
CPT/HCPCS: 99211

== ENCOUNTER → 2022-09-09 | Outpatient (CLI) | payer OTHER ==
[2022-09-09 08:01] LABS: Partial Thromboplastin Time 24.7 sec (22.0-30.0); Prothrombin Time 10.1 sec (9.0-12.0)
[2022-09-09 11:01] LABS: HCT 41.5 % (37.2-46.3); HGB 13.2 g/dL (12.0-15.0); MCH 28.2 pg (27.0-32.0); MCHC 31.8 g/dL (32.0-37.0); MCV 88.7 fL (80.0-97.0); Mean Platelet Volume 10.8 fL (9.5-12.2); NRBC Per 100 WBC 0 /100 WBCS (0.0-0.0); Platelet Count 338 X 10*3/uL (140-440); RBC 4.68 X 10*6/uL (4.10-5.20); WBC 6.37 X 10*3/uL (4.50-10.00)
[2022-09-09 11:18] LABS: % Iron Saturation 21.76 (12.00-45.00); ALT 11 U/L (8-44); AST 19 U/L (13-35); African American GFR (CKD) 118.7 (60.0-200.0); Albumin/Globulin Ratio 1.48 (1.60-3.17); Alkaline Phosphatase 71 U/L (41-126); BUN/Creat Ratio 11.14 Ratio (12.00-20.00); Blood Urea Nitrogen 7.8 mg/dL (9.0-27.0); Calcium 9.1 mg/dL (8.7-10.3); Carbon Dioxide 21.2 mmol/L (20.0-27.5); Chloride 109 mmol/L (96-109); Globulin 2.7 g/dL (1.6-3.3); Glucose 119 mg/dL (70-110); Iron 66 ug/dL (50-170); Magnesium 1.8 mg/dL (1.5-2.4); Non-African American GFR(CKD) 102.5 (60.0-200.0); Phosphorus 3.2 mg/dL (2.4-5.1); Potassium 3.5 mmol/L (3.5-5.5); Sodium 144 mmol/L (135-145); Total Iron Binding Capacity 301 ug/dL (228-460); Total Protein 6.7 g/dL (6.2-8.2)
[2022-09-09 12:15] LABS: Chol/HDL Ratio 2.43 Ratio; LDL Cholesterol,Calculated 27.9 mg/dL (0.0-131.0)
[2022-09-10 15:50] LABS: Zinc, Serum 58 ug/dL (60-130)
== END | disposition home or self-care (01) ==
LOC: LABWHC1 07:03
PROVIDERS: ATTEND Surgery Plastic and Reconstructive Surgery
DX: D89.1 Cryoglobulinemia (principal); D50.8 Other iron deficiency anemias; K91.2 Postsurgical malabsorption, not elsewhere classified; E44.0 Moderate protein-calorie malnutrition; E66.01 Morbid (severe) obesity due to excess calories; E45 Retarded development following protein-calorie malnutrition; E55.9 Vitamin D deficiency, unspecified; K74.1 Hepatic sclerosis; N19 Unspecified kidney failure; T56.894A Toxic effect of other metals, undetermined, initial encounter; K50.90 Crohn's disease, unspecified, without complications
CPT/HCPCS: 36415; 80053; 80061; 82306; 82525; 82607; 82728; 82746; 83036; 83540; 83550; 83735; 83970; 84100; 84134; 84255; 84425; 84443; 84590; 84630; 85027; 85610; 85730; 93005

== ENCOUNTER 2022-09-27 06:57 | Day surgery (SDC) | payer OTHER ==
[2022-09-27 07:34] LABS: Glucose,Whole Blood 97 mg/dL (70-110)
--- NOTE | 2022-09-27 07:35 | P.GSHP ---
History of Present Illness H&P Date: 09/27/22 CHIEF COMPLAINT: GERD HISTORY OF PRESENT ILLNESS: The patient is a 46-year-old female who presents reports gastroesophageal reflux disease. Upper endoscopy was offered for further evaluation and management. PAST MEDICAL HISTORY: Please see list. PAST SURGICAL HISTORY: Please see list. MEDICATIONS: Please see list. ALLERGIES: Please see list. SOCIAL HISTORY: No illicit drug use FAMILY HISTORY: No reports of Crohn disease or ulcerative colitis. REVIEW OF ORGAN SYSTEMS: CONSTITUTIONAL: No reports of fevers or chills. GI: Denies any blood in stools or constipation. PHYSICAL EXAM: VITAL SIGNS: Stable GENERAL: Well-developed and pleasant in no acute distress. HEENT: No scleral icterus. Extraocular movements grossly intact. Moist buccal mucosa. NECK: Supple without lymphadenopathy. CHEST: Unlabored respirations. Equal bilateral excursions. CARDIOVASCULAR: Regular rate and rhythm. Distal 2+ pulses. ABDOMEN: Soft, nondistended. MUSCULOSKELETAL: No clubbing, cyanosis, or edema. ASSESSMENT: 1. Gastroesophageal reflux disease PLAN: 1. Recommend proceeding with an upper endoscopy Past Medical History Past Medical History: Diabetes Mellitus, GERD/Reflux, Thyroid Disorder Additional Past Medical History / Comment(s): NIDDM type II, past hypokalemia, numbness in bilateral hands pt associates with hypokalemia, past head injury/L optic nerve clot, bilateral ankle edema improved, migraines, RLS, hiatal hernia, hypothyroid, covid in 10/2021. History of Any Multi-Drug Resistant Organisms: None Reported Past Surgical History: Bariatric Surgery, Section, Cholecystectomy, Hysterectomy, Tubal Ligation, Uterine Ablation Additional Past Surgical History / Comment(s): Gastric sleeve, hiatal hernia repair, x3, EGD Past Anesthesia/Blood Transfusion Reactions: No Reported Reaction Additional Past Anesthesia/Blood Transfusion Reaction / Comment(s): no hx blood transfusion Smoking Status: Former smoker - Past Family History Mother Family Medical History: No Reported History Additional Family Medical History / Comment(s): Mother is healthy Father Family Medical History: Coronary Artery Disease (CAD), Diabetes Mellitus, Hypertension, Myocardial Infarction (DC) Additional Family Medical History / Comment(s): [place] in his 30s Medications and Allergies Home Medications Medication Instructions Recorded Confirmed Type traMADol HCL 50 mg PO BID PRN 10/02/15 09/23/22 History ALPRAZolam [Xanax] 0.25 mg PO Q8H PRN 01/02/19 09/23/22 History Cyclobenzaprine [Flexeril] 10 mg PO HS 01/02/19 09/23/22 History Levothyroxine Sodium [Euthyrox] 125 mcg PO DAILY #60 tablet 11/12/20 09/23/22 Rx Semaglutide [Ozempic] 1 mg SQ [place] 03/15/22 09/23/22 History Losartan [Cozaar] 12.5 mg PO DAILY 04/07/22 09/23/22 History Rosuvastatin [Crestor] 10 mg PO DAILY 04/07/22 09/23/22 History Allergies Allergy/AdvReac Type Severity Reaction Status Date / Time gentamicin [Gentamicin] Allergy Severe Anaphylaxis Verified 09/23/22 09:01
[2022-09-27] MEDS ORDERED: LACTATED RINGERS 1,000 ML IV ONE (07:39)
[2022-09-27 07:41] VITALS: TEMP 98
[2022-09-27] MEDS ORDERED: LACTATED RINGERS 1,000 ML IV SCH (07:42)
[2022-09-27] MEDS ORDERED: LIDOCAINE 1% (10MG/ML) FOR IV START INTRADERMA PRN (07:42)
[2022-09-27] MEDS ORDERED: PROPOFOL 10 MG/ML 20 ML VIAL IV ONE (08:04)
[2022-09-27] MEDS ORDERED: LIDOCAINE 2% INJ 20 MG/ML (2 ML VIAL) ONE (08:04)
[2022-09-27 08:34] VITALS: BP 109/80; PULSE 88; RESP 20
--- NOTE | 2022-09-27 08:45 | P.PCN ---
Date of Procedure: 09/27/22 Description of Procedure: PREOPERATIVE DIAGNOSIS: Intractable nausea vomiting Status post sleeve gastrectomy. Gastroesophageal reflux disease. Epigastric abdominal pain. Chronic hypokalemia POSTOPERATIVE DIAGNOSIS: Gastroparesis Intractable nausea vomiting Status post sleeve gastrectomy. Gastroesophageal reflux disease. Epigastric abdominal pain. OPERATION: Esophagogastroduodenoscopy with cold forceps biopsies along the antrum. SURGEON: Bhumika Ordaz MD ANESTHESIA: MAC. INDICATIONS: The patient is a 46-year-old female who presents with a history of sleeve gastrectomy with abdominal pain. She is over 5 years out from her bariatric procedure. Benefits and risks of the procedure were described. Informed consent was obtained. DESCRIPTION: The patient was brought into the endoscopy suite and laid in the left lateral decubitus position. An Olympus gastroscope was passed along the posterior oropharynx down to the distal esophagus where the squamocolumnar junction was at 37 centimeters from the incisors remarkable for chronic erosive esophagitis, LA grade A without ulceration. The stomach was entered. The sleeve reservoir moderately large allowing easy retroflexion of the scope to view the lower esophageal valve. Chronic gastritis albeit mild was found along the antrum with cold biopsies obtained. The first through third portion of the duodenum was examined and retained food including of the stomach. The scope again had easily retroflexed along the antrum. The stomach was desufflated. The patient tolerated the procedure well. FINDINGS: No acute ulceration found along her sleeve. No corkscrewing sleeve gastrectomy. Squamocolumnar junction at 37 cm from the incisors. Diaphragmatic hiatus at 38 cm. Moderate large gastric reservoir with prior history of sleeve gastrectomy allowing easy retroflexion of the gastroscope to view the lower esophageal valve. Hiatal hernia 1 cm, fixed. Moderate retained food for gastroparesis LA grade A erosive esophagitis. Retained food duodenum Chronic gastritis. Biopsies obtained RECOMMENDATIONS: Upper endoscopy as needed. Reglan 10 mg 3 times daily for gastroparesis Recommend gastric bypass for treatment of gastroparesis including intractable nausea and vomiting Plan - Discharge Summary Discharge Rx Participant: No New Discharge Prescriptions: New Metoclopramide [Reglan] 10 mg PO ACHS #30 tab Continue traMADol HCL 50 mg PO BID PRN PRN Reason: Pain ALPRAZolam [Xanax] 0.25 mg PO Q8H PRN PRN Reason: Anxiety Cyclobenzaprine [Flexeril] 10 mg PO HS Levothyroxine Sodium [Euthyrox] 125 mcg PO DAILY #60 tablet Semaglutide [Ozempic] 1 mg SQ [place] Losartan [Cozaar] 12.5 mg PO DAILY Rosuvastatin [Crestor] 10 mg PO DAILY Atogepant [Qulipta] 60 DAILY Discharge Medication List traMADol HCL 50 mg PO BID PRN 10/02/15 [History] ALPRAZolam [Xanax] 0.25 mg PO Q8H PRN 01/02/19 [History] Cyclobenzaprine [Flexeril] 10 mg PO HS 01/02/19 [History] Levothyroxine Sodium [Euthyrox] 125 mcg PO DAILY #60 tablet 11/12/20 [Rx] Semaglutide [Ozempic] 1 mg SQ [place] 03/15/22 [History] Losartan [Cozaar] 12.5 mg PO DAILY 04/07/22 [History] Rosuvastatin [Crestor] 10 mg PO DAILY 04/07/22 [History] Atogepant [Qulipta] 60 DAILY 09/27/22 [History] Metoclopramide [Reglan] 10 mg PO ACHS #30 tab 09/27/22 [Rx] Follow [facility]ment(s[facility]Ref[facility] [place] [facility] [place] [facility]22 Patient Instructions/Handouts: Gastroparesis (DC) Discharge Disposition: HOME SELF-CARE
== END 2022-09-27 09:46 | disposition home or self-care (01) ==
LOC: ORWHC2ENDO 06:57
PROVIDERS: ATTEND Surgery Plastic and Reconstructive Surgery
DX: K29.50 Unspecified chronic gastritis without bleeding (principal); K21.9 Gastro-esophageal reflux disease without esophagitis; E87.6 Hypokalemia; E11.43 Type 2 diabetes mellitus with diabetic autonomic (poly)neuropathy; G43.909 Migraine, unspecified, not intractable, without status migrainosus; K44.9 Diaphragmatic hernia without obstruction or gangrene; E03.9 Hypothyroidism, unspecified; G25.81 Restless legs syndrome; Z86.16 Personal history of COVID-19; Z98.84 Bariatric surgery status; Z98.891 History of uterine scar from previous surgery; Z90.49 Acquired absence of other specified parts of digestive tract; Z90.710 Acquired absence of both cervix and uterus; Z98.51 Tubal ligation status; Z87.891 Personal history of nicotine dependence; Z83.3 Family history of diabetes mellitus; Z82.49 Family history of ischemic heart disease and other diseases of the circulatory system; Z79.899 Other long term (current) drug therapy; Z79.890 Hormone replacement therapy; Z88.2 Allergy status to sulfonamides
CPT/HCPCS: 43239; J2704; J2001; 88305

== ENCOUNTER → 2022-10-01 | Outpatient (CLI) | payer OTHER ==
--- NOTE | 2022-10-01 13:30 | FL ---
EXAMINATION TYPE: FL barium swallow DATE OF EXAM: 10/01/2022 COMPARISON: 03/05/2021 HISTORY: Dysphasia, EGD with biopsy TECHNIQUE: A single contrast UGI study is performed with water-soluble contrast. FINDINGS: Contrast passes to the esophagus with only slight hesitancy at the gastroesophageal junction. Gastroe sophageal junction opens to normal caliber to empty the esophagus. There is complete stripping esopha geal bolus and horizontal drinking position. IMPRESSIONS: 1. No intraluminal or extramural esophageal abnormality identified.
== END | disposition home or self-care (01) ==
LOC: RADUSWWP 09:37
PROVIDERS: ATTEND Surgery Plastic and Reconstructive Surgery
DX: R13.10 Dysphagia, unspecified (principal)
CPT/HCPCS: 74220; Q9967

== ENCOUNTER → 2022-10-06 | Outpatient (CLI) | payer OTHER ==
[2022-10-06 16:54] VITALS: BP 113/82; PULSE 89; RESP 13; TEMP 98.5; BMI 32.1
--- NOTE | 2022-10-06 17:25 | P.BASOAP ---
Subjective Progress Note Date: 10/06/22 has gastroparesis and intolerant of reglan. Has gastroparesis. Recommend bypass. Has side effects from antacids. Objective - Vital Signs Vital signs: Vital Signs Temp 98.5 F 10/06/22 16:47 Pulse 89 10/06/22 16:47 Resp 13 10/06/22 16:47 BP 113/82 10/06/22 16:47 Pulse Ox FiO2 Intake & Output 10/05/22 10/06/22 10/06/22 18:59 06:59 18:59 Weight 79.787 kg Assessment/Plan Plan: Date: 10/06/22 Initial Weight: 117.027 kg Initial BMI: 47.2 Current Weight: 79.787 kg Current BMI: 32.1 Type of Surgery: Total Volume in Band: Previous Volume: Volume Removed: Volume Added: Band Size:
== END ==
LOC: BARWHC3 14:58
PROVIDERS: ATTEND Surgery Plastic and Reconstructive Surgery
DX: E66.01 Morbid (severe) obesity due to excess calories (principal); Z68.32 Body mass index [BMI] 32.0-32.9, adult; Z88.1 Allergy status to other antibiotic agents
CPT/HCPCS: 99211

== ENCOUNTER → 2022-10-13 | Outpatient (CLI) | payer OTHER ==
[2022-10-13 17:12] VITALS: BP 130/95; PULSE 92; TEMP 98.3; BMI 31.4
--- NOTE | 2022-10-13 17:22 | P.BASOAP ---
Subjective Progress Note Date: 10/13/22 She has severe reflux. She has not kept anything down in 3 days. Recommend IV fluid hydration and Scopolamine. Carafate ZOfran for dehydration and scopolamine patch. She is on ozempic. Objective - Vital Signs Vital signs: Vital Signs Temp 98.3 F 10/13/22 17:08 Pulse 92 10/13/22 17:08 Resp BP 130/95 10/13/22 17:08 Pulse Ox FiO2 Intake & Output 10/12/22 10/13/22 10/13/22 18:59 06:59 18:59 Weight 78.018 kg Assessment/Plan Plan: Date: 10/13/22 Initial Weight: 117.027 kg Initial BMI: 47.2 Current Weight: 78.018 kg Current BMI: 31.4 Type of Surgery: Total Volume in Band: Previous Volume: Volume Removed: Volume Added: Band Size:
[2022-10-13 23:23] LABS: African American GFR (CKD) 119.9 (60.0-200.0); Albumin 4.1 g/dL (3.8-4.9); Albumin/Globulin Ratio 1.78 (1.60-3.17); Anion Gap 11.3 mmol/L (10.00-18.00); BUN/Creat Ratio 10.16 Ratio (12.00-20.00); Blood Urea Nitrogen 6.9 mg/dL (9.0-27.0); Calcium 9.8 mg/dL (8.7-10.3); Globulin 2.3 g/dL (1.6-3.3); Non-African American GFR(CKD) 103.4 (60.0-200.0); Potassium 4.8 mmol/L (3.5-5.5); Total Bilirubin 0.3 mg/dL (0.30-1.20); Total Protein 6.5 g/dL (6.2-8.2)
== END ==
LOC: BARWHC3 16:04
PROVIDERS: ATTEND Surgery Plastic and Reconstructive Surgery
DX: E66.01 Morbid (severe) obesity due to excess calories (principal); Z53.9 Procedure and treatment not carried out, unspecified reason
CPT/HCPCS: 80053; 99211

== ENCOUNTER 2022-12-25 09:32 | Emergency (ER) | payer OTHER ==
[2022-12-25 09:38] VITALS: RESP 18; TEMP 98
[2022-12-25] MEDS ORDERED: SODIUM CHLORIDE 0.9% 1,000 ML IV STA ×2 (09:51)
[2022-12-25] MEDS ORDERED: ONDANSETRON 4 MG/2 ML VIAL IVP STA (09:51)
--- NOTE | 2022-12-25 10:03 | ED ---
Nausea/Vomiting/Diarrhea HPI - General Chief complaint: Nausea/Vomiting/Diarrhea Stated complaint: vomiting Time Seen by Provider: 12/25/22 09:41 Source: patient, RN notes reviewed Mode of arrival: ambulatory Limitations: no limitations - History of Present Illness Initial comments: 47-year-old female with a history of gastric sleeve surgery in the past also history of cholecystectomy in the past who states she's been dealing with nausea vomiting for a period time but over last several days she's had increasing nausea vomiting decreased oral intake feeling weak. Nausea not better with patches and Zofran today. 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 She denies any fevers or chills no dysuria hematuria. She did have diarrhea several days ago but none today. She was recently scoped and was diagnosed with gastroparesis. She has other testing pending. Additional history the patient states that she has had a history of hypokalemia and dehydration due to the chronic symptoms. MD complaint: nausea, vomiting, diarrhea - Related Data Home Medications Medication Instructions Recorded Confirmed traMADol HCL 50 mg PO BID PRN 10/02/15 11/11/22 ALPRAZolam [Xanax] 0.25 mg PO Q8H PRN 01/02/19 11/11/22 Cyclobenzaprine [Flexeril] 10 mg PO HS 01/02/19 11/11/22 Losartan [Cozaar] 12.5 mg PO DAILY 04/07/22 11/11/22 Rosuvastatin [Crestor] 10 mg PO DAILY 04/07/22 11/11/22 Atogepant [Qulipta] 60 mg PO DAILY 09/27/22 11/11/22 Metoclopramide [Reglan] 10 mg PO ACHS 10/06/22 11/11/22 Previous Rx's Medication Instructions Recorded Levothyroxine Sodium [Euthyrox] 125 mcg PO DAILY #60 tablet 11/12/20 Scopolamine [Scopolamine 1 MG/72 1 patch TRANSDERM Q72H #3 patch 10/13/22 HR patch] Sucralfate [Carafate] 1 gm PO BID #30 tablet 10/13/22 Allergies Allergy/AdvReac Type Severity Reaction Status Date / Time gentamicin [Gentamicin] Allergy Severe Anaphylaxis Verified 12/25/22 09:37 Review of Systems ROS Statement: Those systems with pertinent positive or pertinent negative responses have been documented in the HPI. ROS Other: All systems not noted in ROS Statement are negative. Past Medical History Past Medical History: Diabetes Mellitus, GERD/Reflux, Thyroid Disorder Additional Past Medical History / Comment(s): NIDDM type II, past hypokalemia, numbness in bilateral hands pt associates with hypokalemia, past head imjury/L optic nerve clot, bilateral ankle edema, migraines, RLS, hiatal hernia, hypothyroid, covid in 10/2021. History of Any Multi-Drug Resistant Organisms: None Reported Past Surgical History: Bariatric Surgery, Section, Cholecystectomy, Tubal Ligation, Uterine Ablation Additional Past Surgical History / Comment(s): Gastric sleeve, hiatal hernia repair, x3, EGD Past Anesthesia/Blood Transfusion Reactions: No Reported Reaction Additional Past Anesthesia/Blood Transfusion Reaction / Comment(s): no hx blood transfusion Past Psychological History: Anxiety Smoking Status: Former smoker Past Alcohol Use History: Occasional Past Drug Use History: None Reported - Past Family History Mother Family Medical History: No Reported History Additional Family Medical History / Comment(s): Mother is healthy Father Family Medical History: Coronary Artery Disease (CAD), Diabetes Mellitus, Hypertension, Myocardial Infarction ([place]) Additional Family Medical History / Comment(s): [place] in his 30s General Exam - General Exam Comments Initial Comments: This is a well-developed well-nourished awake alert oriented 4 female Limitations: no limitations General appearance: alert, anxious Head exam: Present: atraumatic, normocephalic, normal inspection Eye exam: Present: normal appearance, PERRL, EOMI. Absent: scleral icterus, conjunctival injection, periorbital swelling ENT exam: Present: mucous membranes dry Neck exam: Present: normal inspection, full ROM, other. Absent: tenderness, meningismus, lymphadenopathy Respiratory exam: Present: normal lung sounds bilaterally. Absent: respiratory distress, wheezes, rales, rhonchi, stridor Cardiovascular Exam: Present: normal rhythm, tachycardia (No stridor JVD or bruits), normal heart sounds. Absent: systolic murmur, diastolic murmur, rubs, gallop, clicks GI/Abdominal exam: Present: soft, normal bowel sounds. Absent: distended, tenderness, guarding, rebound, rigid, bruit, pulsatile mass Extremities exam: Present: normal inspection, full ROM, normal capillary refill. Absent: tenderness, pedal edema, joint swelling, calf tenderness Back exam: Present: normal inspection Neurological exam: Present: alert, oriented X3, CN II-XII intact Psychiatric exam: Present: normal affect, normal mood Skin exam: Present: warm, dry, intact, normal color. Absent: rash Course Vital Signs 12/25/22 09:33 Temperature 98 F Pulse Rate 124 H Respiratory 18 Rate Blood Pressure 118/74 O2 Sat by Pulse 100 Oximetry - Reevaluation(s) Reevaluation #1: 12/25/22 11:52 Patient does have marginally normalized potassium and magnesium levels due to the previous history of hypokalemia the patient will be given supplemental potassium and magnesium Discharge. She is feeling much improved after IV hydration. Medical Decision Making - Medical Decision Making Patient is feeling much improved she did get supplemental potassium and magnesium due to her history of hypokalemia in the past she feels improved after IV hydration she'll be discharged to follow-up with her doctor.Was pt. sent in by a medical professional or institution (, PA, DIRECTOR SOCIAL, urgent care, hospital, or [facility]...) When possible be specific @ -[No] Did you speak to anyone other than the patient for history (EMS, parent, family, police, friend...)? What history was obtained from this source @ -[No] Did you review nursing and triage notes (agree or disagree)? Why? @ -[I reviewed and agree with nursing and triage notes] Were old charts reviewed (outside hosp., previous admission, EMS record, old EKG, old radiological studies, urgent care reports/EKG's, [facility] records)? Report findings @ -[Previous admissions with hypokalemia old charts were reviewed] Differential Diagnosis (chest pain, altered mental status, abdominal pain women, abdominal pain men, vaginal bleeding, weakness, fever, dyspnea, syncope, headache, dizziness, GI bleed, back pain, seizure, CVA, palpatations, mental health, musculoskeletal)? @ -[Gastroenteritis, gastroparesis, dehydration, hypokalemia] EKG interpreted by me (3pts min.). @ -[Not done] X-rays interpreted by me (1pt min.). @ -[As above] CT interpreted by me (1pt min.). @ -[None done] U/S interpreted by me (1pt. min.). @ -[None done] What testing was considered but not performed or refused? (CT, X-rays, U/S, labs)? Why? @ -[None] What meds were considered but not given or refused? Why? @ -[None] Did you discuss the management of the patient with other professionals (professionals i.e. , PA, DIRECTOR SOCIAL, lab, RT, psych nurse, social sciences department chair, speech and drama teacher, teacher, emergency communications officer, bilingual case manager)? Give summary @ -[No] Was smoking cessation discussed for >3mins.? @ -[No] Was critical care preformed (if so, how long)? @ -[No] Were there social determinants of health that impacted care today? How? (Homelessness, low income, unemployed, alcoholism, drug addiction, transportation, low edu. Level, literacy, decrease access to med. care, long term, rehab)? @ -[No] Was there de-escalation of care discussed even if they declined (Discuss DNR or withdrawal of care, Hospice)? DNR status @ -[No] What co-morbidities impacted this encounter? (DM, HTN, Smoking, COPD, CAD, Cancer, CVA, ARF, Chemo, Hep., AIDS, mental health diagnosis, sleep apnea, morbid obesity)? @ -[Yes or paresis, history of hypokalemia] Was patient admitted / discharged? Hospital course, mention meds given and route, prescriptions, significant lab abnormalities, going to OR and other pertinent info. @ -[hospital course] patient was discharged in improved condition phlegm much improved actually she will follow-up with her doctor increase oral fluids. Undiagnosed new problem with uncertain prognosis? @ -[No] Drug Therapy requiring intensive monitoring for toxicity (Heparin, Nitro, Insulin, Cardizem)? @ -[No] Were any procedures done? @ -[No] Diagnosis/symptom? @ -[Gastroenteritis, gastroparesis, dehydration, nausea vomiting] Acute, or Chronic, or Acute on Chronic? @ -Acute] Uncomplicated (without systemic symptoms) or Complicated (systemic symptoms)? @ -[default] Side effects of treatment? @ -[No] Exacerbation, Progression, or Severe Exacerbation? @ -[No] Poses a threat to life or bodily function? How? (Chest pain, USA, [place], pneumonia, PE, COPD, DKA, ARF, appy, cholecystitis, CVA, Diverticulitis, Homicidal, Suicidal, threat to staff... and all critical care pts) @ -[No] - Lab Data Result diagrams: 12/25/22 10:07 12/25/22 10:07 Lab Results 12/25/22 12/25/22 12/25/22 Range/Units 10:07 10:07 10:07 WBC 9.2 (3.8-10.6) k/uL RBC 5.09 (3.80-5.40) m/uL Hgb 15.2 (11.4-16.0) gm/dL Hct 45.5 (34.0-46.0) % MCV 89.4 (80.0-100.0) fL MCH 29.8 (25.0-35.0) pg MCHC 33.3 (31.0-37.0) g/dL RDW 13.5 (11.5-15.5) % Plt Count 332 (150-450) k/uL MPV 8.3 Neutrophils % 75 % Lymphocytes % 18 % Monocytes % 4 % Eosinophils % 1 % Basophils % 0 % Neutrophils # 6.9 (1.3-7.7) k/uL Lymphocytes # 1.6 (1.0-4.8) k/uL Monocytes # 0.3 (0-1.0) k/uL Eosinophils # 0.1 (0-0.7) k/uL Basophils # 0.0 (0-0.2) k/uL Sodium 139 (137-145) mmol/L Potassium 3.9 (3.5-5.1) mmol/L Chloride 104 (98-107) mmol/L Carbon Dioxide 22 (22-30) mmol/L Anion Gap 13 mmol/L BUN 10 (7-17) mg/dL Creatinine 0.55 (0.52-1.04) mg/dL Est GFR (CKD-EPI)AfAm >90 (>60 ml/min/1.73 sqM) Est GFR (CKD-EPI)NonAf >90 (>60 ml/min/1.73 sqM) Glucose 106 H (74-99) mg/dL Calcium 9.5 (8.4-10.2) mg/dL Magnesium 1.7 (1.6-2.3) mg/dL Total Bilirubin 1.0 (0.2-1.3) mg/dL AST 20 (14-36) U/L ALT 14 (4-34) U/L Alkaline Phosphatase 84 (38-126) U/L Creatine Kinase 29 L (30-135) U/L Troponin I <0.012 (0.000-0.034) ng/mL Total Protein 6.8 (6.3-8.2) g/dL Albumin 4.2 (3.5-5.0) g/dL Lipase 102 (23-300) U/L - Radiology Data Interpreted by me: Imaging interpreted by me and chest x-ray shows no acute findings. Disposition Clinical Impression: Gastroenteritis, Gastroparesis, Dehydration, History of hypokalemia, Nausea & vomiting Disposition: HOME SELF-CARE Condition: Good Instructions (If sedation given, give patient instructions): Acute Nausea and Vomiting (ED), Acute Diarrhea (ED), Dehydration (DC) Is patient prescribed a controlled substance at d/c from ED?: No Referrals: Philip Jenkins MD [Primary Care Provider] - 1-2 days Decision Date: 12/25/22 Decision Time: 12:32
[2022-12-25 10:30] LABS: ALT 14 U/L (4-34); AST 20 U/L (14-36); African American GFR (CKD) >90 (>60 ml/min/1.73 sqM); Albumin 4.2 g/dL (3.5-5.0); Alkaline Phosphatase 84 U/L (38-126); Anion Gap 13 mmol/L; Blood Urea Nitrogen 10 mg/dL (7-17); Calcium 9.5 mg/dL (8.4-10.2); Carbon Dioxide 22 mmol/L (22-30); Chloride 104 mmol/L (98-107); Creatine Kinase 29 U/L (30-135); Glucose 106 mg/dL (74-99); Lipase 102 U/L (23-300); Magnesium 1.7 mg/dL (1.6-2.3); Non-African American GFR(CKD) >90 (>60 ml/min/1.73 sqM); Potassium 3.9 mmol/L (3.5-5.1); Sodium 139 mmol/L (137-145); Total Protein 6.8 g/dL (6.3-8.2)
[2022-12-25 10:31] LABS: Basophils % (A) 0 %; Eosinophils # (A) 0.1 k/uL (0-0.7); Eosinophils % (A) 1 %; HCT 45.5 % (34.0-46.0); HGB 15.2 gm/dL (11.4-16.0); Lymphocytes # (A) 1.6 k/uL (1.0-4.8); Lymphocytes % (A) 18 %; MCH 29.8 pg (25.0-35.0); MCHC 33.3 g/dL (31.0-37.0); MCV 89.4 fL (80.0-100.0); Mean Platelet Volume 8.3; Monocytes # (A) 0.3 k/uL (0-1.0); Monocytes % (A) 4 %; Neutrophils # (A) 6.9 k/uL (1.3-7.7); Neutrophils % (A) 75 %; Platelet Count 332 k/uL (150-450); RBC 5.09 m/uL (3.80-5.40); RDW 13.5 % (11.5-15.5); WBC 9.2 k/uL (3.8-10.6)
--- NOTE | 2022-12-25 10:43 | XR ---
EXAMINATION TYPE: XR KUB DATE OF EXAM: 12/25/2022 COMPARISON: NONE HISTORY: Pain TECHNIQUE: Single supine KUB image of the abdomen is obtained FINDINGS: Small bowel demonstrates no evidence for dilatation or air fluid levels. Gas and fecal material is seen in non-distended colon. No convincing evidence for pneumoperitoneum. No unusual calcifications. The lung bases are clear. The osseous structures are intact. IMPRESSION: 1. Overall nonobstructive bowel gas pattern.
[2022-12-25] MEDS ORDERED: MAGNESIUM SULFATE-D5W PMX 1 GM in DEXTROSE/WATER 1 100ML.BAG IVPB ONE (11:37)
[2022-12-25] MEDS ORDERED: POTASSIUM CHLORIDE ER 20 MEQ TAB.ER PO STA (11:38)
[2022-12-25 12:59] VITALS: BP 117/79; PULSE 87
== END 2022-12-25 12:57 | disposition home or self-care (01) ==
LOC: EC 09:32
DX: K31.84 Gastroparesis (principal); K52.9 Noninfective gastroenteritis and colitis, unspecified; K21.9 Gastro-esophageal reflux disease without esophagitis; E03.9 Hypothyroidism, unspecified; E11.43 Type 2 diabetes mellitus with diabetic autonomic (poly)neuropathy; E86.0 Dehydration; F41.9 Anxiety disorder, unspecified; Z79.899 Other long term (current) drug therapy; Z86.16 Personal history of COVID-19; Z87.891 Personal history of nicotine dependence; Z90.49 Acquired absence of other specified parts of digestive tract; Z88.8 Allergy status to other drugs, medicaments and biological substances
CPT/HCPCS: 80053; 82550; 83690; 83735; 84484; 85025; 74018; 99284; 96365; 96375; 96361 ×3; J2405; J3475; 36415

== ENCOUNTER → 2023-01-14 | Outpatient (CLI) | payer OTHER ==
[2023-01-14 13:09] LABS: Basophils % (A) 0 %; Eosinophils # (A) 0.1 k/uL (0-0.7); Eosinophils % (A) 1 %; HGB 14.4 gm/dL (11.4-16.0); Lymphocytes # (A) 1.2 k/uL (1.0-4.8); Lymphocytes % (A) 9 %; MCH 29.3 pg (25.0-35.0); MCHC 32.1 g/dL (31.0-37.0); MCV 91.5 fL (80.0-100.0); Mean Platelet Volume 8.1; Monocytes # (A) 0.3 k/uL (0-1.0); Monocytes % (A) 2 %; Neutrophils # (A) 11.5 k/uL (1.3-7.7); Neutrophils % (A) 87 %; Platelet Count 272 k/uL (150-450); RBC 4.92 m/uL (3.80-5.40); RDW 13.7 % (11.5-15.5); WBC 13.2 k/uL (3.8-10.6)
[2023-01-14 13:46] LABS: ALT 15 U/L (4-34); AST 18 U/L (14-36); African American GFR (CKD) >90 (>60 ml/min/1.73 sqM); Albumin 3.9 g/dL (3.5-5.0); Albumin/Globulin Ratio 1.5; Alkaline Phosphatase 82 U/L (38-126); Anion Gap 13 mmol/L; Blood Urea Nitrogen 8 mg/dL (7-17); Calcium 9.3 mg/dL (8.4-10.2); Carbon Dioxide 23 mmol/L (22-30); Chloride 105 mmol/L (98-107); Globulin 2.6 g/dL; Glucose 92 mg/dL (74-99); Magnesium 1.9 mg/dL (1.6-2.3); Non-African American GFR(CKD) >90 (>60 ml/min/1.73 sqM); Potassium 4.5 mmol/L (3.5-5.1); Sodium 141 mmol/L (137-145); Total Bilirubin 0.9 mg/dL (0.2-1.3); Total Protein 6.5 g/dL (6.3-8.2)
[2023-01-14 21:05] LABS: Albumin 4.1 g/dL (3.8-4.9); Albumin/Globulin Ratio 1.64 (1.60-3.17); Anion Gap 15.3 mmol/L (10.00-18.00); BUN/Creat Ratio 14.33 Ratio (12.00-20.00); Blood Urea Nitrogen 8.6 mg/dL (9.0-27.0); Calcium 9.6 mg/dL (8.7-10.3); Carbon Dioxide 21.7 mmol/L (20.0-27.5); Globulin 2.5 g/dL (1.6-3.3); Potassium 4.5 mmol/L (3.5-5.5); Total Bilirubin 0.7 mg/dL (0.30-1.20); Total Protein 6.6 g/dL (6.2-8.2)
== END | disposition home or self-care (01) ==
LOC: LABWHC1 12:22
PROVIDERS: ATTEND Family Medicine
DX: E87.8 Other disorders of electrolyte and fluid balance, not elsewhere classified (principal); R11.2 Nausea with vomiting, unspecified; R10.84 Generalized abdominal pain
CPT/HCPCS: 36415; 80053; 83735; 85025

== ENCOUNTER 2023-01-16 06:43 | Emergency (ER) | payer OTHER ==
[2023-01-16 06:51] VITALS: RESP 18; TEMP 98.9
[2023-01-16] MEDS ORDERED: SODIUM CHLORIDE 0.9% 1,000 ML IV STA (07:12)
[2023-01-16] MEDS ORDERED: ONDANSETRON 4 MG/2 ML VIAL IVP STA (07:26)
[2023-01-16] MEDS ORDERED: KETOROLAC 15 MG/ML 1 ML VIAL IVP STA (07:28)
--- NOTE | 2023-01-16 07:36 | ED ---
General Adult HPI - General Chief complaint: Nausea/Vomiting/Diarrhea Stated complaint: Dehydrated Time Seen by Provider: 01/16/23 07:12 Source: patient, RN notes reviewed, old records reviewed Mode of arrival: ambulatory Limitations: no limitations - History of Present Illness Initial comments: 47 yo female presenting for evaluation of nausea vomiting. Patient was recently diagnosed with gastroparesis and has been following with general surgery. She has remote history of gastric sleeve. She's also had minor sore throat and left ear pain. She had several episodes of diarrhea at the onset but this has been resolved for the past few days. No fever. No abdominal pain. She had laboratory testing performed 2 days prior. - Related Data Home Medications Medication Instructions Recorded Confirmed traMADol HCL 50 mg PO BID PRN 10/02/15 01/06/23 ALPRAZolam [Xanax] 0.25 mg PO Q8H PRN 01/02/19 01/06/23 Cyclobenzaprine [Flexeril] 10 mg PO HS 01/02/19 01/06/23 Losartan [Cozaar] 12.5 mg PO DAILY 04/07/22 01/06/23 Rosuvastatin [Crestor] 10 mg PO DAILY 04/07/22 01/06/23 Atogepant [Qulipta] 60 mg PO DAILY 09/27/22 01/06/23 Semaglutide [Ozempic] 1 mg SQ TU 01/06/23 01/06/23 Previous Rx's Medication Instructions Recorded Levothyroxine Sodium [Euthyrox] 125 mcg PO DAILY #60 tablet 11/12/20 Scopolamine [Scopolamine 1 MG/72 1 patch TRANSDERM Q72H #3 patch 10/13/22 HR patch] Ondansetron Odt [Zofran Odt] 4 mg PO Q8HR PRN #10 tab 01/16/23 Allergies Allergy/AdvReac Type Severity Reaction Status Date / Time gentamicin [Gentamicin] Allergy Severe Anaphylaxis Verified 01/06/23 08:16 Review of Systems ROS Statement: Those systems with pertinent positive or pertinent negative responses have been documented in the HPI. ROS Other: All systems not noted in ROS Statement are negative. Past Medical History Past Medical History: Diabetes Mellitus, GERD/Reflux, Thyroid Disorder Additional Past Medical History / Comment(s): NIDDM type II, past hypokalemia, numbness in bilateral hands pt associates with hypokalemia, past head imjury/L optic nerve clot, bilateral ankle edema, migraines, RLS, hiatal hernia, hypothyroid, covid in 10/2021. History of Any Multi-Drug Resistant Organisms: None Reported Past Surgical History: Bariatric Surgery, Section, Cholecystectomy, Tubal Ligation, Uterine Ablation Additional Past Surgical History / Comment(s): Gastric sleeve, hiatal hernia repair, x3, EGD Past Anesthesia/Blood Transfusion Reactions: No Reported Reaction Additional Past Anesthesia/Blood Transfusion Reaction / Comment(s): no hx blood transfusion Past Psychological History: Anxiety Smoking Status: Former smoker Past Alcohol Use History: Occasional Past Drug Use History: None Reported - Past Family History Mother Family Medical History: No Reported History Additional Family Medical History / Comment(s): Mother is healthy Father Family Medical History: Coronary Artery Disease (CAD), Diabetes Mellitus, Hypertension, Myocardial Infarction ([place]) Additional Family Medical History / Comment(s): [place] in his 30s General Exam Limitations: no limitations General appearance: alert, in no apparent distress Head exam: Present: atraumatic, normocephalic Eye exam: Present: normal appearance, PERRL ENT exam: Present: mucous membranes dry, other (There is tonsillar exudate and erythema). Absent: TM's normal bilaterally (The right tympanic membranes are erythematous) Respiratory exam: Present: normal lung sounds bilaterally. Absent: respiratory distress, wheezes Cardiovascular Exam: Present: regular rate, normal rhythm GI/Abdominal exam: Present: soft. Absent: distended, tenderness, guarding Extremities exam: Present: normal inspection, normal capillary refill. Absent: pedal edema Neurological exam: Present: alert, oriented X3, CN II-XII intact. Absent: motor sensory deficit Psychiatric exam: Present: normal affect, normal mood Skin exam: Present: warm, dry, intact. Absent: cyanosis, diaphoretic Course Vital Signs 01/16/23 06:46 Temperature 98.9 F Pulse Rate 100 Respiratory 18 Rate Blood Pressure 108/79 O2 Sat by Pulse 100 Oximetry Medical Decision Making - Medical Decision Making Was pt. sent in by a medical professional or institution (, PA, TYPO MACHINE OPERATOR, urgent care, hospital, or long term...) When possible be specific @ -No Did you speak to anyone other than the patient for history (EMS, parent, family, police, friend...)? What history was obtained from this source @ -No Did you review nursing and triage notes (agree or disagree)? Why? @ -I reviewed and agree with nursing and triage notes Were old charts reviewed (outside hosp., previous admission, EMS record, old EKG, old radiological studies, urgent care reports/EKG's, long term records)? Report findings @ -No old charts were reviewed Differential Diagnosis (chest pain, altered mental status, abdominal pain women, abdominal pain men, vaginal bleeding, weakness, fever, dyspnea, syncope, headache, dizziness, GI bleed, back pain, seizure, CVA, palpatations, mental health, musculoskeletal)? @Enteritis, gastroparesis, bowel obstruction EKG interpreted by me (3pts min.). @ -As above X-rays interpreted by me (1pt min.). @ -None done CT interpreted by me (1pt min.). @ -None done U/S interpreted by me (1pt. min.). @ -None done What testing was considered but not performed or refused? (CT, X-rays, U/S, labs)? Why? @ -None What meds were considered but not given or refused? Why? @ -None Did you discuss the management of the patient with other professionals (professionals i.e. , PA, TYPO MACHINE OPERATOR, lab, RT, psych nurse, social service technician, dietary services director, teacher, media liaison officer, manager rn case)? Give summary @ -No Was smoking cessation discussed for >3mins.? @ -No Was critical care preformed (if so, how long)? @ -No Were there social determinants of health that impacted care today? How? (Homelessness, low income, unemployed, alcoholism, drug addiction, transportation, low edu. Level, literacy, decrease access to med. care, long term, rehab)? @ -No Was there de-escalation of care discussed even if they declined (Discuss DNR or withdrawal of care, Hospice)? DNR status @ -No What co-morbidities impacted this encounter? (DM, HTN, Smoking, COPD, CAD, Cancer, CVA, ARF, Chemo, Hep., AIDS, mental health diagnosis, sleep apnea, morbid obesity)? @Diabetes, gastroparesis, previous gastric sleeve Was patient admitted / discharged? Hospital course, mention meds given and route, prescriptions, significant lab abnormalities, going to OR and other pertinent info. @47-year-old female with nausea and vomiting over the past several days. Patient additionally has some sore throat, and earache on the left. Her tympanic membrane is erythematous but nonbulging. Possibly patient has a viral infection in addition to her diagnosis of gastroparesis. No vomiting in the emergency department. She's been able to keep down a very small amount of water throughout her stay this morning. Her laboratory testing including CBC and CMP are completely normal. Her urinalysis shows 4+ ketones and the patient does appear dehydrated. She's given IV fluid, Zofran and Toradol in the emergency department. She is instructed on attempts at oral rehydration. Return parameters were discussed at length she will return with abdominal pain or worsening vomiting and inability to orally hydrate. Undiagnosed new problem with uncertain prognosis? @ -No Drug Therapy requiring intensive monitoring for toxicity (Heparin, Nitro, Insulin, Cardizem)? @ -No Were any procedures done? @ -No Diagnosis/symptom? @Nausea vomiting, dehydration Acute, or Chronic, or Acute on Chronic? @Acute Uncomplicated (without systemic symptoms) or Complicated (systemic symptoms)? @Complicated Side effects of treatment? @ -No Exacerbation, Progression, or Severe Exacerbation? @ -No Poses a threat to life or bodily function? How? (Chest pain, [place], [place], pneumonia, PE, COPD, DKA, ARF, appy, cholecystitis, CVA, Diverticulitis, Homicidal, Suicida l, threat to staff... and all critical care pts) @Yes, persistent volume loss, shock - Lab Data Result diagrams: 01/16/23 07:34 01/16/23 07:34 Lab Results 01/16/23 01/16/23 01/16/23 Range/Units 07:34 07:34 07:34 WBC 10.0 (3.8-10.6) k/uL RBC 4.65 (3.80-5.40) m/uL Hgb 13.5 (11.4-16.0) gm/dL Hct 41.2 (34.0-46.0) % MCV 88.6 (80.0-100.0) fL MCH 29.1 (25.0-35.0) pg MCHC 32.8 (31.0-37.0) g/dL RDW 13.7 (11.5-15.5) % Plt Count 335 (150-450) k/uL MPV 8.3 Neutrophils % 76 % Lymphocytes % 16 % Monocytes % 5 % Eosinophils % 1 % Basophils % 0 % Neutrophils # 7.6 (1.3-7.7) k/uL Lymphocytes # 1.6 (1.0-4.8) k/uL Monocytes # 0.5 (0-1.0) k/uL Eosinophils # 0.1 (0-0.7) k/uL Basophils # 0.0 (0-0.2) k/uL Sodium 142 (137-145) mmol/L Potassium 4.6 (3.5-5.1) mmol/L Chloride 105 (98-107) mmol/L Carbon Dioxide 26 (22-30) mmol/L Anion Gap 11 mmol/L BUN 10 (7-17) mg/dL Creatinine 0.51 L (0.52-1.04) mg/dL Est GFR (CKD-EPI)AfAm >90 (>60 ml/min/1.73 sqM) Est GFR (CKD-EPI)NonAf >90 (>60 ml/min/1.73 sqM) Glucose 96 (74-99) mg/dL Calcium 9.3 (8.4-10.2) mg/dL Total Bilirubin 0.6 (0.2-1.3) mg/dL AST 19 (14-36) U/L ALT 15 (4-34) U/L Alkaline Phosphatase 81 (38-126) U/L Total Protein 6.4 (6.3-8.2) g/dL Albumin 3.8 (3.5-5.0) g/dL Lipase 96 (23-300) U/L Urine Color Yellow Urine Appearance Cloudy H (Clear) Urine pH 6.0 (5.0-8.0) Ur Specific [place] 1.035 (1.001-1.035) Urine Protein 1+ H (Negative) Urine Glucose (UA) Negative (Negative) Urine Ketones 4+ H (Negative) Urine Blood Small H (Negative) Urine Nitrite Negative (Negative) Urine Bilirubin 1+ H (Negative) Urine Urobilinogen 4.0 (<2.0) mg/dL Ur Leukocyte Esterase Negative (Negative) Urine RBC 2 (0-5) /hpf Urine WBC 3 (0-5) /hpf Ur Squamous Epith Cells 9 H (0-4) /hpf Calcium Oxalate Crystal Few H (None) /hpf Urine Mucus Many H (None) /hpf Influenza Type A (PCR) (Not Detectd) Influenza Type B (PCR) (Not Detectd) RSV (PCR) (Not Detectd) SARS-CoV-2 (PCR) (Not Detectd) Group A Strep (PCR) (Not Detectd) 01/16/23 01/16/23 Range/Units 07:34 07:34 WBC (3.8-10.6) k/uL RBC (3.80-5.40) m/uL Hgb (11.4-16.0) gm/dL Hct (34.0-46.0) % MCV (80.0-100.0) fL MCH (25.0-35.0) pg MCHC (31.0-37.0) g/dL RDW (11.5-15.5) % Plt Count (150-450) k/uL MPV Neutrophils % % Lymphocytes % % Monocytes % % Eosinophils % % Basophils % % Neutrophils # (1.3-7.7) k/uL Lymphocytes # (1.0-4.8) k/uL Monocytes # (0-1.0) k/uL Eosinophils # (0-0.7) k/uL Basophils # (0-0.2) k/uL Sodium (137-145) mmol/L Potassium (3.5-5.1) mmol/L Chloride (98-107) mmol/L Carbon Dioxide (22-30) mmol/L Anion Gap mmol/L BUN (7-17) mg/dL Creatinine (0.52-1.04) mg/dL Est GFR (CKD-EPI)AfAm (>60 ml/min/1.73 sqM) Est GFR (CKD-EPI)NonAf (>60 ml/min/1.73 sqM) Glucose (74-99) mg/dL Calcium (8.4-10.2) mg/dL Total Bilirubin (0.2-1.3) mg/dL AST (14-36) U/L ALT (4-34) U/L Alkaline Phosphatase (38-126) U/L Total Protein (6.3-8.2) g/dL Albumin (3.5-5.0) g/dL Lipase (23-300) U/L Urine Color Urine Appearance (Clear) Urine pH (5.0-8.0) Ur Specific [place] (1.001-1.035) Urine Protein (Negative) Urine Glucose (UA) (Negative) Urine Ketones (Negative) Urine Blood (Negative) Urine Nitrite (Negative) Urine Bilirubin (Negative) Urine Urobilinogen (<2.0) mg/dL Ur Leukocyte Esterase (Negative) Urine RBC (0-5) /hpf Urine WBC (0-5) /hpf Ur Squamous Epith Cells (0-4) /hpf Calcium Oxalate Crystal (None) /hpf Urine Mucus (None) /hpf Influenza Type A (PCR) Not Detected (Not Detectd) Influenza Type B (PCR) Not Detected (Not Detectd) RSV (PCR) Not Detected (Not Detectd) SARS-CoV-2 (PCR) Not Detected (Not Detectd) Group A Strep (PCR) NOT DETECTED (Not Detectd) Disposition Clinical Impression: Gastroparesis, Dehydration, Nausea & vomiting Disposition: HOME SELF-CARE Condition: Fair Instructions (If sedation given, give patient instructions): Acute Nausea and Vomiting (ED) Prescriptions: Ondansetron Odt [Zofran Odt] 4 mg PO Q8HR PRN #10 tab PRN Reason: Vomiting Is patient prescribed a controlled substance at d/c from ED?: No Referrals: Philip Jenkins MD [Primary Care Provider] - 1-2 days Bhumika Ordaz MD [STAFF PHYSICIAN] - 1-2 days Time of Disposition: 08:56
[2023-01-16 08:01] LABS: Basophils % (A) 0 %; Eosinophils # (A) 0.1 k/uL (0-0.7); Eosinophils % (A) 1 %; HCT 41.2 % (34.0-46.0); HGB 13.5 gm/dL (11.4-16.0); Lymphocytes # (A) 1.6 k/uL (1.0-4.8); Lymphocytes % (A) 16 %; MCH 29.1 pg (25.0-35.0); MCHC 32.8 g/dL (31.0-37.0); MCV 88.6 fL (80.0-100.0); Mean Platelet Volume 8.3; Monocytes # (A) 0.5 k/uL (0-1.0); Monocytes % (A) 5 %; Neutrophils # (A) 7.6 k/uL (1.3-7.7); Neutrophils % (A) 76 %; Platelet Count 335 k/uL (150-450); RBC 4.65 m/uL (3.80-5.40); RDW 13.7 % (11.5-15.5)
[2023-01-16 08:13] LABS: ALT 15 U/L (4-34); AST 19 U/L (14-36); African American GFR (CKD) >90 (>60 ml/min/1.73 sqM); Albumin 3.8 g/dL (3.5-5.0); Alkaline Phosphatase 81 U/L (38-126); Anion Gap 11 mmol/L; Blood Urea Nitrogen 10 mg/dL (7-17); Calcium 9.3 mg/dL (8.4-10.2); Carbon Dioxide 26 mmol/L (22-30); Chloride 105 mmol/L (98-107); Glucose 96 mg/dL (74-99); Lipase 96 U/L (23-300); Non-African American GFR(CKD) >90 (>60 ml/min/1.73 sqM); Potassium 4.6 mmol/L (3.5-5.1); Sodium 142 mmol/L (137-145); Total Bilirubin 0.6 mg/dL (0.2-1.3); Total Protein 6.4 g/dL (6.3-8.2)
[2023-01-16 08:17] LABS: Appearance,Urine Cloudy (Clear); Bilirubin,Urine 1+ (Negative); Blood,Urine Small (Negative); Calcium Oxalate Crystals,Urine Few /hpf; Color,Urine Yellow; Glucose,Urine (UA) Negative (Negative); Ketones,Urine 4+ (Negative); Leukocyte Esterase,Urine Negative (Negative); Mucus,Urine Many /hpf; Nitrite,Urine Negative (Negative); Protein,Urine 1+ (Negative); RBC,Urine 2 /hpf (0-5); Specific Gravity,Urine 1.035 (1.001-1.035); Squamous Epithelial Cell,Urine 9 /hpf (0-4); WBC,Urine 3 /hpf (0-5)
[2023-01-16 09:12] VITALS: BP 116/84; PULSE 95
== END 2023-01-16 09:12 | disposition home or self-care (01) ==
LOC: EC 06:43
DX: K31.84 Gastroparesis (principal); E86.0 Dehydration; E11.43 Type 2 diabetes mellitus with diabetic autonomic (poly)neuropathy; E03.9 Hypothyroidism, unspecified; Z86.16 Personal history of COVID-19; F41.9 Anxiety disorder, unspecified; Z87.891 Personal history of nicotine dependence; Z88.8 Allergy status to other drugs, medicaments and biological substances; Z79.899 Other long term (current) drug therapy; Z90.49 Acquired absence of other specified parts of digestive tract; Z20.822 Contact with and (suspected) exposure to COVID-19
CPT/HCPCS: 36415; 87651; 80053; 83690; 85025; 81001; 87636; 99284; 96374; 96375; 96361; J2405; J1885

== ENCOUNTER → 2023-04-20 | Outpatient (CLI) | payer OTHER ==
[2023-04-20 11:22] LABS: Blood Urea Nitrogen 11.9 mg/dL (9.0-27.0); Chloride 109 mmol/L (96-109); Glucose 94 mg/dL (70-110); Potassium 4.9 mmol/L (3.5-5.5); Sodium 143 mmol/L (135-145)
[2023-04-20 11:23] LABS: ALT 12 U/L (8-44); AST 16 U/L (13-35); Albumin/Globulin Ratio 2.11 Ratio (1.60-3.17); Alkaline Phosphatase 81 U/L (41-126); Calcium 9.3 mg/dL (8.7-10.3); Carbon Dioxide 25.1 mmol/L (21.6-31.8); Globulin 1.9 d/dL (1.6-3.3); Total Bilirubin 0.4 mg/dL (0.3-1.2); Total Protein 5.9 d/dL (6.2-8.2)
[2023-04-20 12:19] LABS: Basophils # (A) 0.02 X 10*3/uL (0.00-0.10); Basophils % (A) 0.3 %; Eosinophils # (A) 0.11 X 10*3/uL (0.04-0.35); Eosinophils % (A) 1.7 %; HCT 39.4 % (37.2-46.3); HGB 12.6 d/dL (12.0-15.0); MCH 29.6 pg (27.0-32.0); MCV 92.5 FL (80.0-97.0); Mean Platelet Volume 10.9 FL (9.5-12.2); Monocytes # (A) 0.41 X 10*3/uL (0.20-1.00); Monocytes % (A) 6.4 %; NRBC Per 100 WBC 0 X 10*3/uL (0.00-0.01); Neutrophils # (A) 4.24 X 10*3/uL (1.80-7.70); Neutrophils % (A) 66.3 %; Platelet Count 287 X 10*3/uL (140-440); RBC 4.26 X 10*6/uL (4.10-5.20); RDW 13.3 % (11.5-14.5)
== END | disposition home or self-care (01) ==
LOC: LABWHC1 07:04
PROVIDERS: ATTEND Anesthesiology
DX: Z01.812 Encounter for preprocedural laboratory examination (principal)
CPT/HCPCS: 36415; 80053; 83036; 83735; 85025

== ENCOUNTER → 2023-06-23 | Outpatient (CLI) | payer OTHER ==
[2023-06-23 11:27] LABS: ALT 167 U/L (8-44); AST 94 U/L (13-35); Albumin 3.6 d/dL (3.8-4.9); Albumin/Globulin Ratio 2.12 Ratio (1.60-3.17); Alkaline Phosphatase 78 U/L (41-126); Blood Urea Nitrogen 9.6 mg/dL (9.0-27.0); Carbon Dioxide 25.6 mmol/L (21.6-31.8); Chloride 111 mmol/L (96-109); Creatine Kinase 27 U/L (26-186); Globulin 1.7 d/dL (1.6-3.3); Glucose 91 mg/dL (70-110); Magnesium 1.9 mg/dL (1.5-2.4); Potassium 4.8 mmol/L (3.5-5.5); Sodium 145 mmol/L (135-145); Total Bilirubin 0.3 mg/dL (0.3-1.2); Total Protein 5.3 d/dL (6.2-8.2)
[2023-06-23 15:42] LABS: C Reactive Protein <0.30 mg/dL (0.00-0.80)
== END | disposition home or self-care (01) ==
LOC: LABWHC1 06:48
PROVIDERS: ATTEND Family Medicine
DX: Z98.84 Bariatric surgery status (principal); Z86.39 Personal history of other endocrine, nutritional and metabolic disease
CPT/HCPCS: 36415; 80053; 82550; 83735; 85652; 86140

== ENCOUNTER 2023-07-08 21:17 | Emergency (ER) | payer MEDICAID, OTHER ==
[2023-07-09] MEDS ORDERED: MORPHINE SULFATE 4 MG/ML SYRINGE IVP STA ×2 (00:06→06:43)
[2023-07-09] MEDS ORDERED: SODIUM CHLORIDE 0.9% 1,000 ML IV STA (00:06)
[2023-07-09 01:08] LABS: Appearance,Urine Cloudy (Clear); Bacteria,Urine Occasional /hpf; Bilirubin,Urine Negative (Negative); Blood,Urine Negative (Negative); Calcium Oxalate Crystals,Urine Few /hpf; Color,Urine Yellow; Glucose,Urine (UA) Negative (Negative); Ketones,Urine 4+ (Negative); Leukocyte Esterase,Urine Negative (Negative); Mucus,Urine Many /hpf; Nitrite,Urine Negative (Negative); PH, Urine 5.5 (5.0-8.0); Protein,Urine Trace (Negative); RBC,Urine 8 /hpf (0-5); Specific Gravity,Urine 1.024 (1.001-1.035); Squamous Epithelial Cell,Urine 6 /hpf (0-4); WBC,Urine 5 /hpf (0-5)
[2023-07-09 01:18] LABS: Basophils % (A) 0 %; Eosinophils # (A) 0.2 k/uL (0-0.7); Eosinophils % (A) 2 %; HCT 40.3 % (34.0-46.0); HGB 12.8 gm/dL (11.4-16.0); Lymphocytes # (A) 2.2 k/uL (1.0-4.8); Lymphocytes % (A) 32 %; MCH 29.6 pg (25.0-35.0); MCHC 31.8 g/dL (31.0-37.0); MCV 93.1 fL (80.0-100.0); Mean Platelet Volume 8.2; Monocytes # (A) 0.3 k/uL (0-1.0); Monocytes % (A) 4 %; Neutrophils # (A) 4.1 k/uL (1.3-7.7); Neutrophils % (A) 60 %; Platelet Count 283 k/uL (150-450); RBC 4.32 m/uL (3.80-5.40); RDW 14.1 % (11.5-15.5); WBC 6.9 k/uL (3.8-10.6)
[2023-07-09 01:19] LABS: ALT 66 U/L (4-34); AST 53 U/L (14-36); African American GFR (CKD) >90 (>60 ml/min/1.73 sqM); Albumin 3.6 g/dL (3.5-5.0); Alkaline Phosphatase 103 U/L (38-126); Amylase 32 U/L (30-110); Anion Gap 8 mmol/L; Blood Urea Nitrogen 9 mg/dL (7-17); Calcium 9.3 mg/dL (8.4-10.2); Carbon Dioxide 27 mmol/L (22-30); Chloride 106 mmol/L (98-107); Glucose 90 mg/dL (74-99); Lipase 55 U/L (23-300); Non-African American GFR(CKD) >90 (>60 ml/min/1.73 sqM); Potassium 4.7 mmol/L (3.5-5.1); Sodium 141 mmol/L (137-145); Total Bilirubin 0.7 mg/dL (0.2-1.3); Total Protein 6.1 g/dL (6.3-8.2)
[2023-07-09 01:46] VITALS: TEMP 98.1
--- NOTE | 2023-07-09 04:55 | ED ---
Abdominal Pain HPI - General Source: patient Mode of arrival: ambulatory Limitations: no limitations <Jimbo De Leon - Last Filed: 07/09/23 04:55> <Bay Flores - Last Filed: 07/09/23 05:40> - General Chief Complaint: Abdominal Pain Stated Complaint: abd pain Time Seen by Provider: 07/08/23 23:23 - History of Present Illness Initial Comments: 47-year-old female presenting to the ED with a chief complaint of abdominal pain. She states that she felt similar pain 2 days ago. States at this time was having abdominal pain that radiated to her back. States that this resolved and therefore thought nothing of it. States pain returned again today. Patient states pain affects the abdomen that radiates to her back. Since onset, patient reports worsening of pain in severity. Denies urinary symptoms. Denies changes in bowel habits. No chest pain or shortness of breath. No other complaints. (Jimbo De Leon) - Related Data Home Medications Medication Instructions Recorded Confirmed traMADol HCL 50 mg PO BID PRN 10/02/15 01/06/23 ALPRAZolam [Xanax] 0.25 mg PO Q8H PRN 01/02/19 01/06/23 Cyclobenzaprine [Flexeril] 10 mg PO HS 01/02/19 01/06/23 Losartan [Cozaar] 12.5 mg PO DAILY 04/07/22 01/06/23 Rosuvastatin [Crestor] 10 mg PO DAILY 04/07/22 01/06/23 Atogepant [Qulipta] 60 mg PO DAILY 09/27/22 01/06/23 Semaglutide [Ozempic] 1 mg SQ TU 01/06/23 01/06/23 Previous Rx's Medication Instructions Recorded Levothyroxine Sodium [Euthyrox] 125 mcg PO DAILY #60 tablet 11/12/20 Scopolamine [Scopolamine 1 MG/72 1 patch TRANSDERM Q72H #3 patch 10/13/22 HR patch] Ondansetron Odt [Zofran Odt] 4 mg PO Q8HR PRN #10 tab 01/16/23 Allergies Allergy/AdvReac Type Severity Reaction Status Date / Time gentamicin [Gentamicin] Allergy Severe Anaphylaxis Verified 07/08/23 21:38 Review of Systems ROS Other: All systems not noted in ROS Statement are negative. <Jimbo De Leon - Last Filed: 07/09/23 04:55> ROS Other: All systems not noted in ROS Statement are negative. <Bay Flores - Last Filed: 07/09/23 05:40> ROS Statement: Those systems with pertinent positive or pertinent negative responses have been documented in the HPI. Past Medical History Past Medical History: Diabetes Mellitus, GERD/Reflux, Thyroid Disorder Additional Past Medical History / Comment(s): NIDDM type II, past hypokalemia, numbness in bilateral hands pt associates with hypokalemia, past head imjury/L optic nerve clot, bilateral ankle edema, migraines, RLS, hiatal hernia, hypothyroid, covid in 10/2021. History of Any Multi-Drug Resistant Organisms: None Reported Past Surgical History: Bariatric Surgery, Section, Cholecystectomy, Tubal Ligation, Uterine Ablation Additional Past Surgical History / Comment(s): Gastric sleeve, hiatal hernia repair, x3, EGD Past Anesthesia/Blood Transfusion Reactions: No Reported Reaction Additional Past Anesthesia/Blood Transfusion Reaction / Comment(s): no hx blood transfusion Past Psychological History: Anxiety Smoking Status: Former smoker Past Alcohol Use History: Occasional Past Drug Use History: None Reported - Past Family History Mother Family Medical History: No Reported History Additional Family Medical History / Comment(s): Mother is healthy Father Family Medical History: Coronary Artery Disease (CAD), Diabetes Mellitus, Hypertension, Myocardial Infarction (MO) Additional Family Medical History / Comment(s): MO in his 30s <Jimbo De Leon - Last Filed: 07/09/23 04:55> General Exam Limitations: no limitations General appearance: alert, in no apparent distress Neck exam: Present: normal inspection Respiratory exam: Present: normal lung sounds bilaterally Cardiovascular Exam: Present: regular rate, normal rhythm GI/Abdominal exam: Present: soft (Diffuse abdominal tenderness to palpation.) Neurological exam: Present: alert, oriented X3 Skin exam: Present: warm, dry <Jimbo De Leon - Last Filed: 07/09/23 04:55> Course Vital Signs 07/08/23 07/09/23 07/09/23 21:38 00:00 01:27 Temperature 97.9 F 98.1 F Pulse Rate 108 H 94 101 H Respiratory 18 18 16 Rate Blood Pressure 127/84 106/79 119/84 O2 Sat by Pulse 98 99 100 Oximetry Medical Decision Making - Lab Data Result diagrams: 07/09/23 00:06 07/09/23 00:06 <Jimbo De Leon - Last Filed: 07/09/23 04:55> - Lab Data Result diagrams: 07/09/23 00:06 07/09/23 00:06 <Bay Flores - Last Filed: 07/09/23 05:40> - Medical Decision Making Was pt. sent in by a medical professional or institution (, PA, MOLD BLOWER, urgent care, hospital, or longterm...) When possible be specific @ -[No] Did you speak to anyone other than the patient for history (EMS, parent, family, police, friend...)? What history was obtained from this source @ -[No] Did you review nursing and triage notes (agree or disagree)? Why? @ -[I reviewed and agree with nursing and triage notes] Were old charts reviewed (outside hosp., previous admission, EMS record, old EKG, old radiological studies, urgent care reports/EKG's, longterm records)? Report findings @ -[No old charts were reviewed] Differential Diagnosis (chest pain, altered mental status, abdominal pain women, abdominal pain men, vaginal bleeding, weakness, fever, dyspnea, syncope, headache, dizziness, GI bleed, back pain, seizure, CVA, palpatations, mental health, musculoskeletal)? @ -Differential Abdominal Pain Women: Appendicitis, Cholecystitis, diverticulosis, ischemic bowel, pancreatitis, hepatitis, UTI, gastroenteritis, AAA, incarcerated hernia, bowel obstruction, constipation, inflammatory bowel, hepatitis, peptic ulcer disease, splenic infarction, perforated viscus, vulvitis, ovarian torsion, PID, kidney stone, placenta abruption, this is not meant to be an all-inclusive list EKG interpreted by me (3pts min.). @ -None X-rays interpreted by me (1pt min.). @ -[None done] CT interpreted by me (1pt min.). @ -[None done] U/S interpreted by me (1pt. min.). @ -[None done] What testing was considered but not performed or refused? (CT, X-rays, U/S, labs)? Why? @ -[None] What meds were considered but not given or refused? Why? @ -[None] Did you discuss the management of the patient with other professionals (professionals i.e. , PA, M[employer] BLOWER, lab, RT, psych nurse, social science research assistant, director of public relations, teacher, information officer, case packer and sealer)? Give summary @ -[No] Was smoking cessation discussed for >3mins.? @ -[No] Was critical care preformed (if so, how long)? @ -[No] Were there social determinants of health that impacted care today? How? (Homelessness, low income, unemployed, alcoholism, drug addiction, transportation, low edu. Level, literacy, decrease access to med. care, [facility], rehab)? @ -[No] Was there de-escalation of care discussed even if they declined (Discuss DNR or withdrawal of care, Hospice)? DNR status @ -[No] What co-morbidities impacted this encounter? (DM, HTN, Smoking, COPD, CAD, Cancer, CVA, ARF, Chemo, Hep., AIDS, mental health diagnosis, sleep apnea, morbid obesity)? @ -[None] Was patient admitted / discharged? Hospital course, mention meds given and route, prescriptions, significant lab abnormalities, going to OR and other pertinent info. @ -[hospital course] Undiagnosed new problem with uncertain prognosis? @ -[No] Drug Therapy requiring intensive monitoring for toxicity (Heparin, Nitro, Insulin, Cardizem)? @ -[No] Were any procedures done? @ -[No] Diagnosis/symptom? @ -[default] Acute, or Chronic, or Acute on Chronic? @ -[default] Uncomplicated (without systemic symptoms) or Complicated (systemic symptoms)? @ -[default] Side effects of treatment? @ -[No] Exacerbation, Progression, or Severe Exacerbation? @ -[No] Poses a threat to life or bodily function? How? (Chest pain, [place], [place], pneumonia, PE, COPD, DKA, ARF, appy, cholecystitis, CVA, Diverticulitis, Homicidal, Suicidal, threat to staff... and all critical care pts) @ -[No] (Jimbo De Leon) Patient is sent out to me by physician parts room assistantJimbo. Briefly, patient is a 47-year-old female presents with worsening abdominal pain for the last several days. Vital signs upon arrival are within acceptable limits. Laboratory evaluation obtained. CBC metabolic panel urinalysis within acceptable limits except for some mild ketones in the urine. Plan is cyanosis to follow-up with pending computed tomography scan. Radiology interpretation was reviewed showing nonspecific findings. Questionable early volvulus versus as enteric edema with moderate pelvic free fluid. Patient evaluated at the bedside states that she still has abdominal pain given CT radiology interpretation along with continued abdominal pain patient's agreeable for admission with consultation to general surgery. (Bay Flores) - Lab Data Lab Results 07/09/23 07/09/23 07/09/23 Range/Units 00:06 00:06 00:06 WBC 6.9 (3.8-10.6) k/uL RBC 4.32 (3.80-5.40) m/uL Hgb 12.8 (11.4-16.0) gm/dL Hct 40.3 (34.0-46.0) % MCV 93.1 (80.0-100.0) fL MCH 29.6 (25.0-35.0) pg MCHC 31.8 (31.0-37.0) g/dL RDW 14.1 (11.5-15.5) % Plt Count 283 (150-450) k/uL MPV 8.2 Neutrophils % 60 % Lymphocytes % 32 % Monocytes % 4 % Eosinophils % 2 % Basophils % 0 % Neutrophils # 4.1 (1.3-7.7) k/uL Lymphocytes # 2.2 (1.0-4.8) k/uL Monocytes # 0.3 (0-1.0) k/uL Eosinophils # 0.2 (0-0.7) k/uL Basophils # 0.0 (0-0.2) k/uL Sodium 141 (137-145) mmol/L Potassium 4.7 (3.5-5.1) mmol/L Chloride 106 (98-107) mmol/L Carbon Dioxide 27 (22-30) mmol/L Anion Gap 8 mmol/L BUN 9 (7-17) mg/dL Creatinine 0.53 (0.52-1.04) mg/dL Est GFR (CKD-EPI)AfAm >90 (>60 ml/min/1.73 sqM) Est GFR (CKD-EPI)NonAf >90 (>60 ml/min/1.73 sqM) Glucose 90 (74-99) mg/dL Plasma Lactic Acid Erasto (0.7-2.0) mmol/L Calcium 9.3 (8.4-10.2) mg/dL Total Bilirubin 0.7 (0.2-1.3) mg/dL AST 53 H (14-36) U/L ALT 66 H (4-34) U/L Alkaline Phosphatase 103 (38-126) U/L Total Protein 6.1 L (6.3-8.2) g/dL Albumin 3.6 (3.5-5.0) g/dL Amylase 32 (30-110) U/L Lipase 55 (23-300) U/L Urine Color Yellow Urine Appearance Cloudy H (Clear) Urine pH 5.5 (5.0-8.0) Ur Specific [place] 1.024 (1.001-1.035) Urine Protein Trace H (Negative) Urine Glucose (UA) Negative (Negative) Urine Ketones 4+ H (Negative) Urine Blood Negative (Negative) Urine Nitrite Negative (Negative) Urine Bilirubin Negative (Negative) Urine Urobilinogen 3.0 (<2.0) mg/dL Ur Leukocyte Esterase Negative (Negative) Urine RBC 8 H (0-5) /hpf Urine WBC 5 (0-5) /hpf Ur Squamous Epith Cells 6 H (0-4) /hpf Calcium Oxalate Crystal Few H (None) /hpf Urine Bacteria Occasional H (None) /hpf Urine Mucus Many H (None) /hpf 07/09/23 Range/Units 00:06 WBC (3.8-10.6) k/uL RBC (3.80-5.40) m/uL Hgb (11.4-16.0) gm/dL Hct (34.0-46.0) % MCV (80.0-100.0) fL MCH (25.0-35.0) pg MCHC (31.0-37.0) g/dL RDW (11.5-15.5) % Plt Count (150-450) k/uL MPV Neutrophils % % Lymphocytes % % Monocytes % % Eosinophils % % Basophils % % Neutrophils # (1.3-7.7) k/uL Lymphocytes # (1.0-4.8) k/uL Monocytes # (0-1.0) k/uL Eosinophils # (0-0.7) k/uL Basophils # (0-0.2) k/uL Sodium (137-145) mmol/L Potassium (3.5-5.1) mmol/L Chloride (98-107) mmol/L Carbon Dioxide (22-30) mmol/L Anion Gap mmol/L BUN (7-17) mg/dL Creatinine (0.52-1.04) mg/dL Est GFR (CKD-EPI)AfAm (>60 ml/min/1.73 sqM) Est GFR (CKD-EPI)NonAf (>60 ml/min/1.73 sqM) Glucose (74-99) mg/dL Plasma Lactic Acid Erasto 1.9 (0.7-2.0) mmol/L Calcium (8.4-10.2) mg/dL Total Bilirubin (0.2-1.3) mg/dL AST (14-36) U/L ALT (4-34) U/L Alkaline Phosphatase (38-126) U/L Total Protein (6.3-8.2) g/dL Albumin (3.5-5.0) g/dL Amylase (30-110) U/L Lipase (23-300) U/L Urine Color Urine Appearance (Clear) Urine pH (5.0-8.0) Ur Specific [place] (1.001-1.035) Urine Protein (Negative) Urine Glucose (UA) (Negative) Urine Ketones (Negative) Urine Blood (Negative) Urine Nitrite (Negative) Urine Bilirubin (Negative) Urine Urobilinogen (<2.0) mg/dL Ur Leukocyte Esterase (Negative) Urine RBC (0-5) /hpf Urine WBC (0-5) /hpf Ur Squamous Epith Cells (0-4) /hpf Calcium Oxalate Crystal (None) /hpf Urine Bacteria (None) /hpf Urine Mucus (None) /hpf Disposition <Jimbo De Leon - Last Filed: 07/09/23 04:55> Decision Time: 05:40 <Bay Flores - Last Filed: 07/09/23 05:40> Clinical Impression: Abdominal pain Disposition: ADMITTED IP TO THIS HOSP Condition: Fair Referrals: Philip Jenkins MD [Primary Care Provider] - 1-2 days
--- NOTE | 2023-07-09 05:18 | CT ---
EXAM: CT Abdomen and Pelvis Without Intravenous Contrast CLINICAL HISTORY: ITS.REASON CT Reason: abdominal pain radiaing to back TECHNIQUE: Axial computed tomography images of the abdomen and pelvis without intravenous contrast. CTDI is 10.3 mGy and DLP is 506.2 mGy-cm. This CT exam was performed using one or more of the following dose reduction techniques: automated exposure control, adjustment of the mA and/or kV according to patient size, and/or use of iterative reconstruction technique. COMPARISON: CT of the abdomen/pelvis 01/21/2020. FINDINGS: Lung bases: Unremarkable. No mass. No consolidation. ABDOMEN: Liver: Unremarkable. Gallbladder and bile ducts: Status post cholecystectomy. No ductal dilation. Pancreas: Unremarkable. No ductal dilation. Spleen: The spleen is essentially unchanged in appearance and suboptimally evaluated without the use of IV contrast material. Adrenals: Unremarkable. No mass. 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 No obstructing stones. No hydronephrosis. Stomach and bowel: Status post gastric bypass. Although there is no definitive evidence of small bowel obstruction, mild twisting of the mesentery is noted raising concern for early volvulus. Mild mesenteric edema. No free air. Mild/moderate pelvic free fluid, which may be physiologic and/or reactive. Increased colonic stool burden. PELVIS: Appendix: No findings to suggest acute appendicitis. Bladder: Underdistention and/or wall thickening of the urinary bladder, which may represent cystitis. No stones. Reproductive: Status post hysterectomy. ABDOMEN and PELVIS: Intraperitoneal space: See above. Bones/joints: No acute fracture. No dislocation. Soft tissues: Moderate narrowing of the L5-S1 intervertebral disc space with associated bony productive changes, interval worsening. Vasculature: Unremarkable. No abdominal aortic aneurysm. Lymph nodes: Mildly prominent mesenteric lymph nodes, likely reactive. Shotty retroperitoneal lymph nodes, of unknown significance, low likely reactive. IMPRESSION: 1. Status post gastric bypass. 2. Although there is no definitive evidence of small bowel obstruction, mild twisting of the mesentery is noted raising concern for early volvulus. Mild mesenteric edema. No free air. Mild/moderate pelvic free fluid, which may be physiologic and/or reactive. Repeat CT of the abdomen/pelvis with oral and IV contrast recommended to further evaluate the bowel. 3. Status post cholecystectomy. 4. Increased colonic stool burden. 5. Status post hysterectomy. 6. Moderate narrowing of the L5-S1 intervertebral disc space with associated bony productive changes, interval worsening. MRI may be obtained for further evaluation, if clinically warranted. 7. Underdistention and/or wall thickening of the urinary bladder, which may represent cystitis.
[2023-07-09] MEDS ORDERED: NALOXONE 0.4 MG/ML 1 ML VIAL IV PRN (05:37)
[2023-07-09] MEDS ORDERED: SODIUM CHLORIDE 0.9% 1,000 ML IV SCH (05:45)
[2023-07-09 06:46] VITALS: RESP 18
[2023-07-09 08:19] VITALS: BP 126/84; PULSE 107
== END 2023-07-09 08:09 | disposition other institution (70) ==
LOC: EC 21:17 → 5NMEDONC 07-09 05:37 → UNDOADMIN 07-09 05:37 → EC 07-09 08:09
DX: R10.9 Unspecified abdominal pain (principal); E11.9 Type 2 diabetes mellitus without complications; F41.9 Anxiety disorder, unspecified; Z87.891 Personal history of nicotine dependence; Z88.8 Allergy status to other drugs, medicaments and biological substances; Z90.49 Acquired absence of other specified parts of digestive tract; Z79.84 Long term (current) use of oral hypoglycemic drugs; Z79.899 Other long term (current) drug therapy
CPT/HCPCS: 36415; 80053; 82150; 83605; 83690; 85025; 81001; 74176; 99285; 96374; 96376; 96361; J2270

== ENCOUNTER → 2023-09-07 | Outpatient (CLI) | payer MEDICAID, OTHER ==
--- NOTE | 2023-09-07 07:38 | MM ---
Reason for Exam: Clinical finding. Last mammogram was performed 1 year(s) and 2 month(s) ago. Indicated Problems: Lump or thickening of the left side for 1 Month(s). Patient History: Menarche at age 8. First Full-Term at age 15. Left ovary removed at age 44. Hysterectomy at age 44. Risk Values: Carey 5 year model risk: 0.7%. NCI Lifetime model risk: 7.3%. Prior Study Comparison: 08/05/2015 Bilateral Diagnostic Mammogram, [facility]. 12/17/2016 Bilateral Screening Mammogram, [facility]. 02/16/2018 Bilateral Screening Mammogram, [facility]. 07/07/2022 Bilateral MG screening mammo w CAD, [facility]. Tissue Density: The breast tissue is heterogeneously dense. This may lower the sensitivity of mammography. Findings: Analyzed By CAD. Pattern appears symmetrical and stable. At the marker of the palpable abnormality left upper outer quadrant there is focal asymmetry which appears similar to prior study. Ultrasound is recommended for additional evaluation. No suspicious groups of microcalcifications, spiculated or lobular masses, architectural distortion or other secondary signs of malignancy are mammographically apparent. Overall Assessment: Incomplete: need additional imaging evaluation, BI-RAD 0 Management: Diagnostic Breast Ultrasound of the left breast. A negative mammogram report should not preclude additional follow up of suspicious palpable abnormalities. Patient should continue monthly self breast exam. A clinical breast exam by your physician is recommended on an annual basis and results should be correlated with mammographic findings. Electronically signed and approved by: Vladimir Kirkpatrick D.O. Radiologis
--- NOTE | 2023-09-07 07:52 | USB ---
Patient History: Menarche at age 8. First Full-Term at age 15. Left ovary removed at age 44. Hysterectomy at age 44. Risk Values: Carey 5 year model risk: 0.7%. NCI Lifetime model risk: 7.3%. Prior Study Comparison: 12/17/2016 Bilateral Screening Mammogram, [facility]. 02/16/2018 Bilateral Screening Mammogram, [facility]. 07/07/2022 Bilateral MG screening mammo w CAD, [facility]. Findings: The area of palpable concern of the left breast, the axilla of the left breast and the retroareolar of the left breast were scanned. No suspicious mass identified. There is dense tissue which can be identified in this region is evident during scanning as a palpable region corresponding to the patient's reported palpable abnormality. Clinical management recommended. If additional evaluation would be of benefit, consider MRI. Incidental note is made of a duct near the left nipple. Left axillary lymph node is present without thickened cortex by measurement criteria.. Overall Assessment: Probably benign, BI-RAD 3 Management: Diagnostic Mammogram of the left breast in 6 months. Diagnostic Breast Ultrasound of the left breast in 6 months. A clinical breast exam by your physician is recommended on an annual basis and results should be correlated with mammographic findings. This exam should not preclude additional follow-up of suspicious palpable abnormalities. Results were given to the patient verbally at the time of exam. Electronically signed and approved by: Vladimir Kirkpatrick D.O. Radiologis
== END | disposition home or self-care (01) ==
LOC: RADMAMWWP 06:59
PROVIDERS: ATTEND Family Medicine
DX: N63.10 Unspecified lump in the right breast, unspecified quadrant (principal); N63.20 Unspecified lump in the left breast, unspecified quadrant; R92.333 Mammographic heterogeneous density, bilateral breasts
CPT/HCPCS: 77062; 77066

== ENCOUNTER → 2023-09-16 | Outpatient (CLI) | payer MEDICAID, OTHER ==
--- NOTE | 2023-09-23 10:24 | CT ---
EXAMINATION TYPE: CT facial bones wo con CT DLP: 686.5 mGycm, Automated exposure control for dose reduction was used. DATE OF EXAM: 09/16/2023 6:56 AM COMPARISON: . CLINICAL INDICATION:Female, 47 years old with history of D49.2 NEOPLASM UNSP BEHAV BONE SOFT TISSUE; PHH, left sided forehead lump TECHNIQUE: Multiple unenhanced axial CT images were obtained of the facial bones soft tissue and bone windows. Coronal, axial and sagittal reformatted images were also provided in soft tissue and bone windows and submitted for interpretation. Additional 3-D reformatted images were obtained on a [employer] workstation. Study is limited without contrast material. FINDINGS: Bones: Osseous mineralization appears appropriate. No evidence of lytic/blastic lesion, destructive o sseous process, or aggressive periostitis. There is preserved alignment of the TMJs. No evidence of m andibular fracture. Remainder of the facial bones appear intact and normally aligned. Visualized para nasal sinuses are clear. Mild nasal septal deviation to the right. Romelia bullosa on the left. The bi lateral OMCs appear patent. Orbits appear symmetric and unremarkable. Soft tissues: Globes are symmetric and intact. No intraorbital mass or hematoma. Underlying the BB sk in marker placed over the area of concern, at the left forehead anterolaterally there is a circumscri bed lenticular shaped fat attenuation mass extending along the outer table of the skull and apparentl y displaces the galea aponeurosis superficially. This is 3.2 cm diameter at its base and 0.8 cm in gr eatest thickness. No solid or cystic component is seen. IMPRESSION: Subgaleal lipoma over the left anterolateral forehead.
== END | disposition home or self-care (01) ==
LOC: RADCTMAIN 06:44
PROVIDERS: ATTEND Otolaryngology
DX: D49.2 Neoplasm of unspecified behavior of bone, soft tissue, and skin (principal)
CPT/HCPCS: 70486

== ENCOUNTER → 2023-09-30 | Outpatient (CLI) | payer MEDICAID, OTHER ==
[2023-09-30 15:35] LABS: Basophils # (A) 0.02 X 10*3/uL (0.00-0.10); Basophils % (A) 0.4 %; Eosinophils # (A) 0.15 X 10*3/uL (0.04-0.35); Eosinophils % (A) 2.9 %; HCT 40.6 % (37.2-46.3); HGB 12.9 g/dL (12.0-15.0); Lymphocytes # (A) 1.53 X 10*3/uL (0.90-5.00); MCH 29.6 pg (27.0-32.0); MCHC 31.8 g/dL (32.0-37.0); MCV 93.1 FL (80.0-97.0); Mean Platelet Volume 11.5 FL (9.5-12.2); Monocytes # (A) 0.31 X 10*3/uL (0.20-1.00); Monocytes % (A) 6.1 %; NRBC Per 100 WBC 0 X 10*3/uL (0.00-0.01); Neutrophils # (A) 3.08 X 10*3/uL (1.80-7.70); Neutrophils % (A) 60.4 %; Platelet Count 236 X 10*3/uL (140-440); RBC 4.36 X 10*6/uL (4.10-5.20); RDW 12.8 % (11.5-14.5)
[2023-09-30 16:31] LABS: ALT 51 U/L (8-44); AST 36 U/L (13-35); Alkaline Phosphatase 105 U/L (41-126); Blood Urea Nitrogen 11.4 mg/dL (9.0-27.0); Calcium 9.6 mg/dL (8.7-10.3); Carbon Dioxide 26.5 mmol/L (21.6-31.8); Chloride 108 mmol/L (96-109); Chol/HDL Ratio 1.78 Ratio; Glucose 89 mg/dL (70-110); LDL Cholesterol,Calculated 23.7 mg/dL (0.0-131.0); Potassium 4.8 mmol/L (3.5-5.5); Sodium 146 mmol/L (135-145); Total Bilirubin 0.4 mg/dL (0.3-1.2); VLDL Calculation 11.26 mg/dL (5.00-40.00)
== END | disposition home or self-care (01) ==
LOC: LABWHC1 08:09
PROVIDERS: ATTEND Family Medicine
DX: Z13.220 Encounter for screening for lipoid disorders (principal); I10 Essential (primary) hypertension; G43.009 Migraine without aura, not intractable, without status migrainosus; E03.9 Hypothyroidism, unspecified; E11.9 Type 2 diabetes mellitus without complications
CPT/HCPCS: 36415; 80053; 80061; 83036; 84443; 85025; 86803

== ENCOUNTER 2023-11-16 06:49 | Day surgery (SDC) | payer MEDICAID, OTHER ==
[2023-11-10 13:26] VITALS: BMI 24.3
[~2023-11-16 06:49] MED LIST changes: -LACTATED RINGERS 1,000 ML IV SCH; +LIDOCAINE 1% (10MG/ML) FOR IV START INTRADERMA PRN; +SCOPOLAMINE 1 MG/72 HR PATCH TRANSDERM ONE; +droPERidol 5 MG/2 ML VIAL IVP ONE
[2023-11-16] MEDS ORDERED: HYDROmorphone 0.5 MG/0.5 ML SYRINGE IVP PRN (07:00)
[2023-11-16 07:23] LABS: Glucose,Whole Blood 91 mg/dL (70-110)
[2023-11-16] MEDS: LACTATED RINGERS 1,000 ML IV SCH (07:26)
[2023-11-16] MEDS: ONDANSETRON 4 MG/2 ML VIAL IVP ONE (07:33)
[2023-11-16] MEDS: DEXAMETHASONE SOD PHOSPHATE 4 MG/ML 1 ML VIAL IV ONE (07:33)
[2023-11-16] MEDS: FAMOTIDINE 20 MG/2 ML VIAL IV PRN (07:40)
[2023-11-16] MEDS ORDERED: PROPOFOL 10 MG/ML 20 ML VIAL IV ONE (08:01)
[2023-11-16] MEDS: LIDOCAINE 1%-EPI 1:100,000 20 ML VIAL SQ ONE ×4 (08:01→08:14)
[2023-11-16] MEDS ORDERED: PHENYLEPHRINE-0.9% NACL SYG 1,000 MCG/10 ML SYRINGE ONE (08:01)
[2023-11-16] MEDS ORDERED: fentaNYL (PF) 50 MCG/ML 2 ML AMP ONE (08:01)
[2023-11-16] MEDS ORDERED: MIDAZOLAM 2 MG/2 ML VIAL ONE (08:01)
[2023-11-16] MEDS ORDERED: SUCCINYLCHOLINE CHLORIDE 200 MG/10 ML VIAL IV ONE (08:01)
[2023-11-16] MEDS ORDERED: LIDOCAINE 1% INJ 10MG/ML (20 ML MDV) ONE (08:01)
[2023-11-16] MEDS: BACITRACIN ZINC 500 UNIT/GM OINT 28.4 GM TUBE TOPICAL ONE (08:37)
--- NOTE | 2023-11-16 08:49 | P.OP ---
Date of Procedure: 11/16/23 Preoperative Diagnosis: Left forehead lipoma Postoperative Diagnosis: Same Procedure(s) Performed: Excision left forehead lipoma 2.5 cm with complex closure Anesthesia: BHARATI Surgeon: Chad Doan Estimated Blood Loss (ml): 3 Pathology: other (Left forehead lipoma) Condition: stable Disposition: PACU Indications for Procedure: This is a 48-year-old white female with a long-standing left forehead subcutaneous nodule. This is consistent with lipoma grossly as well as on CT which showed a subgaleal lipoma Operative Findings: Approximately 2.5 cm lipoma left forehead deep to the muscular layer Description of Procedure: Patient was brought in the operative suite and placed in a supine position. Patient underwent induction of general anesthesia with oral endotracheal intubation without difficulty. Patient prepped and draped in usual aseptic fashion. 1% lidocaine with [id number] epinephrine was infused subcutaneously in field block fashion. This was left to work for 7 minutes vasoconstrictive effect. An incision was then fashioned over the midportion of the lesion in the direction of the relaxed skin tension lines down to the muscular and through the muscular layer to the lipoma itself. This was then dissected from the surrounding tissue down to the periosteum. The periosteum was left intact. This was excised grossly entirely. Excellent hemostasis was noted. The wound was then closed in complex fashion as there did require undermining and debridement of excess skin as there was excess skin based on the fact that there had been expansion of the overlying skin with the lipoma. The wound was then closed in the muscular layer with inverted interrupted 5-0 Vicryl suture. Subcutaneous layers were closed with inverted interrupted 5-0 Vicryl suture and skin closed with running locking 5-0 Prolene suture. Bacitracin ointment and sterile light compression dressing was placed. The patient was then allowed to emerge from general anesthesia having tolerated procedure well was extubated the operating suite and transferred to postop recovery area in satisfactory condition.
[2023-11-16 08:58] LABS: Glucose,Whole Blood 99 mg/dL (70-110)
[2023-11-16 09:24] VITALS: RESP 16; TEMP 97.1
[2023-11-16 10:00] VITALS: BP 116/71; PULSE 74
== END 2023-11-16 09:56 | disposition home or self-care (01) ==
LOC: OR 06:49
PROVIDERS: ATTEND Otolaryngology
DX: D17.22 Benign lipomatous neoplasm of skin and subcutaneous tissue of left arm (principal); E11.9 Type 2 diabetes mellitus without complications; E07.9 Disorder of thyroid, unspecified; G25.81 Restless legs syndrome; F41.9 Anxiety disorder, unspecified; K21.9 Gastro-esophageal reflux disease without esophagitis; Z87.891 Personal history of nicotine dependence; Z79.890 Hormone replacement therapy; Z79.899 Other long term (current) drug therapy; Z88.8 Allergy status to other drugs, medicaments and biological substances
CPT/HCPCS: 88304; 21014; J2250; J0330; J1100; J0690; J2405; J2001; J3010; J3490; J2704; J2371

== ENCOUNTER → 2024-01-04 | Outpatient (CLI) | payer OTHER ==
[2024-01-04 15:54] LABS: Basophils # (A) 0.03 X 10*3/uL (0.00-0.10); Basophils % (A) 0.4 %; Eosinophils # (A) 0.09 X 10*3/uL (0.04-0.35); Eosinophils % (A) 1.3 %; HCT 51.6 % (37.2-46.3); HGB 16.4 g/dL (12.0-15.0); Lymphocytes # (A) 2.01 X 10*3/uL (0.90-5.00); Lymphocytes % (A) 28.4 %; MCH 30.5 pg (27.0-32.0); MCHC 31.8 g/dL (32.0-37.0); MCV 95.9 FL (80.0-97.0); Mean Platelet Volume 11.6 FL (9.5-12.2); Monocytes # (A) 0.35 X 10*3/uL (0.20-1.00); Monocytes % (A) 4.9 %; NRBC Per 100 WBC 0 X 10*3/uL (0.00-0.01); Neutrophils # (A) 4.58 X 10*3/uL (1.80-7.70); Neutrophils % (A) 64.7 %; Platelet Count 209 X 10*3/uL (140-440); RBC 5.38 X 10*6/uL (4.10-5.20); RDW 14.4 % (11.5-14.5); WBC 7.08 X 10*3/uL (4.50-10.00)
== END | disposition home or self-care (01) ==
LOC: LABWHC1 11:39
PROVIDERS: ATTEND Family Medicine
DX: Z51.81 Encounter for therapeutic drug level monitoring (principal); Z79.899 Other long term (current) drug therapy
CPT/HCPCS: 36415; 85025

== ENCOUNTER 2024-01-21 04:49 | Emergency (ER) | payer OTHER ==
[2024-01-21 05:30] VITALS: RESP 18
--- NOTE | 2024-01-21 05:32 | ED ---
General Adult HPI - General Source: patient Mode of arrival: ambulatory Limitations: no limitations <Bay Flores - Last Filed: 01/21/24 06:43> <lVadislav Chowdhury - Last Filed: 01/21/24 08:46> - General Chief complaint: Abdominal Pain Stated complaint: ABD pain Time Seen by Provider: 01/21/24 05:03 - History of Present Illness Initial comments: Dictation was produced using [employer] dictation software. please excuse any grammatical, word or spelling errors. Chief Complaint: 48-year-old female with extensive abdominal history presents to the ER for abdominal pain History of Present Illness: Patient is a 48-year-old female she underwent bariatric surgery at [facility] 9 months ago. Patient also has history of c holecystectomy, hiatal hernia surgery. States that for the last 24 hours she has had abdominal pain. Patient states that she is having nausea. She is however having normal bowel movements. Denies any fever, chills or night sweats. She states that her abdomen hurts whenever she presses. Patient has no history of marginal ulcer since bariatric surgery. The ROS documented in this emergency department record has been reviewed and confirmed by me. Those systems with pertinent positive or negative responses have been documented in the HPI. All other systems are other negative and/or noncontributory. (Bay Flores) - Related Data Home Medications Medication Instructions Recorded Confirmed traMADol HCL 50 mg PO BID PRN 10/02/15 11/16/23 ALPRAZolam [Xanax] 0.25 mg PO Q8H PRN 01/02/19 11/16/23 Cyclobenzaprine [Flexeril] 10 mg PO HS PRN 01/02/19 11/16/23 Atogepant [Qulipta] 60 mg PO DAILY 09/27/22 11/16/23 Previous Rx's Medication Instructions Recorded Levothyroxine Sodium [Euthyrox] 125 mcg PO DAILY #60 tablet 11/12/20 Ondansetron Odt [Zofran Odt] 4 mg PO Q8HR PRN #10 tab 01/16/23 Allergies Allergy/AdvReac Type Severity Reaction Status Date / Time gentamicin [Gentamicin] Allergy Severe Anaphylaxis Verified 01/21/24 04:59 Review of Systems ROS Other: All systems not noted in ROS Statement are negative. <Bay Flores - Last Filed: 01/21/24 06:43> ROS Other: All systems not noted in ROS Statement are negative. <Vladislav Chowdhury - Last Filed: 01/21/24 08:46> ROS Statement: Those systems with pertinent positive or pertinent negative responses have been documented in the HPI. Past Medical History Past Medical History: Diabetes Mellitus, GERD/Reflux, Thyroid Disorder Additional Past Medical History / Comment(s): NIDDM type II, past hypokalemia, numbness in bilateral hands pt associates with hypokalemia, past head injury/L optic nerve clot, migraines, RLS, hypothyroid, covid in 10/2021. GASTROPARESIS History of Any Multi-Drug Resistant Organisms: None Reported Past Surgical History: Bariatric Surgery, Section, Cholecystectomy, Hysterectomy, Tubal Ligation, Uterine Ablation Additional Past Surgical History / Comment(s): Gastric sleeve-2013, hiatal hernia repair, x3, EGD, DESIREE EN Y 04/28/2023, COLONOSOCPY Past Anesthesia/Blood Transfusion Reactions: No Reported Reaction Additional Past Anesthesia/Blood Transfusion Reaction / Comment(s): no hx blood transfusion Past Psychological History: Anxiety Smoking Status: Former smoker Past Alcohol Use History: None Reported Past Drug Use History: None Reported - Past Family History Mother Family Medical History: No Reported History Additional Family Medical History / Comment(s): Mother is healthy Father Family Medical History: Coronary Artery Disease (CAD), Diabetes Mellitus, Hypertension, Myocardial Infarction ([place]) Additional Family Medical History / Comment(s): [place] in his 30s <Bay Flores - Last Filed: 01/21/24 06:43> General Exam Limitations: no limitations <Bay Flores - Last Filed: 01/21/24 06:43> - General Exam Comments Initial Comments: PHYSICAL EXAM: General Impression: Alert and oriented x3, not in acute distress HEENT: Normocephalic atraumatic, extra-ocular movements intact, pupils equal and reactive to light bilaterally, mucous membranes moist. Cardiovascular: Heart regular rate and rhythm Chest: Able to complete full sentences, no retractions, no tachypnea Abdomen: abdomen soft, palpatory tenderness to the epigastrium, non-distended, no organomegaly Musculoskeletal: Pulses present and equal in all extremities, no peripheral selina ma Motor: no focal deficits noted Neurological: CN II-XII grossly intact, no focal motor or sensory deficits noted Skin: Intact with no visualized rashes Psych: Normal affect and mood (Bay Flores) Course Vital Signs 01/21/24 01/21/24 01/21/24 04:59 06:01 08:04 Temperature 98.1 F Pulse Rate 89 69 70 Respiratory 18 Rate Blood Pressure 109/76 111/62 121/74 O2 Sat by Pulse 98 99 99 Oximetry Medical Decision Making - Lab Data Result diagrams: 01/21/24 05:20 01/21/24 05:20 <Bay Flores - Last Filed: 01/21/24 06:43> - Lab Data Result diagrams: 01/21/24 05:20 01/21/24 05:20 <Vladislav Chowdhury - Last Filed: 01/21/24 08:46> - Medical Decision Making Was pt. sent in by a medical professional or institution (Dr. PA, DIRECTOR OF GUIDANCE, urgent care, hospital, or assisted...) When possible be specific @ -No Did you speak to anyone other than the patient for history (EMS, parent, family, police, friend...)? What history was obtained from this source @ -No Did you review nursing and triage notes (agree or disagree)? Why? @ -I reviewed and agree with nursing and triage notes Were old charts reviewed (outside hosp., previous admission, EMS record, old EKG, old radiological studies, urgent care reports/EKG's, assisted records)? Report findings @ -No old charts were reviewed Differential Diagnosis (chest pain, altered mental status, abdominal pain women, abdominal pain men, vaginal bleeding, musculoskeletal, weakness, fever, dyspnea, syncope, headache, dizziness, GI bleed, back pain, seizure, CVA, palpatations, mental health)? @ -Differential Abdominal Pain Women: Appendicitis, Cholecystitis, diverticulosis, ischemic bowel, pancreatitis, hepatitis, UTI, gastroenteritis, AAA, incarcerated hernia, bowel obstruction, constipation, inflammatory bowel, hepatitis, peptic ulcer disease, splenic i nfarction, perforated viscus, vulvitis, ovarian torsion, PID, kidney stone, placenta abruption, this is not meant to be an all-inclusive list EKG interpreted by me (3pts min.). @ -None done X-rays interpreted by me (1pt min.). @ -None done CT interpreted by me (1pt min.). @ -Pending U/S interpreted by me (1pt. min.). @ -None done What testing was considered but not performed or refused? (CT, X-rays, U/S, labs)? Why? @ -None What meds were considered but not given or refused? Why? @ -None Did you discuss the management of the patient with other professionals (professionals i.e. DrNaun, PA, DIRECTOR OF GUIDANCE, lab, RT, psych nurse, certified social workers in health care, alarm signal operator, teacher, chief diversity officer, housing case manager)? Give summary @ -No Was smoking cessation discussed for >3mins.? @ -No Was critical care preformed (if so, how long)? @ -No Were there social determinants of health that impacted care today? How? (Homelessness, low income, unemployed, alcoholism, drug addiction, transportation, low edu. Level, literacy, decrease access to med. care, group home, rehab)? @ -No Was there de-escalation of care discussed even if they declined (Discuss DNR or withdrawal of care, Hospice)? DNR status @ -No What co-morbidities impacted this encounter? (DM, HTN, Smoking, COPD, CAD, Cancer, CVA, ARF, Chemo, Hep., AIDS, mental health diagnosis, sleep apnea, morbid obesity)? @ -None Was patient admitted / discharged? Hospital course, mention meds given and route, prescriptions, significant lab abnormalities, going to OR and other pertinent info. @ -48-year-old female with extensive abdominal surgical history presents to the ER for abdominal pain. Vital signs upon arrival are within acceptable limits. Patient has palpatory tenderness to the epigastrium. Laboratory evaluation obtained. CBC metabolic panel is unremarkable. Patient given Protonix. Patient did not give obvious symptoms of pain with oral intake. Patient care signed out to Dr. Chowdhury at 7:00 AM Undiagnosed new problem with uncertain prognosis? @ -No Drug Therapy requiring intensive monitoring for toxicity (Heparin, Nitro, Insulin, Cardizem)? @ -No Were any procedures done? @ -No Diagnosis/symptom? Acute, or Chronic, or Acute on Chronic? Uncomplicated (without systemic symptoms) or Complicated (systemic symptoms)? @ -Abdominal pain Side effects of treatment? @ -No Exacerbation, Progression, or Severe Exacerbation? @ -No Poses a threat to life or bodily function? How? (Chest pain, [place], [place], pneumonia, PE, COPD, DKA, ARF, appy, cholecystitis, CVA, Diverticulitis, Homicidal, Suicidal, threat to staff... and all critical care pts) @ -yes (Bay Flores) CT scan of abdomen pelvis interpreted by myself reveals no acute abnormality. Postoperative changes. Increase stool burden. Patient reevaluated and still has some symptoms. Abdomen soft with mild epigastric tenderness. Patient provided medications. Patient again reevaluated and feeling much better. Patient sitting upright in bed tolerating ice chips. Patient is updated on results and plan and need for follow-up. Patient is comfortable with discharge home. (Vladislav Chowdhury) - Lab Data Lab Results 01/21/24 01/21/24 Range/Units 05:20 05:20 WBC 6.3 (3.8-10.6) k/uL RBC 4.73 (3.80-5.40) m/uL Hgb 14.4 (11.4-16.0) gm/dL Hct 44.3 (34.0-46.0) % MCV 93.7 (80.0-100.0) fL MCH 30.4 (25.0-35.0) pg MCHC 32.5 (31.0-37.0) g/dL RDW 13.9 (11.5-15.5) % Plt Count 273 (150-450) k/uL MPV 8.5 Neutrophils % 69 % Lymphocytes % 24 % Monocytes % 5 % Eosinophils % 1 % Basophils % 0 % Neutrophils # 4.4 (1.3-7.7) k/uL Lymphocytes # 1.5 (1.0-4.8) k/uL Monocytes # 0.3 (0-1.0) k/uL Eosinophils # 0.1 (0-0.7) k/uL Basophils # 0.0 (0-0.2) k/uL Sodium 139 (137-145) mmol/L Potassium 4.3 (3.5-5.1) mmol/L Chloride 107 (98-107) mmol/L Carbon Dioxide 22 (22-30) mmol/L Anion Gap 10 mmol/L BUN 12 (7-17) mg/dL Creatinine 0.59 (0.52-1.04) mg/dL Est GFR (CKD-EPI)AfAm >90 (>60 ml/min/1.73 sqM) Est GFR (CKD-EPI)NonAf >90 (>60 ml/min/1.73 sqM) Glucose 77 (74-99) mg/dL Calcium 9.3 (8.4-10.2) mg/dL Total Bilirubin 1.0 (0.2-1.3) mg/dL AST 30 (14-36) U/L ALT 29 (4-34) U/L Alkaline Phosphatase 121 (38-126) U/L Total Protein 6.8 (6.3-8.2) g/dL Albumin 4.2 (3.5-5.0) g/dL Lipase 76 (23-300) U/L Disposition <Bay Flores - Last Filed: 01/21/24 06:43> Is patient prescribed a controlled substance at d/c from ED?: No Time of Disposition: 08:35 <Vladislav Chowdhury - Last Filed: 01/21/24 08:46> Clinical Impression: Abdominal pain Disposition: HOME SELF-CARE Condition: Stable Instructions (If sedation given, give patient instructions): Abdominal Pain (ED) Additional Instructions: Please do follow-up with your primary care physician as well as your surgeon beginning of the week. Return for fever, increased pain, vomiting, not tolerating oral intake, worsening symptoms or any other concerns. Referrals: Philip Jenkins MD [Primary Care Provider] - 1-2 days
[2024-01-21 05:37] LABS: Basophils % (A) 0 %; Eosinophils # (A) 0.1 k/uL (0-0.7); Eosinophils % (A) 1 %; HCT 44.3 % (34.0-46.0); HGB 14.4 gm/dL (11.4-16.0); Lymphocytes # (A) 1.5 k/uL (1.0-4.8); Lymphocytes % (A) 24 %; MCH 30.4 pg (25.0-35.0); MCHC 32.5 g/dL (31.0-37.0); MCV 93.7 fL (80.0-100.0); Mean Platelet Volume 8.5; Monocytes # (A) 0.3 k/uL (0-1.0); Monocytes % (A) 5 %; Neutrophils # (A) 4.4 k/uL (1.3-7.7); Neutrophils % (A) 69 %; Platelet Count 273 k/uL (150-450); RBC 4.73 m/uL (3.80-5.40); RDW 13.9 % (11.5-15.5); WBC 6.3 k/uL (3.8-10.6)
[2024-01-21 05:50] LABS: ALT 29 U/L (4-34); AST 30 U/L (14-36); African American GFR (CKD) >90 (>60 ml/min/1.73 sqM); Albumin 4.2 g/dL (3.5-5.0); Alkaline Phosphatase 121 U/L (38-126); Anion Gap 10 mmol/L; Blood Urea Nitrogen 12 mg/dL (7-17); Calcium 9.3 mg/dL (8.4-10.2); Carbon Dioxide 22 mmol/L (22-30); Chloride 107 mmol/L (98-107); Glucose 77 mg/dL (74-99); Lipase 76 U/L (23-300); Non-African American GFR(CKD) >90 (>60 ml/min/1.73 sqM); Potassium 4.3 mmol/L (3.5-5.1); Sodium 139 mmol/L (137-145); Total Protein 6.8 g/dL (6.3-8.2)
[2024-01-21] MEDS: MAG HYDROX/AL HYDROX/SIMETH 30 ML, HYOSCYAMINE ELIXIR 10 ML, LIDOCAINE VISCOUS 2% 10 ML PO STA (06:56)
[2024-01-21] MEDS: PANTOPRAZOLE 40 MG/10 ML VIAL IVP STA (06:58)
--- NOTE | 2024-01-21 07:09 | CT ---
EXAMINATION TYPE: CT abdomen pelvis w con DATE OF EXAM: 01/21/2024 HISTORY: Epigastric Abdominal pain x1 day. Hx of gastric bypass CT DLP: 569mGycm Automated Exposure Control for Dose Reduction was Utilized. CONTRAST: CT scan of the abdomen and pelvis is performed with IV Contrast, patient injected with 100ml mL of Is ovue 300. COMPARISON: Prior CT July 09, 2023 FINDINGS: LUNG BASES: No significant abnormality is appreciated. LIVER/GB: Cholecystectomy clips are redemonstrated. PANCREAS: No significant abnormality is seen. SPLEEN: Several round hypodense lesions throughout the spleen are redemonstrated favored benign. ADRENALS: No significant abnormality is seen. KIDNEYS: No significant abnormality is seen. BOWEL: Suboptimal evaluation bowel without enteric contrast. Surgical changes from gastric bypass pro cedure in the epigastric region are redemonstrated. No abnormal small or large bowel dilatation. Mild to moderate diffuse colonic fecal prominence. UTERUS/ADNEXA: Uterus is surgically absent or markedly atrophic similar to prior. LYMPH NODES: No greater than 1cm abdominal or pelvic lymph nodes are appreciated. OSSEOUS STRUCTURES: Moderate disc space narrowing at the lumbosacral junction redemonstrated. OTHER: No significant additional abnormality is seen. IMPRESSION: Gastric bypass surgical changes redemonstrated. No bowel obstruction. [id number] di ffuse colonic fecal stasis or constipation otherwise no suspicious acute findings seen to account for patient's symptoms.
[2024-01-21] MEDS: HYDROmorphone 1 MG/ML 1 ML SYRINGE IVP STA (07:42)
[2024-01-21] MEDS: ONDANSETRON 4 MG/2 ML VIAL IVP STA (07:42)
[2024-01-21] MEDS: FAMOTIDINE 20 MG/2 ML VIAL IV STA (07:42)
[2024-01-21 09:34] VITALS: BP 116/80; PULSE 89; TEMP 98.9
== END 2024-01-21 08:53 | disposition home or self-care (01) ==
LOC: EC 04:49
DX: R10.9 Unspecified abdominal pain (principal); Z87.891 Personal history of nicotine dependence; Z86.16 Personal history of COVID-19; Z90.49 Acquired absence of other specified parts of digestive tract
CPT/HCPCS: 36415; 80053; 83690; 85025; 74177; 99284; 96374; 96375 ×3; J2405; J3490; J1170; C9113; Q9967

== ENCOUNTER 2024-01-25 10:08 | Emergency (ER) | payer OTHER ==
[2024-01-25 10:40] VITALS: RESP 18; TEMP 97.5
--- NOTE | 2024-01-25 10:43 | ED ---
Abdominal Pain HPI - General Chief Complaint: Abdominal Pain Stated Complaint: Abd Pain Time Seen by Provider: 01/25/24 10:35 Source: patient, RN notes reviewed Mode of arrival: ambulatory Limitations: no limitations - History of Present Illness Initial Comments: This is a 48-year-old female with an extensive past abdominal surgical history who presents emergency department with chief complaint of right lower quadrant abdominal and flank pain over the past few hours. Patient was seen in the emergency department on 01/19 with epigastric abdominal pain, her pain was controlled in the emergency department and was discharged home with scheduled follow-up appointment with her surgeon for treatment 6. Patient states that her pain subsided over the weekend and experiencing right side abdominal pain that started this morning. States that she had a formed bowel movement yesterday. Enodrses nausea no vomiting, and has zofran as needed at home. Denies fevers, hematemesis, hematochezia, chest pain or pressure, dizziness, lightheadedness. - Related Data Home Medications Medication Instructions Recorded Confirmed traMADol HCL 50 mg PO BID PRN 10/02/15 11/16/23 ALPRAZolam [Xanax] 0.25 mg PO Q8H PRN 01/02/19 11/16/23 Cyclobenzaprine [Flexeril] 10 mg PO HS PRN 01/02/19 11/16/23 Atogepant [Qulipta] 60 mg PO DAILY 09/27/22 11/16/23 Previous Rx's Medication Instructions Recorded Levothyroxine Sodium [Euthyrox] 125 mcg PO DAILY #60 tablet 11/12/20 Ondansetron Odt [Zofran Odt] 4 mg PO Q8HR PRN #10 tab 01/16/23 HYDROcodone/APAP 10-325MG [Anthony 1 tab PO Q6HR PRN 3 Days #12 tab 01/25/24 10-325] Tamsulosin [Flomax] 0.4 mg PO DAILY #7 cap 01/25/24 Allergies Allergy/AdvReac Type Severity Reaction Status Date / Time gentamicin [Gentamicin] Allergy Severe Anaphylaxis Verified 01/25/24 10:15 Review of Systems ROS Statement: Those systems with pertinent positive or pertinent negative responses have been documented in the HPI. ROS Other: All systems not noted in ROS Statement are negative. Past Medical History Past Medical History: Diabetes Mellitus, GERD/Reflux, Thyroid Disorder Additional Past Medical History / Comment(s): NIDDM type II, past hypokalemia, numbness in bilateral hands pt associates with hypokalemia, past head injury/L optic nerve clot, migraines, RLS, hypothyroid, covid in 10/2021. GASTROPARESIS History of Any Multi-Drug Resistant Organisms: None Reported Past Surgical History: Bariatric Surgery, Section, Cholecystectomy, Hysterectomy, Tubal Ligation, Uterine Ablation Additional Past Surgical History / Comment(s): Gastric sleeve-2013, hiatal hernia repair, x3, EGD, DESIREE EN Y 04/28/2023, COLONOSOCPY Past Anesthesia/Blood Transfusion Reactions: No Reported Reaction Additional Past Anesthesia/Blood Transfusion Reaction / Comment(s): no hx blood transfusion Past Psychological History: Anxiety Smoking Status: Never smoker Past Alcohol Use History: Occasional Past Drug Use History: None Reported - Past Family History Mother Family Medical History: No Reported History Additional Family Medical History / Comment(s): Mother is healthy Father Family Medical History: Coronary Artery Disease (CAD), Diabetes Mellitus, Hypertension, Myocardial Infarction (MD) Additional Family Medical History / Comment(s): MD in his 30s General Exam Limitations: no limitations General appearance: alert, other (mild distress due to pain) Head exam: Present: atraumatic, normocephalic, normal inspection Eye exam: Present: normal appearance, PERRL, EOMI. Absent: scleral icterus, conjunctival injection, periorbital swelling ENT exam: Present: normal exam, mucous membranes moist Neck exam: Present: normal inspection. Absent: tenderness, meningismus, lymphadenopathy Respiratory exam: Present: normal lung sounds bilaterally. Absent: respiratory distress, wheezes, rales, rhonchi, stridor Cardiovascular Exam: Present: regular rate, normal rhythm, normal heart sounds. Absent: systolic murmur, diastolic murmur, rubs, gallop, clicks GI/Abdominal exam: Present: soft, tenderness (Rid mid and lower quadrant), normal bowel sounds. Absent: guarding Extremities exam: Present: normal inspection, full ROM, normal capillary refill. Absent: tenderness, pedal edema, joint swelling, calf tenderness Back exam: Present: normal inspection, tenderness (right), CVA tenderness (R) Neurological exam: Present: alert, oriented X3, CN II-XII intact Psychiatric exam: Present: normal affect, normal mood Skin exam: Present: warm, dry, intact, normal color. Absent: rash Course Vital Signs 01/25/24 01/25/24 10:11 16:36 Temperature 97.5 F L Pulse Rate 69 78 Respiratory 18 18 Rate Blood Pressure 150/90 140/76 O2 Sat by Pulse 100 98 Oximetry Medical Decision Making - Medical Decision Making Was pt. sent in by a medical professional or institution (, PA, CORPORATE BOND TRADER, urgent care, hospital, or skilled nursing...) When possible be specific @ -No Did you speak to anyone other than the patient for history (EMS, parent, family, police, friend...)? What history was obtained from this source @ -No Did you review nursing and triage notes (agree or disagree)? Why? @ -I reviewed and agree with nursing and triage notes Were old charts reviewed (outside hosp., previous admission, EMS record, old EKG, old radiological studies, urgent care reports/EKG's, skilled nursing records)? Report findings @ -No old charts were reviewed Differential Diagnosis (chest pain, altered mental status, abdominal pain women, abdominal pain men, vaginal bleeding, weakness, fever, dyspnea, syncope, headache, dizziness, GI bleed, back pain, seizure, CVA, palpatations, mental health, musculoskeletal)? @ -Differential Abdominal Pain Women: Appendicitis, Cholecystitis, diverticulosis, ischemic bowel, pancreatitis, hepatitis, UTI, gastroenteritis, AAA, incarcerated hernia, bowel obstruction, constipation, inflammatory bowel, hepatitis, peptic ulcer disease, splenic infarction, perforated viscus, vulvitis, ovarian torsion, PID, kidney stone, placenta abruption, this is not meant to be an all-inclusive list EKG interpreted by me (3pts min.). @ -None X-rays interpreted by me (1pt min.). @ -None done CT interpreted by me (1pt min.). @ -CT of the abdomen pelvis with contrast reveals mild right hydronephrosis secondary to tiny calculus at the ureterovesicular junction which is a new finding compared to CT from 01/20. U/S interpreted by me (1pt. min.). @ -None done What testing was considered but not performed or refused? (CT, X-rays, U/S, labs)? Why? @ -None What meds were considered but not given or refused? Why? @ -None Did you discuss the management of the patient with other professionals (professionals i.e. , PA, CORPORATE BOND TRADER, lab, RT, psych nurse, social welfare administrator, attorney lawyer, teacher, control officer manager, manager case)? Give summary @ -No Was smoking cessation discussed for >3mins.? @ -No Was critical care preformed (if so, how long)? @ -No Were there social determinants of health that impacted care today? How? (Homelessness, low income, unemployed, alcoholism, drug addiction, transportation, low edu. Level, literacy, decrease access to med. care, prison, rehab)? @ -No Was there de-escalation of care discussed even if they declined (Discuss DNR or withdrawal of care, Hospice)? DNR status @ -No What co-morbidities impacted this encounter? (DM, HTN, Smoking, COPD, CAD, Cancer, CVA, ARF, Chemo, Hep., AIDS, mental health diagnosis, sleep apnea, morbid obesity)? @ -None Was patient admitted / discharged? Hospital course, mention meds given and route, prescriptions, significant lab abnormalities, going to OR and other pe rtinent info. @ -48-year-old female with right sided abdominal pain on examination patient noted to have rated 8 out of 10 in severity right lower quadrant abdominal pain that radiates into her back. Patient will be empirically treated with pain medication and labs will be drawn in addition to urinalysis and CT imaging. sharded decision making with the patient for CT will be reordered due to pain being more severe and a different location from 01/20. Patient is in agreement with this. CBC and coagulation profile unremarkable. Elevated lactic acid at 3.1. Additionally urinalysis reveals elevated red blood cells, large blood, 2+ ketones and trace protein. Started on a liter fluid bolus due to elevated lactic, states that pain has subsided with pain medication and is requesting further after additional time. Patient CMP reveals a transaminitis elevated AST ALT and alk phos in addition to an elevated lipase of 427. Patient was given additional pain medication where she states that her pain is better controlled. She will be discharged home with pain medication and Flomax just to facilitate passage of kidney stone. All questions answered at bedside. Patient is stable for discharge. Strict return parameters discussed with the patient. Case discussed with Dr. Mancia Undiagnosed new problem with uncertain prognosis? @ -No Drug Therapy requiring intensive monitoring for toxicity (Heparin, Nitro, Insulin, Cardizem)? @ -No Were any procedures done? @ -No Diagnosis/symptom? @ -Nephrolithiasis, right-sided flank pain Acute, or Chronic, or Acute on Chronic? @Acute Uncomplicated (without systemic symptoms) or Complicated (systemic symptoms)? @ -uncomplicated Side effects of treatment? @ -No Exacerbation, Progression, or Severe Exacerbation? @ -No Poses a threat to life or bodily function? How? (Chest pain, USA, MD, pneumonia, PE, COPD, DKA, ARF, appy, cholecystitis, CVA, Diverticulitis, Homicidal, Suicidal, threat to staff... and all critical care pts) @ -No - Lab Data Result diagrams: 01/25/24 11:20 01/25/24 14:20 Lab Results 01/25/24 01/25/24 01/25/24 Range/Units 11:20 11:20 11:20 WBC 6.6 (3.8-10.6) k/uL RBC 4.80 (3.80-5.40) m/uL Hgb 14.7 (11.4-16.0) gm/dL Hct 44.9 (34.0-46.0) % MCV 93.7 (80.0-100.0) fL MCH 30.7 (25.0-35.0) pg MCHC 32.7 (31.0-37.0) g/dL RDW 13.7 (11.5-15.5) % Plt Count 252 (150-450) k/uL MPV 8.4 Neutrophils % 76 % Lymphocytes % 19 % Monocytes % 2 % Eosinophils % 1 % Basophils % 1 % Neutrophils # 5.0 (1.3-7.7) k/uL Lymphocytes # 1.3 (1.0-4.8) k/uL Monocytes # 0.1 (0-1.0) k/uL Eosinophils # 0.1 (0-0.7) k/uL Basophils # 0.0 (0-0.2) k/uL PT 10.8 (10.0-12.5) sec INR 1.0 (<1.2) APTT 21.2 L (22.0-30.0) sec Sodium (137-145) mmol/L Potassium (3.5-5.1) mmol/L Chloride (98-107) mmol/L Carbon Dioxide (22-30) mmol/L Anion Gap mmol/L BUN (7-17) mg/dL Creatinine (0.52-1.04) mg/dL Est GFR (CKD-EPI)AfAm (>60 ml/min/1.73 sqM) Est GFR (CKD-EPI)NonAf (>60 ml/min/1.73 sqM) Glucose (74-99) mg/dL Lactic Ac Sepsis Rflx Plasma Lactic Acid Erasto 3.1 H* (0.7-2.0) mmol/L Calcium (8.4-10.2) mg/dL Phosphorus (2.5-4.5) mg/dL Magnesium (1.6-2.3) mg/dL Total Bilirubin (0.2-1.3) mg/dL AST (14-36) U/L ALT (4-34) U/L Alkaline Phosphatase (38-126) U/L Total Protein (6.3-8.2) g/dL Albumin (3.5-5.0) g/dL Amylase (30-110) U/L Lipase (23-300) U/L Urine Color Urine Appearance (Clear) Urine pH (5.0-8.0) Ur Specific Mcgregor (1.001-1.035) Urine Protein (Negative) Urine Glucose (UA) (Negative) Urine Ketones (Negative) Urine Blood (Negative) Urine Nitrite (Negative) Urine Bilirubin (Negative) Urine Urobilinogen (<2.0) mg/dL Ur Leukocyte Esterase (Negative) Urine RBC (0-5) /hpf Urine WBC (0-5) /hpf Ur Squamous Epith Cells (0-4) /hpf Calcium Oxalate Crystal (None) /hpf Urine Bacteria (None) /hpf Urine Mucus (None) /hpf 01/25/24 01/25/24 01/25/24 Range/Units 11:30 12:31 14:20 WBC (3.8-10.6) k/uL RBC (3.80-5.40) m/uL Hgb (11.4-16.0) gm/dL Hct (34.0-46.0) % MCV (80.0-100.0) fL MCH (25.0-35.0) pg MCHC (31.0-37.0) g/dL RDW (11.5-15.5) % Plt Count (150-450) k/uL MPV Neutrophils % % Lymphocytes % % Monocytes % % Eosinophils % % Basophils % % Neutrophils # (1.3-7.7) k/uL Lymphocytes # (1.0-4.8) k/uL Monocytes # (0-1.0) k/uL Eosinophils # (0-0.7) k/uL Basophils # (0-0.2) k/uL PT (10.0-12.5) sec INR (<1.2) APTT (22.0-30.0) sec Sodium 143 (137-145) mmol/L Potassium 3.6 (3.5-5.1) mmol/L Chloride 109 H (98-107) mmol/L Carbon Dioxide 25 (22-30) mmol/L Anion Gap 9 mmol/L BUN 9 (7-17) mg/dL Creatinine 0.60 (0.52-1.04) mg/dL Est GFR (CKD-EPI)AfAm >90 (>60 ml/min/1.73 sqM) Est GFR (CKD-EPI)NonAf >90 (>60 ml/min/1.73 sqM) Glucose 99 (74-99) mg/dL Lactic Ac Sepsis Rflx Y Plasma Lactic Acid Erasto (0.7-2.0) mmol/L Calcium 9.4 (8.4-10.2) mg/dL Phosphorus 2.9 (2.5-4.5) mg/dL Magnesium 1.8 (1.6-2.3) mg/dL Total Bilirubin 0.8 (0.2-1.3) mg/dL AST 156 H (14-36) U/L ALT 72 H (4-34) U/L Alkaline Phosphatase 141 H (38-126) U/L Total Protein 7.0 (6.3-8.2) g/dL Albumin 4.3 (3.5-5.0) g/dL Amylase 68 (30-110) U/L Lipase 427 H (23-300) U/L Urine Color Yellow Urine Appearance Cloudy H (Clear) Urine pH 6.5 (5.0-8.0) Ur Specific Mcgregor 1.022 (1.001-1.035) Urine Protein Trace H (Negative) Urine Glucose (UA) Negative (Negative) Urine Ketones 2+ H (Negative) Urine Blood Large H (Negative) Urine Nitrite Negative (Negative) Urine Bilirubin Negative (Negative) Urine Urobilinogen 4.0 (<2.0) mg/dL Ur Leukocyte Esterase Negative (Negative) Urine RBC >182 H (0-5) /hpf Urine WBC 1 (0-5) /hpf Ur Squamous Epith Cells 16 H (0-4) /hpf Calcium Oxalate Crystal Occasional H (None) /hpf Urine Bacteria Rare H (None) /hpf Urine Mucus Many H (None) /hpf 01/25/24 Range/Units 15:26 WBC (3.8-10.6) k/uL RBC (3.80-5.40) m/uL Hgb (11.4-16.0) gm/dL Hct (34.0-46.0) % MCV (80.0-100.0) fL MCH (25.0-35.0) pg MCHC (31.0-37.0) g/dL RDW (11.5-15.5) % Plt Count (150-450) k/uL MPV Neutrophils % % Lymphocytes % % Monocytes % % Eosinophils % % Basophils % % Neutrophils # (1.3-7.7) k/uL Lymphocytes # (1.0-4.8) k/uL Monocytes # (0-1.0) k/uL Eosinophils # (0-0.7) k/uL Basophils # (0-0.2) k/uL PT (10.0-12.5) sec INR (<1.2) APTT (22.0-30.0) sec Sodium (137-145) mmol/L Potassium (3.5-5.1) mmol/L Chloride (98-107) mmol/L Carbon Dioxide (22-30) mmol/L Anion Gap mmol/L BUN (7-17) mg/dL Creatinine (0.52-1.04) mg/dL Est GFR (CKD-EPI)AfAm (>60 ml/min/1.73 sqM) Est GFR (CKD-EPI)NonAf (>60 ml/min/1.73 sqM) Glucose (74-99) mg/dL Lactic Ac Sepsis Rflx Plasma Lactic Acid Erasto 0.9 (0.7-2.0) mmol/L Calcium (8.4-10.2) mg/dL Phosphorus (2.5-4.5) mg/dL Magnesium (1.6-2.3) mg/dL Total Bilirubin (0.2-1.3) mg/dL AST (14-36) U/L ALT (4-34) U/L Alkaline Phosphatase (38-126) U/L Total Protein (6.3-8.2) g/dL Albumin (3.5-5.0) g/dL Amylase (30-110) U/L Lipase (23-300) U/L Urine Color Urine Appearance (Clear) Urine pH (5.0-8.0) Ur Specific Mcgregor (1.001-1.035) Urine Protein (Negative) Urine Glucose (UA) (Negative) Urine Ketones (Negative) Urine Blood (Negative) Urine Nitrite (Negative) Urine Bilirubin (Negative) Urine Urobilinogen (<2.0) mg/dL Ur Leukocyte Esterase (Negative) Urine RBC (0-5) /hpf Urine WBC (0-5) /hpf Ur Squamous Epith Cells (0-4) /hpf Calcium Oxalate Crystal (None) /hpf Urine Bacteria (None) /hpf Urine Mucus (None) /hpf Disposition Clinical Impression: Right flank pain, Nephrolithiasis Narrative: Return to the emergency department symptoms worsen or do not improve. Disposition: HOME SELF-CARE Condition: Good Prescriptions: Tamsulosin [Flomax] 0.4 mg PO DAILY #7 cap HYDROcodone/APAP 10-325MG [Anthony 10-325] 1 tab PO Q6HR PRN 3 Days #12 tab PRN Reason: Pain Is patient prescribed a controlled substance at d/c from ED?: Yes When asked, does pt state using other controlled substances?: No If prescribed controlled substance>3 days was MAPS reviewed?: Prescribed <3 Days Referrals: Philip Jenkins MD [Primary Care Provider] - 1-2 days Time of Disposition: 16:08
[2024-01-25] MEDS: HYDROmorphone 1 MG/ML 1 ML SYRINGE IVP STA ×3 (11:32→16:40)
[2024-01-25] MEDS: PANTOPRAZOLE 40 MG/10 ML VIAL IVP STA (11:33)
[2024-01-25] MEDS: ONDANSETRON 4 MG/2 ML VIAL IVP STA (11:33)
[2024-01-25 11:38] LABS: Basophils % (A) 1 %; Eosinophils # (A) 0.1 k/uL (0-0.7); Eosinophils % (A) 1 %; HCT 44.9 % (34.0-46.0); HGB 14.7 gm/dL (11.4-16.0); Lymphocytes # (A) 1.3 k/uL (1.0-4.8); Lymphocytes % (A) 19 %; MCH 30.7 pg (25.0-35.0); MCHC 32.7 g/dL (31.0-37.0); MCV 93.7 fL (80.0-100.0); Mean Platelet Volume 8.4; Monocytes # (A) 0.1 k/uL (0-1.0); Monocytes % (A) 2 %; Neutrophils % (A) 76 %; Platelet Count 252 k/uL (150-450); RDW 13.7 % (11.5-15.5); WBC 6.6 k/uL (3.8-10.6)
[2024-01-25 12:03] LABS: Appearance,Urine Cloudy (Clear); Bacteria,Urine Rare /hpf; Bilirubin,Urine Negative (Negative); Blood,Urine Large (Negative); Calcium Oxalate Crystals,Urine Occasional /hpf; Color,Urine Yellow; Glucose,Urine (UA) Negative (Negative); Ketones,Urine 2+ (Negative); Leukocyte Esterase,Urine Negative (Negative); Mucus,Urine Many /hpf; Nitrite,Urine Negative (Negative); PH, Urine 6.5 (5.0-8.0); Protein,Urine Trace (Negative); RBC,Urine >182 /hpf (0-5); Specific Gravity,Urine 1.022 (1.001-1.035); Squamous Epithelial Cell,Urine 16 /hpf (0-4); WBC,Urine 1 /hpf (0-5)
[2024-01-25 12:06] LABS: Prothrombin Time 10.8 sec (10.0-12.5)
[2024-01-25 12:21] LABS: Partial Thromboplastin Time 21.2 sec (22.0-30.0)
[2024-01-25] MEDS: SODIUM CHLORIDE 0.9% 1,000 ML IV STA (13:46)
[2024-01-25 14:52] LABS: ALT 72 U/L (4-34); AST 156 U/L (14-36); African American GFR (CKD) >90 (>60 ml/min/1.73 sqM); Albumin 4.3 g/dL (3.5-5.0); Alkaline Phosphatase 141 U/L (38-126); Amylase 68 U/L (30-110); Anion Gap 9 mmol/L; Blood Urea Nitrogen 9 mg/dL (7-17); Calcium 9.4 mg/dL (8.4-10.2); Carbon Dioxide 25 mmol/L (22-30); Chloride 109 mmol/L (98-107); Glucose 99 mg/dL (74-99); Lipase 427 U/L (23-300); Magnesium 1.8 mg/dL (1.6-2.3); Non-African American GFR(CKD) >90 (>60 ml/min/1.73 sqM); Phosphorus 2.9 mg/dL (2.5-4.5); Potassium 3.6 mmol/L (3.5-5.1); Sodium 143 mmol/L (137-145); Total Bilirubin 0.8 mg/dL (0.2-1.3)
--- NOTE | 2024-01-25 15:33 | CT ---
EXAMINATION TYPE: CT abdomen pelvis w con CT DLP: 646.7 mGycm, Automated exposure control for dose reduction was used. DATE OF EXAM: 01/25/2024 3:23 PM COMPARISON: CT abdomen pelvis most recent from 01/21/2024. CLINICAL INDICATION:Female, 48 years old with history of RLQ and right back pain, hx gastric bypass; RLQ pain and RT back pain, hx gastric bypass for gastroparesis TECHNIQUE: Axial CT abdomen pelvis w con;Sagittal and coronal reformats were created on a separate w orkstation. Contrast used:100 mL of Isovue 300 with IV Contrast, (none if empty) Oral contrast used: without Oral Contrast (none if empty) FINDINGS: LOWER CHEST: Unremarkable ABDOMEN LIVER: Unremarkable GALLBLADDER AND BILE DUCTS: Gallbladder is surgically absent with mild intrahepatic and extra hepatic biliary dilatation likely physiologic and a postcholecystectomy change. No evidence of choledocholit hiasis. PANCREAS: Unremarkable. SPLEEN: Scattered probable simple cyst and/or hemangiomas. ADRENAL GLANDS: Unremarkable. KIDNEYS AND URETERS: Small calculus near the right ureteral orifice measuring 3 mm with upstream mild hydroureteronephrosis. PELVIS BLADDER: Unremarkable REPRODUCTIVE: Unremarkable. ABDOMEN & PELVIS STOMACH AND BOWEL: No evidence of bowel obstruction. Post surgical changes of gastric lumen. The appe ndix is normal. PERITONEUM/RETROPERITONEUM: No evidence of pneumoperitoneum or free fluid. VASCULATURE: No evidence of aortic aneurysm. MUSCULOSKELETAL: No acute osseous abnormalities LYMPH NODES: No gross evidence for lymphadenopathy. SOFT TISSUE/ABDOMINAL WALL: Unremarkable IMPRESSION: 1. Mild right hydronephrosis secondary to tiny calculus at the ureterovesicular junction. No evidenc e for left renal calculus or hydronephrosis. Finding new from 01/21/2024. 2. Post surgical changes to the gastric lumen. 3. Post cholecystectomy changes with physiologic dilation of the biliary system. 4. Scattered splenic lesions which are statistically likely be benign. Consider multiphase MRI for f urther characterization if clinically warranted.
[2024-01-25 17:14] VITALS: BP 140/76; PULSE 78
== END 2024-01-25 16:42 | disposition home or self-care (01) ==
LOC: EC 10:08
DX: N13.2 Hydronephrosis with renal and ureteral calculous obstruction (principal); R74.02 Elevation of levels of lactic acid dehydrogenase [LDH]; R74.01 Elevation of levels of liver transaminase levels; Z88.1 Allergy status to other antibiotic agents; Z86.16 Personal history of COVID-19
CPT/HCPCS: 99284; 96374; 96375 ×2; 96376 ×2; 96361; 36415; 80053; 82150; 83605; 83690; 83735; 84100; 85025; 85610; 85730; 81001; 74177; J2405; J1170; C9113; Q9967

== ENCOUNTER → 2024-06-13 | Outpatient (CLI) | payer OTHER ==
--- NOTE | 2024-06-14 08:55 | CT ---
EXAMINATION TYPE: CT abdomen pelvis wo con DATE OF EXAM: 06/13/2024 COMPARISON: 01/25/2024 HISTORY: Right flank pain x [address] DLP: 262.4 mGycm Examination of the solid and hollow viscera is limited given the lack of contrast. FINDINGS: LUNG BASES: No evidence for nodule. No evidence for infiltrate. LIVER/GB: The gallbladder is surgically absent. No space-occupying hepatic lesion. PANCREAS: No pancreatic mass identified. No inflammatory process seen. SPLEEN: No evidence for splenomegaly. No intrasplenic lesions seen. ADRENALS: No adrenal nodules identified. No evidence for thickening. KIDNEYS: No evidence for renal mass. No nephrolithiasis. No hydronephrosis. BOWEL: Appendix has a normal appearance. Postsurgical changes about the upper gastrointestinal tract. No evidence of bowel obstruction. No inflammatory process. Lymph nodes: No evidence for adenopathy greater than 1 cm. Abdominal aorta: Atheromatous changes seen. No evidence for aneurysm. Genital organs: No significant abnormality. Other: No significant abnormality. IMPRESSION: NO EVIDENCE FOR NEPHROLITHIASIS OR HYDRONEPHROSIS. [facility], , 06/14/2024 8:53 AM
== END | disposition home or self-care (01) ==
LOC: RADCTMAIN 16:24
PROVIDERS: ATTEND Family Medicine
DX: N20.0 Calculus of kidney (principal)
CPT/HCPCS: 74176

== ENCOUNTER → 2024-11-02 | Outpatient (CLI) | payer OTHER ==
--- NOTE | 2024-11-02 07:47 | MM ---
Reason for Exam: Screening (asymptomatic). Last mammogram was performed 1 year(s) and 1 month(s) ago. Patient History: Menarche at age 8. First Full-Term at age 15. Left ovary removed at age 44. Hysterectomy at age 44. Postmenopausal. Risk Values: Carey 5 year model risk: 0.8%. NCI Lifetime model risk: 7.1%. Prior Study Comparison: 02/16/2018 Bilateral Screening Mammogram, [facility]. 07/07/2022 Bilateral MG screening mammo w CAD, [facility]. 09/07/2023 Bilateral MG 3D diag mammo w/cad [facility], [facility]. Tissue Density: The breasts are heterogeneously dense, which may obscure small masses. Findings: Analyzed By CAD. Right breast: Asymmetry superior aspect MLO view 6.0 cm from the nipple measuring 5 mm. Left breast: Asymmetry MLO view 4.4 cm from the nipple slightly inferior middle depth possibly either medial or lateral compressive areas on imaging marked. Overall Assessment: Incomplete: need additional imaging evaluation, BI-RAD 0 Management: Diagnostic Mammogram of both breasts. [facility] will attempt to contact patient to return for supplemental views and ultrasound if indicated. Patient should continue monthly self-breast exams. A clinical breast exam by your physician is recommended on an annual basis. This exam should not preclude additional follow-up of suspicious palpable abnormalities. Note on Carey scores and lifetime risk: 1. A Carey score greater than 3% is considered moderate risk. If this is the case, consider specialist referral to assess eligibility for a risk reducing agent. 2. If overall lifetime risk for the development of breast cancer is 20% or higher, the patient may qualify for future screening with alternating mammogram and breast MRI. [facility], , 11/02/2024 7:44 AM. Electronically signed and approved by: Jorge A De Los Santos DO
== END | disposition home or self-care (01) ==
LOC: RADMAMWWP 06:46
PROVIDERS: ATTEND Family Medicine
DX: Z12.31 Encounter for screening mammogram for malignant neoplasm of breast (principal); R92.333 Mammographic heterogeneous density, bilateral breasts; Z78.0 Asymptomatic menopausal state
CPT/HCPCS: 77063; 77067

== ENCOUNTER → 2024-11-16 | Outpatient (CLI) | payer OTHER ==
--- NOTE | 2024-11-16 10:09 | MM ---
Reason for Exam: Additional evaluation requested from abnormal screening. Last screening mammogram was performed less than 1 month ago. Patient History: Menarche at age 8. First Full-Term at age 15. Left ovary removed at age 44. Hysterectomy at age 44. Postmenopausal. Risk Values: Carey 5 year model risk: 0.8%. NCI Lifetime model risk: 7.0%. Prior Study Comparison: 09/07/2023 Bilateral MG 3D diag mammo w/cad [facility], [facility]. 11/02/2024 Bilateral MG 3D screening mammo w/cad, [facility]. Tissue Density: The breasts are heterogeneously dense, which may obscure small masses. Findings: Analyzed By CAD. No evidence for persistent asymmetry or mass within either breast. Overall Assessment: Negative, BI-RAD 1 Management: Screening Mammogram of both breasts in 1 year. . Results were given to the patient verbally at the time of exam. Patient should continue monthly self-breast exams. A clinical breast exam by your physician is recommended on an annual basis. This exam should not preclude additional follow-up of suspicious palpable abnormalities. Note on Carey scores and lifetime risk: 1. A Carey score greater than 3% is considered moderate risk. If this is the case, consider specialist referral to assess eligibility for a risk reducing agent. 2. If overall lifetime risk for the development of breast cancer is 20% or higher, the patient may qualify for future screening with alternating mammogram and breast MRI. [facility], , 11/16/2024 10:03 AM. Electronically signed and approved by: Manuel Sol M.D. Radiologis
[2024-11-16 11:21] LABS: Partial Thromboplastin Time 23.8 sec (22.0-30.0)
[2024-11-16 14:51] LABS: Basophils # (A) 0.02 X 10*3/uL (0.00-0.10); Basophils % (A) 0.4 %; Eosinophils % (A) 2.1 %; HCT 40.6 % (37.2-46.3); Lymphocytes # (A) 1.54 X 10*3/uL (0.90-5.00); Lymphocytes % (A) 32.8 %; MCH 30.2 pg (27.0-32.0); MCV 94.4 FL (80.0-97.0); Mean Platelet Volume 10.6 FL (9.5-12.2); Monocytes % (A) 6.4 %; NRBC Per 100 WBC 0 X 10*3/uL (0.00-0.01); Neutrophils # (A) 2.72 X 10*3/uL (1.80-7.70); Neutrophils % (A) 58.1 %; Platelet Count 298 X 10*3/uL (140-440); RDW 12.6 % (11.5-14.5); WBC 4.69 X 10*3/uL (4.50-10.00)
[2024-11-16 15:26] LABS: ALT 25 U/L (8-44); AST 25 U/L (13-35); Albumin 3.8 g/dL (3.8-4.9); Albumin/Globulin Ratio 1.81 Ratio (1.60-3.17); Alkaline Phosphatase 119 U/L (41-126); BUN/Creat Ratio 14.86 Ratio (12.00-20.00); Blood Urea Nitrogen 10.4 mg/dL (9.0-27.0); Calcium 9.2 mg/dL (8.7-10.3); Carbon Dioxide 30.5 mmol/L (21.6-31.8); Chloride 104 mmol/L (96-109); Globulin 2.1 g/dL (1.6-3.3); Glucose 94 mg/dL (70-110); Potassium 4.5 mmol/L (3.5-5.5); Sodium 143 mmol/L (135-145); Total Bilirubin 0.4 mg/dL (0.3-1.2); Total Protein 5.9 g/dL (6.2-8.2)
== END | disposition home or self-care (01) ==
LOC: RADMAMWWP 09:39
PROVIDERS: ATTEND Family Medicine
DX: R92.8 Other abnormal and inconclusive findings on diagnostic imaging of breast (principal); E03.9 Hypothyroidism, unspecified; R92.333 Mammographic heterogeneous density, bilateral breasts; R23.3 Spontaneous ecchymoses; F41.9 Anxiety disorder, unspecified; Z78.0 Asymptomatic menopausal state; Z79.899 Other long term (current) drug therapy
CPT/HCPCS: 77062; 77066; 80053; 84443; 85025; 85610; 85730

== ENCOUNTER → 2024-12-07 | Outpatient (CLI) | payer OTHER ==
--- NOTE | 2024-12-07 15:03 | US ---
EXAMINATION TYPE: US thyroid st tissue head/neck DATE OF EXAM: 12/07/2024 COMPARISON: NONE CLINICAL INDICATION: Female, 49 years old with history of E03.9 HYPOTHYROIDISM; hypothyroidism. Pt landis s been taking thyroid medication for 10-12 years TECHNIQUE: Grayscale and color Doppler imaging of the thyroid gland. FINDINGS: GLAND SIZE: Right Lobe: 3.2 x 1.0 x 0.7 cm Overall Parenchyma: homogeneous Left Lobe: 2.8 x 0.8 x 0.6 cm Overall Parenchyma: homogeneous Isthmus Thickness: 0.06 cm NODULES RIGHT: # of nodules measured on right: 0 LEFT: # of nodules measured on left: 0 ISTHMUS: # of nodules measured in the isthmus: 0 Bilateral neck scanned, no evidence of lymphadenopathy. Homogeneous small sized thyroid without suspicious nodules. IMPRESSION: As above. Highest TI-RADS level nodule reported: 2017 ACR TI-RADS LEVEL: TI-RADS 1 - BENIGN: No FNA TI-RADS assessment score and recommendation for follow-up based on appropriate scoring and treatment protocols. TR3: If nodule size is ? 2.5 cm, FNA is recommended. If nodule size is ? 1.5 cm, follow-up imaging at 1, 3, and 5 years is recommended. TR4: If nodule size is ? 1.5 cm, FNA is recommended. If nodule size is ? 1.0 cm, follow-up imaging at 1, 2, 3, and 5 years is recommended. TR5: If nodule size is ? 1.0 cm, FNA is recommended. If nodule size is ? 0.5 cm, annual follow-up for up to 5 years is recommended. [email or web address] [facility], , 12/07/2024 3:00 PM
== END | disposition home or self-care (01) ==
LOC: RADUSWWP 14:34
PROVIDERS: ATTEND Family Medicine
DX: E03.9 Hypothyroidism, unspecified (principal)
CPT/HCPCS: 76536